=== PATIENT | male | born 1935 | race Caucasian/White ===

== ENCOUNTER 2016-12-28 07:47 | Emergency (ER) | payer MEDICARE, BC ==
[2016-12-28] MEDS ORDERED: Albuterol/Ipratropium 3.0-0.5 MG/3 ML Neb Soln NEB ONE (07:54)
--- NOTE | 2016-12-28 08:36 | EDM.PDOC ---
ED HPI ENT - General Chief Complaint: Fever Stated Complaint: IN BY AMBULANCE Time Seen by Provider: 12/28/16 08:09 Source of Information: Reports: Patient, EMS, EMS notes reviewed, Family (son), Old records, RN notes reviewed History Limitations: Reports: No limitations (arrived by ambulance which the family called) - History of Present Illness INITIAL COMMENTS - FREE TEXT/NARRATIVE: His son and helped him up this morning to urinate at the bed side. A couple hours before he got up to urinate and his son says that his mother told him that he was shaky. 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 He and his were staying at the motel next to [facility] and he had a post-op hemorrhage which stopped and did not need a transfusion. He has done well. New symptoms started during the night . Timing/Duration: Reports: Day(s): (last night), Gradual onset Severity: severe Improves with: Reports: None Worsens with: Reports: None Associated Symptoms: Reports: other (fever started during the night and his says he was fine yesterday. No treatment at home prior to arrival.) - Related Data Allergies/ADRs: Allergies Allergy/AdvReac Type Severity Reaction Status Date / Time No Known Allergies Allergy Verified 06/27/16 21:00 Home Meds: Home Meds Albuterol [Proventil Neb Soln] 2.5 mg NEB QID PRN 10/17/14 [History] Omeprazole 40 mg PO DAILY 10/17/14 [History] Pregabalin [Lyrica] 300 mg PO BID 10/17/14 [History] QuiNINE [Qualaquin] 324 mg PO BID 10/26/14 [History] glipiZIDE [Glucotrol XL] 2.5 mg PO DAILY 10/26/14 [History] Lisinopril 2.5 mg PO DAILY 03/10/15 [History] atorvaSTATin [Lipitor] 10 mg PO BEDTIME MDD Dyslipidemia 03/10/15 [History] Albuterol Sulfate [Proair Hfa] 2 puff INH Q6HR PRN 12/11/15 [History] Ascorbate Calcium [Vitamin C] 500 mg PO DAILY 12/11/15 [History] Levothyroxine 25 mg PO ACBREAKFAST 12/11/15 [History] Lutein/Minerals/Vit A,C & E [Ocuvite] 1 each PO DAILY 12/11/15 [History] Budesonide/Formoterol [Symbicort 160-4.5 MCG] 1 inh IH BID 06/27/16 [History] Ferrous Sulfate [Iron] 325 mg PO DAILY #14 capsule.er 07/02/16 [Rx] Cetirizine [ZyrTEC] 10 mg PO DAILY 12/28/16 [History] traMADol [Ultram] 50 mg PO Q6H PRN 12/28/16 [History] Past Medical History HEENT History: Reports: Cataract, Epistaxis, Other (see below) Other HEENT History: throat tickle that moves up to eye, nose bleeds years ago, not in awhile Cardiovascular History: Reports: Other (see below) Other Cardiovascular History: AAA Respiratory History: Reports: Bronchitis, recurrent, COPD Gastrointestinal History: Reports: GERD, Hemorrhoids Other Gastrointestinal History: got hemorrhoids fixed per pt Musculoskeletal History: Reports: Arthritis, Back pain, chronic Other Musculoskeletal History: arms Neurological History: Reports: None Psychiatric History: Reports: Anxiety Other Psychiatric History: per reports, since Endocrine/Metabolic History: Reports: Diabetes, type II Hematologic History: Reports: None Dermatologic History: Reports: Other (see below) Other Dermatologic History: skin tags - Infectious Disease History Infectious Disease History: Reports: Chicken pox, Measles, Mumps - Past Surgical History HEENT Surgical History: Reports: Cataract surgery Other HEENT Surgeries/Procedures: bilat cataract removal 2006 Cardiovascular Surgical History: Reports: AAA repair Other Cardiovascular Surgeries/Procedures: 01/25/15 Respiratory Surgical History: Reports: None GI Surgical History: Reports: Colonoscopy, EGD Other GI Surgeries/Procedures: both in 2014 Endocrine Surgical History: Reports: None Neurological Surgical History: Reports: Other (see below) Other Neurological Surgeries/Procedures: spine surgery 2003, 2004 Musculoskeletal Surgical History: Reports: Other (see below) Other Musculoskeletal Surgeries/Procedures:: spinal surgery x2 (2003, 2004) Social & Family History - Family History Cardiac: Reports: CAD, Other (see below) Other Cardiac Family History: mother of [place] Other Oncologic Family History: sister? - Tobacco Use Smoking Status *Q: Former Smoker Years of Tobacco use: 50 Packs/Tins Daily: 1 Used Tobacco, but Quit: Yes Month Tobacco Last Used: 1999 Second Hand Smoke Exposure: No - Caffeine Use Caffeine Use: Reports: Coffee, Tea Other Caffeine Use: 3/day - Alcohol Use Days Per Week of Alcohol Use: 7 Number of Drinks Per Day: 2 Total Drinks Per Week: 14 - Recreational Drug Use Recreational Drug Use: No Drug Use in Last 12 Months: No - Living Situation & Occupation Living situation: Reports: , with spouse Occupation: retired ED ROS ENT - Review of Systems Review Of Systems: See Below Constitutional: Reports: fever, fatigue HEENT: Reports: No symptoms Respiratory: Reports: No Symptoms Cardiovascular: Reports: No symptoms Endocrine: Reports: no symptoms GI/Abdominal: Reports: No symptoms : Reports: no symptoms Musculoskeletal: Reports: no symptoms Skin: Reports: no symptoms Neurological: Reports: Difficulty Walking ( says he was fine yesterday and during the night seemed shaky when he was up to urinate) Psychiatric: Reports: No symptoms Hematologic/Lymphatic: Reports: no symptoms Immunologic: Reports: no symptoms ED EXAM, ENT - Physical Exam Exam: See Below Exam Limited By: No limitations General Appearance: alert Eye Exam: right eye: nystagmus Course - Vital Signs Last Recorded V/S: Last Vital Signs Temp 98.2 F 12/28/16 12:44 Pulse 84 12/28/16 12:44 Resp 24 H 12/28/16 12:44 BP 105/58 L 12/28/16 12:44 Pulse Ox 89 L 12/28/16 12:44 - Orders/Labs/Meds Orders: Active Orders 24 hr Category Date Time Status RT Aerosol Therapy [RC] ASDIRECTED Care 12/28/16 07:54 Active Chest 1V Frontal [CR] Urgent Exams 12/28/16 12:05 Taken CULTURE BLOOD [BC] Stat Lab 12/28/16 08:28 Received CULTURE BLOOD [BC] Stat Lab 12/28/16 08:35 Received Azithromycin [Zithromax] 500 mg Med 12/28/16 12:35 Active Sodium Chloride 0.9% [Normal Saline] 250 ml IV ONETIME Sodium Chloride 0.9% [Normal Saline] 1,000 ml Med 12/28/16 08:45 Active IV ASDIRECTED Sodium Chloride 0.9% [Normal Saline] 1,000 ml Med 12/28/16 12:15 Active IV ASDIRECTED Sodium Chloride 0.9% [Normal Saline] 250 ml Med 12/28/16 12:15 Active IV ASDIRECTED Sodium Chloride 0.9% [Saline Flush] Med 12/28/16 08:45 Active 10 ml FLUSH ASDIRECTED PRN Blood Culture x2 Reflex Set [OM.PC] Stat Oth 12/28/16 08:43 Ordered Saline Lock Insert [OM.PC] Routine Oth 12/28/16 08:45 Ordered Medication Orders Sodium Chloride (Normal Saline) 1,000 mls @ 500 mls/hr IV ASDIRECTED MIRANDA Last Admin: 12/28/16 08:59 Dose: 500 mls/hr Sodium Chloride (Normal Saline) 250 mls @ 500 mls/hr IV ASDIRECTED MIRANDA Sodium Chloride (Normal Saline) 1,000 mls @ 500 mls/hr IV ASDIRECTED MIRANDA Last Admin: 12/28/16 12:16 Dose: 500 mls/hr Azithromycin 500 mg/ Sodium (Chloride) 250 mls @ 250 mls/hr IV ONETIME ONE Stop: 12/28/16 13:34 Sodium Chloride (Saline Flush) 10 ml FLUSH ASDIRECTED PRN PRN Reason: Keep Vein Open Last Admin: 12/28/16 09:00 Dose: 10 ml Labs: Laboratory Tests 12/28/16 12/28/16 12/28/16 Range/Units 08:28 08:35 08:35 WBC 16.5 H (5.0-10.0) 10^3/uL RBC 4.16 L (4.6-6.2) 10^6/uL Hgb 13.1 L (14.0-18.0) g/dL Hct 40.8 (40.0-54.0) % MCV 98.1 (80-100) fL MCH 31.5 (27.0-34.0) pg MCHC 32.1 L (33.0-35.0) g/dL Plt Count 190 (150-450) 10^3/uL Neut % (Auto) 85.3 H (42.2-75.2) % Lymph % (Auto) 4.8 L (20.5-50.1) % [place] % (Auto) 8.2 H (2-8) % Eos % (Auto) 0.2 L (1.0-3.0) % Baso % (Auto) 1.5 H (0.0-1.0) % Sodium 142 (135-145) mmol/L Potassium 3.3 L (3.6-5.0) mmol/L Chloride 105 (101-111) mmol/L Carbon Dioxide 29.0 (21.0-31.0) mmol/L Anion Gap 11.3 BUN 11 (7-18) mg/dL Creatinine 1.0 (0.6-1.3) mg/dL Est Cr Clr Drug Dosing 53.25 mL/min Estimated GFR (MDRD) > 60 BUN/Creatinine Ratio 11.00 Glucose 172 H (74-105) mg/dL Lactic Acid 2.1 (0.5-2.2) mmol/L Calcium 8.5 (8.4-10.2) mg/dl Total Bilirubin 1.1 H (0.2-1.0) mg/dL AST 49 H (10-42) IU/L ALT 35 (10-60) IU/L Alkaline Phosphatase 95 (42-121) IU/L Total Protein 6.4 L (6.7-8.2) g/dl Albumin 4.0 (3.2-5.5) g/dl Globulin 2.4 Albumin/Globulin Ratio 1.67 Lipase 33 (22-51) U/L Meds: Medications Generic Name Dose Route Start Last Admin Trade Name Freq PRN Reason Stop Dose Admin Sodium Chloride 1,000 mls @ 500 mls/hr 12/28/16 08:45 12/28/16 08:59 Normal Saline IV 500 mls/hr ASDIRECTED MIRANDA Administration Sodium Chloride 250 mls @ 500 mls/hr 12/28/16 12:15 Normal Saline IV ASDIRECTED MIRANDA Sodium Chloride 1,000 mls @ 500 mls/hr 12/28/16 12:15 12/28/16 12:16 Normal Saline IV 500 mls/hr ASDIRECTED MIRANDA Administration Azithromycin 500 mg/ Sodium 250 mls @ 250 mls/hr 12/28/16 12:35 Chloride IV 12/28/16 13:34 ONETIME ONE Sodium Chloride 10 ml 12/28/16 08:45 12/28/16 09:00 Saline Flush FLUSH 10 ml ASDIRECTED PRN Administration Keep Vein Open Discontinued Medications Generic Name Dose Route Start Last Admin Trade Name Freq PRN Reason Stop Dose Admin Albuterol/Ipratropium 3 ml 12/28/16 07:54 12/28/16 08:00 Duoneb 3.0-0.5 Mg/3 Ml NEB 12/28/16 07:55 3 ml ONETIME ONE Administration Ceftriaxone Sodium 1 gm/ 50 mls @ 100 mls/hr 12/28/16 12:02 12/28/16 12:22 Sodium Chloride IV 12/28/16 12:31 100 mls/hr ONETIME ONE Administration Iopamidol 75 ml 12/28/16 10:20 12/28/16 11:07 Isovue-300 (61%) IVPUSH 12/28/16 10:21 75 ml ONETIME ONE Administration - Re-Assessments/Exams Free Text/Narrative Re-Assessment/Exam: 12/28/16 12:49 Receiving one gram of IV ceftriaxone. Discussed with hospitalist here and transfer was suggested. I call [facility] and spoke with Dr Cordero who agreed to take the patient in transfer. [facility] called. Plan transfer to ICU. Pulse has decreased after one liter of saline and another is running. When ceftriaxone is completed then would add azithromycin 500 mg . Departure - Departure Time of Disposition: 12:53 Disposition: DC/Tfer to [facility] 02 Clinical Impression: Sepsis Pneumonia Qualifiers: Laterality: left Lung location: lower lobe of lung Referrals: Antonieta Sevilla PA [Primary Care Provider] - Forms: ED Department Discharge, Interfacility Transfer EMTALA - My Orders Last 24 Hours: My Active Orders 12/28/16 07:54 RT Aerosol Therapy [RC] ASDIRECTED 12/28/16 08:28 CULTURE BLOOD [BC] Stat 12/28/16 08:35 CULTURE BLOOD [BC] Stat 12/28/16 08:43 Blood Culture x2 Reflex Set [OM.PC] Stat 12/28/16 08:45 Sodium Chloride 0.9% [Normal Saline] 1,000 ml IV ASDIRECTED Sodium Chloride 0.9% [Saline Flush] 10 ml FLUSH ASDIRECTED PRN Saline Lock Insert [OM.PC] Routine 12/28/16 12:05 Chest 1V Frontal [CR] Urgent 12/28/16 12:15 Sodium Chloride 0.9% [Normal Saline] 1,000 ml IV ASDIRECTED Sodium Chloride 0.9% [Normal Saline] 250 ml IV ASDIRECTED 12/28/16 12:35 Azithromycin [Zithromax] 500 mg Sodium Chloride 0.9% [Normal Saline] 250 ml IV ONETIME - Assessment/Plan Last 24 Hours: My Active Orders 12/28/16 07:54 RT Aerosol Therapy [RC] ASDIRECTED 12/28/16 08:28 CULTURE BLOOD [BC] Stat 12/28/16 08:35 CULTURE BLOOD [BC] Stat 12/28/16 08:43 Blood Culture x2 Reflex Set [OM.PC] Stat 12/28/16 08:45 Sodium Chloride 0.9% [Normal Saline] 1,000 ml IV ASDIRECTED Sodium Chloride 0.9% [Saline Flush] 10 ml FLUSH ASDIRECTED PRN Saline Lock Insert [OM.PC] Routine 12/28/16 12:05 Chest 1V Frontal [CR] Urgent 12/28/16 12:15 Sodium Chloride 0.9% [Normal Saline] 1,000 ml IV ASDIRECTED Sodium Chloride 0.9% [Normal Saline] 250 ml IV ASDIRECTED 12/28/16 12:35 Azithromycin [Zithromax] 500 mg Sodium Chloride 0.9% [Normal Saline] 250 ml IV ONETIME
[2016-12-28] MEDS ORDERED: Sodium Chloride 0.9% 10 ML Syringe FLUSH PRN (08:45)
[2016-12-28] MEDS ORDERED: Sodium Chloride 0.9% 1,000 ML IV SCH ×2 (08:45→12:15)
[2016-12-28 09:03] LABS: CHLORIDE,CL 105 mmol/L (101-111); SODIUM,NA 142 mmol/L (135-145)
[2016-12-28] MEDS ORDERED: Iopamidol 612 MG/ML 75 ML Bottle IVPUSH ONE (10:20)
--- NOTE | 2016-12-28 11:14 | CT ---
Clinical history: 81-year-old hypertensive 195 pound diabetic male who is clinically septic (wbc 16, 000 and had recent "polyp biopsied small intestine at [facility]"). Appendectomy. Scan technique: Volume acquisition of data from the abdomen and pelvis obtained without oral contras t but during intravenous infusion 75 cc nonionic Isovue contrast while patient was lying supine on t he Siemens multi slice CT scanner [place], [place]. All data archived in the PACS system for storage, reformatting and study. Interpretation: 1. Aortoiliac graft as noted (unchanged) exam 19 August 2016. 2. No pelvic or abdominal mass lesion, inflammatory "dirty" peritoneal fat, mesenteric/retroperitone al lymphadenopathy, signs of mechanical bowel obstruction, ascites or free intraperitoneal air (harmeet ral scattered diverticula sigmoid colon). 3. Gallbladder is normal but apparent stent in the extrahepatic biliary duct and pancreas new since August 2016. Large fatty liver. Spleen pancreas and adrenal glands unremarkable. 4. Huge hiatus hernia lower middle mediastinum. 5. Normal reniform size axis and configuration bilaterally. No sign of renal cortical mass, nephroli thiasis or obstructive uropathy. Midline urinary bladder and prostate land unremarkable. 6. Multilevel lower lumbar disc disease and hypertrophic arthritic changes of the spine. 7. Small dependent bibasilar pleural effusions and.... patchy posterior segment left lower lobe atel ectasis or pneumonia. Clinical? CONCLUSION: Abnormal consolidation left lower lobe (see above). Sigmoid diverticulosis. Hepatobiliar y and aorta iliac stents. No signs of mechanical bowel obstruction or acute peritonitis.
[2016-12-28] MEDS ORDERED: cefTRIAXone 1 GM in Sodium Chloride 0.9% 50 ML IV ONE (12:02)
[2016-12-28] MEDS ORDERED: Sodium Chloride 0.9% 250 ML IV SCH (12:15)
[2016-12-28] MEDS ORDERED: Azithromycin 500 MG in Sodium Chloride 0.9% 250 ML IV ONE (12:35)
[2016-12-28 12:45] VITALS: BP 105/58
== END 2016-12-28 13:30 ==
LOC: DL.ED 07:47
DX: R41.9 Unspecified symptoms and signs involving cognitive functions and awareness (principal); J18.9 Pneumonia, unspecified organism; I71.4 Abdominal aortic aneurysm, without rupture; J44.9 Chronic obstructive pulmonary disease, unspecified; K21.9 Gastro-esophageal reflux disease without esophagitis; M19.90 Unspecified osteoarthritis, unspecified site; F41.9 Anxiety disorder, unspecified; E11.9 Type 2 diabetes mellitus without complications; Z79.84 Long term (current) use of oral hypoglycemic drugs; Z79.899 Other long term (current) drug therapy; Z87.891 Personal history of nicotine dependence
CPT/HCPCS: 36415; 71010; 74177; 80053; 83605; 83690; 85025; 87040; 94640; 96361; 96365; 96375; 99285; J0456; J0696; J7030; J7050; Q9967; 99283

== ENCOUNTER 2017-03-15 00:08 | Emergency (ER) | payer MEDICARE, BC ==
--- NOTE | 2017-03-15 00:32 | EDM.PDOC ---
ED HPI GENERAL MEDICAL PROBLEM - General Chief Complaint: Abdominal Pain Stated Complaint: BY AMBULANCE Time Seen by Provider: 03/15/17 00:30 Source of Information: Reports: Patient History Limitations: Reports: No Limitations - History of Present Illness INITIAL COMMENTS - FREE TEXT/NARRATIVE: c/o abd pain and needs to have BM now. s/p BM states feels better. also been having fever. states pain onset afternoon after eating but unable to tell what he ate, not sure if pain was constant or not. denies V/D. Epigastric Pain Score (Numeric/FACES): 6 - Related Data Allergies Allergy/AdvReac Type Severity Reaction Status Date / Time No Known Allergies Allergy Verified 03/15/17 00:40 Home Meds: Home Meds Albuterol [Proventil Neb Soln] 2.5 mg NEB QID PRN 10/17/14 [History] Omeprazole 40 mg PO DAILY 10/17/14 [History] Pregabalin [Lyrica] 300 mg PO BID 10/17/14 [History] QuiNINE [Qualaquin] 324 mg PO BID 10/26/14 [History] glipiZIDE [Glucotrol XL] 2.5 mg PO DAILY 10/26/14 [History] Lisinopril 2.5 mg PO DAILY 03/10/15 [History] atorvaSTATin [Lipitor] 10 mg PO BEDTIME MDD Dyslipidemia 03/10/15 [History] Albuterol Sulfate [Proair Hfa] 2 puff INH Q6HR PRN 12/11/15 [History] Ascorbate Calcium [Vitamin C] 500 mg PO DAILY 12/11/15 [History] Levothyroxine 25 mg PO ACBREAKFAST 12/11/15 [History] Lutein/Minerals/Vit A,C & E [Ocuvite] 1 each PO DAILY 12/11/15 [History] Budesonide/Formoterol [Symbicort 160-4.5 MCG] 1 inh IH BID 06/27/16 [History] Ferrous Sulfate [Iron] 325 mg PO DAILY #14 capsule.er 07/02/16 [Rx] Cetirizine [ZyrTEC] 10 mg PO DAILY 12/28/16 [History] traMADol [Ultram] 50 mg PO Q6H PRN 12/28/16 [History] Past Medical History HEENT History: Reports: Cataract, Epistaxis, Other (See Below) Other HEENT History: throat tickle that moves up to eye, nose bleeds years ago, not in awhile Cardiovascular History: Reports: Other (See Below) Other Cardiovascular History: AAA Respiratory History: Reports: Bronchitis, Recurrent, COPD Gastrointestinal History: Reports: GERD, Hemorrhoids Other Gastrointestinal History: got hemorrhoids fixed per pt Musculoskeletal History: Reports: Arthritis, Back Pain, Chronic Other Musculoskeletal History: arms Neurological History: Reports: None Psychiatric History: Reports: Anxiety Other Psychiatric History: per reports, since Endocrine/Metabolic History: Reports: Diabetes, Type II Hematologic History: Reports: None Dermatologic History: Reports: Other (See Below) Other Dermatologic History: skin tags - Infectious Disease History Infectious Disease History: Reports: Chicken Pox, Measles, Mumps - Past Surgical History HEENT Surgical History: Reports: Cataract Surgery Neurological Surgical History: Reports: Other (See Below) Musculoskeletal Surgical History: Reports: Other (See Below) Social & Family History - Family History Cardiac: Reports: CAD, Other (See Below) Other Cardiac Family History: mother of [place] Other Oncologic Family History: sister? - Tobacco Use Smoking Status *Q: Former Smoker Years of Tobacco use: 50 Packs/Tins Daily: 1 Used Tobacco, but Quit: Yes Month Tobacco Last Used: 1999 Second Hand Smoke Exposure: No - Caffeine Use Caffeine Use: Reports: Coffee, Tea Other Caffeine Use: 3/day - Alcohol Use Days Per Week of Alcohol Use: 7 Number of Drinks Per Day: 2 Total Drinks Per Week: 14 - Recreational Drug Use Recreational Drug Use: No Drug Use in Last 12 Months: No - Living Situation & Occupation Living situation: Reports: , with Spouse Occupation: Retired ED ROS GENERAL - Review of Systems Review Of Systems: ROS reveals no pertinent complaints other than HPI. ED EXAM, GI/ABD - Physical Exam Exam: See Below Exam Limited By: No Limitations General Appearance: Alert, WD/WN, Mild Distress, Other (general discomfort) Ears: Hearing Grossly Normal Throat/Mouth: Normal Voice, No Airway Compromise Head: Atraumatic Neck: Non-Tender, Full Range of Motion Respiratory/Chest: No Respiratory Distress, Rhonchi, Other (basilar) Cardiovascular: Regular Rate, Rhythm GI/Abdominal: Hyperactive Bowel Sounds, Tenderness, Guarding, Other (generalized ). No: Rebound, Rigidity Neurological: Alert, Oriented, Normal Cognition, Normal Gait, No Motor/Sensory Deficits Psychiatric: Flat Affect Skin Exam: Warm, Dry Lymphatic: No Adenopathy Course - Vital Signs Last Recorded V/S: Last Vital Signs Temp 37.9 C 03/15/17 02:52 Pulse 104 H 03/15/17 02:52 Resp 24 H 03/15/17 02:52 BP 115/56 L 03/15/17 02:52 Pulse Ox 90 L 03/15/17 02:52 - Orders/Labs/Meds Orders: Active Orders 24 hr Category Date Time Status CULTURE BLOOD [BC] Stat Lab 03/15/17 00:30 Received Piperacillin/Tazobactam [Zosyn] 4.5 gm Med 03/15/17 03:52 Ordered Sodium Chloride 0.9% [Normal Saline] 50 ml IV ONETIME Labs: Laboratory Tests 03/15/17 03/15/17 03/15/17 Range/Units 00:30 00:30 00:30 WBC 8.0 (5.0-10.0) 10^3/uL RBC 5.42 (4.6-6.2) 10^6/uL Hgb 16.5 (14.0-18.0) g/dL Hct 50.0 (40.0-54.0) % MCV 92.3 (80-100) fL MCH 30.4 (27.0-34.0) pg MCHC 33.0 (33.0-35.0) g/dL Plt Count 153 (150-450) 10^3/uL Neut % (Auto) 82.9 H (42.2-75.2) % Lymph % (Auto) 5.5 L (20.5-50.1) % [place] % (Auto) 8.9 H (2-8) % Eos % (Auto) 0.5 L (1.0-3.0) % Baso % (Auto) 2.2 H (0.0-1.0) % Sodium 140 (135-145) mmol/L Potassium 3.5 L (3.6-5.0) mmol/L Chloride 102 (101-111) mmol/L Carbon Dioxide 26.0 (21.0-31.0) mmol/L Anion Gap 15.5 BUN 15 (7-18) mg/dL Creatinine 1.0 (0.6-1.3) mg/dL Est Cr Clr Drug Dosing 58.95 mL/min Estimated GFR (MDRD) > 60 BUN/Creatinine Ratio 15.00 Glucose 205 H (74-105) mg/dL Lactic Acid 1.8 (0.5-2.2) mmol/L Calcium 9.0 (8.4-10.2) mg/dl Total Bilirubin 2.0 H (0.2-1.0) mg/dL AST 495 H (10-42) IU/L ALT 318 H (10-60) IU/L Alkaline Phosphatase 281 H (42-121) IU/L Total Protein 7.3 (6.7-8.2) g/dl Albumin 4.0 (3.2-5.5) g/dl Globulin 3.3 Albumin/Globulin Ratio 1.21 Amylase 19 L (28-100) U/L Lipase 19 L (22-51) U/L Urine Color (YELLOW) Urine Appearance (CLEAR) Urine pH (5.0-9.0) Ur Specific [place] (1.005-1.030) Urine Protein (NEGATIVE) Urine Glucose (UA) (NEGATIVE) Urine Ketones (NEGATIVE) Urine Occult Blood (NEGATIVE) Urine Nitrite (NEGATIVE) Urine Bilirubin (NEGATIVE) Urine Urobilinogen (0.2-1.0) mg/dL Ur Leukocyte Esterase (NEGATIVE) Urine RBC /HPF Urine WBC (0-5/HPF) /HPF Ur Epithelial Cells /HPF Urine Bacteria (0-FEW/HPF) /HPF Ethyl Alcohol mg/dL 03/15/17 03/15/17 Range/Units 00:30 02:48 WBC (5.0-10.0) 10^3/uL RBC (4.6-6.2) 10^6/uL Hgb (14.0-18.0) g/dL Hct (40.0-54.0) % MCV (80-100) fL MCH (27.0-34.0) pg MCHC (33.0-35.0) g/dL Plt Count (150-450) 10^3/uL Neut % (Auto) (42.2-75.2) % Lymph % (Auto) (20.5-50.1) % [place] % (Auto) (2-8) % Eos % (Auto) (1.0-3.0) % Baso % (Auto) (0.0-1.0) % Sodium (135-145) mmol/L Potassium (3.6-5.0) mmol/L Chloride (101-111) mmol/L Carbon Dioxide (21.0-31.0) mmol/L Anion Gap BUN (7-18) mg/dL Creatinine (0.6-1.3) mg/dL Est Cr Clr Drug Dosing mL/min Estimated GFR (MDRD) BUN/Creatinine Ratio Glucose (74-105) mg/dL Lactic Acid (0.5-2.2) mmol/L Calcium (8.4-10.2) mg/dl Total Bilirubin (0.2-1.0) mg/dL AST (10-42) IU/L ALT (10-60) IU/L Alkaline Phosphatase (42-121) IU/L Total Protein (6.7-8.2) g/dl Albumin (3.2-5.5) g/dl Globulin Albumin/Globulin Ratio Amylase (28-100) U/L Lipase (22-51) U/L Urine Color [place] (YELLOW) Urine Appearance Cloudy (CLEAR) Urine pH 7.0 (5.0-9.0) Ur Specific [place] 1.010 (1.005-1.030) Urine Protein Negative (NEGATIVE) Urine Glucose (UA) Negative (NEGATIVE) Urine Ketones Negative (NEGATIVE) Urine Occult Blood Large H (NEGATIVE) Urine Nitrite Negative (NEGATIVE) Urine Bilirubin Small H (NEGATIVE) Urine Urobilinogen 4.0 H (0.2-1.0) mg/dL Ur Leukocyte Esterase Negative (NEGATIVE) Urine RBC Semi-packed H /HPF Urine WBC 0-5 (0-5/HPF) /HPF Ur Epithelial Cells Few /HPF Urine Bacteria Few (0-FEW/HPF) /HPF Ethyl Alcohol < 5 mg/dL Meds: Medications Discontinued Medications Generic Name Dose Route Start Last Admin Trade Name Freq PRN Reason Stop Dose Admin Acetaminophen 325 mg 03/15/17 00:50 03/15/17 00:55 Tylenol PO 03/15/17 00:51 325 mg NOW ONE Administration Iopamidol 100 ml 03/15/17 00:43 03/15/17 00:54 Isovue-300 (61%) IVPUSH 03/15/17 00:44 100 ml ONETIME ONE Administration Lorazepam 1 mg 03/15/17 03:28 03/15/17 03:39 Ativan IVPUSH 03/15/17 03:29 1 mg ONETIME ONE Administration - Re-Assessments/Exams Free Text/Narrative Re-Assessment/Exam: 03/15/17 03:[address] Hand @ [facility] who kindly accepted Pt Departure - Departure Time of Disposition: 03:53 Disposition: DC/Tfer to [facility] 02 Condition: Good Clinical Impression: Cholangitis, Intrahepatic bile duct dilation Abdominal pain Qualifiers: Abdominal location: periumbilical Qualified Code(s): R10.33 - Periumbilical pain - Discharge Information Forms: Interfacility Transfer EMTALA - My Orders Last 24 Hours: My Active Orders 03/15/17 00:30 CULTURE BLOOD [BC] Stat 03/15/17 03:52 Piperacillin/Tazobactam [Zosyn] 4.5 gm Sodium Chloride 0.9% [Normal Saline] 50 ml IV ONETIME - Assessment/Plan Last 24 Hours: My Active Orders 03/15/17 00:30 CULTURE BLOOD [BC] Stat 03/15/17 03:52 Piperacillin/Tazobactam [Zosyn] 4.5 gm Sodium Chloride 0.9% [Normal Saline] 50 ml IV ONETIME
[2017-03-15] MEDS ORDERED: Iopamidol 612 MG/ML 100 ML Bottle IVPUSH ONE (00:43)
[2017-03-15] MEDS ORDERED: Acetaminophen 325 MG Tab PO ONE (00:50)
[2017-03-15 01:02] LABS: CHLORIDE,CL 102 mmol/L (101-111); SODIUM,NA 140 mmol/L (135-145)
[2017-03-15] MEDS ORDERED: LORazepam 2 MG/ML Syringe IVPUSH ONE (03:28)
[2017-03-15] MEDS ORDERED: Piperacillin/Tazobactam 4.5 GM in Sodium Chloride 0.9% 50 ML IV ONE (03:52)
[2017-03-15 04:14] VITALS: BP 104/40
== END 2017-03-15 04:28 ==
LOC: DL.ED 00:08
DX: K83.0 Cholangitis (principal); J44.9 Chronic obstructive pulmonary disease, unspecified; K21.9 Gastro-esophageal reflux disease without esophagitis; M19.90 Unspecified osteoarthritis, unspecified site; E11.9 Type 2 diabetes mellitus without complications; F41.9 Anxiety disorder, unspecified; Z98.49 Cataract extraction status, unspecified eye; Z79.899 Other long term (current) drug therapy; Z79.84 Long term (current) use of oral hypoglycemic drugs; Z87.891 Personal history of nicotine dependence
CPT/HCPCS: 36415; 71010; 74177; 80053; 81001; 82150; 83605; 83690; 85025; 87040; 96365; 96375; 99285; A9270; G0480; J2060; J2543; J7050; Q9967

== ENCOUNTER 2019-01-02 08:12 | Inpatient (IN) | payer MEDICARE, BC ==
[2019-01-02] MEDS ORDERED: methylPREDNISolone Sodium Succinate 125 MG/2 ML SDV IVPUSH ONE (08:24)
[2019-01-02] MEDS ORDERED: Albuterol/Ipratropium 3.0-0.5 MG/3 ML Neb Soln NEB ONE ×2 (08:24→08:47)
--- NOTE | 2019-01-02 08:24 | EDM.PDOC ---
ED HPI GENERAL MEDICAL PROBLEM - General Chief Complaint: Respiratory Problem Stated Complaint: COUGH, FEVER, VERY WEAK Time Seen by Provider: 01/02/19 08:24 Source of Information: Reports: Patient, Family, Old Records, RN, RN Notes Reviewed History Limitations: Reports: No Limitations - History of Present Illness INITIAL COMMENTS - FREE TEXT/NARRATIVE: Pt presents to ER from home by POV with c/o cough, shortness of breath, and fever. Pt began feeling ill about 3 days ago. He has Hx of COPD and is oxygen dependent on 2.5L at home. He denies chest pain, edema, N/V, or abdominal pain. 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 Treatments, Other Medication(s) - Related Data Allergies Allergy/AdvReac Type Severity Reaction Status Date / Time No Known Allergies Allergy Verified 01/02/19 08:28 Home Meds: Home Meds Albuterol [Proventil Neb Soln] 2.5 mg NEB QID PRN 10/17/14 [History] Omeprazole 40 mg PO DAILY 10/17/14 [History] Pregabalin [Lyrica] 300 mg PO BID 10/17/14 [History] QuiNINE [Qualaquin] 324 mg PO BID 10/26/14 [History] glipiZIDE [Glucotrol XL] 10 mg PO BID 10/26/14 [History] atorvaSTATin [Lipitor] 10 mg PO BEDTIME MDD Dyslipidemia 03/10/15 [History] Albuterol Sulfate [Proair Hfa] 2 puff INH Q6HR PRN 12/11/15 [History] Ascorbate Calcium [Vitamin C] 250 mg PO BID 12/11/15 [History] Levothyroxine 25 mg PO ACBREAKFAST 12/11/15 [History] Lutein/Minerals/Vit A,C & E [Ocuvite] 1 each PO DAILY 12/11/15 [History] Budesonide/Formoterol [Symbicort 160-4.5 MCG] 1 inh IH BID 06/27/16 [History] Ferrous Sulfate [Iron] 325 mg PO DAILY #14 capsule.er 07/02/16 [Rx] Cetirizine [ZyrTEC] 10 mg PO DAILY 12/28/16 [History] metFORMIN [Glucophage] 1,000 mg PO BID 01/02/19 [History] Past Medical History HEENT History: Reports: Cataract, Epistaxis, Other (See Below) Other HEENT History: throat tickle that moves up to eye, nose bleeds years ago, not in awhile Cardiovascular History: Reports: Other (See Below) Other Cardiovascular History: AAA Respiratory History: Reports: Bronchitis, Recurrent, COPD Gastrointestinal History: Reports: GERD, Hemorrhoids, Other (See Below) ( Biliary obstruction, Cholangitis) Other Gastrointestinal History: got hemorrhoids fixed per pt Musculoskeletal History: Reports: Arthritis, Back Pain, Chronic Other Musculoskeletal History: arms Neurological History: Reports: None Psychiatric History: Reports: Anxiety Other Psychiatric History: per reports, since Endocrine/Metabolic History: Reports: Diabetes, Type II, Hypothyroidism Hematologic History: Reports: Anemia, Blood Transfusion(s) Dermatologic History: Reports: Other (See Below) Other Dermatologic History: skin tags - Infectious Disease History Infectious Disease History: Reports: Chicken Pox, Measles, Mumps - Past Surgical History Cardiovascular Surgical History: Reports: AAA Repair Social & Family History - Family History Cardiac: Reports: CAD, Other (See Below) Other Cardiac Family History: mother of [place] Other Oncologic Family History: sister? - Tobacco Use Smoking Status *Q: Former Smoker Tobacco Use Within Last Twelve Months: Cigarettes Years of Tobacco use: 50 Second Hand Smoke Exposure: No - Caffeine Use Caffeine Use: Reports: Coffee, Tea Other Caffeine Use: 3/day - Living Situation & Occupation Living situation: Reports: , with Spouse Occupation: Retired ED ROS GENERAL - Review of Systems Review Of Systems: ROS reveals no pertinent complaints other than HPI. ED EXAM, GENERAL - Physical Exam Exam: See Below Exam Limited By: No Limitations General Appearance: Alert, Mild Distress, Other (Chronically ill but non-toxic appearing) Eye Exam: Bilateral Eye: Normal Inspection Nose: Normal Inspection, Normal Mucosa, No Blood Throat/Mouth: Normal Lips, Normal Oropharynx, Normal Voice, No Airway Compromise , Other (Dry oral membranes) Head: Atraumatic, Normocephalic Neck: Normal Inspection, Supple, Non-Tender, Full Range of Motion. No: Lymphadenopathy (L), Lymphadenopathy (R) Respiratory/Chest: No Respiratory Distress, No Accessory Muscle Use, Chest Non- Tender, Decreased Breath Sounds, Crackles, Rhonchi (Rt), Wheezing. No: Rales, Stridor Cardiovascular: Regular Rate, Rhythm, No Edema, No JVD GI/Abdominal: Normal Bowel Sounds, Soft, No Organomegaly, No Distention, Tender (mild at RUQ and Epigastric region). No: Guarding, Rigid, Rebound (Male) Exam: Deferred Rectal (Males) Exam: Deferred Back Exam: Normal Inspection, Full Range of Motion. No: CVA Tenderness (L), CVA Tenderness (R) Extremities: Normal Inspection, Normal Range of Motion, Non-Tender, Normal Capillary Refill, No Pedal Edema Neurological: Alert, Oriented, CN II-XII Intact, Normal Cognition, Normal Gait, No Motor/Sensory Deficits, Other (Generalized weakness) Psychiatric: Normal Affect, Normal Mood Skin Exam: Warm, Dry, Intact, Normal Color, No Rash Course - Vital Signs Last Recorded V/S: Last Vital Signs Temp 38.8 C H 01/02/19 08:50 Pulse 115 H 01/02/19 08:50 Resp 25 H 01/02/19 08:50 BP 106/66 01/02/19 08:50 Pulse Ox 88 L 01/02/19 08:50 - Orders/Labs/Meds Orders: Active Orders 24 hr Category Date Time Status Blood Glucose Check, Bedside [RC] ONETIME Care 01/02/19 08:25 Active Peripheral IV Care [RC] . DIRECTED Care 01/02/19 08:26 Active RT Aerosol Therapy [RC] ASDIRECTED Care 01/02/19 08:24 Active RT Aerosol Therapy [RC] ASDIRECTED Care 01/02/19 08:47 Active Chest 1V Frontal [CR] Stat Exams 01/02/19 08:26 Taken ABG [BLOOD GAS ARTERIAL] [BG] Stat Lab 01/02/19 09:14 Ordered CULTURE BLOOD [BC] Stat Lab 01/02/19 08:31 Received CULTURE BLOOD [BC] Stat Lab 01/02/19 08:31 Received UA RFX KASSIDY AND CULT IF INDIC [URIN] Stat Lab 01/02/19 08:26 Ordered Sodium Chloride 0.9% [Saline Flush] Med 01/02/19 08:25 Active 10 ml FLUSH ASDIRECTED PRN Blood Culture x2 Reflex Set [OM.PC] Stat Oth 01/02/19 08:25 Ordered Peripheral IV Insertion Adult [OM.PC] Stat Ot 01/02/19 08:25 Ordered Medication Orders Sodium Chloride (Saline Flush) 10 ml FLUSH ASDIRECTED PRN PRN Reason: Keep Vein Open Last Admin: 01/02/19 08:32 Dose: 10 ml Labs: Laboratory Tests 01/02/19 01/02/19 01/02/19 Range/Units 08:31 08:31 08:31 WBC 15.7 H (5.0-10.0) 10^3/uL RBC 4.88 (4.6-6.2) 10^6/uL Hgb 16.0 (14.0-18.0) g/dL Hct 48.2 (40.0-54.0) % MCV 98.8 D (80-100) fL MCH 32.8 (27.0-34.0) pg MCHC 33.2 (33.0-35.0) g/dL Plt Count 201 (150-450) 10^3/uL Neut % (Auto) 83.4 H (42.2-75.2) % Lymph % (Auto) 5.8 L (20.5-50.1) % Charlton % (Auto) 8.6 H (2-8) % Eos % (Auto) 0.4 L (1.0-3.0) % Baso % (Auto) 1.8 H (0.0-1.0) % Add Manual Diff Yes Neutrophils % (Manual) 67 (42-75) % Band Neutrophils % 16 % Lymphocytes % (Manual) 6 L (20-50) % Monocytes % (Manual) 8 (2-8) % Eosinophils % (Manual) 1 (1-3) % Basophils % (Manual) 2 Sodium 137 (135-145) mmol/L Potassium 3.6 (3.6-5.0) mmol/L Chloride 99 L (101-111) mmol/L Carbon Dioxide 26.0 (21.0-31.0) mmol/L Anion Gap 15.6 BUN 16 (7-18) mg/dL Creatinine 0.9 (0.6-1.3) mg/dL Est Cr Clr Drug Dosing TNP Estimated GFR (MDRD) > 60 BUN/Creatinine Ratio 17.77 Glucose 145 H (74-105) mg/dL POC Glucose (83-110) mg/dl Lactic Acid 1.9 (0.5-2.2) mmol/L Calcium 8.8 (8.4-10.2) mg/dl Total Bilirubin 1.5 H (0.2-1.0) mg/dL AST 42 (10-42) IU/L ALT 36 (10-60) IU/L Alkaline Phosphatase 84 (42-121) IU/L Troponin I < 0.02 (0.00-0.02) ng/ml B-Natriuretic Peptide 21 (0-100) pg/ml Total Protein 6.9 (6.7-8.2) g/dl Albumin 4.1 (3.2-5.5) g/dl Globulin 2.8 Albumin/Globulin Ratio 1.46 Amylase 33 (28-100) U/L Lipase 19 L (22-51) U/L 01/02/19 Range/Units 08:41 WBC (5.0-10.0) 10^3/uL RBC (4.6-6.2) 10^6/uL Hgb (14.0-18.0) g/dL Hct (40.0-54.0) % MCV (80-100) fL MCH (27.0-34.0) pg MCHC (33.0-35.0) g/dL Plt Count (150-450) 10^3/uL Neut % (Auto) (42.2-75.2) % Lymph % (Auto) (20.5-50.1) % Charlton % (Auto) (2-8) % Eos % (Auto) (1.0-3.0) % Baso % (Auto) (0.0-1.0) % Add Manual Diff Neutrophils % (Manual) (42-75) % Band Neutrophils % % Lymphocytes % (Manual) (20-50) % Monocytes % (Manual) (2-8) % Eosinophils % (Manual) (1-3) % Basophils % (Manual) Sodium (135-145) mmol/L Potassium (3.6-5.0) mmol/L Chloride (101-111) mmol/L Carbon Dioxide (21.0-31.0) mmol/L Anion Gap BUN (7-18) mg/dL Creatinine (0.6-1.3) mg/dL Est Cr Clr Drug Dosing Estimated GFR (MDRD) BUN/Creatinine Ratio Glucose (74-105) mg/dL POC Glucose 128 H (83-110) mg/dl Lactic Acid (0.5-2.2) mmol/L Calcium (8.4-10.2) mg/dl Total Bilirubin (0.2-1.0) mg/dL AST (10-42) IU/L ALT (10-60) IU/L Alkaline Phosphatase (42-121) IU/L Troponin I (0.00-0.02) ng/ml B-Natriuretic Peptide (0-100) pg/ml Total Protein (6.7-8.2) g/dl Albumin (3.2-5.5) g/dl Globulin Albumin/Globulin Ratio Amylase (28-100) U/L Lipase (22-51) U/L Meds: Medications Generic Name Dose Route Start Last Admin Trade Name Freq PRN Reason Stop Dose Admin Sodium Chloride 10 ml 01/02/19 08:25 01/02/19 08:32 Saline Flush FLUSH 10 ml ASDIRECTED PRN Administration Keep Vein Open Discontinued Medications Generic Name Dose Route Start Last Admin Trade Name Freq PRN Reason Stop Dose Admin Acetaminophen 650 mg 01/02/19 08:52 01/02/19 09:00 Tylenol PO 01/02/19 08:53 650 mg NOW ONE Administration Albuterol/Ipratropium 3 ml 01/02/19 08:24 01/02/19 08:32 Duoneb 3.0-0.5 Mg/3 Ml NEB 01/02/19 08:25 3 ml ONETIME ONE Administration Albuterol/Ipratropium 3 ml 01/02/19 08:47 01/02/19 09:03 Duoneb 3.0-0.5 Mg/3 Ml NEB 01/02/19 08:48 3 ml ONETIME ONE Administration Ceftriaxone Sodium Confirm 01/02/19 09:02 01/02/19 09:16 Rocephin Administered 01/02/19 09:03 Not Given Dose 2 gm .ROUTE .STK-MED ONE Levofloxacin/Dextrose 750 mg/ 150 mls @ 100 mls/hr 01/02/19 08:53 01/02/19 09 :16 Premix IV 01/02/19 10:22 Not Given ONETIME ONE Ceftriaxone Sodium 2 gm/ 100 mls @ 200 mls/hr 01/02/19 08:56 01/02/19 09:15 Sodium Chloride IV 01/02/19 09:25 200 mls/hr ONETIME ONE Administration Sodium Chloride 1,000 mls @ 999 mls/hr 01/02/19 08:56 01/02/19 09:12 Normal Saline IV 01/02/19 09:56 999 mls/hr .BOLUS ONE Administration Methylprednisolone Sodium Succinate 125 mg 01/02/19 08:24 01/02/19 08:32 Solu-Medrol IVPUSH 01/02/19 08:25 125 mg ONETIME ONE Administration - Radiology Interpretation Free Text/Narrative:: Chest XR: Bibasilar infiltrates, chronic appearing COPD, see Rad. report. Departure - Departure Time of Disposition: 10:04 (admitted to Dr. Jama) Disposition: Admitted As Inpatient 65 Condition: Serious Clinical Impression: Acute exacerbation of chronic obstructive pulmonary disease (COPD) Acute and chronic respiratory failure ([id number]) Qualifiers: Respiratory failure complication: hypoxia and hypercapnia Qualified Code(s): J96.21 - Acute and chronic respiratory failure with hypoxia; J96.22 - Acute and chronic respiratory failure with hypercapnia Pneumonia Qualifiers: Pneumonia type: due to unspecified organism Laterality: bilateral Lung location : lower lobe of lung Qualified Code(s): J18.1 - Lobar pneumonia, unspecified organism - Discharge Information *PRESCRIPTION DRUG MONITORING PROGRAM REVIEWED*: Not Applicable *COPY OF PRESCRIPTION DRUG MONITORING REPORT IN PATIENT JULIANNA: Not Applicable Referrals: PCP,None [Primary Care Provider] - Forms: ED Department Discharge - My Orders Last 24 Hours: My Active Orders 01/02/19 08:24 RT Aerosol Therapy [RC] ASDIRECTED 01/02/19 08:25 Blood Glucose Check, Bedside [RC] ONETIME Sodium Chloride 0.9% [Saline Flush] 10 ml FLUSH ASDIRECTED PRN Blood Culture x2 Reflex Set [OM.PC] Stat Peripheral IV Insertion Adult [OM.PC] Stat 01/02/19 08:26 Peripheral IV Care [RC] . DIRECTED Chest 1V Frontal [CR] Stat UA RFX KASSIDY AND CULT IF INDIC [URIN] Stat 01/02/19 08:31 CULTURE BLOOD [BC] Stat CULTURE BLOOD [BC] Stat 01/02/19 08:47 RT Aerosol Therapy [RC] ASDIRECTED 01/02/19 09:14 ABG [BLOOD GAS ARTERIAL] [BG] Stat - Assessment/Plan Last 24 Hours: My Active Orders 01/02/19 08:24 RT Aerosol Therapy [RC] ASDIRECTED 01/02/19 08:25 Blood Glucose Check, Bedside [RC] ONETIME Sodium Chloride 0.9% [Saline Flush] 10 ml FLUSH ASDIRECTED PRN Blood Culture x2 Reflex Set [OM.PC] Stat Peripheral IV Insertion Adult [OM.PC] Stat 01/02/19 08:26 Peripheral IV Care [RC] . DIRECTED Chest 1V Frontal [CR] Stat UA RFX KASSIDY AND CULT IF INDIC [URIN] Stat 01/02/19 08:31 CULTURE BLOOD [BC] Stat CULTURE BLOOD [BC] Stat 01/02/19 08:47 RT Aerosol Therapy [RC] ASDIRECTED 01/02/19 09:14 ABG [BLOOD GAS ARTERIAL] [BG] Stat
[2019-01-02] MEDS: Sodium Chloride 0.9% 10 ML Syringe FLUSH PRN (08:32)
[2019-01-02] MEDS ORDERED: Acetaminophen 325 MG Tab PO ONE (08:52)
[2019-01-02] MEDS ORDERED: Levofloxacin/Dextrose 5%-Water 750 MG in Premix Bag 1 BAG IV ONE (08:53)
[2019-01-02] MEDS ORDERED: cefTRIAXone 2 GM in Sodium Chloride 0.9% 100 ML IV ONE (08:56)
[2019-01-02] MEDS ORDERED: Sodium Chloride 0.9% 1,000 ML IV ONE (08:56)
[2019-01-02] MEDS ORDERED: cefTRIAXone 1 GM Vial ONE (09:02)
[2019-01-02 09:05] LABS: ANION GAP 15.6; CHLORIDE,CL 99 mmol/L (101-111); SODIUM,NA 137 mmol/L (135-145)
[2019-01-02] MEDS ORDERED: Albuterol 0.083% 2.5 MG/3 ML Neb Soln NEB PRN (10:08)
[2019-01-02] MEDS ORDERED: Albuterol 6.7 GM Inhaler INH PRN (10:08)
[2019-01-02] MEDS ORDERED: Acetaminophen 325 MG Tab PO PRN (10:17)
[2019-01-02] MEDS ORDERED: Ondansetron 4 MG/2 ML SDV IVPUSH PRN (10:17)
--- NOTE | 2019-01-02 10:25 | PCM.HP ---
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 Patient said that over the past 2 days, he noticed that his cough is more than usual and his coughing more sputum. Sputum is shel[place] in color. He became febrile this morning, and had significant shortness of breath relating to his presentation to the emergency room. On presentation, patient was febrile to 38.8 Celsius, hemodynamically stable. Chest x-ray showed bibasilar infiltrates concerning for pneumonia. Patient was hypoxic, requiring nonrebreather mask. He received nebulizer treatment, was given a dose of ceftriaxone. Lab was remarkable for blood cell count of 15,000, hemoglobin 16, T bili 1.5, rest of the lab was unremarkable. ABG showed normal pH, PO2 45 on 12 L nonrebreather. Patient was started on BiPAP. Transferred and for further care. On interview, patient said that he has worsening cough as above, family was concerned because patient was very weak this morning and decided to bring him in. He denied any change in urinary habits, bowel habits, nausea or vomiting, chest pain or palpitations. - Related Data Allergies/Adverse Reactions: Allergies Allergy/AdvReac Type Severity Reaction Status Date / Time No Known Allergies Allergy Verified 01/02/19 08:28 Home Medications: Home Meds Albuterol [Proventil Neb Soln] 2.5 mg NEB QID PRN 10/17/14 [History] Omeprazole 40 mg PO DAILY 10/17/14 [History] Pregabalin [Lyrica] 300 mg PO BID 10/17/14 [History] QuiNINE [Qualaquin] 324 mg PO BID 10/26/14 [History] glipiZIDE [Glucotrol XL] 10 mg PO BID 10/26/14 [History] atorvaSTATin [Lipitor] 10 mg PO BEDTIME MDD Dyslipidemia 03/10/15 [History] Albuterol Sulfate [Proair Hfa] 2 puff INH Q6HR PRN 12/11/15 [History] Ascorbate Calcium [Vitamin C] 250 mg PO BID 12/11/15 [History] Levothyroxine 25 mg PO ACBREAKFAST 12/11/15 [History] Lutein/Minerals/Vit A,C & E [Ocuvite] 1 each PO DAILY 12/11/15 [History] Budesonide/Formoterol [Symbicort 160-4.5 MCG] 1 inh IH BID 06/27/16 [History] Ferrous Sulfate [Iron] 325 mg PO DAILY #14 capsule.er 07/02/16 [Rx] Cetirizine [ZyrTEC] 10 mg PO DAILY 12/28/16 [History] metFORMIN [Glucophage] 1,000 mg PO BID 01/02/19 [History] Past Medical History HEENT History: Reports: Cataract, Epistaxis, Other (See Below) Other HEENT History: throat tickle that moves up to eye, nose bleeds years ago, not in awhile Cardiovascular History: Reports: Other (See Below) Other Cardiovascular History: AAA Respiratory History: Reports: Bronchitis, Recurrent, COPD Gastrointestinal History: Reports: GERD, Hemorrhoids, Other (See Below) ( Biliary obstruction, Cholangitis) Other Gastrointestinal History: got hemorrhoids fixed per pt Musculoskeletal History: Reports: Arthritis, Back Pain, Chronic Other Musculoskeletal History: arms Neurological History: Reports: None Psychiatric History: Reports: Anxiety Other Psychiatric History: per reports, since 1950s Endocrine/Metabolic History: Reports: Diabetes, Type II, Hypothyroidism Hematologic History: Reports: Anemia, Blood Transfusion(s) Dermatologic History: Reports: Other (See Below) Other Dermatologic History: skin tags - Infectious Disease History Infectious Disease History: Reports: Chicken Pox, Measles, Mumps - Past Surgical History Cardiovascular Surgical History: Reports: AAA Repair Social & Family History - Family History Cardiac: Reports: CAD, Other (See Below) Other Cardiac Family History: mother of [place] Other Oncologic Family History: sister? - Tobacco Use Smoking Status *Q: Former Smoker Years of Tobacco use: 50 Second Hand Smoke Exposure: No - Caffeine Use Caffeine Use: Reports: Coffee, Tea Other Caffeine Use: 3/day - Living Situation & Occupation Living situation: Reports: , with Spouse Occupation: Retired H&P Review of Systems - Review of Systems: Review Of Systems: ROS reveals no pertinent complaints other than HPI. Exam - Exam Exam: See Below - Vital Signs Vital Signs: Last Vital Signs Temp 38.0 C 01/02/19 09:45 Pulse 110 H 01/02/19 09:45 Resp 24 H 01/02/19 09:45 BP 123/47 L 01/02/19 09:45 Pulse Ox 91 L 01/02/19 09:45 Weight: 82.418 kg - Exam General: Alert, Oriented Lungs: Decreased Breath Sounds (over right lung base). No: Stridor, Wheezing Cardiovascular: Tachycardia GI/Abdominal Exam: Soft, Non-Tender, No Distention, No Abnormal Bruit Extremities: Normal Inspection, No Pedal Edema Skin: Warm, Dry Neuro Extensive - Mental Status: Alert, Oriented x3 Psychiatric: Alert, Normal Affect, Normal Mood - Patient Data Lab Results Last 24 hrs: Laboratory Results - last 24 hr 01/02/19 01/02/19 01/02/19 Range/Units 08:31 08:31 08:31 WBC 15.7 H (5.0-10.0) 10^3/uL RBC 4.88 (4.6-6.2) 10^6/uL Hgb 16.0 (14.0-18.0) g/dL Hct 48.2 (40.0-54.0) % MCV 98.8 D (80-100) fL MCH 32.8 (27.0-34.0) pg MCHC 33.2 (33.0-35.0) g/dL Plt Count 201 (150-450) 10^3/uL Neut % (Auto) 83.4 H (42.2-75.2) % Lymph % (Auto) 5.8 L (20.5-50.1) % Sevier % (Auto) 8.6 H (2-8) % Eos % (Auto) 0.4 L (1.0-3.0) % Baso % (Auto) 1.8 H (0.0-1.0) % Add Manual Diff Yes Neutrophils % (Manual) 67 (42-75) % Band Neutrophils % 16 % Lymphocytes % (Manual) 6 L (20-50) % Monocytes % (Manual) 8 (2-8) % Eosinophils % (Manual) 1 (1-3) % Basophils % (Manual) 2 Sodium 137 (135-145) mmol/L Potassium 3.6 (3.6-5.0) mmol/L Chloride 99 L (101-111) mmol/L Carbon Dioxide 26.0 (21.0-31.0) mmol/L Anion Gap 15.6 BUN 16 (7-18) mg/dL Creatinine 0.9 (0.6-1.3) mg/dL Est Cr Clr Drug Dosing TNP Estimated GFR (MDRD) > 60 BUN/Creatinine Ratio 17.77 Glucose 145 H (74-105) mg/dL POC Glucose (83-110) mg/dl Lactic Acid 1.9 (0.5-2.2) mmol/L Calcium 8.8 (8.4-10.2) mg/dl Total Bilirubin 1.5 H (0.2-1.0) mg/dL AST 42 (10-42) IU/L ALT 36 (10-60) IU/L Alkaline Phosphatase 84 (42-121) IU/L Troponin I < 0.02 (0.00-0.02) ng/ml B-Natriuretic Peptide 21 (0-100) pg/ml Total Protein 6.9 (6.7-8.2) g/dl Albumin 4.1 (3.2-5.5) g/dl Globulin 2.8 Albumin/Globulin Ratio 1.46 Amylase 33 (28-100) U/L Lipase 19 L (22-51) U/L 01/02/19 Range/Units 08:41 WBC (5.0-10.0) 10^3/uL RBC (4.6-6.2) 10^6/uL Hgb (14.0-18.0) g/dL Hct (40.0-54.0) % MCV (80-100) fL MCH (27.0-34.0) pg MCHC (33.0-35.0) g/dL Plt Count (150-450) 10^3/uL Neut % (Auto) (42.2-75.2) % Lymph % (Auto) (20.5-50.1) % Sevier % (Auto) (2-8) % Eos % (Auto) (1.0-3.0) % Baso % (Auto) (0.0-1.0) % Add Manual Diff Neutrophils % (Manual) (42-75) % Band Neutrophils % % Lymphocytes % (Manual) (20-50) % Monocytes % (Manual) (2-8) % Eosinophils % (Manual) (1-3) % Basophils % (Manual) Sodium (135-145) mmol/L Potassium (3.6-5.0) mmol/L Chloride (101-111) mmol/L Carbon Dioxide (21.0-31.0) mmol/L Anion Gap BUN (7-18) mg/dL Creatinine (0.6-1.3) mg/dL Est Cr Clr Drug Dosing Estimated GFR (MDRD) BUN/Creatinine Ratio Glucose (74-105) mg/dL POC Glucose 128 H (83-110) mg/dl Lactic Acid (0.5-2.2) mmol/L Calcium (8.4-10.2) mg/dl Total Bilirubin (0.2-1.0) mg/dL AST (10-42) IU/L ALT (10-60) IU/L Alkaline Phosphatase (42-121) IU/L Troponin I (0.00-0.02) ng/ml B-Natriuretic Peptide (0-100) pg/ml Total Protein (6.7-8.2) g/dl Albumin (3.2-5.5) g/dl Globulin Albumin/Globulin Ratio Amylase (28-100) U/L Lipase (22-51) U/L Result Diagrams: 01/02/19 08:31 01/02/19 08:31 Jaison Results Last 24 hrs: Microbiology 01/02/19 08:36 Influenza Type A Antigen Screen - Final Nasal, Unspecified NEGATIVE INFLUENZA A VIRUS AG REFERENCE RANGE: NEGATIVE Influenza Type B Antigen Screen - Final NEGATIVE INFLUENZA B VIRUS AG REFERENCE RANGE: NEGATIVE Problem List Initiated/Reviewed/Updated: Yes Orders Last 24hrs: Active Orders 24 hr Category Date Time Status Patient Status [ADT] Routine ADT 01/02/19 10:17 Ordered Antiembolic Devices [RC] PER UNIT ROUTINE Care 01/02/19 10:22 Ordered Blood Glucose Check, Bedside [RC] QIDACANDBED Care 01/02/19 10:17 Ordered Cardiac Monitoring [RC] CONTINUOUS Care 01/02/19 10:19 Ordered Diabetes Education [RC] Click to Edit Care 01/02/19 10:22 Ordered Intake and Output [RC] QSHIFT Care 01/02/19 10:19 Ordered Notify Provider Laboratory Res [RC] ASDIRECTED Care 01/02/19 10:23 Ordered Notify Provider Vital Signs [RC] ASDIRECTED Care 01/02/19 10:19 Ordered Oxygen Therapy [RC] PRN Care 01/02/19 10:17 Ordered Pulse Oximetry [RC] CONTINUOUS Care 01/02/19 10:19 Ordered RT Aerosol Therapy [RC] ASDIRECTED Care 01/02/19 08:24 Active RT Aerosol Therapy [RC] ASDIRECTED Care 01/02/19 08:47 Active RT Aerosol Therapy [RC] ASDIRECTED Care 01/02/19 10:16 Ordered Up With Assistance [RC] ASDIRECTED Care 01/02/19 10:17 Ordered VTE/DVT Education [RC] PER UNIT ROUTINE Care 01/02/19 10:17 Ordered Vital Signs [RC] Q4H Care 01/02/19 10:17 Ordered OT Evaluation and Treatment [CONS] Routine Cons 01/02/19 10:17 Ordered PT Evaluation and Treatment [CONS] Routine Cons 01/02/19 10:17 Ordered Nothing per Oral Now Diet [DIET] Diet 01/02/19 Lunch Ordered Chest 1V Frontal [CR] Stat Exams 01/02/19 08:26 Taken ABG [BLOOD GAS ARTERIAL] [BG] Stat Lab 01/02/19 09:14 Ordered ABG [BLOOD GAS ARTERIAL] [BG] Stat Lab 01/02/19 12:00 Ordered CBC W/O DIFF,HEMOGRAM [HEME] DAILY Lab 01/02/19 10:30 Ordered CBC W/O DIFF,HEMOGRAM [HEME] DAILY Lab 01/03/19 10:30 Ordered CBC W/O DIFF,HEMOGRAM [HEME] DAILY Lab 01/04/19 10:30 Ordered CBC W/O DIFF,HEMOGRAM [HEME] DAILY Lab 01/05/19 10:30 Ordered CBC W/O DIFF,HEMOGRAM [HEME] DAILY Lab 01/06/19 10:30 Ordered CBC W/O DIFF,HEMOGRAM [HEME] DAILY Lab 01/07/19 10:30 Ordered CBC W/O DIFF,HEMOGRAM [HEME] DAILY Lab 01/08/19 10:30 Ordered CBC W/O DIFF,HEMOGRAM [HEME] DAILY Lab 01/09/19 10:30 Ordered CBC W/O DIFF,HEMOGRAM [HEME] DAILY Lab 01/10/19 10:30 Ordered CBC W/O DIFF,HEMOGRAM [HEME] DAILY Lab 01/11/19 10:30 Ordered CBC W/O DIFF,HEMOGRAM [HEME] DAILY Lab 01/12/19 10:30 Ordered CBC W/O DIFF,HEMOGRAM [HEME] DAILY Lab 01/13/19 10:30 Ordered COMPREHENSIVE METABOLIC PN,CMP [CHEM] DAILY Lab 01/02/19 10:30 Ordered COMPREHENSIVE METABOLIC PN,CMP [CHEM] DAILY Lab 01/03/19 10:30 Ordered COMPREHENSIVE METABOLIC PN,CMP [CHEM] DAILY Lab 01/04/19 10:30 Ordered COMPREHENSIVE METABOLIC PN,CMP [CHEM] DAILY Lab 01/05/19 10:30 Ordered COMPREHENSIVE METABOLIC PN,CMP [CHEM] DAILY Lab 01/06/19 10:30 Ordered COMPREHENSIVE METABOLIC PN,CMP [CHEM] DAILY Lab 01/07/19 10:30 Ordered COMPREHENSIVE METABOLIC PN,CMP [CHEM] DAILY Lab 01/08/19 10:30 Ordered COMPREHENSIVE METABOLIC PN,CMP [CHEM] DAILY Lab 01/09/19 10:30 Ordered COMPREHENSIVE METABOLIC PN,CMP [CHEM] DAILY Lab 01/10/19 10:30 Ordered COMPREHENSIVE METABOLIC PN,CMP [CHEM] DAILY Lab 01/11/19 10:30 Ordered COMPREHENSIVE METABOLIC PN,CMP [CHEM] DAILY Lab 01/12/19 10:30 Ordered COMPREHENSIVE METABOLIC PN,CMP [CHEM] DAILY Lab 01/13/19 10:30 Ordered CULTURE BLOOD [BC] Stat Lab 01/02/19 08:31 Received CULTURE BLOOD [BC] Stat Lab 01/02/19 08:31 Received CULTURE BLOOD [BC] Stat Lab 01/02/19 10:16 Ordered CULTURE BLOOD [BC] Stat Lab 01/02/19 10:16 Ordered CULTURE URINE [RM] Routine Lab 01/02/19 10:16 Ordered MAGNESIUM [CHEM] DAILY Lab 01/02/19 10:30 Ordered MAGNESIUM [CHEM] DAILY Lab 01/03/19 10:30 Ordered MAGNESIUM [CHEM] DAILY Lab 01/04/19 10:30 Ordered MAGNESIUM [CHEM] DAILY Lab 01/05/19 10:30 Ordered MAGNESIUM [CHEM] DAILY Lab 01/06/19 10:30 Ordered MAGNESIUM [CHEM] DAILY Lab 01/07/19 10:30 Ordered MAGNESIUM [CHEM] DAILY Lab 01/08/19 10:30 Ordered MAGNESIUM [CHEM] DAILY Lab 01/09/19 10:30 Ordered MAGNESIUM [CHEM] DAILY Lab 01/10/19 10:30 Ordered MAGNESIUM [CHEM] DAILY Lab 01/11/19 10:30 Ordered MAGNESIUM [CHEM] DAILY Lab 01/12/19 10:30 Ordered MAGNESIUM [CHEM] DAILY Lab 01/13/19 10:30 Ordered PHOSPHORUS [CHEM] DAILY Lab 01/02/19 10:30 Ordered PHOSPHORUS [CHEM] DAILY Lab 01/03/19 10:30 Ordered PHOSPHORUS [CHEM] DAILY Lab 01/04/19 10:30 Ordered PHOSPHORUS [CHEM] DAILY Lab 01/05/19 10:30 Ordered PHOSPHORUS [CHEM] DAILY Lab 01/06/19 10:30 Ordered PHOSPHORUS [CHEM] DAILY Lab 01/07/19 10:30 Ordered PHOSPHORUS [CHEM] DAILY Lab 01/08/19 10:30 Ordered PHOSPHORUS [CHEM] DAILY Lab 01/09/19 10:30 Ordered PHOSPHORUS [CHEM] DAILY Lab 01/10/19 10:30 Ordered PHOSPHORUS [CHEM] DAILY Lab 01/11/19 10:30 Ordered PHOSPHORUS [CHEM] DAILY Lab 01/12/19 10:30 Ordered PHOSPHORUS [CHEM] DAILY Lab 01/13/19 10:30 Ordered STREP PNEUMONIAE ANTIGEN [MREF] Stat Lab 01/02/19 10:16 Ordered UA RFX JAISON AND CULT IF INDIC [URIN] Stat Lab 01/02/19 08:26 Ordered Acetaminophen [Tylenol] Med 01/02/19 10:17 Ordered 650 mg PO Q4H PRN Albuterol [Proventil HFA] Med 01/02/19 10:08 Ordered 2 puff INH Q6HR PRN Albuterol [Proventil Neb Soln] Med 01/02/19 10:08 Ordered 2.5 mg NEB QID PRN Albuterol/Ipratropium [DuoNeb 3.0-0.5 MG/3 ML] Med 01/02/19 11:00 Ordered 3 ml NEB Q4HRRT Budesonide/Formoterol Med 01/02/19 21:00 Ordered 1 inh IH BID Heparin Sodium Med 01/02/19 14:00 Ordered 5,000 units SUBCUT Q8HR Insulin Lispro [HumaLOG] Med 01/02/19 11:00 Ordered See Protocol SUBCUT ACBED Levothyroxine Med 01/03/19 06:00 Ordered 25,000 mcg PO ACBREAKFAST Omeprazole [Omeprazole] Med 01/03/19 09:00 Ordered 40 mg PO DAILY Ondansetron [Zofran] Med 01/02/19 10:17 Ordered 4 mg IVPUSH Q4H PRN Pharmacy to Dose - Vancomycin Med 01/02/19 10:15 Ordered 1 dose .XX ASDIRECTED Piperacillin/Tazobactam [Zosyn] 3.375 gm Med 01/02/19 10:15 Ordered Sodium Chloride 0.9% [Normal Saline] 100 ml IV Q6H Pregabalin [Lyrica] Med 01/02/19 21:00 Ordered 300 mg PO BID Sodium Chloride 0.9% [Normal Saline] 1,000 ml Med 01/02/19 10:30 Ordered IV ASDIRECTED Sodium Chloride 0.9% [Saline Flush] Med 01/02/19 08:25 Active 10 ml FLUSH ASDIRECTED PRN atorvaSTATin [Lipitor] Med 01/02/19 21:00 Ordered 10 mg PO BEDTIME Blood Culture x2 Reflex Set [OM.PC] Stat Ot 01/02/19 08:25 Ordered Blood Culture x2 Reflex Set [OM.PC] Stat Ot 01/02/19 10:16 Ordered Glucose Management Sub Q Reflex [OM.PC] Click To Edit Ot 01/02/19 10:17 Ordered Peripheral IV Insertion Adult [OM.PC] Stat Ot 01/02/19 08:25 Ordered Sequential Compression Device [OM.PC] Per Unit Routine Ot 01/02/19 10:20 Ordered Resuscitation Status Routine Resus Stat 01/02/19 10:17 Ordered Medication Orders Sodium Chloride (Saline Flush) 10 ml FLUSH ASDIRECTED PRN PRN Reason: Keep Vein Open Last Admin: 01/02/19 08:32 Dose: 10 ml Assessment/Plan Comment:: Acute respiratory failure with hypoxia on chronic respiratory failure/COPD exacerbation Patient is in acute on chronic hypoxemic respiratory failure Baseline oxygen requirement is 2-3 L Patient is currently on BiPAP We'll obtain ABG every 2 hours following initiation of BiPAP, will adjust as needed Check urine Legionella, strep pneumo, blood cultures, urine cultures Start patient on IV steroids DuoNeb scheduled every 4 hours DM2 Hold oral hypoglycemic agents Glucose checks before meals and at bedtime Sliding scale insulin Hypothyroidism continue home synthroid GERD PPI Hyperlipidemia continue statin DVT prophylaxis heparin Critical care time: 45 minutes
[2019-01-02] MEDS: Insulin Lispro 100 Units/ML 3 ML Vial SUBCUT SCH ×3 (12:03→21:53)
[2019-01-02] MEDS: Sodium Chloride 0.9% 1,000 ML IV SCH (12:04)
[2019-01-02] MEDS: Piperacillin/Tazobactam 3.375 GM in Sodium Chloride 0.9% 100 ML IV SCH ×3 (12:05→23:26)
--- NOTE | 2019-01-02 12:34 | CR ---
Clinical history: 83-year-old male with fever, cough, and shortness of breath. Interpretation: Upright AP portable chest abnormal. Asymmetric chronic bronchiectatic like density in the right lung base with relative increased consolidation since 15 March 2017. (New since earlier exam 28 December 2016) Clinical aspiration? Normal cardiac silhouette (external groundwater monitoring technician leads and oxygen cannula). No alveolar edema or dependent pleural effusion. No new lung mass, hilar lymphadenopathy or other focal lobar consolidation. No pneumothorax. CONCLUSION: Abnormal inflammatory process right lower lobe (chronic bronchiectasis and acute pneumonitis). Aspiration?
[2019-01-02] MEDS: methylPREDNISolone Sodium Succinate 125 MG/2 ML SDV IVPUSH SCH ×2 (15:22→21:56)
[2019-01-02] MEDS: Albuterol/Ipratropium 3.0-0.5 MG/3 ML Neb Soln NEB SCH ×3 (15:22→23:26)
[2019-01-02] MEDS: Heparin Sodium 5,000 Units/ML Vial SUBCUT SCH ×2 (15:23→21:56)
[2019-01-02] MEDS ORDERED: LORazepam 2 MG/ML Syringe IVPUSH ONE (20:00)
[2019-01-02] MEDS: Formoterol/Mometasone 200-5 MCG 8.8 GM Inhaler IH SCH (21:55)
[2019-01-02] MEDS: Pregabalin 75 MG Cap PO SCH (21:56)
[2019-01-02] MEDS: atorvaSTATin 10 MG Tab PO SCH (21:56)
[2019-01-03] MEDS: Sodium Chloride 0.9% 1,000 ML IV SCH ×2 (05:17→19:20)
[2019-01-03] MEDS: Piperacillin/Tazobactam 3.375 GM in Sodium Chloride 0.9% 100 ML IV SCH ×3 (05:56→17:36)
[2019-01-03] MEDS: Omeprazole 20 MG Cap.CR PO SCH (05:59)
[2019-01-03] MEDS: Levothyroxine 25 MCG Tab PO SCH (05:59)
[2019-01-03] MEDS: Heparin Sodium 5,000 Units/ML Vial SUBCUT SCH ×3 (05:59→22:09)
[2019-01-03] MEDS: methylPREDNISolone Sodium Succinate 125 MG/2 ML SDV IVPUSH SCH ×3 (05:59→22:30)
[2019-01-03] MEDS ORDERED: LORazepam 2 MG/ML Syringe IVPUSH ONE (06:00)
[2019-01-03] MEDS: Albuterol/Ipratropium 3.0-0.5 MG/3 ML Neb Soln NEB SCH ×6 (06:20→22:10)
[2019-01-03 07:07] LABS: ANION GAP 13.7; CHLORIDE,CL 106 mmol/L (101-111); SODIUM,NA 140 mmol/L (135-145)
[2019-01-03] MEDS: Insulin Lispro 100 Units/ML 3 ML Vial SUBCUT SCH ×4 (08:36→22:05)
[2019-01-03] MEDS: Pregabalin 75 MG Cap PO SCH ×2 (08:37→22:07)
[2019-01-03] MEDS: Formoterol/Mometasone 200-5 MCG 8.8 GM Inhaler IH SCH ×2 (08:38→22:04)
[2019-01-03 09:23] LABS: BASE EXCESS ARTERIAL 4 mmol/L ((-2)-(+3)); BICARBONATE,ARTERIAL 28.5 mmol/L (22-26); O2 DELIVERY DEVICE NON REBR MASK; O2 SATURATION ARTERIAL 78 % (95-100); PCO2 ARTERIAL 44 mmHg (35-45)
[2019-01-03 09:24] LABS: BASE EXCESS ARTERIAL -1 mmol/L ((-2)-(+3)); BICARBONATE,ARTERIAL 23.5 mmol/L (22-26); O2 DELIVERY DEVICE BIPAP; O2 SATURATION ARTERIAL 93 % (95-100); PCO2 ARTERIAL 40 mmHg (35-45); PO2 ARTERIAL 72 mmHg (70-100)
[2019-01-03 09:24] LABS: BASE EXCESS ARTERIAL 3 mmol/L ((-2)-(+3)); BICARBONATE,ARTERIAL 27.2 mmol/L (22-26); O2 DELIVERY DEVICE BIPAP; O2 SATURATION ARTERIAL 95 % (95-100); PCO2 ARTERIAL 43 mmHg (35-45); PO2 ARTERIAL 80 mmHg (70-100)
[2019-01-03 09:25] LABS: BASE EXCESS ARTERIAL 0 mmol/L ((-2)-(+3)); BICARBONATE,ARTERIAL 23.9 mmol/L (22-26); O2 DELIVERY DEVICE BIPAP; O2 SATURATION ARTERIAL 89 % (95-100); PCO2 ARTERIAL 39 mmHg (35-45); PO2 ARTERIAL 56 mmHg (70-100)
[2019-01-03 09:26] LABS: ALLEN TEST PERFORMED; PO2 ARTERIAL 45 mmHg (70-100)
[2019-01-03 09:28] LABS: ALLEN TEST PERFORMED
[2019-01-03 09:28] LABS: ALLEN TEST PERFORMED
[2019-01-03 09:29] LABS: ALLEN TEST PERFORMED
[2019-01-03] MEDS ORDERED: Magnesium Sulfate/Water 2 GM in Premix Bag 1 BAG IV ONE (11:25)
--- NOTE | 2019-01-03 11:30 | PCM.PN ---
- General Info Date of Service: 01/03/19 Admission Dx/Problem (Free Text): Admission Diagnosis/Problem Admission Diagnosis/Problem Acute respiratory failure with hypoxia Subjective Update: Patient continues to be in hypoxic respiratory failure. ABG yesterday after being off BiPAP for 90 minutes showed PO2 in the 50s. After long discussion with the patient yesterday regarding his respiratory status, he finally agreed to wear the BiPAP. He refuses to wear the BiPAP today. ABG is ordered and is pending. - Review of Systems General: Reports: No Symptoms Pulmonary: Reports: No Symptoms Cardiovascular: Reports: No Symptoms Gastrointestinal: Reports: No Symptoms Genitourinary: Reports: No Symptoms - Patient Data Vitals - Most Recent: Last Vital Signs Temp 36.6 C 01/03/19 07:54 Pulse 55 L 01/03/19 07:54 Resp 22 H 01/03/19 07:54 BP 130/59 L 01/03/19 07:54 Pulse Ox 91 L 01/03/19 10:19 Weight - Most Recent: 82.055 kg I&O - Last 24 Hours: Intake & Output 01/02/19 01/03/19 01/03/19 22:59 06:59 14:59 Intake Total 280 1340 Output Total 350 550 Balance -70 1340 -550 Lab Results Last 24 Hours: Laboratory Results - last 24 hr 01/02/19 01/02/19 01/02/19 Range/Units 09:14 11:45 12:00 WBC (5.0-10.0) 10^3/uL RBC (4.6-6.2) 10^6/uL Hgb (14.0-18.0) g/dL Hct (40.0-54.0) % MCV (80-100) fL MCH (27.0-34.0) pg MCHC (33.0-35.0) g/dL Plt Count (150-450) 10^3/uL ABG pH 7.43 7.42 (7.35-7.45) ABG pCO2 44 43 (35-45) mmHg ABG pO2 45 L* 80 (70-100) mmHg ABG HCO3 28.5 H 27.2 H (22-26) mmol/L ABG O2 Saturation 78 L 95 (95-100) % ABG Base Excess 4 H 3 ((-2)-(+3)) mmol/L Jarek Test Performed Performed O2 Delivery Device Non rebr mask Bipap Sodium (135-145) mmol/L Potassium (3.6-5.0) mmol/L Chloride (101-111) mmol/L Carbon Dioxide (21.0-31.0) mmol/L Anion Gap BUN (7-18) mg/dL Creatinine (0.6-1.3) mg/dL Est Cr Clr Drug Dosing mL/min Estimated GFR (MDRD) BUN/Creatinine Ratio Glucose (74-105) mg/dL POC Glucose 196 H (83-110) mg/dl Calcium (8.4-10.2) mg/dl Phosphorus (2.5-4.6) mg/dL Magnesium (1.8-2.5) mg/dL Total Bilirubin (0.2-1.0) mg/dL AST (10-42) IU/L ALT (10-60) IU/L Alkaline Phosphatase (42-121) IU/L Total Protein (6.7-8.2) g/dl Albumin (3.2-5.5) g/dl Globulin Albumin/Globulin Ratio Urine Color (YELLOW) Urine Appearance (CLEAR) Urine pH (5.0-9.0) Ur Specific [place] (1.005-1.030) Urine Protein (NEGATIVE) Urine Glucose (UA) (NEGATIVE) Urine Ketones (NEGATIVE) Urine Occult Blood (NEGATIVE) Urine Nitrite (NEGATIVE) Urine Bilirubin (NEGATIVE) Urine Urobilinogen (0.2-1.0) mg/dL Ur Leukocyte Esterase (NEGATIVE) Urine RBC /HPF Urine WBC (0-5/HPF) /HPF Ur Epithelial Cells /HPF Urine Bacteria (0-FEW/HPF) /HPF Urine Mucus /LPF 01/02/19 01/02/19 01/02/19 Range/Units 13:54 17:00 17:06 WBC (5.0-10.0) 10^3/uL RBC (4.6-6.2) 10^6/uL Hgb (14.0-18.0) g/dL Hct (40.0-54.0) % MCV (80-100) fL MCH (27.0-34.0) pg MCHC (33.0-35.0) g/dL Plt Count (150-450) 10^3/uL ABG pH 7.39 (7.35-7.45) ABG pCO2 40 (35-45) mmHg ABG pO2 72 (70-100) mmHg ABG HCO3 23.5 (22-26) mmol/L ABG O2 Saturation 93 L (95-100) % ABG Base Excess -1 ((-2)-(+3)) mmol/L Jarek Test Performed O2 Delivery Device Bipap Sodium (135-145) mmol/L Potassium (3.6-5.0) mmol/L Chloride (101-111) mmol/L Carbon Dioxide (21.0-31.0) mmol/L Anion Gap BUN (7-18) mg/dL Creatinine (0.6-1.3) mg/dL Est Cr Clr Drug Dosing mL/min Estimated GFR (MDRD) BUN/Creatinine Ratio Glucose (74-105) mg/dL POC Glucose 267 H (83-110) mg/dl Calcium (8.4-10.2) mg/dl Phosphorus (2.5-4.6) mg/dL Magnesium (1.8-2.5) mg/dL Total Bilirubin (0.2-1.0) mg/dL AST (10-42) IU/L ALT (10-60) IU/L Alkaline Phosphatase (42-121) IU/L Total Protein (6.7-8.2) g/dl Albumin (3.2-5.5) g/dl Globulin Albumin/Globulin Ratio Urine Color Dark yellow (YELLOW) Urine Appearance Clear (CLEAR) Urine pH 6.0 (5.0-9.0) Ur Specific [place] 1.015 (1.005-1.030) Urine Protein Trace H (NEGATIVE) Urine Glucose (UA) Negative (NEGATIVE) Urine Ketones Trace H (NEGATIVE) Urine Occult Blood Negative (NEGATIVE) Urine Nitrite Negative (NEGATIVE) Urine Bilirubin Negative (NEGATIVE) Urine Urobilinogen 0.2 (0.2-1.0) mg/dL Ur Leukocyte Esterase Negative (NEGATIVE) Urine RBC 0-5 /HPF Urine WBC 0-5 (0-5/HPF) /HPF Ur Epithelial Cells Rare /HPF Urine Bacteria Few (0-FEW/HPF) /HPF Urine Mucus Few H /LPF 01/02/19 01/02/19 01/03/19 Range/Units 20:00 21:51 06:00 WBC 14.7 H (5.0-10.0) 10^3/uL RBC 4.07 L (4.6-6.2) 10^6/uL Hgb 13.4 L D (14.0-18.0) g/dL Hct 40.4 (40.0-54.0) % MCV 99.3 (80-100) fL MCH 32.9 (27.0-34.0) pg MCHC 33.2 (33.0-35.0) g/dL Plt Count 164 (150-450) 10^3/uL ABG pH 7.41 (7.35-7.45) ABG pCO2 39 (35-45) mmHg ABG pO2 56 L (70-100) mmHg ABG HCO3 23.9 (22-26) mmol/L ABG O2 Saturation 89 L (95-100) % ABG Base Excess 0 ((-2)-(+3)) mmol/L Jarek Test Performed O2 Delivery Device Bipap Sodium (135-145) mmol/L Potassium (3.6-5.0) mmol/L Chloride (101-111) mmol/L Carbon Dioxide (21.0-31.0) mmol/L Anion Gap BUN (7-18) mg/dL Creatinine (0.6-1.3) mg/dL Est Cr Clr Drug Dosing mL/min Estimated GFR (MDRD) BUN/Creatinine Ratio Glucose (74-105) mg/dL POC Glucose 291 H (83-110) mg/dl Calcium (8.4-10.2) mg/dl Phosphorus (2.5-4.6) mg/dL Magnesium (1.8-2.5) mg/dL Total Bilirubin (0.2-1.0) mg/dL AST (10-42) IU/L ALT (10-60) IU/L Alkaline Phosphatase (42-121) IU/L Total Protein (6.7-8.2) g/dl Albumin (3.2-5.5) g/dl Globulin Albumin/Globulin Ratio Urine Color (YELLOW) Urine Appearance (CLEAR) Urine pH (5.0-9.0) Ur Specific [place] (1.005-1.030) Urine Protein (NEGATIVE) Urine Glucose (UA) (NEGATIVE) Urine Ketones (NEGATIVE) Urine Occult Blood (NEGATIVE) Urine Nitrite (NEGATIVE) Urine Bilirubin (NEGATIVE) Urine Urobilinogen (0.2-1.0) mg/dL Ur Leukocyte Esterase (NEGATIVE) Urine RBC /HPF Urine WBC (0-5/HPF) /HPF Ur Epithelial Cells /HPF Urine Bacteria (0-FEW/HPF) /HPF Urine Mucus /LPF 01/03/19 01/03/19 Range/Units 06:00 07:57 WBC (5.0-10.0) 10^3/uL RBC (4.6-6.2) 10^6/uL Hgb (14.0-18.0) g/dL Hct (40.0-54.0) % MCV (80-100) fL MCH (27.0-34.0) pg MCHC (33.0-35.0) g/dL Plt Count (150-450) 10^3/uL ABG pH (7.35-7.45) ABG pCO2 (35-45) mmHg ABG pO2 (70-100) mmHg ABG HCO3 (22-26) mmol/L ABG O2 Saturation (95-100) % ABG Base Excess ((-2)-(+3)) mmol/L Jarek Test O2 Delivery Device Sodium 140 (135-145) mmol/L Potassium 3.7 (3.6-5.0) mmol/L Chloride 106 (101-111) mmol/L Carbon Dioxide 24.0 (21.0-31.0) mmol/L Anion Gap 13.7 BUN 17 (7-18) mg/dL Creatinine 0.8 (0.6-1.3) mg/dL Est Cr Clr Drug Dosing 70.97 mL/min Estimated GFR (MDRD) > 60 BUN/Creatinine Ratio 21.25 Glucose 247 H (74-105) mg/dL POC Glucose 232 H (83-110) mg/dl Calcium 8.1 L (8.4-10.2) mg/dl Phosphorus 2.6 (2.5-4.6) mg/dL Magnesium 1.5 L (1.8-2.5) mg/dL Total Bilirubin 1.2 H (0.2-1.0) mg/dL AST 27 (10-42) IU/L ALT 33 (10-60) IU/L Alkaline Phosphatase 64 (42-121) IU/L Total Protein 6.2 L (6.7-8.2) g/dl Albumin 3.4 (3.2-5.5) g/dl Globulin 2.8 Albumin/Globulin Ratio 1.21 Urine Color (YELLOW) Urine Appearance (CLEAR) Urine pH (5.0-9.0) Ur Specific [place] (1.005-1.030) Urine Protein (NEGATIVE) Urine Glucose (UA) (NEGATIVE) Urine Ketones (NEGATIVE) Urine Occult Blood (NEGATIVE) Urine Nitrite (NEGATIVE) Urine Bilirubin (NEGATIVE) Urine Urobilinogen (0.2-1.0) mg/dL Ur Leukocyte Esterase (NEGATIVE) Urine RBC /HPF Urine WBC (0-5/HPF) /HPF Ur Epithelial Cells /HPF Urine Bacteria (0-FEW/HPF) /HPF Urine Mucus /LPF Jaison Results Last 24 Hours: Microbiology 01/02/19 08:31 Aerobic Blood Culture - Preliminary Blood - Venous - Lab Draw NO GROWTH AFTER 1 DAY Anaerobic Blood Culture - Preliminary NO GROWTH AFTER 1 DAY 01/02/19 08:31 Aerobic Blood Culture - Preliminary Blood - Venous NO GROWTH AFTER 1 DAY Anaerobic Blood Culture - Preliminary NO GROWTH AFTER 1 DAY 01/02/19 13:54 Urine Culture - Preliminary Urine, Clean Catch NO GROWTH AFTER 1 DAY 01/02/19 08:36 Influenza Type A Antigen Screen - Final Nasal, Unspecified NEGATIVE INFLUENZA A VIRUS AG REFERENCE RANGE: NEGATIVE Influenza Type B Antigen Screen - Final NEGATIVE INFLUENZA B VIRUS AG REFERENCE RANGE: NEGATIVE Med Orders - Current: Current Medications Acetaminophen (Tylenol) 650 mg PO Q4H PRN PRN Reason: Pain (Mild 1-3)/fever Albuterol (Proventil Hfa) 0 gm INH Q6H PRN PRN Reason: Wheezing Albuterol (Proventil Neb Soln) 2.5 mg NEB QID PRN PRN Reason: Shortness of Breath Albuterol/Ipratropium (Duoneb 3.0-0.5 Mg/3 Ml) 3 ml NEB Q4HRRT [facility] Last Admin: 01/03/19 08:25 Dose: 3 ml Atorvastatin Calcium (Lipitor) 10 mg PO BEDTIME [facility] Last Admin: 01/02/19 21:56 Dose: 10 mg Heparin Sodium (Porcine) (Heparin Sodium) 5,000 units SUBCUT Q8HR [facility] Last Admin: 01/03/19 05:59 Dose: 5,000 units Piperacillin Sod/Tazobactam (Sod 3.375 gm/ Sodium Chloride) 100 mls @ 200 mls/ hr IV Q6H [facility] Last Admin: 01/03/19 05:56 Dose: 200 mls/hr Sodium Chloride (Normal Saline) 1,000 mls @ 75 mls/hr IV ASDIRECTED [facility] Last Admin: 01/03/19 05:17 Dose: 75 mls/hr Vancomycin HCl 1.25 gm/ Sodium (Chloride) 250 mls @ 166.667 mls/hr IV Q12H [facility] Last Admin: 01/03/19 00:23 Dose: 166.667 mls/hr Magnesium Sulfate 2 gm/ Premix 50 mls @ 25 mls/hr IV ONETIME ONE Stop: 01/03/19 13:24 Insulin Human Lispro (Humalog) 0 unit SUBCUT ACBED [facility]; Protocol Last Admin: 01/03/19 08:36 Dose: 4 units Levothyroxine Sodium (Levothyroxine) 25 mcg PO ACBREAKFAST [facility] Last Admin: 01/03/19 05:59 Dose: 25 mcg Methylprednisolone Sodium Succinate (Solu-Medrol) 80 mg IVPUSH Q8H [facility] Last Admin: 01/03/19 05:59 Dose: 80 mg Mometasone Furoate/Formoterol Fumar (Dulera 200-5 Mcg) 2 puff IH BID [facility] Last Admin: 01/03/19 08:38 Dose: 2 puff Omeprazole (Omeprazole) 40 mg PO ACBREAKFAST [facility] Last Admin: 01/03/19 05:59 Dose: 40 mg Ondansetron HCl (Zofran) 4 mg IVPUSH Q4H PRN PRN Reason: Nausea/Vomiting Pregabalin (Lyrica) 300 mg PO BID [facility] Last Admin: 01/03/19 08:37 Dose: 300 mg Sodium Chloride (Saline Flush) 10 ml FLUSH ASDIRECTED PRN PRN Reason: Keep Vein Open Last Admin: 01/02/19 08:32 Dose: 10 ml Vancomycin HCl (Pharmacy To Dose - Vancomycin) 1 dose .XX ASDIRECTED [facility] Discontinued Medications Acetaminophen (Tylenol) 650 mg PO NOW ONE Stop: 01/02/19 08:53 Last Admin: 01/02/19 09:00 Dose: 650 mg Albuterol/Ipratropium (Duoneb 3.0-0.5 Mg/3 Ml) 3 ml NEB ONETIME ONE Stop: 01/02/19 08:25 Last Admin: 01/02/19 08:32 Dose: 3 ml Albuterol/Ipratropium (Duoneb 3.0-0.5 Mg/3 Ml) 3 ml NEB ONETIME ONE Stop: 01/02/19 08:48 Last Admin: 01/02/19 09:03 Dose: 3 ml Ceftriaxone Sodium (Rocephin) Confirm Administered Dose 2 gm .ROUTE .STK-MED ONE Stop: 01/02/19 09:03 Last Admin: 01/02/19 09:16 Dose: Not Given Levofloxacin/Dextrose 750 mg/ (Premix) 150 mls @ 100 mls/hr IV ONETIME ONE Stop: 01/02/19 10:22 Last Admin: 01/02/19 09:16 Dose: Not Given Ceftriaxone Sodium 2 gm/ (Sodium Chloride) 100 mls @ 200 mls/hr IV ONETIME ONE Stop: 01/02/19 09:25 Last Admin: 01/02/19 09:15 Dose: 200 mls/hr Sodium Chloride (Normal Saline) 1,000 mls @ 999 mls/hr IV .BOLUS ONE Stop: 01/02/19 09:56 Last Admin: 01/02/19 09:12 Dose: 999 mls/hr Methylprednisolone Sodium Succinate 80 mg/ Sodium Chloride 101.28 mls @ 100.637 mls/hr IV Q8H [facility] Last Admin: 01/02/19 13:14 Dose: Not Given Methylprednisolone Sodium Succinate 80 mg/ Sodium Chloride 101.28 mls @ 100.637 mls/hr IV Q8H [facility] Lorazepam (Ativan) 1 mg IVPUSH ONETIME ONE Stop: 01/02/19 20:01 Last Admin: 01/02/19 20:19 Dose: 1 mg Lorazepam (Ativan) 1 mg IVPUSH ONETIME ONE Stop: 01/03/19 06:01 Last Admin: 01/03/19 06:20 Dose: 1 mg Methylprednisolone Sodium Succinate (Solu-Medrol) 125 mg IVPUSH ONETIME ONE Stop: 01/02/19 08:25 Last Admin: 01/02/19 08:32 Dose: 125 mg - Exam Quality Assessment: Supplemental Oxygen General: Alert, Oriented Neck: Supple Lungs: Rhonchi, Wheezing (Bilateral, scattered) Cardiovascular: Regular Rate, Regular Rhythm GI/Abdominal Exam: Normal Bowel Sounds, Soft, Non-Tender Skin: Warm, Dry, Intact Neurological: No New Focal Deficit Psy/Mental Status: Alert, Normal Affect - Problem List Review Problem List Initiated/Reviewed/Updated: Yes - My Orders Last 24 Hours: My Active Orders 01/02/19 11:00 Albuterol/Ipratropium [DuoNeb 3.0-0.5 MG/3 ML] 3 ml NEB Q4HRRT Insulin Lispro [HumaLOG] See Protocol SUBCUT ACBED 01/02/19 11:30 Piperacillin/Tazobactam [Zosyn] 3.375 gm Sodium Chloride 0.9% [Normal Saline] 100 ml IV Q6H 01/02/19 12:00 Vancomycin 1.25 gm Sodium Chloride 0.9% [Normal Saline] 250 ml IV Q12H 01/02/19 13:54 CULTURE URINE [RM] Routine STREP PNEUMONIAE ANTIGEN [MREF] Stat 01/02/19 14:00 Heparin Sodium 5,000 units SUBCUT Q8HR methylPREDNISolone Sod Succ [Solu-MEDROL] 80 mg IVPUSH Q8H 01/02/19 15:14 BIPAP Adult [RT BiPAP/CPAP] [RC] 00,04,08,12,16,20 01/02/19 21:00 Mometasone/Formoterol [Dulera 200-5 MCG] 2 puff IH BID Pregabalin [Lyrica] 300 mg PO BID atorvaSTATin [Lipitor] 10 mg PO BEDTIME 01/02/19 Lunch Nothing per Oral Now Diet [DIET] 01/03/19 06:00 Levothyroxine 25 mcg PO ACBREAKFAST Omeprazole 40 mg PO ACBREAKFAST 01/03/19 09:30 CULTURE SPUTUM + SMEAR [RM] Routine 01/03/19 11:25 Magnesium Sulfate/Water [Magnesium Sulfate 2 GM in Water 50 ML] 2 gm Premix Bag 1 bag IV ONETIME 01/03/19 11:26 ABG [BLOOD GAS ARTERIAL] [BG] Routine 01/04/19 10:30 CBC W/O DIFF,HEMOGRAM [HEME] DAILY COMPREHENSIVE METABOLIC PN,CMP [CHEM] DAILY MAGNESIUM [CHEM] DAILY PHOSPHORUS [CHEM] DAILY 01/05/19 10:30 CBC W/O DIFF,HEMOGRAM [HEME] DAILY COMPREHENSIVE METABOLIC PN,CMP [CHEM] DAILY MAGNESIUM [CHEM] DAILY PHOSPHORUS [CHEM] DAILY 01/06/19 10:30 CBC W/O DIFF,HEMOGRAM [HEME] DAILY COMPREHENSIVE METABOLIC PN,CMP [CHEM] DAILY MAGNESIUM [CHEM] DAILY PHOSPHORUS [CHEM] DAILY 01/07/19 10:30 CBC W/O DIFF,HEMOGRAM [HEME] DAILY COMPREHENSIVE METABOLIC PN,CMP [CHEM] DAILY MAGNESIUM [CHEM] DAILY PHOSPHORUS [CHEM] DAILY 01/08/19 10:30 CBC W/O DIFF,HEMOGRAM [HEME] DAILY COMPREHENSIVE METABOLIC PN,CMP [CHEM] DAILY MAGNESIUM [CHEM] DAILY PHOSPHORUS [CHEM] DAILY 01/09/19 10:30 CBC W/O DIFF,HEMOGRAM [HEME] DAILY COMPREHENSIVE METABOLIC PN,CMP [CHEM] DAILY MAGNESIUM [CHEM] DAILY PHOSPHORUS [CHEM] DAILY 01/10/19 10:30 CBC W/O DIFF,HEMOGRAM [HEME] DAILY COMPREHENSIVE METABOLIC PN,CMP [CHEM] DAILY MAGNESIUM [CHEM] DAILY PHOSPHORUS [CHEM] DAILY 01/11/19 10:30 CBC W/O DIFF,HEMOGRAM [HEME] DAILY COMPREHENSIVE METABOLIC PN,CMP [CHEM] DAILY MAGNESIUM [CHEM] DAILY PHOSPHORUS [CHEM] DAILY 01/12/19 10:30 CBC W/O DIFF,HEMOGRAM [HEME] DAILY COMPREHENSIVE METABOLIC PN,CMP [CHEM] DAILY MAGNESIUM [CHEM] DAILY PHOSPHORUS [CHEM] DAILY 01/13/19 10:30 CBC W/O DIFF,HEMOGRAM [HEME] DAILY COMPREHENSIVE METABOLIC PN,CMP [CHEM] DAILY MAGNESIUM [CHEM] DAILY PHOSPHORUS [CHEM] DAILY - Plan Plan:: Acute respiratory failure with hypoxia on chronic respiratory failure/COPD exacerbation Patient is in acute on chronic hypoxemic respiratory failure Baseline oxygen requirement is 2-3 L Patient refuses to go back on BiPAP We'll repeat ABG today, we'll attempt to keep PO2 of 70 with high flow nasal cannula/facemask Await infectious workup on IV steroids DuoNeb scheduled every 4 hours Continue IV Zosyn/vancomycin check MRSA nasal swab DM2 Hold oral hypoglycemic agents Glucose checks before meals and at bedtime Sliding scale insulin Hypothyroidism continue home synthroid GERD PPI Hyperlipidemia continue statin DVT prophylaxis heparin Critical care time: 35 minutes
[2019-01-03 14:04] LABS: BASE EXCESS ARTERIAL 1 mmol/L ((-2)-(+3)); BICARBONATE,ARTERIAL 24.3 mmol/L (22-26); O2 SATURATION ARTERIAL 89 % (95-100); PCO2 ARTERIAL 38 mmHg (35-45); PO2 ARTERIAL 60 mmHg (70-100)
[2019-01-03 14:05] LABS: ALLEN TEST Yes; O2 FLOW RATE 8
[2019-01-03 16:36] LABS: O2 DELIVERY DEVICE HI FLOW NASAL CANNU
[2019-01-03 16:49] LABS: BICARBONATE,ARTERIAL 24.7 mmol/L (22-26); O2 SATURATION ARTERIAL 94 % (95-100); PCO2 ARTERIAL 40 mmHg (35-45); PO2 ARTERIAL 71 mmHg (70-100)
[2019-01-03 16:50] LABS: BASE EXCESS ARTERIAL 1 mmol/L ((-2)-(+3))
[2019-01-03] MEDS ORDERED: Insulin Lispro 100 Units/ML 3 ML Vial SUBCUT ONE (21:18)
[2019-01-03] MEDS: atorvaSTATin 10 MG Tab PO SCH (22:07)
[2019-01-04] MEDS: Piperacillin/Tazobactam 3.375 GM in Sodium Chloride 0.9% 100 ML IV SCH ×5 (00:24→23:45)
[2019-01-04] MEDS: Albuterol/Ipratropium 3.0-0.5 MG/3 ML Neb Soln NEB SCH ×6 (06:48→23:44)
[2019-01-04] MEDS: Heparin Sodium 5,000 Units/ML Vial SUBCUT SCH ×3 (06:48→21:07)
[2019-01-04] MEDS: methylPREDNISolone Sodium Succinate 125 MG/2 ML SDV IVPUSH SCH ×3 (06:50→21:08)
[2019-01-04] MEDS: Levothyroxine 25 MCG Tab PO SCH (06:50)
[2019-01-04] MEDS: Omeprazole 20 MG Cap.CR PO SCH (06:50)
[2019-01-04 07:50] LABS: ANION GAP 14.1; CHLORIDE,CL 109 mmol/L (101-111); SODIUM,NA 142 mmol/L (135-145)
[2019-01-04] MEDS: Insulin Lispro 100 Units/ML 3 ML Vial SUBCUT SCH ×4 (08:32→21:10)
[2019-01-04] MEDS: Pregabalin 75 MG Cap PO SCH ×2 (08:33→21:06)
[2019-01-04] MEDS: Formoterol/Mometasone 200-5 MCG 8.8 GM Inhaler IH SCH ×2 (08:33→21:07)
--- NOTE | 2019-01-04 09:30 | PCM.PN ---
- General Info Date of Service: 01/04/19 Admission Dx/Problem (Free Text): Admission Diagnosis/Problem Admission Diagnosis/Problem Acute respiratory failure with hypoxia Subjective Update: Patient continues to be in hypoxic respiratory failure. ABG today showed that he remained slightly hypoxic. He continues to hold his sats with 15 L nasal cannula.patient feels overall better. He denies nausea or vomiting change in bowel habits or urinary habits. - Review of Systems General: Reports: No Symptoms Pulmonary: Reports: Cough, Sputum Cardiovascular: Reports: No Symptoms Gastrointestinal: Reports: No Symptoms Genitourinary: Reports: No Symptoms - Patient Data Vitals - Most Recent: Last Vital Signs Temp 36.7 C 01/04/19 07:26 Pulse 80 01/04/19 07:26 Resp 22 H 01/04/19 07:26 BP 132/79 01/04/19 07:26 Pulse Ox 88 L 01/04/19 07:26 Weight - Most Recent: 84.085 kg I&O - Last 24 Hours: Intake & Output 01/03/19 01/04/19 01/04/19 22:59 06:59 14:59 Intake Total 850 300 309 Output Total 300 600 Balance 550 -300 309 Lab Results Last 24 Hours: Laboratory Results - last 24 hr 01/02/19 01/02/19 01/03/19 Range/Units 17:00 20:00 11:26 WBC (5.0-10.0) 10^3/uL RBC (4.6-6.2) 10^6/uL Hgb (14.0-18.0) g/dL Hct (40.0-54.0) % MCV (80-100) fL MCH (27.0-34.0) pg MCHC (33.0-35.0) g/dL Plt Count (150-450) 10^3/uL ABG pH 7.39 7.41 7.43 (7.35-7.45) ABG pCO2 40 39 38 (35-45) mmHg ABG pO2 72 56 L 60 L (70-100) mmHg ABG HCO3 23.5 23.9 24.3 (22-26) mmol/L ABG O2 Saturation 93 L 89 L 89 L (95-100) % ABG Base Excess -1 0 1 ((-2)-(+3)) mmol/L Jarek Test Performed Performed Yes O2 Delivery Device Bipap Bipap Oxygen Flow Rate 8 Sodium (135-145) mmol/L Potassium (3.6-5.0) mmol/L Chloride (101-111) mmol/L Carbon Dioxide (21.0-31.0) mmol/L Anion Gap BUN (7-18) mg/dL Creatinine (0.6-1.3) mg/dL Est Cr Clr Drug Dosing mL/min Estimated GFR (MDRD) BUN/Creatinine Ratio Glucose (74-105) mg/dL POC Glucose (83-110) mg/dl Calcium (8.4-10.2) mg/dl Phosphorus (2.5-4.6) mg/dL Magnesium (1.8-2.5) mg/dL Total Bilirubin (0.2-1.0) mg/dL AST (10-42) IU/L ALT (10-60) IU/L Alkaline Phosphatase (42-121) IU/L Total Protein (6.7-8.2) g/dl Albumin (3.2-5.5) g/dl Globulin Albumin/Globulin Ratio 01/03/19 01/03/19 01/03/19 Range/Units 11:37 16:28 17:03 WBC (5.0-10.0) 10^3/uL RBC (4.6-6.2) 10^6/uL Hgb (14.0-18.0) g/dL Hct (40.0-54.0) % MCV (80-100) fL MCH (27.0-34.0) pg MCHC (33.0-35.0) g/dL Plt Count (150-450) 10^3/uL ABG pH 7.40 (7.35-7.45) ABG pCO2 40 (35-45) mmHg ABG pO2 71 (70-100) mmHg ABG HCO3 24.7 (22-26) mmol/L ABG O2 Saturation 94 L (95-100) % ABG Base Excess 1 ((-2)-(+3)) mmol/L Jarek Test O2 Delivery Device Hi flow nasal cannu Oxygen Flow Rate Sodium (135-145) mmol/L Potassium (3.6-5.0) mmol/L Chloride (101-111) mmol/L Carbon Dioxide (21.0-31.0) mmol/L Anion Gap BUN (7-18) mg/dL Creatinine (0.6-1.3) mg/dL Est Cr Clr Drug Dosing mL/min Estimated GFR (MDRD) BUN/Creatinine Ratio Glucose (74-105) mg/dL POC Glucose 247 H 260 H (83-110) mg/dl Calcium (8.4-10.2) mg/dl Phosphorus (2.5-4.6) mg/dL Magnesium (1.8-2.5) mg/dL Total Bilirubin (0.2-1.0) mg/dL AST (10-42) IU/L ALT (10-60) IU/L Alkaline Phosphatase (42-121) IU/L Total Protein (6.7-8.2) g/dl Albumin (3.2-5.5) g/dl Globulin Albumin/Globulin Ratio 01/03/19 01/04/19 01/04/19 Range/Units 21:04 07:24 07:24 WBC 14.7 H (5.0-10.0) 10^3/uL RBC 4.05 L (4.6-6.2) 10^6/uL Hgb 13.4 L (14.0-18.0) g/dL Hct 40.6 (40.0-54.0) % MCV 100.2 H (80-100) fL MCH 33.1 (27.0-34.0) pg MCHC 33.0 (33.0-35.0) g/dL Plt Count 173 (150-450) 10^3/uL ABG pH (7.35-7.45) ABG pCO2 (35-45) mmHg ABG pO2 (70-100) mmHg ABG HCO3 (22-26) mmol/L ABG O2 Saturation (95-100) % ABG Base Excess ((-2)-(+3)) mmol/L Jarek Test O2 Delivery Device Oxygen Flow Rate Sodium 142 (135-145) mmol/L Potassium 4.1 (3.6-5.0) mmol/L Chloride 109 (101-111) mmol/L Carbon Dioxide 23.0 (21.0-31.0) mmol/L Anion Gap 14.1 BUN 21 H (7-18) mg/dL Creatinine 0.9 (0.6-1.3) mg/dL Est Cr Clr Drug Dosing 63.09 mL/min Estimated GFR (MDRD) > 60 BUN/Creatinine Ratio 23.33 Glucose 262 H (74-105) mg/dL POC Glucose 411 H* (83-110) mg/dl Calcium 8.2 L (8.4-10.2) mg/dl Phosphorus 2.7 (2.5-4.6) mg/dL Magnesium 2.2 (1.8-2.5) mg/dL Total Bilirubin 0.9 (0.2-1.0) mg/dL AST 36 (10-42) IU/L ALT 34 (10-60) IU/L Alkaline Phosphatase 64 (42-121) IU/L Total Protein 6.2 L (6.7-8.2) g/dl Albumin 3.3 (3.2-5.5) g/dl Globulin 2.9 Albumin/Globulin Ratio 1.14 /02/17 Range/Units 07:30 WBC (5.0-10.0) 10^3/uL RBC (4.6-6.2) 10^6/uL Hgb (14.0-18.0) g/dL Hct (40.0-54.0) % MCV (80-100) fL MCH (27.0-34.0) pg MCHC (33.0-35.0) g/dL Plt Count (150-450) 10^3/uL ABG pH (7.35-7.45) ABG pCO2 (35-45) mmHg ABG pO2 (70-100) mmHg ABG HCO3 (22-26) mmol/L ABG O2 Saturation (95-100) % ABG Base Excess ((-2)-(+3)) mmol/L Jarek Test O2 Delivery Device Oxygen Flow Rate Sodium (135-145) mmol/L Potassium (3.6-5.0) mmol/L Chloride (101-111) mmol/L Carbon Dioxide (21.0-31.0) mmol/L Anion Gap BUN (7-18) mg/dL Creatinine (0.6-1.3) mg/dL Est Cr Clr Drug Dosing mL/min Estimated GFR (MDRD) BUN/Creatinine Ratio Glucose (74-105) mg/dL POC Glucose 233 H (83-110) mg/dl Calcium (8.4-10.2) mg/dl Phosphorus (2.5-4.6) mg/dL Magnesium (1.8-2.5) mg/dL Total Bilirubin (0.2-1.0) mg/dL AST (10-42) IU/L ALT (10-60) IU/L Alkaline Phosphatase (42-121) IU/L Total Protein (6.7-8.2) g/dl Albumin (3.2-5.5) g/dl Globulin Albumin/Globulin Ratio Jaison Results Last 24 Hours: Microbiology 01/02/19 08:31 Aerobic Blood Culture - Preliminary Blood - Venous - Lab Draw NO GROWTH AFTER 2 DAYS Anaerobic Blood Culture - Preliminary NO GROWTH AFTER 2 DAYS 01/02/19 08:31 Aerobic Blood Culture - Preliminary Blood - Venous NO GROWTH AFTER 2 DAYS Anaerobic Blood Culture - Preliminary NO GROWTH AFTER 2 DAYS 01/03/19 09:30 Gram Stain - Final Sputum - Expectorated 01/02/19 13:54 Urine Culture - Preliminary Urine, Clean Catch NO GROWTH AFTER 1 DAY Med Orders - Current: Current Medications Acetaminophen (Tylenol) 650 mg PO Q4H PRN PRN Reason: Pain (Mild 1-3)/fever Albuterol (Proventil Hfa) 0 gm INH Q6H PRN PRN Reason: Wheezing Albuterol (Proventil Neb Soln) 2.5 mg NEB QID PRN PRN Reason: Shortness of Breath Albuterol/Ipratropium (Duoneb 3.0-0.5 Mg/3 Ml) 3 ml NEB Q4HRRT [facility] Last Admin: 01/04/19 07:13 Dose: 3 ml Atorvastatin Calcium (Lipitor) 10 mg PO BEDTIME [facility] Last Admin: 01/03/19 22:07 Dose: 10 mg Heparin Sodium (Porcine) (Heparin Sodium) 5,000 units SUBCUT Q8HR [facility] Last Admin: 01/04/19 06:48 Dose: 5,000 units Piperacillin Sod/Tazobactam (Sod 3.375 gm/ Sodium Chloride) 100 mls @ 200 mls/ hr IV Q6H [facility] Last Admin: 01/04/19 06:48 Dose: 200 mls/hr Sodium Chloride (Normal Saline) 1,000 mls @ 75 mls/hr IV ASDIRECTED [facility] Last Admin: 01/03/19 19:20 Dose: 75 mls/hr Vancomycin HCl 1.25 gm/ Sodium (Chloride) 250 mls @ 166.667 mls/hr IV Q12H [facility] Last Admin: 01/04/19 00:56 Dose: 166.667 mls/hr Insulin Human Lispro (Humalog) 0 unit SUBCUT ACBED [facility]; Protocol Last Admin: 01/04/19 08:32 Dose: 6 units Levothyroxine Sodium (Levothyroxine) 25 mcg PO ACBREAKFAST [facility] Last Admin: 01/04/19 06:50 Dose: 25 mcg Methylprednisolone Sodium Succinate (Solu-Medrol) 80 mg IVPUSH Q8H [facility] Last Admin: 01/04/19 06:50 Dose: 80 mg Mometasone Furoate/Formoterol Fumar (Dulera 200-5 Mcg) 2 puff IH BID [facility] Last Admin: 01/04/19 08:33 Dose: 2 puff Omeprazole (Omeprazole) 40 mg PO ACBREAKFAST [facility] Last Admin: 01/04/19 06:50 Dose: 40 mg Ondansetron HCl (Zofran) 4 mg IVPUSH Q4H PRN PRN Reason: Nausea/Vomiting Pregabalin (Lyrica) 300 mg PO BID [facility] Last Admin: 01/04/19 08:33 Dose: 300 mg Sodium Chloride (Saline Flush) 10 ml FLUSH ASDIRECTED PRN PRN Reason: Keep Vein Open Last Admin: 01/02/19 08:32 Dose: 10 ml Vancomycin HCl (Pharmacy To Dose - Vancomycin) 1 dose .XX ASDIRECTED [facility] Discontinued Medications Acetaminophen (Tylenol) 650 mg PO NOW ONE Stop: 01/02/19 08:53 Last Admin: 01/02/19 09:00 Dose: 650 mg Albuterol/Ipratropium (Duoneb 3.0-0.5 Mg/3 Ml) 3 ml NEB ONETIME ONE Stop: 01/02/19 08:25 Last Admin: 01/02/19 08:32 Dose: 3 ml Albuterol/Ipratropium (Duoneb 3.0-0.5 Mg/3 Ml) 3 ml NEB ONETIME ONE Stop: 01/02/19 08:48 Last Admin: 01/02/19 09:03 Dose: 3 ml Ceftriaxone Sodium (Rocephin) Confirm Administered Dose 2 gm .ROUTE .STK-MED ONE Stop: 01/02/19 09:03 Last Admin: 01/02/19 09:16 Dose: Not Given Levofloxacin/Dextrose 750 mg/ (Premix) 150 mls @ 100 mls/hr IV ONETIME ONE Stop: 01/02/19 10:22 Last Admin: 01/02/19 09:16 Dose: Not Given Ceftriaxone Sodium 2 gm/ (Sodium Chloride) 100 mls @ 200 mls/hr IV ONETIME ONE Stop: 01/02/19 09:25 Last Admin: 01/02/19 09:15 Dose: 200 mls/hr Sodium Chloride (Normal Saline) 1,000 mls @ 999 mls/hr IV .BOLUS ONE Stop: 01/02/19 09:56 Last Admin: 01/02/19 09:12 Dose: 999 mls/hr Methylprednisolone Sodium Succinate 80 mg/ Sodium Chloride 101.28 mls @ 100.637 mls/hr IV Q8H [facility] Last Admin: 01/02/19 13:14 Dose: Not Given Methylprednisolone Sodium Succinate 80 mg/ Sodium Chloride 101.28 mls @ 100.637 mls/hr IV Q8H [facility] Magnesium Sulfate 2 gm/ Premix 50 mls @ 25 mls/hr IV ONETIME ONE Stop: 01/03/19 13:24 Last Admin: 01/03/19 14:13 Dose: 25 mls/hr Insulin Human Lispro (Humalog) 10 unit SUBCUT ONETIME ONE Stop: 01/03/19 21:19 Last Admin: 01/03/19 22:07 Dose: 10 units Lorazepam (Ativan) 1 mg IVPUSH ONETIME ONE Stop: 01/02/19 20:01 Last Admin: 01/02/19 20:19 Dose: 1 mg Lorazepam (Ativan) 1 mg IVPUSH ONETIME ONE Stop: 01/03/19 06:01 Last Admin: 01/03/19 06:20 Dose: 1 mg Methylprednisolone Sodium Succinate (Solu-Medrol) 125 mg IVPUSH ONETIME ONE Stop: 01/02/19 08:25 Last Admin: 01/02/19 08:32 Dose: 125 mg - Exam Quality Assessment: Supplemental Oxygen General: Alert, Oriented Lungs: Clear to Auscultation, Normal Respiratory Effort Cardiovascular: Regular Rate, Regular Rhythm GI/Abdominal Exam: Normal Bowel Sounds, Soft, Non-Tender Extremities: No Pedal Edema Skin: Warm, Dry, Intact Neurological: No New Focal Deficit Psy/Mental Status: Alert, Normal Affect, Normal Mood - Problem List Review Problem List Initiated/Reviewed/Updated: Yes - My Orders Last 24 Hours: My Active Orders 01/03/19 09:30 CULTURE SPUTUM + SMEAR [RM] Routine 01/03/19 18:25 MRSA BY PCR [MREF] Routine 01/05/19 10:30 CBC W/O DIFF,HEMOGRAM [HEME] DAILY COMPREHENSIVE METABOLIC PN,CMP [CHEM] DAILY MAGNESIUM [CHEM] DAILY PHOSPHORUS [CHEM] DAILY 01/06/19 10:30 CBC W/O DIFF,HEMOGRAM [HEME] DAILY COMPREHENSIVE METABOLIC PN,CMP [CHEM] DAILY MAGNESIUM [CHEM] DAILY PHOSPHORUS [CHEM] DAILY 01/07/19 10:30 CBC W/O DIFF,HEMOGRAM [HEME] DAILY COMPREHENSIVE METABOLIC PN,CMP [CHEM] DAILY MAGNESIUM [CHEM] DAILY PHOSPHORUS [CHEM] DAILY 01/08/19 10:30 CBC W/O DIFF,HEMOGRAM [HEME] DAILY COMPREHENSIVE METABOLIC PN,CMP [CHEM] DAILY MAGNESIUM [CHEM] DAILY PHOSPHORUS [CHEM] DAILY 01/09/19 10:30 CBC W/O DIFF,HEMOGRAM [HEME] DAILY COMPREHENSIVE METABOLIC PN,CMP [CHEM] DAILY MAGNESIUM [CHEM] DAILY PHOSPHORUS [CHEM] DAILY 01/10/19 10:30 CBC W/O DIFF,HEMOGRAM [HEME] DAILY COMPREHENSIVE METABOLIC PN,CMP [CHEM] DAILY MAGNESIUM [CHEM] DAILY PHOSPHORUS [CHEM] DAILY 01/11/19 10:30 CBC W/O DIFF,HEMOGRAM [HEME] DAILY COMPREHENSIVE METABOLIC PN,CMP [CHEM] DAILY MAGNESIUM [CHEM] DAILY PHOSPHORUS [CHEM] DAILY 01/12/19 10:30 CBC W/O DIFF,HEMOGRAM [HEME] DAILY COMPREHENSIVE METABOLIC PN,CMP [CHEM] DAILY MAGNESIUM [CHEM] DAILY PHOSPHORUS [CHEM] DAILY 01/13/19 10:30 CBC W/O DIFF,HEMOGRAM [HEME] DAILY COMPREHENSIVE METABOLIC PN,CMP [CHEM] DAILY MAGNESIUM [CHEM] DAILY PHOSPHORUS [CHEM] DAILY - Plan Plan:: Acute respiratory failure with hypoxia on chronic respiratory failure/COPD exacerbation Patient is in acute on chronic hypoxemic respiratory failure Baseline oxygen requirement is 2-3 L Patient refuses to go back on BiPAP we'll continue patient on high flow nasal cannula, wean down as tolerated Await infectious workup on IV steroids DuoNeb scheduled every 4 hours, will add Mucomyst Continue IV Zosyn/vancomycin for now, awaiting MRSA swab check MRSA nasal swab DM2 Hold oral hypoglycemic agents Glucose checks before meals and at bedtime Sliding scale insulin Hypothyroidism continue home synthroid GERD PPI Hyperlipidemia continue statin DVT prophylaxis heparin
[2019-01-04 10:20] LABS: BASE EXCESS ARTERIAL -1 mmol/L ((-2)-(+3)); O2 DELIVERY DEVICE HI FLOW NASAL CANNU; O2 SATURATION ARTERIAL 90 % (95-100); PCO2 ARTERIAL 39 mmHg (35-45); PO2 ARTERIAL 62 mmHg (70-100)
[2019-01-04 10:24] LABS: ALLEN TEST PERFORMED
[2019-01-04] MEDS: Acetylcysteine 20% 200 MG/ML 30 ML Nebulizer Soln SDV INH SCH ×2 (15:24→23:44)
[2019-01-04] MEDS: Sodium Chloride 0.9% 10 ML Syringe FLUSH PRN (18:11)
[2019-01-04] MEDS: atorvaSTATin 10 MG Tab PO SCH (21:06)
[2019-01-05] MEDS: Albuterol/Ipratropium 3.0-0.5 MG/3 ML Neb Soln NEB SCH ×6 (02:46→23:04)
[2019-01-05] MEDS: Piperacillin/Tazobactam 3.375 GM in Sodium Chloride 0.9% 100 ML IV SCH ×4 (05:34→23:15)
[2019-01-05] MEDS: Omeprazole 20 MG Cap.CR PO SCH (05:38)
[2019-01-05] MEDS: Levothyroxine 25 MCG Tab PO SCH (05:38)
[2019-01-05] MEDS: methylPREDNISolone Sodium Succinate 125 MG/2 ML SDV IVPUSH SCH ×3 (05:42→21:23)
[2019-01-05] MEDS: Heparin Sodium 5,000 Units/ML Vial SUBCUT SCH ×3 (05:42→21:22)
[2019-01-05 07:13] LABS: ANION GAP 12.7; CHLORIDE,CL 107 mmol/L (101-111); SODIUM,NA 139 mmol/L (135-145)
[2019-01-05] MEDS: Acetylcysteine 20% 200 MG/ML 30 ML Nebulizer Soln SDV INH SCH ×3 (07:58→23:08)
[2019-01-05] MEDS: Insulin Lispro 100 Units/ML 3 ML Vial SUBCUT SCH ×4 (08:25→21:02)
[2019-01-05] MEDS: Pregabalin 75 MG Cap PO SCH ×2 (08:26→20:50)
[2019-01-05] MEDS: Formoterol/Mometasone 200-5 MCG 8.8 GM Inhaler IH SCH ×2 (08:26→20:50)
--- NOTE | 2019-01-05 10:20 | CR ---
Clinical history: 83-year-old male with recently diagnosed lower lobe "pneumonia". Follow-up please. Interpretation: Upright AP portable chest film again demonstrates bibasilar atelectasis (L>R), secondary to poor inspiration. Relative improvement i.e. some clearing of the patchy nonconsolidated of right lower lobe infiltrate suggested on 02 Jan 2019. No new lung mass, hilar lymphadenopathy or focal lobar consolidation. Normal cardiac silhouette without alveolar edema Pashto chronic mild blunting of the left costophrenic sulcus)
--- NOTE | 2019-01-05 10:49 | PCM.PN ---
- General Info Date of Service: 01/05/19 Admission Dx/Problem (Free Text): Admission Diagnosis/Problem Admission Diagnosis/Problem Acute respiratory failure with hypoxia Subjective Update: Patient continues to be in hypoxic respiratory failure. His SPO2 has been in the mid 90s on 15 L. Waning was initiated. He did not sleep well last night because of oximetry continued alarming. He said that his secretions continue to be thick despite starting Mucomyst. He denied any other complaints. Functional Status: Reports: Pain Controlled - Review of Systems General: Reports: No Symptoms Pulmonary: Reports: Cough, Sputum Cardiovascular: Reports: No Symptoms Gastrointestinal: Reports: No Symptoms Genitourinary: Reports: No Symptoms Skin: Reports: No Symptoms Neurological: Reports: No Symptoms Psychiatric: Reports: No Symptoms - Patient Data Vitals - Most Recent: Last Vital Signs Temp 37.2 C 01/05/19 08:00 Pulse 66 01/05/19 08:00 Resp 22 H 01/05/19 08:00 BP 156/72 H 01/05/19 08:00 Pulse Ox 90 L 01/05/19 08:00 Weight - Most Recent: 84.085 kg I&O - Last 24 Hours: Intake & Output 01/04/19 01/05/19 01/05/19 22:59 06:59 14:59 Intake Total 320 440 240 Output Total 550 Balance -230 440 240 Lab Results Last 24 Hours: Laboratory Results - last 24 hr 01/04/19 01/04/19 01/04/19 Range/Units 11:20 12:09 17:01 WBC (5.0-10.0) 10^3/uL RBC (4.6-6.2) 10^6/uL Hgb (14.0-18.0) g/dL Hct (40.0-54.0) % MCV (80-100) fL MCH (27.0-34.0) pg MCHC (33.0-35.0) g/dL Plt Count (150-450) 10^3/uL Sodium (135-145) mmol/L Potassium (3.6-5.0) mmol/L Chloride (101-111) mmol/L Carbon Dioxide (21.0-31.0) mmol/L Anion Gap BUN (7-18) mg/dL Creatinine (0.6-1.3) mg/dL Est Cr Clr Drug Dosing mL/min Estimated GFR (MDRD) BUN/Creatinine Ratio Glucose (74-105) mg/dL POC Glucose 261 H 266 H (83-110) mg/dl Calcium (8.4-10.2) mg/dl Phosphorus (2.5-4.6) mg/dL Magnesium (1.8-2.5) mg/dL Total Bilirubin (0.2-1.0) mg/dL AST (10-42) IU/L ALT (10-60) IU/L Alkaline Phosphatase (42-121) IU/L Total Protein (6.7-8.2) g/dl Albumin (3.2-5.5) g/dl Globulin Albumin/Globulin Ratio Vancomycin Trough 12.7 (10-15) ug/ml 01/04/19 01/05/19 01/05/19 Range/Units 21:08 06:07 06:07 WBC 10.4 H (5.0-10.0) 10^3/uL RBC 3.93 L (4.6-6.2) 10^6/uL Hgb 13.3 L (14.0-18.0) g/dL Hct 38.2 L (40.0-54.0) % MCV 97.2 D (80-100) fL MCH 33.8 (27.0-34.0) pg MCHC 34.8 (33.0-35.0) g/dL Plt Count 164 (150-450) 10^3/uL Sodium 139 (135-145) mmol/L Potassium 3.7 (3.6-5.0) mmol/L Chloride 107 (101-111) mmol/L Carbon Dioxide 23.0 (21.0-31.0) mmol/L Anion Gap 12.7 BUN 22 H (7-18) mg/dL Creatinine 0.8 (0.6-1.3) mg/dL Est Cr Clr Drug Dosing 70.97 mL/min Estimated GFR (MDRD) > 60 BUN/Creatinine Ratio 27.50 Glucose 265 H (74-105) mg/dL POC Glucose 256 H (83-110) mg/dl Calcium 8.3 L (8.4-10.2) mg/dl Phosphorus 2.9 (2.5-4.6) mg/dL Magnesium 2.0 (1.8-2.5) mg/dL Total Bilirubin 1.2 H (0.2-1.0) mg/dL AST 50 H (10-42) IU/L ALT 55 (10-60) IU/L Alkaline Phosphatase 63 (42-121) IU/L Total Protein 6.1 L (6.7-8.2) g/dl Albumin 3.3 (3.2-5.5) g/dl Globulin 2.8 Albumin/Globulin Ratio 1.18 Vancomycin Trough (10-15) ug/ml 01/05/19 Range/Units 07:58 WBC (5.0-10.0) 10^3/uL RBC (4.6-6.2) 10^6/uL Hgb (14.0-18.0) g/dL Hct (40.0-54.0) % MCV (80-100) fL MCH (27.0-34.0) pg MCHC (33.0-35.0) g/dL Plt Count (150-450) 10^3/uL Sodium (135-145) mmol/L Potassium (3.6-5.0) mmol/L Chloride (101-111) mmol/L Carbon Dioxide (21.0-31.0) mmol/L Anion Gap BUN (7-18) mg/dL Creatinine (0.6-1.3) mg/dL Est Cr Clr Drug Dosing mL/min Estimated GFR (MDRD) BUN/Creatinine Ratio Glucose (74-105) mg/dL POC Glucose 232 H (83-110) mg/dl Calcium (8.4-10.2) mg/dl Phosphorus (2.5-4.6) mg/dL Magnesium (1.8-2.5) mg/dL Total Bilirubin (0.2-1.0) mg/dL AST (10-42) IU/L ALT (10-60) IU/L Alkaline Phosphatase (42-121) IU/L Total Protein (6.7-8.2) g/dl Albumin (3.2-5.5) g/dl Globulin Albumin/Globulin Ratio Vancomycin Trough (10-15) ug/ml [facility]ison Results Last 24 Hours: Microbiology 01/02/19 08:31 Aerobic Blood Culture - Preliminary Blood - Venous - Lab Draw NO GROWTH AFTER 3 DAYS Anaerobic Blood Culture - Preliminary NO GROWTH AFTER 3 DAYS 01/02/19 08:31 Aerobic Blood Culture - Preliminary Blood - Venous NO GROWTH AFTER 3 DAYS Anaerobic Blood Culture - Preliminary NO GROWTH AFTER 3 DAYS 01/03/19 09:30 Gram Stain - Final Sputum - Expectorated Sputum Culture - Preliminary Normal Devi 01/03/19 18:25 MRSA (PCR) - Final Nasal, Unspecified 01/02/19 13:54 Streptococcus pneumoniae Antigen (M - Final Urine 01/02/19 13:54 Urine Culture - Final Urine, Clean Catch NO GROWTH AFTER 2 DAYS Med Orders - Current: Current Medications Acetaminophen (Tylenol) 650 mg PO Q4H PRN PRN Reason: Pain (Mild 1-3)/fever Acetylcysteine (Mucomyst 20%) 600 mg INH Q8HRRT [facility] Last Admin: 01/05/19 07:58 Dose: 600 mg Albuterol (Proventil Hfa) 0 gm INH Q6H PRN PRN Reason: Wheezing Albuterol (Proventil Neb Soln) 2.5 mg NEB QID PRN PRN Reason: Shortness of Breath Albuterol/Ipratropium (Duoneb 3.0-0.5 Mg/3 Ml) 3 ml NEB Q4HRRT [facility] Last Admin: 01/05/19 07:58 Dose: 3 ml Atorvastatin Calcium (Lipitor) 10 mg PO BEDTIME [facility] Last Admin: 01/04/19 21:06 Dose: 10 mg Heparin Sodium (Porcine) (Heparin Sodium) 5,000 units SUBCUT Q8HR [facility] Last Admin: 01/05/19 05:42 Dose: 5,000 units Piperacillin Sod/Tazobactam (Sod 3.375 gm/ Sodium Chloride) 100 mls @ 200 mls/ hr IV Q6H [facility] Last Admin: 01/05/19 05:34 Dose: 200 mls/hr Insulin Human Lispro (Humalog) 0 unit SUBCUT ACBED [facility]; Protocol Last Admin: 01/05/19 08:25 Dose: 6 units Levothyroxine Sodium (Levothyroxine) 25 mcg PO ACBREAKFAST [facility] Last Admin: 01/05/19 05:38 Dose: 25 mcg Methylprednisolone Sodium Succinate (Solu-Medrol) 80 mg IVPUSH Q8H [facility] Last Admin: 01/05/19 05:42 Dose: 80 mg Mometasone Furoate/Formoterol Fumar (Dulera 200-5 Mcg) 2 puff IH BID [facility] Last Admin: 01/05/19 08:26 Dose: 2 puff Omeprazole (Omeprazole) 40 mg PO ACBREAKFAST [facility] Last Admin: 01/05/19 05:38 Dose: 40 mg Ondansetron HCl (Zofran) 4 mg IVPUSH Q4H PRN PRN Reason: Nausea/Vomiting Pregabalin (Lyrica) 300 mg PO BID [facility] Last Admin: 01/05/19 08:26 Dose: 300 mg Sodium Chloride (Saline Flush) 10 ml FLUSH ASDIRECTED PRN PRN Reason: Keep Vein Open Last Admin: 01/04/19 18:11 Dose: 10 ml Sodium Chloride (Saline Flush) 10 ml FLUSH ASDIRECTED PRN PRN Reason: Keep Vein Open Discontinued Medications Acetaminophen (Tylenol) 650 mg PO NOW ONE Stop: 01/02/19 08:53 Last Admin: 01/02/19 09:00 Dose: 650 mg Albuterol/Ipratropium (Duoneb 3.0-0.5 Mg/3 Ml) 3 ml NEB ONETIME ONE Stop: 01/02/19 08:25 Last Admin: 01/02/19 08:32 Dose: 3 ml Albuterol/Ipratropium (Duoneb 3.0-0.5 Mg/3 Ml) 3 ml NEB ONETIME ONE Stop: 01/02/19 08:48 Last Admin: 01/02/19 09:03 Dose: 3 ml Ceftriaxone Sodium (Rocephin) Confirm Administered Dose 2 gm .ROUTE .STK-MED ONE Stop: 01/02/19 09:03 Last Admin: 01/02/19 09:16 Dose: Not Given Levofloxacin/Dextrose 750 mg/ (Premix) 150 mls @ 100 mls/hr IV ONETIME ONE Stop: 01/02/19 10:22 Last Admin: 01/02/19 09:16 Dose: Not Given Ceftriaxone Sodium 2 gm/ (Sodium Chloride) 100 mls @ 200 mls/hr IV ONETIME ONE Stop: 01/02/19 09:25 Last Admin: 01/02/19 09:15 Dose: 200 mls/hr Sodium Chloride (Normal Saline) 1,000 mls @ 999 mls/hr IV .BOLUS ONE Stop: 01/02/19 09:56 Last Admin: 01/02/19 09:12 Dose: 999 mls/hr Sodium Chloride (Normal Saline) 1,000 mls @ 75 mls/hr IV ASDIRECTED [facility] Last Infusion: 01/04/19 12:05 Dose: Infused Methylprednisolone Sodium Succinate 80 mg/ Sodium Chloride 101.28 mls @ 100.637 mls/hr IV Q8H [facility] Last Admin: 01/02/19 13:14 Dose: Not Given Vancomycin HCl 1.25 gm/ Sodium (Chloride) 250 mls @ 166.667 mls/hr IV Q12H [facility] Last Admin: 01/05/19 00:20 Dose: 166.667 mls/hr Methylprednisolone Sodium Succinate 80 mg/ Sodium Chloride 101.28 mls @ 100.637 mls/hr IV Q8H [facility] Magnesium Sulfate 2 gm/ Premix 50 mls @ 25 mls/hr IV ONETIME ONE Stop: 01/03/19 13:24 Last Admin: 01/03/19 14:13 Dose: 25 mls/hr Insulin Human Lispro (Humalog) 10 unit SUBCUT ONETIME ONE Stop: 01/03/19 21:19 Last Admin: 01/03/19 22:07 Dose: 10 units Lorazepam (Ativan) 1 mg IVPUSH ONETIME ONE Stop: 01/02/19 20:01 Last Admin: 01/02/19 20:19 Dose: 1 mg Lorazepam (Ativan) 1 mg IVPUSH ONETIME ONE Stop: 01/03/19 06:01 Last Admin: 01/03/19 06:20 Dose: 1 mg Methylprednisolone Sodium Succinate (Solu-Medrol) 125 mg IVPUSH ONETIME ONE Stop: 01/02/19 08:25 Last Admin: 01/02/19 08:32 Dose: 125 mg Vancomycin HCl (Pharmacy To Dose - Vancomycin) 1 dose .XX ASDIRECTED [facility] - Exam Quality Assessment: Supplemental Oxygen General: Alert, Oriented Lungs: Clear to Auscultation, Normal Respiratory Effort Cardiovascular: Regular Rate, Regular Rhythm GI/Abdominal Exam: Normal Bowel Sounds, Soft, Non-Tender, No Distention Skin: Warm, Dry, Intact Wound/Incisions: Healing Well Neurological: No New Focal Deficit Psy/Mental Status: Alert, Normal Affect, Normal Mood - Problem List Review Problem List Initiated/Reviewed/Updated: Yes - My Orders Last 24 Hours: My Active Orders 01/04/19 11:31 RT Aerosol Therapy [RC] ASDIRECTED 01/04/19 15:00 Acetylcysteine [Mucomyst 20%] 600 mg INH Q8HRRT 01/04/19 18:52 Sodium Chloride 0.9% [Saline Flush] 10 ml FLUSH ASDIRECTED PRN Convert IV to Saline Lock [OM.PC] Routine 01/06/19 10:30 CBC W/O DIFF,HEMOGRAM [HEME] DAILY COMPREHENSIVE METABOLIC PN,CMP [CHEM] DAILY MAGNESIUM [CHEM] DAILY PHOSPHORUS [CHEM] DAILY 01/07/19 10:30 CBC W/O DIFF,HEMOGRAM [HEME] DAILY COMPREHENSIVE METABOLIC PN,CMP [CHEM] DAILY MAGNESIUM [CHEM] DAILY PHOSPHORUS [CHEM] DAILY 01/08/19 10:30 CBC W/O DIFF,HEMOGRAM [HEME] DAILY COMPREHENSIVE METABOLIC PN,CMP [CHEM] DAILY MAGNESIUM [CHEM] DAILY PHOSPHORUS [CHEM] DAILY 01/09/19 10:30 CBC W/O DIFF,HEMOGRAM [HEME] DAILY COMPREHENSIVE METABOLIC PN,CMP [CHEM] DAILY MAGNESIUM [CHEM] DAILY PHOSPHORUS [CHEM] DAILY 01/10/19 10:30 CBC W/O DIFF,HEMOGRAM [HEME] DAILY COMPREHENSIVE METABOLIC PN,CMP [CHEM] DAILY MAGNESIUM [CHEM] DAILY PHOSPHORUS [CHEM] DAILY 01/11/19 10:30 CBC W/O DIFF,HEMOGRAM [HEME] DAILY COMPREHENSIVE METABOLIC PN,CMP [CHEM] DAILY MAGNESIUM [CHEM] DAILY PHOSPHORUS [CHEM] DAILY 01/12/19 10:30 CBC W/O DIFF,HEMOGRAM [HEME] DAILY COMPREHENSIVE METABOLIC PN,CMP [CHEM] DAILY MAGNESIUM [CHEM] DAILY PHOSPHORUS [CHEM] DAILY 01/13/19 10:30 CBC W/O DIFF,HEMOGRAM [HEME] DAILY COMPREHENSIVE METABOLIC PN,CMP [CHEM] DAILY MAGNESIUM [CHEM] DAILY PHOSPHORUS [CHEM] DAILY - Plan Plan:: Acute respiratory failure with hypoxia on chronic respiratory failure/COPD exacerbation Patient is in acute on chronic hypoxemic respiratory failure Baseline oxygen requirement is 2-3L we'll continue patient on high flow nasal cannula, wean down as tolerated Await final infectious workup DuoNeb scheduled every 4 hours, will add Mucomyst Continue IV Zosyn and discontinue vancomycin DM2 Hold oral hypoglycemic agents Glucose checks before meals and at bedtime Sliding scale insulin Hypothyroidism continue home synthroid GERD PPI Hyperlipidemia continue statin DVT prophylaxis heparin
[2019-01-05] MEDS: Sodium Chloride 0.9% 10 ML Syringe FLUSH PRN ×3 (12:27→23:15)
[2019-01-05] MEDS: atorvaSTATin 10 MG Tab PO SCH (20:50)
[2019-01-05] MEDS ORDERED: Melatonin 3 MG Tab PO PRN (21:00)
[2019-01-06] MEDS: Albuterol/Ipratropium 3.0-0.5 MG/3 ML Neb Soln NEB SCH ×6 (03:32→18:00)
[2019-01-06] MEDS: methylPREDNISolone Sodium Succinate 125 MG/2 ML SDV IVPUSH SCH (05:30)
[2019-01-06] MEDS: Sodium Chloride 0.9% 10 ML Syringe FLUSH PRN ×2 (05:30→23:27)
[2019-01-06] MEDS: Piperacillin/Tazobactam 3.375 GM in Sodium Chloride 0.9% 100 ML IV SCH ×4 (05:31→23:28)
[2019-01-06] MEDS: Levothyroxine 25 MCG Tab PO SCH (05:33)
[2019-01-06] MEDS: Omeprazole 20 MG Cap.CR PO SCH (05:33)
[2019-01-06] MEDS: Heparin Sodium 5,000 Units/ML Vial SUBCUT SCH ×3 (05:37→21:46)
[2019-01-06 06:58] LABS: ANION GAP 15.1; CHLORIDE,CL 102 mmol/L (101-111); SODIUM,NA 138 mmol/L (135-145)
[2019-01-06] MEDS: Acetylcysteine 20% 200 MG/ML 30 ML Nebulizer Soln SDV INH SCH (07:41)
[2019-01-06] MEDS: Pregabalin 75 MG Cap PO SCH ×2 (08:57→21:41)
[2019-01-06] MEDS: Insulin Lispro 100 Units/ML 3 ML Vial SUBCUT SCH ×4 (08:57→21:45)
[2019-01-06] MEDS: Formoterol/Mometasone 200-5 MCG 8.8 GM Inhaler IH SCH ×2 (08:58→21:43)
[2019-01-06] MEDS ORDERED: Potassium Chloride 10 MEQ Tab.ER PO ONE ×2 (09:25→12:00)
--- NOTE | 2019-01-06 11:30 | PCM.PN ---
- General Info Date of Service: 01/06/19 Admission Dx/Problem (Free Text): Admission Diagnosis/Problem Admission Diagnosis/Problem Acute respiratory failure with hypoxia Subjective Update: Patient continues to be in hypoxic respiratory failure. His SPO2 has been in the mid 90s on 10 L. patient had multiple loose bowel movements yesterday. C. difficile was checked and results are pending. Patient said that Mucomyst is not helpful. - Review of Systems General: Reports: No Symptoms Pulmonary: Reports: Shortness of Breath, Cough Cardiovascular: Reports: No Symptoms Gastrointestinal: Reports: Diarrhea Genitourinary: Reports: No Symptoms Musculoskeletal: Reports: No Symptoms Skin: Reports: No Symptoms Neurological: Reports: No Symptoms Psychiatric: Reports: No Symptoms - Patient Data Vitals - Most Recent: Last Vital Signs Temp 36.9 C 01/06/19 08:00 Pulse 68 01/06/19 08:00 Resp 20 01/06/19 08:00 BP 173/80 H 01/06/19 08:00 Pulse Ox 92 L 01/06/19 11:00 Weight - Most Recent: 84.085 kg I&O - Last 24 Hours: Intake & Output 01/05/19 01/06/19 01/06/19 22:59 06:59 14:59 Intake Total 550 200 200 Output Total 500 1200 Balance 50 -1000 200 Lab Results Last 24 Hours: Laboratory Results - last 24 hr 01/05/19 01/05/19 01/05/19 Range/Units 11:57 16:55 20:57 WBC (5.0-10.0) 10^3/uL RBC (4.6-6.2) 10^6/uL Hgb (14.0-18.0) g/dL Hct (40.0-54.0) % MCV (80-100) fL MCH (27.0-34.0) pg MCHC (33.0-35.0) g/dL Plt Count (150-450) 10^3/uL Sodium (135-145) mmol/L Potassium (3.6-5.0) mmol/L Chloride (101-111) mmol/L Carbon Dioxide (21.0-31.0) mmol/L Anion Gap BUN (7-18) mg/dL Creatinine (0.6-1.3) mg/dL Est Cr Clr Drug Dosing mL/min Estimated GFR (MDRD) BUN/Creatinine Ratio Glucose (74-105) mg/dL POC Glucose 224 H 274 H 262 H (83-110) mg/dl Calcium (8.4-10.2) mg/dl Phosphorus (2.5-4.6) mg/dL Magnesium (1.8-2.5) mg/dL Total Bilirubin (0.2-1.0) mg/dL AST (10-42) IU/L ALT (10-60) IU/L Alkaline Phosphatase (42-121) IU/L Total Protein (6.7-8.2) g/dl Albumin (3.2-5.5) g/dl Globulin Albumin/Globulin Ratio 01/06/19 01/06/19 01/06/19 Range/Units 05:58 05:58 07:59 WBC 6.9 (5.0-10.0) 10^3/uL RBC 4.29 L (4.6-6.2) 10^6/uL Hgb 14.2 (14.0-18.0) g/dL Hct 41.7 (40.0-54.0) % MCV 97.2 (80-100) fL MCH 33.1 (27.0-34.0) pg MCHC 34.1 (33.0-35.0) g/dL Plt Count 165 (150-450) 10^3/uL Sodium 138 (135-145) mmol/L Potassium 3.1 L (3.6-5.0) mmol/L Chloride 102 (101-111) mmol/L Carbon Dioxide 24.0 (21.0-31.0) mmol/L Anion Gap 15.1 BUN 20 H (7-18) mg/dL Creatinine 0.7 (0.6-1.3) mg/dL Est Cr Clr Drug Dosing 81.11 mL/min Estimated GFR (MDRD) > 60 BUN/Creatinine Ratio 28.57 Glucose 272 H (74-105) mg/dL POC Glucose 233 H (83-110) mg/dl Calcium 8.5 (8.4-10.2) mg/dl Phosphorus 3.2 (2.5-4.6) mg/dL Magnesium 2.0 (1.8-2.5) mg/dL Total Bilirubin 1.3 H (0.2-1.0) mg/dL AST 55 H (10-42) IU/L ALT 70 H (10-60) IU/L Alkaline Phosphatase 65 (42-121) IU/L Total Protein 6.3 L (6.7-8.2) g/dl Albumin 3.4 (3.2-5.5) g/dl Globulin 2.9 Albumin/Globulin Ratio 1.17 Jaison Results Last 24 Hours: Microbiology 01/02/19 08:31 Aerobic Blood Culture - Preliminary Blood - Venous - Lab Draw NO GROWTH AFTER 4 DAYS Anaerobic Blood Culture - Preliminary NO GROWTH AFTER 4 DAYS 01/02/19 08:31 Aerobic Blood Culture - Preliminary Blood - Venous NO GROWTH AFTER 4 DAYS Anaerobic Blood Culture - Preliminary NO GROWTH AFTER 4 DAYS 01/03/19 09:30 Gram Stain - Final Sputum - Expectorated Sputum Culture - Final Med Orders - Current: Current Medications Acetaminophen (Tylenol) 650 mg PO Q4H PRN PRN Reason: Pain (Mild 1-3)/fever Acetylcysteine (Mucomyst 20%) 600 mg INH Q8HRRT [facility] Last Admin: 01/06/19 07:41 Dose: 600 mg Albuterol (Proventil Hfa) 0 gm INH Q6H PRN PRN Reason: Wheezing Albuterol (Proventil Neb Soln) 2.5 mg NEB QID PRN PRN Reason: Shortness of Breath Albuterol/Ipratropium (Duoneb 3.0-0.5 Mg/3 Ml) 3 ml NEB Q4HRRT [facility] Last Admin: 01/06/19 11:17 Dose: 3 ml Atorvastatin Calcium (Lipitor) 10 mg PO BEDTIME [facility] Last Admin: 01/05/19 20:50 Dose: 10 mg Heparin Sodium (Porcine) (Heparin Sodium) 5,000 units SUBCUT Q8HR [facility] Last Admin: 01/06/19 05:37 Dose: 5,000 units Piperacillin Sod/Tazobactam (Sod 3.375 gm/ Sodium Chloride) 100 mls @ 200 mls/ hr IV Q6HR [facility] Last Infusion: 01/06/19 06:10 Dose: Infused Insulin Human Lispro (Humalog) 0 unit SUBCUT ACBED [facility]; Protocol Last Admin: 01/06/19 08:57 Dose: 6 units Levothyroxine Sodium (Levothyroxine) 25 mcg PO ACBREAKFAST [facility] Last Admin: 01/06/19 05:33 Dose: 25 mcg Melatonin (Melatonin) 6 mg PO BEDTIME PRN PRN Reason: Sleep Mometasone Furoate/Formoterol Fumar (Dulera 200-5 Mcg) 2 puff IH BID [facility] Last Admin: 01/06/19 08:58 Dose: 2 puff Omeprazole (Omeprazole) 40 mg PO ACBREAKFAST [facility] Last Admin: 01/06/19 05:33 Dose: 40 mg Ondansetron HCl (Zofran) 4 mg IVPUSH Q4H PRN PRN Reason: Nausea/Vomiting Potassium Chloride (Klor-Con 10) 20 meq PO ONETIME ONE Stop: 01/06/19 12:01 Prednisone (Prednisone) 40 mg PO WITHBREAKFAST [facility] Pregabalin (Lyrica) 300 mg PO BID [facility] Last Admin: 01/06/19 08:57 Dose: 300 mg Sodium Chloride (Saline Flush) 10 ml FLUSH ASDIRECTED PRN PRN Reason: Keep Vein Open Last Admin: 01/06/19 05:30 Dose: 10 ml Sodium Chloride (Saline Flush) 10 ml FLUSH ASDIRECTED PRN PRN Reason: Keep Vein Open Discontinued Medications Acetaminophen (Tylenol) 650 mg PO NOW ONE Stop: 01/02/19 08:53 Last Admin: 01/02/19 09:00 Dose: 650 mg Albuterol/Ipratropium (Duoneb 3.0-0.5 Mg/3 Ml) 3 ml NEB ONETIME ONE Stop: 01/02/19 08:25 Last Admin: 01/02/19 08:32 Dose: 3 ml Albuterol/Ipratropium (Duoneb 3.0-0.5 Mg/3 Ml) 3 ml NEB ONETIME ONE Stop: 01/02/19 08:48 Last Admin: 01/02/19 09:03 Dose: 3 ml Ceftriaxone Sodium (Rocephin) Confirm Administered Dose 2 gm .ROUTE .STK-MED ONE Stop: 01/02/19 09:03 Last Admin: 01/02/19 09:16 Dose: Not Given Levofloxacin/Dextrose 750 mg/ (Premix) 150 mls @ 100 mls/hr IV ONETIME ONE Stop: 01/02/19 10:22 Last Admin: 01/02/19 09:16 Dose: Not Given Ceftriaxone Sodium 2 gm/ (Sodium Chloride) 100 mls @ 200 mls/hr IV ONETIME ONE Stop: 01/02/19 09:25 Last Admin: 01/02/19 09:15 Dose: 200 mls/hr Sodium Chloride (Normal Saline) 1,000 mls @ 999 mls/hr IV .BOLUS ONE Stop: 01/02/19 09:56 Last Admin: 01/02/19 09:12 Dose: 999 mls/hr Piperacillin Sod/Tazobactam (Sod 3.375 gm/ Sodium Chloride) 100 mls @ 200 mls/ hr IV Q6H [facility] Last Admin: 01/05/19 05:34 Dose: 200 mls/hr Sodium Chloride (Normal Saline) 1,000 mls @ 75 mls/hr IV ASDIRECTED [facility] Last Infusion: 01/04/19 12:05 Dose: Infused Methylprednisolone Sodium Succinate 80 mg/ Sodium Chloride 101.28 mls @ 100.637 mls/hr IV Q8H [facility] Last Admin: 01/02/19 13:14 Dose: Not Given Vancomycin HCl 1.25 gm/ Sodium (Chloride) 250 mls @ 166.667 mls/hr IV Q12H [facility] Last Admin: 01/05/19 00:20 Dose: 166.667 mls/hr Methylprednisolone Sodium Succinate 80 mg/ Sodium Chloride 101.28 mls @ 100.637 mls/hr IV Q8H [facility] Magnesium Sulfate 2 gm/ Premix 50 mls @ 25 mls/hr IV ONETIME ONE Stop: 01/03/19 13:24 Last Admin: 01/03/19 14:13 Dose: 25 mls/hr Insulin Human Lispro (Humalog) 10 unit SUBCUT ONETIME ONE Stop: 01/03/19 21:19 Last Admin: 01/03/19 22:07 Dose: 10 units Lorazepam (Ativan) 1 mg IVPUSH ONETIME ONE Stop: 01/02/19 20:01 Last Admin: 01/02/19 20:19 Dose: 1 mg Lorazepam (Ativan) 1 mg IVPUSH ONETIME ONE Stop: 01/03/19 06:01 Last Admin: 01/03/19 06:20 Dose: 1 mg Methylprednisolone Sodium Succinate (Solu-Medrol) 125 mg IVPUSH ONETIME ONE Stop: 01/02/19 08:25 Last Admin: 01/02/19 08:32 Dose: 125 mg Methylprednisolone Sodium Succinate (Solu-Medrol) 80 mg IVPUSH Q8H [facility] Last Admin: 01/06/19 05:30 Dose: 80 mg Potassium Chloride (Klor-Con 10) 40 meq PO ONETIME ONE Stop: 01/06/19 09:26 Last Admin: 01/06/19 09:45 Dose: 40 meq Prednisone (Prednisone) 40 mg PO WITHBREAKFAST [facility] Vancomycin HCl (Pharmacy To Dose - Vancomycin) 1 dose .XX ASDIRECTED MIRANDA - Exam Quality Assessment: Supplemental Oxygen General: Alert, Oriented Lungs: Clear to Auscultation, Normal Respiratory Effort Cardiovascular: Regular Rate, Regular Rhythm GI/Abdominal Exam: Normal Bowel Sounds, Soft, Non-Tender Skin: Warm, Dry, Intact Neurological: No New Focal Deficit Psy/Mental Status: Alert, Normal Affect, Normal Mood - Problem List Review Problem List Initiated/Reviewed/Updated: Yes - My Orders Last 24 Hours: My Active Orders 01/05/19 12:00 Piperacillin/Tazobactam [Zosyn] 3.375 gm Sodium Chloride 0.9% [Normal Saline] 100 ml IV Q6HR 01/05/19 19:09 Isolation [COMM] Stat 01/05/19 21:00 Melatonin 6 mg PO BEDTIME PRN 01/06/19 12:00 Potassium Chloride [Klor-Con 10] 20 meq PO ONETIME ONE 01/07/19 08:00 predniSONE 40 mg PO WITHBREAKFAST 01/07/19 10:30 CBC W/O DIFF,HEMOGRAM [HEME] DAILY COMPREHENSIVE METABOLIC PN,CMP [CHEM] DAILY MAGNESIUM [CHEM] DAILY PHOSPHORUS [CHEM] DAILY 01/08/19 10:30 CBC W/O DIFF,HEMOGRAM [HEME] DAILY COMPREHENSIVE METABOLIC PN,CMP [CHEM] DAILY MAGNESIUM [CHEM] DAILY PHOSPHORUS [CHEM] DAILY 01/09/19 10:30 CBC W/O DIFF,HEMOGRAM [HEME] DAILY COMPREHENSIVE METABOLIC PN,CMP [CHEM] DAILY MAGNESIUM [CHEM] DAILY PHOSPHORUS [CHEM] DAILY 01/10/19 10:30 CBC W/O DIFF,HEMOGRAM [HEME] DAILY COMPREHENSIVE METABOLIC PN,CMP [CHEM] DAILY MAGNESIUM [CHEM] DAILY PHOSPHORUS [CHEM] DAILY 01/11/19 10:30 CBC W/O DIFF,HEMOGRAM [HEME] DAILY COMPREHENSIVE METABOLIC PN,CMP [CHEM] DAILY MAGNESIUM [CHEM] DAILY PHOSPHORUS [CHEM] DAILY 01/12/19 10:30 CBC W/O DIFF,HEMOGRAM [HEME] DAILY COMPREHENSIVE METABOLIC PN,CMP [CHEM] DAILY MAGNESIUM [CHEM] DAILY PHOSPHORUS [CHEM] DAILY 01/13/19 10:30 CBC W/O DIFF,HEMOGRAM [HEME] DAILY COMPREHENSIVE METABOLIC PN,CMP [CHEM] DAILY MAGNESIUM [CHEM] DAILY PHOSPHORUS [CHEM] DAILY - Plan Plan:: Acute respiratory failure with hypoxia on chronic respiratory failure/COPD exacerbation Patient is in acute on chronic hypoxemic respiratory failure Baseline oxygen requirement is 2-3L we'll continue patient on high flow nasal cannula, wean down as tolerated Await final infectious workup DuoNeb scheduled every 4 hours, will discontinue Mucomyst Continue IV Zosyn and discontinue vancomycin Switch steroids to oral DM2 Hold oral hypoglycemic agents Glucose checks before meals and at bedtime Sliding scale insulin Hypothyroidism continue home synthroid GERD PPI Hyperlipidemia continue statin DVT prophylaxis heparin
[2019-01-06] MEDS: atorvaSTATin 10 MG Tab PO SCH (21:42)
[2019-01-07] MEDS: Albuterol/Ipratropium 3.0-0.5 MG/3 ML Neb Soln NEB SCH ×7 (01:12→23:41)
[2019-01-07] MEDS: Sodium Chloride 0.9% 10 ML Syringe FLUSH PRN ×2 (06:03→23:48)
[2019-01-07] MEDS: Piperacillin/Tazobactam 3.375 GM in Sodium Chloride 0.9% 100 ML IV SCH ×4 (06:03→23:48)
[2019-01-07] MEDS: Omeprazole 20 MG Cap.CR PO SCH (06:07)
[2019-01-07] MEDS: Levothyroxine 25 MCG Tab PO SCH (06:07)
[2019-01-07] MEDS: Heparin Sodium 5,000 Units/ML Vial SUBCUT SCH ×3 (06:08→21:28)
[2019-01-07 06:39] LABS: ANION GAP 15.1; CHLORIDE,CL 101 mmol/L (101-111); SODIUM,NA 138 mmol/L (135-145)
[2019-01-07] MEDS: predniSONE 20 MG Tab PO SCH (09:01)
[2019-01-07] MEDS: Pregabalin 75 MG Cap PO SCH ×2 (09:01→21:23)
[2019-01-07] MEDS: Insulin Lispro 100 Units/ML 3 ML Vial SUBCUT SCH ×4 (09:02→21:25)
[2019-01-07] MEDS: Formoterol/Mometasone 200-5 MCG 8.8 GM Inhaler IH SCH ×2 (09:02→21:29)
--- NOTE | 2019-01-07 10:30 | PCM.PN ---
- General Info Date of Service: 01/07/19 Admission Dx/Problem (Free Text): Admission Diagnosis/Problem Admission Diagnosis/Problem Acute respiratory failure with hypoxia Subjective Update: Patient continues to be in hypoxic respiratory failure. But his oxygen requirement is slowly decreasing. continues to have loose stools. no associated abdominal pain. The loose stool started days ago. This is influenza by being on antibiotic Otherwise feeling well. Functional Status: Reports: Pain Controlled, Tolerating Diet - Review of Systems General: Reports: Weakness. Denies: Fever Pulmonary: Reports: Shortness of Breath, Cough. Denies: Sputum Cardiovascular: Denies: Chest Pain, Edema Gastrointestinal: Denies: Abdominal Pain Genitourinary: Denies: Dysuria - Patient Data Vitals - Most Recent: Last Vital Signs Temp 37.0 C 01/07/19 08:00 Pulse 74 01/07/19 08:00 Resp 20 01/07/19 08:00 BP 114/68 01/07/19 08:00 Pulse Ox 89 L 01/07/19 08:00 Weight - Most Recent: 84.085 kg I&O - Last 24 Hours: Intake & Output 01/06/19 01/07/19 01/07/19 22:59 06:59 14:59 Intake Total 636 442 240 Output Total 500 1250 400 Balance 136 -808 -160 Lab Results Last 24 Hours: Laboratory Results - last 24 hr 01/06/19 01/06/19 01/06/19 Range/Units 11:36 17:00 21:12 WBC (5.0-10.0) 10^3/uL RBC (4.6-6.2) 10^6/uL Hgb (14.0-18.0) g/dL Hct (40.0-54.0) % MCV (80-100) fL MCH (27.0-34.0) pg MCHC (33.0-35.0) g/dL Plt Count (150-450) 10^3/uL Sodium (135-145) mmol/L Potassium (3.6-5.0) mmol/L Chloride (101-111) mmol/L Carbon Dioxide (21.0-31.0) mmol/L Anion Gap BUN (7-18) mg/dL Creatinine (0.6-1.3) mg/dL Est Cr Clr Drug Dosing mL/min Estimated GFR (MDRD) BUN/Creatinine Ratio Glucose (74-105) mg/dL POC Glucose 243 H 268 H 237 H (83-110) mg/dl Calcium (8.4-10.2) mg/dl Phosphorus (2.5-4.6) mg/dL Magnesium (1.8-2.5) mg/dL Total Bilirubin (0.2-1.0) mg/dL AST (10-42) IU/L ALT (10-60) IU/L Alkaline Phosphatase (42-121) IU/L Total Protein (6.7-8.2) g/dl Albumin (3.2-5.5) g/dl Globulin Albumin/Globulin Ratio 01/07/19 01/07/19 01/07/19 Range/Units 05:36 05:36 08:05 WBC 8.1 (5.0-10.0) 10^3/uL RBC 4.25 L (4.6-6.2) 10^6/uL Hgb 14.0 (14.0-18.0) g/dL Hct 41.2 (40.0-54.0) % MCV 96.9 (80-100) fL MCH 32.9 (27.0-34.0) pg MCHC 34.0 (33.0-35.0) g/dL Plt Count 147 L (150-450) 10^3/uL Sodium 138 (135-145) mmol/L Potassium 3.1 L (3.6-5.0) mmol/L Chloride 101 (101-111) mmol/L Carbon Dioxide 25.0 (21.0-31.0) mmol/L Anion Gap 15.1 BUN 21 H (7-18) mg/dL Creatinine 0.7 (0.6-1.3) mg/dL Est Cr Clr Drug Dosing 81.11 mL/min Estimated GFR (MDRD) > 60 BUN/Creatinine Ratio 30.00 Glucose 180 H (74-105) mg/dL POC Glucose 159 H (83-110) mg/dl Calcium 8.0 L (8.4-10.2) mg/dl Phosphorus 2.7 (2.5-4.6) mg/dL Magnesium 2.0 (1.8-2.5) mg/dL Total Bilirubin 1.3 H (0.2-1.0) mg/dL AST 54 H (10-42) IU/L ALT 76 H (10-60) IU/L Alkaline Phosphatase 55 (42-121) IU/L Total Protein 5.7 L (6.7-8.2) g/dl Albumin 3.3 (3.2-5.5) g/dl Globulin 2.4 Albumin/Globulin Ratio 1.38 Jaison Results Last 24 Hours: Microbiology 01/05/19 03:50 Clostridioides difficile (PCR) - Final Stool / Feces 01/02/19 08:31 Aerobic Blood Culture - Final Blood - Venous - Lab Draw NO GROWTH AFTER 5 DAYS Anaerobic Blood Culture - Final NO GROWTH AFTER 5 DAYS 01/02/19 08:31 Aerobic Blood Culture - Final Blood - Venous NO GROWTH AFTER 5 DAYS Anaerobic Blood Culture - Final NO GROWTH AFTER 5 DAYS Med Orders - Current: Current Medications Acetaminophen (Tylenol) 650 mg PO Q4H PRN PRN Reason: Pain (Mild 1-3)/fever Albuterol (Proventil Hfa) 0 gm INH Q6H PRN PRN Reason: Wheezing Albuterol (Proventil Neb Soln) 2.5 mg NEB QID PRN PRN Reason: Shortness of Breath Albuterol/Ipratropium (Duoneb 3.0-0.5 Mg/3 Ml) 3 ml NEB Q4HRRT [facility] Last Admin: 01/07/19 07:25 Dose: 3 ml Atorvastatin Calcium (Lipitor) 10 mg PO BEDTIME [facility] Last Admin: 01/06/19 21:42 Dose: 10 mg Heparin Sodium (Porcine) (Heparin Sodium) 5,000 units SUBCUT Q8HR [facility] Last Admin: 01/07/19 06:08 Dose: 5,000 units Piperacillin Sod/Tazobactam (Sod 3.375 gm/ Sodium Chloride) 100 mls @ 200 mls/ hr IV Q6HR [facility] Last Infusion: 01/07/19 06:37 Dose: Infused Insulin Human Lispro (Humalog) 0 unit SUBCUT ACBED [facility]; Protocol Last Admin: 01/07/19 09:02 Dose: 3 units Levothyroxine Sodium (Levothyroxine) 25 mcg PO ACBREAKFAST [facility] Last Admin: 01/07/19 06:07 Dose: 25 mcg Melatonin (Melatonin) 6 mg PO BEDTIME PRN PRN Reason: Sleep Mometasone Furoate/Formoterol Fumar (Dulera 200-5 Mcg) 2 puff IH BID [facility] Last Admin: 01/07/19 09:02 Dose: 2 puff Omeprazole (Omeprazole) 40 mg PO ACBREAKFAST [facility] Last Admin: 01/07/19 06:07 Dose: 40 mg Ondansetron HCl (Zofran) 4 mg IVPUSH Q4H PRN PRN Reason: Nausea/Vomiting Potassium Chloride (Klor-Con 10) 40 meq PO ONETIME ONE Stop: 01/07/19 10:22 Prednisone (Prednisone) 40 mg PO WITHBREAKFAST [facility] Last Admin: 01/07/19 09:01 Dose: 40 mg Pregabalin (Lyrica) 300 mg PO BID [facility] Last Admin: 01/07/19 09:01 Dose: 300 mg Sodium Chloride (Saline Flush) 10 ml FLUSH ASDIRECTED PRN PRN Reason: Keep Vein Open Discontinued Medications Acetaminophen (Tylenol) 650 mg PO NOW ONE Stop: 01/02/19 08:53 Last Admin: 01/02/19 09:00 Dose: 650 mg Acetylcysteine (Mucomyst 20%) 600 mg INH Q8HRRT [facility] Last Admin: 01/06/19 07:41 Dose: 600 mg Albuterol/Ipratropium (Duoneb 3.0-0.5 Mg/3 Ml) 3 ml NEB ONETIME ONE Stop: 01/02/19 08:25 Last Admin: 01/02/19 08:32 Dose: 3 ml Albuterol/Ipratropium (Duoneb 3.0-0.5 Mg/3 Ml) 3 ml NEB ONETIME ONE Stop: 01/02/19 08:48 Last Admin: 01/02/19 09:03 Dose: 3 ml Ceftriaxone Sodium (Rocephin) Confirm Administered Dose 2 gm .ROUTE .STK-MED ONE Stop: 01/02/19 09:03 Last Admin: 01/02/19 09:16 Dose: Not Given Levofloxacin/Dextrose 750 mg/ (Premix) 150 mls @ 100 mls/hr IV ONETIME ONE Stop: 01/02/19 10:22 Last Admin: 01/02/19 09:16 Dose: Not Given Ceftriaxone Sodium 2 gm/ (Sodium Chloride) 100 mls @ 200 mls/hr IV ONETIME ONE Stop: 01/02/19 09:25 Last Admin: 01/02/19 09:15 Dose: 200 mls/hr Sodium Chloride (Normal Saline) 1,000 mls @ 999 mls/hr IV .BOLUS ONE Stop: 01/02/19 09:56 Last Admin: 01/02/19 09:12 Dose: 999 mls/hr Piperacillin Sod/Tazobactam (Sod 3.375 gm/ Sodium Chloride) 100 mls @ 200 mls/ hr IV Q6H [facility] Last Admin: 01/05/19 05:34 Dose: 200 mls/hr Sodium Chloride (Normal Saline) 1,000 mls @ 75 mls/hr IV ASDIRECTED [facility] Last Infusion: 01/04/19 12:05 Dose: Infused Methylprednisolone Sodium Succinate 80 mg/ Sodium Chloride 101.28 mls @ 100.637 mls/hr IV Q8H [facility] Last Admin: 01/02/19 13:14 Dose: Not Given Vancomycin HCl 1.25 gm/ Sodium (Chloride) 250 mls @ 166.667 mls/hr IV Q12H [facility] Last Admin: 01/05/19 00:20 Dose: 166.667 mls/hr Methylprednisolone Sodium Succinate 80 mg/ Sodium Chloride 101.28 mls @ 100.637 mls/hr IV Q8H [facility] Magnesium Sulfate 2 gm/ Premix 50 mls @ 25 mls/hr IV ONETIME ONE Stop: 01/03/19 13:24 Last Admin: 01/03/19 14:13 Dose: 25 mls/hr Insulin Human Lispro (Humalog) 10 unit SUBCUT ONETIME ONE Stop: 01/03/19 21:19 Last Admin: 01/03/19 22:07 Dose: 10 units Lorazepam (Ativan) 1 mg IVPUSH ONETIME ONE Stop: 01/02/19 20:01 Last Admin: 01/02/19 20:19 Dose: 1 mg Lorazepam (Ativan) 1 mg IVPUSH ONETIME ONE Stop: 01/03/19 06:01 Last Admin: 01/03/19 06:20 Dose: 1 mg Methylprednisolone Sodium Succinate (Solu-Medrol) 125 mg IVPUSH ONETIME ONE Stop: 01/02/19 08:25 Last Admin: 01/02/19 08:32 Dose: 125 mg Methylprednisolone Sodium Succinate (Solu-Medrol) 80 mg IVPUSH Q8H [facility] Last Admin: 01/06/19 05:30 Dose: 80 mg Potassium Chloride (Klor-Con 10) 40 meq PO ONETIME ONE Stop: 01/06/19 09:26 Last Admin: 01/06/19 09:45 Dose: 40 meq Potassium Chloride (Klor-Con 10) 20 meq PO ONETIME ONE Stop: 01/06/19 12:01 Last Admin: 01/06/19 12:34 Dose: 20 meq Prednisone (Prednisone) 40 mg PO WITHBREAKFAST [facility]IRANDA Sodium Chloride (Saline Flush) 10 ml FLUSH ASDIRECTED PRN PRN Reason: Keep Vein Open Last Admin: 01/07/19 06:03 Dose: 10 ml Vancomycin HCl (Pharmacy To Dose - Vancomycin) 1 dose .XX ASDIRECTED MIRANDA - Exam General: Alert, Oriented Neck: Supple Lungs: Clear to Auscultation, Normal Respiratory Effort Cardiovascular: Regular Rate, Regular Rhythm GI/Abdominal Exam: Normal Bowel Sounds, Soft, Non-Tender Extremities: Normal Inspection, No Pedal Edema Skin: Warm, Dry Neurological: No New Focal Deficit Psy/Mental Status: Alert, Normal Affect, Normal Mood - Problem List & Annotations (1) Acute and chronic respiratory failure ([id number]) SNOMED Code(s): 28575441 Code(s): J96.20 - ACUTE AND CHR RESP FAILURE, UNSP W HYPOXIA OR HYPERCAPNIA Status: Acute Current Visit: Yes Qualifiers: Respiratory failure complication: hypoxia and hypercapnia Qualified Code(s) : J96.21 - Acute and chronic respiratory failure with hypoxia; J96.22 - Acute and chronic respiratory failure with hypercapnia (2) Acute exacerbation of chronic obstructive pulmonary disease (COPD) SNOMED Code(s): 733007377 Code(s): J44.1 - CHRONIC OBSTRUCTIVE PULMONARY DISEASE W (ACUTE) EXACERBATION Status: Acute Current Visit: Yes (3) Pneumonia SNOMED Code(s): 471537412 Code(s): J18.9 - PNEUMONIA, UNSPECIFIED ORGANISM Status: Acute Current Visit: Yes Qualifiers: Pneumonia type: due to unspecified organism Laterality: bilateral Lung location: lower lobe of lung Qualified Code(s): J18.1 - Lobar pneumonia, unspecified organism (4) Steroid-induced hyperglycemia SNOMED Code(s): 044437760 Code(s): R73.9 - HYPERGLYCEMIA, UNSPECIFIED Status: Acute Current Visit: No Onset Date: ~06/28/16 (5) Diabetes SNOMED Code(s): 76252695 Code(s): E11.9 - TYPE 2 DIABETES MELLITUS WITHOUT COMPLICATIONS Status: Chronic Priority: Medium Current Visit: No Qualifiers: Diabetes mellitus type: type 2 Diabetes mellitus complication status: without complication Qualified Code(s): E11.9 - Type 2 diabetes mellitus without complications - Problem List Review Problem List Initiated/Reviewed/Updated: Yes - My Orders Last 24 Hours: My Active Orders 01/07/19 10:21 Potassium Chloride [Klor-Con 10] 40 meq PO ONETIME ONE 01/07/19 18:00 glipiZIDE [Glucotrol XL] 5 mg PO BIDMEALS - Plan Plan:: Acute respiratory failure with hypoxia on chronic respiratory failure/COPD exacerbation Patient is in acute on chronic hypoxemic respiratory failure Baseline oxygen requirement is 2-4L we'll continue patient on high flow nasal cannula, wean down as tolerated Acute community-acquired pneumonia Continue IV Zosyn and discontinued vancomycin Acute exacerbation of COPD DuoNeb scheduled every 4 hours, use DuoNeb as when necessary continue oral prednisone Will taper slowly Loose bowel movements C. difficile pending DM2 Uncontrolled likely secondary to steroids Resume glipizide, hold metforminlucose checks before meals and at bedtime Sliding scale insulin Hypothyroidism continue home synthroid GERD PPI Hyperlipidemia continue statin DVT prophylaxis heparin
[2019-01-07] MEDS ORDERED: Potassium Chloride 10 MEQ Tab.ER PO ONE (11:00)
[2019-01-07] MEDS: Loperamide 2 MG Cap PO PRN (14:05)
[2019-01-07] MEDS: glipiZIDE 5 MG Tab.ER PO SCH (17:53)
[2019-01-07] MEDS: atorvaSTATin 10 MG Tab PO SCH (21:24)
[2019-01-08] MEDS: Albuterol/Ipratropium 3.0-0.5 MG/3 ML Neb Soln NEB SCH ×6 (04:34→23:39)
[2019-01-08] MEDS: Sodium Chloride 0.9% 10 ML Syringe FLUSH PRN ×2 (05:30→11:33)
[2019-01-08] MEDS: Piperacillin/Tazobactam 3.375 GM in Sodium Chloride 0.9% 100 ML IV SCH ×4 (05:30→23:37)
[2019-01-08] MEDS: Omeprazole 20 MG Cap.CR PO SCH (05:35)
[2019-01-08] MEDS: Levothyroxine 25 MCG Tab PO SCH (05:36)
[2019-01-08] MEDS: Heparin Sodium 5,000 Units/ML Vial SUBCUT SCH ×3 (05:46→21:21)
[2019-01-08 06:43] LABS: ANION GAP 14.2; CHLORIDE,CL 103 mmol/L (101-111); SODIUM,NA 140 mmol/L (135-145)
[2019-01-08] MEDS ORDERED: predniSONE 20 MG Tab PO SCH (08:00)
[2019-01-08] MEDS: Insulin Lispro 100 Units/ML 3 ML Vial SUBCUT SCH ×4 (08:44→21:19)
[2019-01-08] MEDS: glipiZIDE 5 MG Tab.ER PO SCH ×2 (08:57→18:18)
[2019-01-08] MEDS: Pregabalin 75 MG Cap PO SCH ×2 (08:57→21:21)
[2019-01-08] MEDS: predniSONE 20 MG Tab PO SCH (08:57)
[2019-01-08] MEDS: Formoterol/Mometasone 200-5 MCG 8.8 GM Inhaler IH SCH ×2 (09:02→21:19)
[2019-01-08] MEDS: Loperamide 2 MG Cap PO PRN (09:12)
--- NOTE | 2019-01-08 11:45 | PCM.PN ---
- General Info Date of Service: 01/08/19 Admission Dx/Problem (Free Text): Admission Diagnosis/Problem Admission Diagnosis/Problem Acute respiratory failure with hypoxia Subjective Update: Patient continues to be in hypoxic respiratory failure requiring more oxygen than his usual continues to have loose stools, started imodium no associated abdominal pain. The loose stool started days ago. This is influenced by being on antibiotic Otherwise feeling well. no subjective SOB Functional Status: Reports: Pain Controlled, Tolerating Diet - Review of Systems General: Reports: Weakness. Denies: Fever Pulmonary: Denies: Shortness of Breath Cardiovascular: Denies: Chest Pain, Palpitations Gastrointestinal: Reports: Diarrhea Genitourinary: Denies: Dysuria - Patient Data Vitals - Most Recent: Last Vital Signs Temp 36.6 C 01/08/19 08:27 Pulse 56 L 01/08/19 08:27 Resp 20 01/08/19 08:27 BP 153/73 H 01/08/19 08:27 Pulse Ox 96 01/08/19 08:27 Weight - Most Recent: 84.085 kg I&O - Last 24 Hours: Intake & Output 01/07/19 01/08/19 01/08/19 22:59 06:59 14:59 Intake Total 1130 600 Output Total 800 Balance 1130 -200 Lab Results Last 24 Hours: Laboratory Results - last 24 hr 01/07/19 01/07/19 01/07/19 Range/Units 11:43 16:56 21:10 WBC (5.0-10.0) 10^3/uL RBC (4.6-6.2) 10^6/uL Hgb (14.0-18.0) g/dL Hct (40.0-54.0) % MCV (80-100) fL MCH (27.0-34.0) pg MCHC (33.0-35.0) g/dL Plt Count (150-450) 10^3/uL Sodium (135-145) mmol/L Potassium (3.6-5.0) mmol/L Chloride (101-111) mmol/L Carbon Dioxide (21.0-31.0) mmol/L Anion Gap BUN (7-18) mg/dL Creatinine (0.6-1.3) mg/dL Est Cr Clr Drug Dosing mL/min Estimated GFR (MDRD) BUN/Creatinine Ratio Glucose (74-105) mg/dL POC Glucose 143 H 271 H 209 H (83-110) mg/dl Calcium (8.4-10.2) mg/dl Phosphorus (2.5-4.6) mg/dL Magnesium (1.8-2.5) mg/dL Total Bilirubin (0.2-1.0) mg/dL AST (10-42) IU/L ALT (10-60) IU/L Alkaline Phosphatase (42-121) IU/L Total Protein (6.7-8.2) g/dl Albumin (3.2-5.5) g/dl Globulin Albumin/Globulin Ratio 01/08/19 01/08/19 01/08/19 Range/Units 05:42 05:42 07:56 WBC 9.0 (5.0-10.0) 10^3/uL RBC 4.33 L (4.6-6.2) 10^6/uL Hgb 14.1 (14.0-18.0) g/dL Hct 42.0 (40.0-54.0) % MCV 97.0 (80-100) fL MCH 32.6 (27.0-34.0) pg MCHC 33.6 (33.0-35.0) g/dL Plt Count 147 L (150-450) 10^3/uL Sodium 140 (135-145) mmol/L Potassium 3.2 L (3.6-5.0) mmol/L Chloride 103 (101-111) mmol/L Carbon Dioxide 26.0 (21.0-31.0) mmol/L Anion Gap 14.2 BUN 21 H (7-18) mg/dL Creatinine 0.8 (0.6-1.3) mg/dL Est Cr Clr Drug Dosing 70.97 mL/min Estimated GFR (MDRD) > 60 BUN/Creatinine Ratio 26.25 Glucose 178 H (74-105) mg/dL POC Glucose 116 H (83-110) mg/dl Calcium 8.1 L (8.4-10.2) mg/dl Phosphorus 2.9 (2.5-4.6) mg/dL Magnesium 2.0 (1.8-2.5) mg/dL Total Bilirubin 0.7 (0.2-1.0) mg/dL AST 40 (10-42) IU/L ALT 81 H (10-60) IU/L Alkaline Phosphatase 55 (42-121) IU/L Total Protein 5.7 L (6.7-8.2) g/dl Albumin 3.1 L (3.2-5.5) g/dl Globulin 2.6 Albumin/Globulin Ratio 1.19 Jaison Results Last 24 Hours: Microbiology 01/05/19 03:50 Clostridioides difficile (PCR) - Final Stool / Feces 01/02/19 08:31 Aerobic Blood Culture - Final Blood - Venous - Lab Draw NO GROWTH AFTER 5 DAYS Anaerobic Blood Culture - Final NO GROWTH AFTER 5 DAYS 01/02/19 08:31 Aerobic Blood Culture - Final Blood - Venous NO GROWTH AFTER 5 DAYS Anaerobic Blood Culture - Final NO GROWTH AFTER 5 DAYS Med Orders - Current: Current Medications Acetaminophen (Tylenol) 650 mg PO Q4H PRN PRN Reason: Pain (Mild 1-3)/fever Albuterol (Proventil Hfa) 0 gm INH Q6H PRN PRN Reason: Wheezing Albuterol (Proventil Neb Soln) 2.5 mg NEB QID PRN PRN Reason: Shortness of Breath Albuterol/Ipratropium (Duoneb 3.0-0.5 Mg/3 Ml) 3 ml NEB Q4HRRT [facility] Last Admin: 01/08/19 08:57 Dose: 3 ml Atorvastatin Calcium (Lipitor) 10 mg PO BEDTIME [facility] Last Admin: 01/07/19 21:24 Dose: 10 mg Glipizide (Glucotrol Xl) 5 mg PO BIDMEALS [facility] Last Admin: 01/08/19 08:57 Dose: 5 mg Heparin Sodium (Porcine) (Heparin Sodium) 5,000 units SUBCUT Q8HR [facility] Last Admin: 01/08/19 05:46 Dose: 5,000 units Piperacillin Sod/Tazobactam (Sod 3.375 gm/ Sodium Chloride) 100 mls @ 200 mls/ hr IV Q6HR [facility] Last Admin: 01/08/19 11:32 Dose: 200 mls/hr Insulin Human Lispro (Humalog) 0 unit SUBCUT ACBED [facility]; Protocol Last Admin: 01/08/19 08:44 Dose: Not Given Levothyroxine Sodium (Levothyroxine) 25 mcg PO ACBREAKFAST [facility] Last Admin: 01/08/19 05:36 Dose: 25 mcg Loperamide HCl (Imodium) 2 mg PO Q6HR PRN PRN Reason: Diarrhea Last Admin: 01/08/19 09:12 Dose: 2 mg Melatonin (Melatonin) 6 mg PO BEDTIME PRN PRN Reason: Sleep Mometasone Furoate/Formoterol Fumar (Dulera 200-5 Mcg) 2 puff IH BID [facility] Last Admin: 01/08/19 09:02 Dose: 2 puff Omeprazole (Omeprazole) 40 mg PO ACBREAKFAST [facility] Last Admin: 01/08/19 05:35 Dose: 40 mg Ondansetron HCl (Zofran) 4 mg IVPUSH Q4H PRN PRN Reason: Nausea/Vomiting Potassium Chloride (Klor-Con 10) 40 meq PO BIDMEALS [facility] Stop: 01/08/19 18:01 Prednisone (Prednisone) 40 mg PO WITHBREAKFAST [facility] Last Admin: 01/08/19 08:57 Dose: 40 mg Pregabalin (Lyrica) 300 mg PO BID [facility] Last Admin: 01/08/19 08:57 Dose: 300 mg Sodium Chloride (Saline Flush) 10 ml FLUSH ASDIRECTED PRN PRN Reason: Keep Vein Open Last Admin: 01/08/19 11:33 Dose: 10 ml Discontinued Medications Acetaminophen (Tylenol) 650 mg PO NOW ONE Stop: 01/02/19 08:53 Last Admin: 01/02/19 09:00 Dose: 650 mg Acetylcysteine (Mucomyst 20%) 600 mg INH Q8HRRT [facility] Last Admin: 01/06/19 07:41 Dose: 600 mg Albuterol/Ipratropium (Duoneb 3.0-0.5 Mg/3 Ml) 3 ml NEB ONETIME ONE Stop: 01/02/19 08:25 Last Admin: 01/02/19 08:32 Dose: 3 ml Albuterol/Ipratropium (Duoneb 3.0-0.5 Mg/3 Ml) 3 ml NEB ONETIME ONE Stop: 01/02/19 08:48 Last Admin: 01/02/19 09:03 Dose: 3 ml Ceftriaxone Sodium (Rocephin) Confirm Administered Dose 2 gm .ROUTE .STK-MED ONE Stop: 01/02/19 09:03 Last Admin: 01/02/19 09:16 Dose: Not Given Levofloxacin/Dextrose 750 mg/ (Premix) 150 mls @ 100 mls/hr IV ONETIME ONE Stop: 01/02/19 10:22 Last Admin: 01/02/19 09:16 Dose: Not Given Ceftriaxone Sodium 2 gm/ (Sodium Chloride) 100 mls @ 200 mls/hr IV ONETIME ONE Stop: 01/02/19 09:25 Last Admin: 01/02/19 09:15 Dose: 200 mls/hr Sodium Chloride (Normal Saline) 1,000 mls @ 999 mls/hr IV .BOLUS ONE Stop: 01/02/19 09:56 Last Admin: 01/02/19 09:12 Dose: 999 mls/hr Piperacillin Sod/Tazobactam (Sod 3.375 gm/ Sodium Chloride) 100 mls @ 200 mls/ hr IV Q6H [facility] Last Admin: 01/05/19 05:34 Dose: 200 mls/hr Sodium Chloride (Normal Saline) 1,000 mls @ 75 mls/hr IV ASDIRECTED [facility] Last Infusion: 01/04/19 12:05 Dose: Infused Methylprednisolone Sodium Succinate 80 mg/ Sodium Chloride 101.28 mls @ 100.637 mls/hr IV Q8H [facility] Last Admin: 01/02/19 13:14 Dose: Not Given Vancomycin HCl 1.25 gm/ Sodium (Chloride) 250 mls @ 166.667 mls/hr IV Q12H [facility] Last Admin: 01/05/19 00:20 Dose: 166.667 mls/hr Methylprednisolone Sodium Succinate 80 mg/ Sodium Chloride 101.28 mls @ 100.637 mls/hr IV Q8H [facility] Magnesium Sulfate 2 gm/ Premix 50 mls @ 25 mls/hr IV ONETIME ONE Stop: 01/03/19 13:24 Last Admin: 01/03/19 14:13 Dose: 25 mls/hr Insulin Human Lispro (Humalog) 10 unit SUBCUT ONETIME ONE Stop: 01/03/19 21:19 Last Admin: 01/03/19 22:07 Dose: 10 units Lorazepam (Ativan) 1 mg IVPUSH ONETIME ONE Stop: 01/02/19 20:01 Last Admin: 01/02/19 20:19 Dose: 1 mg Lorazepam (Ativan) 1 mg IVPUSH ONETIME ONE Stop: 01/03/19 06:01 Last Admin: 01/03/19 06:20 Dose: 1 mg Methylprednisolone Sodium Succinate (Solu-Medrol) 125 mg IVPUSH ONETIME ONE Stop: 01/02/19 08:25 Last Admin: 01/02/19 08:32 Dose: 125 mg Methylprednisolone Sodium Succinate (Solu-Medrol) 80 mg IVPUSH Q8H [facility] Last Admin: 01/06/19 05:30 Dose: 80 mg Potassium Chloride (Klor-Con 10) 40 meq PO ONETIME ONE Stop: 01/06/19 09:26 Last Admin: 01/06/19 09:45 Dose: 40 meq Potassium Chloride (Klor-Con 10) 20 meq PO ONETIME ONE Stop: 01/06/19 12:01 Last Admin: 01/06/19 12:34 Dose: 20 meq Potassium Chloride (Klor-Con 10) 40 meq PO ONETIME ONE Stop: 01/07/19 11:01 Last Admin: 01/07/19 11:04 Dose: 40 meq Prednisone (Prednisone) 40 mg PO WITHBREAKFAST [facility] Sodium Chloride (Saline Flush) 10 ml FLUSH ASDIRECTED PRN PRN Reason: Keep Vein Open Last Admin: 01/07/19 06:03 Dose: 10 ml Vancomycin HCl (Pharmacy To Dose - Vancomycin) 1 dose .XX ASDIRECTED [facility] - Exam Quality Assessment: Supplemental Oxygen General: Alert, Oriented Neck: Supple Lungs: Normal Respiratory Effort, Decreased Breath Sounds, Wheezing (mild) Cardiovascular: Regular Rate, Regular Rhythm GI/Abdominal Exam: Normal Bowel Sounds, Soft, Non-Tender Extremities: No Pedal Edema - Problem List & Annotations (1) Acute and chronic respiratory failure ([id number]) SNOMED Code(s): 29606880 Code(s): J96.20 - ACUTE AND CHR RESP FAILURE, UNSP W HYPOXIA OR HYPERCAPNIA Status: Acute Current Visit: Yes Qualifiers: Respiratory failure complication: hypoxia and hypercapnia Qualified Code(s) : J96.21 - Acute and chronic respiratory failure with hypoxia; J96.22 - Acute and chronic respiratory failure with hypercapnia (2) Acute exacerbation of chronic obstructive pulmonary disease (COPD) SNOMED Code(s): 691888270 Code(s): J44.1 - CHRONIC OBSTRUCTIVE PULMONARY DISEASE W (ACUTE) EXACERBATION Status: Acute Current Visit: Yes (3) Pneumonia SNOMED Code(s): 769536502 Code(s): J18.9 - PNEUMONIA, UNSPECIFIED ORGANISM Status: Acute Current Visit: Yes Qualifiers: Pneumonia type: due to unspecified organism Laterality: bilateral Lung location: lower lobe of lung Qualified Code(s): J18.1 - Lobar pneumonia, unspecified organism (4) Steroid-induced hyperglycemia SNOMED Code(s): 356684581 Code(s): R73.9 - HYPERGLYCEMIA, UNSPECIFIED Status: Acute Current Visit: No Onset Date: ~06/28/16 (5) Diabetes SNOMED Code(s): 17569289 Code(s): E11.9 - TYPE 2 DIABETES MELLITUS WITHOUT COMPLICATIONS Status: Chronic Priority: Medium Current Visit: No Qualifiers: Diabetes mellitus type: type 2 Diabetes mellitus complication status: without complication Qualified Code(s): E11.9 - Type 2 diabetes mellitus without complications - Problem List Review Problem List Initiated/Reviewed/Updated: Yes - My Orders Last 24 Hours: My Active Orders 01/07/19 13:19 Loperamide [Imodium] 2 mg PO Q6HR PRN 01/07/19 18:00 glipiZIDE [Glucotrol XL] 5 mg PO BIDMEALS 01/08/19 12:00 Potassium Chloride [Klor-Con 10] 40 meq PO BIDMEALS - Plan Plan:: Acute respiratory failure with hypoxia on chronic respiratory failure/COPD exacerbation Patient is in acute on chronic hypoxemic respiratory failure Baseline oxygen requirement is 2-4L we'll continue patient on 5 l/min oxygen via nasal cannula, wean down as tolerated Acute community-acquired pneumonia Continue IV Zosyn and discontinued vancomycin Acute exacerbation of COPD DuoNeb scheduled every 4 hours, use DuoNeb as when necessary continue oral prednisone Will taper slowly Loose bowel movements C. difficile negative - start Imodium prn DM2 Uncontrolled likely secondary to steroids Resumed glipizide, hold metformin glucose checks before meals and at bedtime Sliding scale insulin Hypothyroidism continue home synthroid GERD PPI Hyperlipidemia continue statin DVT prophylaxis heparin cont pt/ot
[2019-01-08] MEDS: Potassium Chloride 10 MEQ Tab.ER PO SCH ×2 (12:19→18:17)
[2019-01-08] MEDS: atorvaSTATin 10 MG Tab PO SCH (21:20)
[2019-01-09] MEDS: Albuterol/Ipratropium 3.0-0.5 MG/3 ML Neb Soln NEB SCH ×3 (03:35→11:53)
[2019-01-09] MEDS: Heparin Sodium 5,000 Units/ML Vial SUBCUT SCH ×2 (06:01→14:01)
[2019-01-09] MEDS: Levothyroxine 25 MCG Tab PO SCH (06:01)
[2019-01-09] MEDS: Omeprazole 20 MG Cap.CR PO SCH (06:01)
[2019-01-09] MEDS: Piperacillin/Tazobactam 3.375 GM in Sodium Chloride 0.9% 100 ML IV SCH ×2 (06:01→12:17)
[2019-01-09] MEDS: Loperamide 2 MG Cap PO PRN (06:19)
[2019-01-09 07:10] LABS: ANION GAP 12.5; CHLORIDE,CL 107 mmol/L (101-111); SODIUM,NA 142 mmol/L (135-145)
[2019-01-09] MEDS ORDERED: Potassium Chloride 10 MEQ Tab.ER PO SCH (08:00)
[2019-01-09] MEDS: Insulin Lispro 100 Units/ML 3 ML Vial SUBCUT SCH ×2 (08:18→12:28)
[2019-01-09] MEDS: Formoterol/Mometasone 200-5 MCG 8.8 GM Inhaler IH SCH (08:53)
[2019-01-09] MEDS: glipiZIDE 5 MG Tab.ER PO SCH (08:54)
[2019-01-09] MEDS: Pregabalin 75 MG Cap PO SCH (08:54)
[2019-01-09] MEDS: predniSONE 20 MG Tab PO SCH (08:54)
[2019-01-09] MEDS ORDERED: Potassium Chloride 10 MEQ Tab.ER PO ONE (11:10)
--- NOTE | 2019-01-09 11:28 | PCM.DCSUM1 ---
Discharge Summary - Hospital Course Free Text/Narrative:: Acute respiratory failure with hypoxia on chronic respiratory failure/COPD exacerbation Patient is in acute on chronic hypoxemic respiratory failure Baseline oxygen requirement was 2-4L we'll continue patient on 5 l/min oxygen via nasal cannula Acute community-acquired pneumonia treated with IV Zosyn and vancomycin finish treatment with Levofloxacin Acute exacerbation of COPD treated with DuoNeb scheduled and as when necessary cont symbicort continue taper oral prednisone DM2 Uncontrolled likely secondary to steroids Resumed glipizide, metformin Hypothyroidism continue home synthroid GERD PPI Hyperlipidemia continue statin Diagnosis: Stroke: No - Discharge Data Discharge Date: 01/09/19 Discharge Disposition: Home, Self-Care 01 Condition: Stable - Discharge Diagnosis/Problem(s) (1) Acute and chronic respiratory failure ([id number]) SNOMED Code(s): 97045485 ICD Code: J96.20 - ACUTE AND CHR RESP FAILURE, UNSP W HYPOXIA OR HYPERCAPNIA Status: Acute Current Visit: Yes Qualifiers: Respiratory failure complication: hypoxia and hypercapnia Qualified Code(s) : J96.21 - Acute and chronic respiratory failure with hypoxia; J96.22 - Acute and chronic respiratory failure with hypercapnia (2) Acute exacerbation of chronic obstructive pulmonary disease (COPD) SNOMED Code(s): 438384693 ICD Code: J44.1 - CHRONIC OBSTRUCTIVE PULMONARY DISEASE W (ACUTE) EXACERBATION Status: Acute Current Visit: Yes (3) Pneumonia SNOMED Code(s): 082344345 ICD Code: J18.9 - PNEUMONIA, UNSPECIFIED ORGANISM Status: Acute Current Visit: Yes Qualifiers: Pneumonia type: due to unspecified organism Laterality: bilateral Lung location: lower lobe of lung Qualified Code(s): J18.1 - Lobar pneumonia, unspecified organism (4) Steroid-induced hyperglycemia SNOMED Code(s): 212490162 ICD Code: R73.9 - HYPERGLYCEMIA, UNSPECIFIED Status: Acute Current Visit : No Onset Date: ~06/28/16 (5) Diabetes SNOMED Code(s): 80158117 ICD Code: E11.9 - TYPE 2 DIABETES MELLITUS WITHOUT COMPLICATIONS Status: Chronic Priority: Medium Current Visit: No Qualifiers: Diabetes mellitus type: type 2 Diabetes mellitus complication status: without complication Qualified Code(s): E11.9 - Type 2 diabetes mellitus without complications - Patient Summary/Data Consults: Consultations 01/02/19 10:17 OT Evaluation and Treatment [CONS] Routine PT Evaluation and Treatment [CONS] Routine - Patient Instructions Diet: Usual Diet as Tolerated Activity: As Tolerated - Discharge Plan *PRESCRIPTION DRUG MONITORING PROGRAM REVIEWED*: Not Applicable *COPY OF PRESCRIPTION DRUG MONITORING REPORT IN PATIENT JULIANNA: Not Applicable Prescriptions/Med Rec: Levofloxacin 750 mg PO DAILY #5 tablet predniSONE 10 mg PO WITHBREAKFAST #18 tablet Home Medications: Home Meds Albuterol [Proventil Neb Soln] 2.5 mg NEB QID PRN 10/17/14 [History] Omeprazole 40 mg PO ACBREAKFAST 10/17/14 [History] QuiNINE [Qualaquin] 324 mg PO BID 10/26/14 [History] glipiZIDE [Glucotrol XL] 5 mg PO BIDMEALS 10/26/14 [History] atorvaSTATin [Lipitor] 10 mg PO BEDTIME MDD Dyslipidemia 03/10/15 [History] Albuterol Sulfate [Proair Hfa] 2 puff INH Q6HR PRN 12/11/15 [History] Ascorbate Calcium [Vitamin C] 250 mg PO BID 12/11/15 [History] Levothyroxine 25 mg PO ACBREAKFAST 12/11/15 [History] Lutein/Minerals/Vit A,C & E [Ocuvite] 1 each PO DAILY 12/11/15 [History] Budesonide/Formoterol [Symbicort 160-4.5 MCG] 1 inh IH BID 06/27/16 [History] Cetirizine [ZyrTEC] 10 mg PO DAILY 12/28/16 [History] Ferrous Sulfate [Ferosul] 325 mg PO .MONWEDFR 01/02/19 [History] metFORMIN [Glucophage] 1,000 mg PO BIDMEALS 01/02/19 [History] Levofloxacin 750 mg PO DAILY #5 tablet 01/09/19 [Rx] Pregabalin [Lyrica] 300 mg PO BID cap 01/09/19 [Rx] predniSONE 10 mg PO WITHBREAKFAST #18 tablet 01/09/19 [Rx] Forms: ED Department Discharge Referrals: PCP,None [Primary Care Provider] - (Antonieta Sevilla) - Discharge Summary/Plan Comment DC Time >30 min.: No - General Info Date of Service: 01/09/19 - Review of Systems General: Denies: Fever Pulmonary: Reports: Other (on oxygen). Denies: Shortness of Breath Cardiovascular: Denies: Chest Pain Gastrointestinal: Denies: Abdominal Pain Neurological: Denies: Confusion - Patient Data Vitals - Most Recent: Last Vital Signs Temp 36.8 C 01/09/19 08:16 Pulse 70 01/09/19 08:16 Resp 20 01/09/19 08:16 BP 124/81 01/09/19 08:16 Pulse Ox 92 L 01/09/19 08:16 Weight - Most Recent: 84.085 kg I&O - Last 24 hours: Intake & Output 01/08/19 01/09/19 01/09/19 22:59 06:59 14:59 Intake Total 200 100 Balance 200 100 Lab Results - Last 24 hrs: Laboratory Results - last 24 hr 01/08/19 01/08/19 01/08/19 Range/Units 11:55 16:58 20:14 WBC (5.0-10.0) 10^3/uL RBC (4.6-6.2) 10^6/uL Hgb (14.0-18.0) g/dL Hct (40.0-54.0) % MCV (80-100) fL MCH (27.0-34.0) pg MCHC (33.0-35.0) g/dL Plt Count (150-450) 10^3/uL Sodium (135-145) mmol/L Potassium (3.6-5.0) mmol/L Chloride (101-111) mmol/L Carbon Dioxide (21.0-31.0) mmol/L Anion Gap BUN (7-18) mg/dL Creatinine (0.6-1.3) mg/dL Est Cr Clr Drug Dosing mL/min Estimated GFR (MDRD) BUN/Creatinine Ratio Glucose (74-105) mg/dL POC Glucose 177 H 283 H 339 H (83-110) mg/dl Calcium (8.4-10.2) mg/dl Phosphorus (2.5-4.6) mg/dL Magnesium (1.8-2.5) mg/dL Total Bilirubin (0.2-1.0) mg/dL AST (10-42) IU/L ALT (10-60) IU/L Alkaline Phosphatase (42-121) IU/L Total Protein (6.7-8.2) g/dl Albumin (3.2-5.5) g/dl Globulin Albumin/Globulin Ratio 01/09/19 01/09/19 01/09/19 Range/Units 06:24 06:24 08:05 WBC 9.4 (5.0-10.0) 10^3/uL RBC 4.32 L (4.6-6.2) 10^6/uL Hgb 14.3 (14.0-18.0) g/dL Hct 42.3 (40.0-54.0) % MCV 97.9 (80-100) fL MCH 33.1 (27.0-34.0) pg MCHC 33.8 (33.0-35.0) g/dL Plt Count 137 L (150-450) 10^3/uL Sodium 142 (135-145) mmol/L Potassium 3.5 L (3.6-5.0) mmol/L Chloride 107 (101-111) mmol/L Carbon Dioxide 26.0 (21.0-31.0) mmol/L Anion Gap 12.5 BUN 18 (7-18) mg/dL Creatinine 0.7 (0.6-1.3) mg/dL Est Cr Clr Drug Dosing 81.11 mL/min Estimated GFR (MDRD) > 60 BUN/Creatinine Ratio 25.71 Glucose 110 H (74-105) mg/dL POC Glucose 97 (83-110) mg/dl Calcium 8.1 L (8.4-10.2) mg/dl Phosphorus 2.9 (2.5-4.6) mg/dL Magnesium 1.9 (1.8-2.5) mg/dL Total Bilirubin 0.8 (0.2-1.0) mg/dL AST 33 (10-42) IU/L ALT 72 H (10-60) IU/L Alkaline Phosphatase 53 (42-121) IU/L Total Protein 5.5 L (6.7-8.2) g/dl Albumin 3.1 L (3.2-5.5) g/dl Globulin 2.4 Albumin/Globulin Ratio 1.29 Med Orders - Current: Current Medications Acetaminophen (Tylenol) 650 mg PO Q4H PRN PRN Reason: Pain (Mild 1-3)/fever Albuterol (Proventil Hfa) 0 gm INH Q6H PRN PRN Reason: Wheezing Albuterol (Proventil Neb Soln) 2.5 mg NEB QID PRN PRN Reason: Shortness of Breath Albuterol/Ipratropium (Duoneb 3.0-0.5 Mg/3 Ml) 3 ml NEB Q4HRRT [facility] Last Admin: 01/09/19 07:22 Dose: 3 ml Atorvastatin Calcium (Lipitor) 10 mg PO BEDTIME [facility] Last Admin: 01/08/19 21:20 Dose: 10 mg Glipizide (Glucotrol Xl) 5 mg PO BIDMEALS [facility] Last Admin: 01/09/19 08:54 Dose: 5 mg Heparin Sodium (Porcine) (Heparin Sodium) 5,000 units SUBCUT Q8HR [facility] Last Admin: 01/09/19 06:01 Dose: 5,000 units Piperacillin Sod/Tazobactam (Sod 3.375 gm/ Sodium Chloride) 100 mls @ 200 mls/ hr IV Q6HR [facility] Last Infusion: 01/09/19 06:39 Dose: Infused Insulin Human Lispro (Humalog) 0 unit SUBCUT ACBED [facility]; Protocol Last Admin: 01/09/19 08:18 Dose: Not Given Levothyroxine Sodium (Levothyroxine) 25 mcg PO ACBREAKFAST [facility] Last Admin: 01/09/19 06:01 Dose: 25 mcg Loperamide HCl (Imodium) 2 mg PO Q6HR PRN PRN Reason: Diarrhea Last Admin: 01/09/19 06:19 Dose: 2 mg Melatonin (Melatonin) 6 mg PO BEDTIME PRN PRN Reason: Sleep Last Admin: 01/08/19 21:21 Dose: 6 mg Mometasone Furoate/Formoterol Fumar (Dulera 200-5 Mcg) 2 puff IH BID [facility] Last Admin: 01/09/19 08:53 Dose: 2 puff Omeprazole (Omeprazole) 40 mg PO ACBREAKFAST [facility] Last Admin: 01/09/19 06:01 Dose: 40 mg Ondansetron HCl (Zofran) 4 mg IVPUSH Q4H PRN PRN Reason: Nausea/Vomiting Potassium Chloride (Klor-Con 10) 20 meq PO WITHBREAKFAST [facility] Last Admin: 01/09/19 08:55 Dose: 20 meq Potassium Chloride (Klor-Con 10) 40 meq PO ONETIME ONE Stop: 01/09/19 11:11 Prednisone (Prednisone) 40 mg PO WITHBREAKFAST [facility] Last Admin: 01/09/19 08:54 Dose: 40 mg Pregabalin (Lyrica) 300 mg PO BID [facility] Last Admin: 01/09/19 08:54 Dose: 300 mg Sodium Chloride (Saline Flush) 10 ml FLUSH ASDIRECTED PRN PRN Reason: Keep Vein Open Last Admin: 01/08/19 11:33 Dose: 10 ml Discontinued Medications Acetaminophen (Tylenol) 650 mg PO NOW ONE Stop: 01/02/19 08:53 Last Admin: 01/02/19 09:00 Dose: 650 mg Acetylcysteine (Mucomyst 20%) 600 mg INH Q8HRRT [facility] Last Admin: 01/06/19 07:41 Dose: 600 mg Albuterol/Ipratropium (Duoneb 3.0-0.5 Mg/3 Ml) 3 ml NEB ONETIME ONE Stop: 01/02/19 08:25 Last Admin: 01/02/19 08:32 Dose: 3 ml Albuterol/Ipratropium (Duoneb 3.0-0.5 Mg/3 Ml) 3 ml NEB ONETIME ONE Stop: 01/02/19 08:48 Last Admin: 01/02/19 09:03 Dose: 3 ml Ceftriaxone Sodium (Rocephin) Confirm Administered Dose 2 gm .ROUTE .STK-MED ONE Stop: 01/02/19 09:03 Last Admin: 01/02/19 09:16 Dose: Not Given Levofloxacin/Dextrose 750 mg/ (Premix) 150 mls @ 100 mls/hr IV ONETIME ONE Stop: 01/02/19 10:22 Last Admin: 01/02/19 09:16 Dose: Not Given Ceftriaxone Sodium 2 gm/ (Sodium Chloride) 100 mls @ 200 mls/hr IV ONETIME ONE Stop: 01/02/19 09:25 Last Admin: 01/02/19 09:15 Dose: 200 mls/hr Sodium Chloride (Normal Saline) 1,000 mls @ 999 mls/hr IV .BOLUS ONE Stop: 01/02/19 09:56 Last Admin: 01/02/19 09:12 Dose: 999 mls/hr Piperacillin Sod/Tazobactam (Sod 3.375 gm/ Sodium Chloride) 100 mls @ 200 mls/ hr IV Q6H [facility] Last Admin: 01/05/19 05:34 Dose: 200 mls/hr Sodium Chloride (Normal Saline) 1,000 mls @ 75 mls/hr IV ASDIRECTED [facility] Last Infusion: 01/04/19 12:05 Dose: Infused Methylprednisolone Sodium Succinate 80 mg/ Sodium Chloride 101.28 mls @ 100.637 mls/hr IV Q8H [facility] Last Admin: 01/02/19 13:14 Dose: Not Given Vancomycin HCl 1.25 gm/ Sodium (Chloride) 250 mls @ 166.667 mls/hr IV Q12H [facility] Last Admin: 01/05/19 00:20 Dose: 166.667 mls/hr Methylprednisolone Sodium Succinate 80 mg/ Sodium Chloride 101.28 mls @ 100.637 mls/hr IV Q8H [facility] Magnesium Sulfate 2 gm/ Premix 50 mls @ 25 mls/hr IV ONETIME ONE Stop: 01/03/19 13:24 Last Admin: 01/03/19 14:13 Dose: 25 mls/hr Insulin Human Lispro (Humalog) 10 unit SUBCUT ONETIME ONE Stop: 01/03/19 21:19 Last Admin: 01/03/19 22:07 Dose: 10 units Lorazepam (Ativan) 1 mg IVPUSH ONETIME ONE Stop: 01/02/19 20:01 Last Admin: 01/02/19 20:19 Dose: 1 mg Lorazepam (Ativan) 1 mg IVPUSH ONETIME ONE Stop: 01/03/19 06:01 Last Admin: 01/03/19 06:20 Dose: 1 mg Methylprednisolone Sodium Succinate (Solu-Medrol) 125 mg IVPUSH ONETIME ONE Stop: 01/02/19 08:25 Last Admin: 01/02/19 08:32 Dose: 125 mg Methylprednisolone Sodium Succinate (Solu-Medrol) 80 mg IVPUSH Q8H [facility] Last Admin: 01/06/19 05:30 Dose: 80 mg Potassium Chloride (Klor-Con 10) 40 meq PO ONETIME ONE Stop: 01/06/19 09:26 Last Admin: 01/06/19 09:45 Dose: 40 meq Potassium Chloride (Klor-Con 10) 20 meq PO ONETIME ONE Stop: 01/06/19 12:01 Last Admin: 01/06/19 12:34 Dose: 20 meq Potassium Chloride (Klor-Con 10) 40 meq PO ONETIME ONE Stop: 01/07/19 11:01 Last Admin: 01/07/19 11:04 Dose: 40 meq Potassium Chloride (Klor-Con 10) 40 meq PO BIDMEALS MIRANDA Stop: 01/08/19 18:01 Last Admin: 01/08/19 18:17 Dose: 40 meq Prednisone (Prednisone) 40 mg PO WITHBREAKFAST [facility] Sodium Chloride (Saline Flush) 10 ml FLUSH ASDIRECTED PRN PRN Reason: Keep Vein Open Last Admin: 01/07/19 06:03 Dose: 10 ml Vancomycin HCl (Pharmacy To Dose - Vancomycin) 1 dose .XX ASDIRECTED MIRANDA - Exam Quality Assessment: Reports: Supplemental Oxygen General: Reports: Alert, Oriented Neck: Reports: Supple Lungs: Reports: Normal Respiratory Effort, Decreased Breath Sounds Cardiovascular: Reports: Regular Rate, Regular Rhythm GI/Abdominal Exam: Normal Bowel Sounds, Soft, Non-Tender Extremities: No Pedal Edema Skin: Reports: Warm, Dry, Intact Neurological: Reports: No New Focal Deficit Psy/Mental Status: Reports: Alert, Normal Affect, Normal Mood
[2019-01-09] MEDS: Sodium Chloride 0.9% 10 ML Syringe FLUSH PRN (12:17)
[2019-01-09 14:15] VITALS: BP 97/51
== END 2019-01-09 15:30 | disposition home or self-care (01) | DRG 193 ==
LOC: DL.ED 08:12 → DL.MS 10:04 → UNDOADMIN 10:04 → DL.MS 10:17
PROVIDERS: ADMIT Internal Medicine; ATTEND Internal Medicine
PROC: 5A09357 Assistance with Respiratory Ventilation, Less than 24 Consecutive Hours, Continuous Positive Airway Pressure (ICD-10-PCS; principal; 2019-01-02)
DX: J18.1 Lobar pneumonia, unspecified organism (principal); J96.21 Acute and chronic respiratory failure with hypoxia; J96.22 Acute and chronic respiratory failure with hypercapnia; J44.1 Chronic obstructive pulmonary disease with (acute) exacerbation; J44.0 Chronic obstructive pulmonary disease with (acute) lower respiratory infection; E03.9 Hypothyroidism, unspecified; K21.9 Gastro-esophageal reflux disease without esophagitis; E78.5 Hyperlipidemia, unspecified; E11.65 Type 2 diabetes mellitus with hyperglycemia; T38.0X5A Adverse effect of glucocorticoids and synthetic analogues, initial encounter; H26.9 Unspecified cataract; G89.29 Other chronic pain; M54.9 Dorsalgia, unspecified; F41.9 Anxiety disorder, unspecified; Z87.891 Personal history of nicotine dependence; Z79.84 Long term (current) use of oral hypoglycemic drugs; Z79.899 Other long term (current) drug therapy; Z99.81 Dependence on supplemental oxygen; R19.7 Diarrhea, unspecified
CPT/HCPCS: 36415; 36600; 71045; 80053; 80202; 81001; 82150; 82803; 82962; 83605; 83690; 83735; 83880; 84100; 84484; 85025; 85027; 87040; 87070; 87086; 87205; 87324; 87493; 87641; 87804; 87899; 94640; 94660; 94762; 96365; 96375; 97116-GP; 97162-GP; 97166-GO; 97530-GO; 99284; 99285-25; A9270-GY; J0696; J1644; J1815; J2060; J2543; J2930; J3370; J3475; J7030; J7050; J7620-GY

== ENCOUNTER 2020-12-29 14:52 | Observation (INO) | payer MEDICARE, BC ==
[2020-12-29] MEDS ORDERED: Sodium Chloride 0.9% 10 ML Syringe FLUSH PRN (16:05)
[2020-12-29] MEDS ORDERED: Albuterol/Ipratropium 3.0-0.5 MG/3 ML Neb Soln NEB ONE (16:06)
[2020-12-29] MEDS ORDERED: methylPREDNISolone Sodium Succinate 125 MG/2 ML SDV IVPUSH ONE (16:06)
[2020-12-29] MEDS ORDERED: Piperacillin/Tazobactam 3.375 GM in Sodium Chloride 0.9% 100 ML IV ONE (16:07)
--- NOTE | 2020-12-29 16:51 | CR ---
PROCEDURE INFORMATION: Exam: XR Chest Exam date and time: 12/29/2020 4:42 PM Age: 85 years old Clinical indication: Cough and fever; Additional info: Cough, fever, hypoxia, HX of copd TECHNIQUE: Imaging protocol: XR of the chest. Views: 1 view. COMPARISON: CR Chest 1V Frontal 01/05/2019 9:30 AM FINDINGS: Lungs: Atelectatic and/or early infiltrative changes noted within the lung bases, greater on the right. The lungs are hyperinflated, consistent with underlying small airways disease. Pleural spaces: Unremarkable. No pleural effusion. No pneumothorax. Heart/Mediastinum: Unremarkable. No cardiomegaly. Bones/joints: The thoracic spine demonstrates mild degenerative changes at multiple levels. IMPRESSION: 1. Atelectatic and/or early infiltrative changes noted within the lung bases, greater on the right. 2. The lungs are hyperinflated, consistent with underlying small airways disease.
[2020-12-29 17:05] LABS: CHLORIDE,CL 98 mmol/L (98-107); SODIUM,NA 143 mmol/L (136-145)
--- NOTE | 2020-12-29 17:33 | EDM.PDOC ---
Scribed by Rochelle Lancaster 12/29/20 7507 for Juvenal Durant MD ED HPI GENERAL MEDICAL PROBLEM - General Chief Complaint: Respiratory Problem Stated Complaint: RESPITORY ISSUES ON OXYGYN Time Seen by Provider: 12/29/20 15:38 Source of Information: Reports: Patient, RN, RN Notes Reviewed History Limitations: Reports: No Limitations - History of Present Illness INITIAL COMMENTS - FREE TEXT/NARRATIVE: Patient is an 85-year-old male who presents to ER by POV with 3 days duration of cough, fever and shortness of breath. Admits to sore throat and sputum production thick dark yellow. History of COPD, supplemental home oxygen dependent at 5 liters. He has received both COVID vaccines. He has not been COVID tested. Denies any known sick exposures. Denies chest pain or edema. Onset: Gradual (3 days) Duration: Getting Worse Location: Reports: Chest Quality: Reports: Ache Severity: Severe Improves with: Reports: None Worsens with: Reports: None Associated Symptoms: Reports: No Other Symptoms - Related Data Allergies Allergy/AdvReac Type Severity Reaction Status Date / Time No Known Allergies Allergy Verified 01/02/19 11:34 Home Meds: Home Meds Albuterol [Proventil Neb Soln] 2.5 mg NEB QID PRN 10/17/14 [History] Omeprazole 40 mg PO ACBREAKFAST 10/17/14 [History] QuiNINE [Qualaquin] 324 mg PO BID 10/26/14 [History] glipiZIDE [Glucotrol XL] 5 mg PO BIDMEALS 10/26/14 [History] atorvaSTATin [Lipitor] 10 mg PO BEDTIME MDD Dyslipidemia 03/10/15 [History] Albuterol Sulfate [Proair Hfa] 2 puff INH Q6HR PRN 12/11/15 [History] Ascorbate Calcium [Vitamin C] 250 mg PO BID 12/11/15 [History] Levothyroxine 25 mg PO ACBREAKFAST 12/11/15 [History] Lutein/Minerals/Vit A,C & E [Ocuvite] 1 each PO DAILY 12/11/15 [History] Budesonide/Formoterol [Symbicort 160-4.5 MCG] 1 inh IH BID 06/27/16 [History] Cetirizine [ZyrTEC] 10 mg PO DAILY 12/28/16 [History] Ferrous Sulfate [Ferosul] 325 mg PO .MONWEDFR 01/02/19 [History] metFORMIN [Glucophage] 1,000 mg PO BIDMEALS 01/02/19 [History] Levofloxacin 750 mg PO DAILY #5 tablet 01/09/19 [Rx] Pregabalin [Lyrica] 300 mg PO BID cap 01/09/19 [Rx] predniSONE 10 mg PO WITHBREAKFAST #18 tablet 01/09/19 [Rx] Past Medical History HEENT History: Reports: Cataract, Epistaxis, Other (See Below) Other HEENT History: throat tickle that moves up to eye, nose bleeds years ago, not in awhile Cardiovascular History: Reports: Other (See Below) Other Cardiovascular History: AAA Respiratory History: Reports: Bronchitis, Recurrent, COPD Gastrointestinal History: Reports: GERD, Hemorrhoids, Other (See Below) (Biliary obstruction, Cholangitis) Other Gastrointestinal History: got hemorrhoids fixed per pt Musculoskeletal History: Reports: Arthritis, Back Pain, Chronic Other Musculoskeletal History: arms Neurological History: Reports: None Psychiatric History: Reports: Anxiety Other Psychiatric History: per reports, since Endocrine/Metabolic History: Reports: Diabetes, Type II, Hypothyroidism Hematologic History: Reports: Anemia, Blood Transfusion(s) Dermatologic History: Reports: Other (See Below) Other Dermatologic History: skin tags - Infectious Disease History Infectious Disease History: Reports: Chicken Pox, Measles, Mumps - Past Surgical History Cardiovascular Surgical History: Reports: AAA Repair Social & Family History - Family History Family Medical History: No Pertinent Family History Cardiac: Reports: CAD, Other (See Below) Other Cardiac Family History: mother of MD Other Oncologic Family History: sister? - Caffeine Use Caffeine Use: Reports: Coffee, Tea Other Caffeine Use: 3/day - Living Situation & Occupation Living situation: Reports: , with Spouse Occupation: Retired ED ROS GENERAL - Review of Systems Review Of Systems: Comprehensive ROS is negative, except as noted in HPI. ED EXAM, GENERAL - Physical Exam Exam: See Below Exam Limited By: No Limitations General Appearance: Alert, No Apparent Distress, Other (Chronically ill appearing) Eye Exam: Bilateral Eye: Normal Inspection Nose: Normal Inspection, Normal Mucosa, No Blood Throat/Mouth: Normal Inspection, Normal Lips, Normal Teeth, Normal Gums, Normal Oropharynx, Normal Voice, No Airway Compromise Head: Atraumatic, Normocephalic Neck: Normal Inspection, Supple, Non-Tender, Full Range of Motion. No: Lymphadenopathy (L), Lymphadenopathy (R) Respiratory/Chest: No Respiratory Distress, Chest Non-Tender, Decreased Breath Sounds, Crackles, Wheezing, Other (Increased work of breathing). No: Rales, Rhonchi Cardiovascular: Regular Rate, Rhythm, No Edema GI/Abdominal: Normal Bowel Sounds, Soft, Non-Tender Back Exam: Normal Inspection Extremities: Normal Inspection, No Pedal Edema Neurological: Alert, Oriented, No Motor/Sensory Deficits Psychiatric: Normal Mood Skin Exam: Warm, Dry, Intact, Normal Color, No Rash Course - Vital Signs Last Recorded V/S: Last Vital Signs Temp 98.6 F 12/29/20 16:07 Pulse 101 H 12/29/20 16:07 Resp 18 12/29/20 16:07 BP 99/55 L 12/29/20 16:07 Pulse Ox 86 L 12/29/20 16:07 - Orders/Labs/Meds Orders: Active Orders 24 hr Category Date Time Status Peripheral IV Care [RC] . DIRECTED Care 12/29/20 16:05 Active RT Aerosol Therapy [RC] ASDIRECTED Care 12/29/20 16:07 Active COVID-19/FLU A+B [MOLEC] Stat Lab 12/29/20 16:05 Ordered CULTURE BLOOD [BC] Stat Lab 12/29/20 16:24 Received CULTURE BLOOD [BC] Stat Lab 12/29/20 16:34 Received STREP SCRN A RAPID W CULT CONF [RM] Stat Lab 12/29/20 16:05 Ordered Sodium Chloride 0.9% [Saline Flush] Med 12/29/20 16:05 Active 10 ml FLUSH ASDIRECTED PRN Blood Culture x2 Reflex Set [OM.PC] Stat Oth 12/29/20 16:04 Ordered Peripheral IV Insertion Adult [OM.PC] Stat Oth 12/29/20 16:05 Ordered Medication Orders Sodium Chloride (Sodium Chloride 0.9% 10 Ml Syringe) 10 ml FLUSH ASDIRECTED PRN PRN Reason: Keep Vein Open Labs: Laboratory Tests 12/29/20 12/29/20 12/29/20 Range/Units 16:24 16:24 16:24 WBC 12.4 H (5.0-10.0) 10^3/uL RBC 4.49 L (4.6-6.2) 10^6/uL Hgb 14.8 (14.0-18.0) g/dL Hct 45.3 (40.0-54.0) % MCV 100.9 H D (80-100) fL MCH 33.0 (27.0-34.0) pg MCHC 32.7 L (33.0-35.0) g/dL Plt Count 157 (150-450) 10^3/uL Neut % (Auto) 84.2 H (42.2-75.2) % Lymph % (Auto) 6.8 L (20.5-50.1) % Antelope % (Auto) 7.5 (2-8) % Eos % (Auto) 0.1 L (1.0-3.0) % Baso % (Auto) 1.4 H (0.0-1.0) % Sodium 143 (136-145) mmol/L Potassium 4.0 (3.5-5.1) mmol/L Chloride 98 (98-107) mmol/L Carbon Dioxide 33 H (21-32) mmol/L Anion Gap 16.0 H (7-13) mEq/L BUN 16 (7-18) mg/dL Creatinine 1.11 (0.70-1.30) mg/dL Est Cr Clr Drug Dosing TNP Estimated GFR (MDRD) > 60 BUN/Creatinine Ratio 14.4 (No establ ref range) Glucose 127 H (70-99) mg/dL Lactic Acid 2.2 H* (0.4-2.0) mmol/L Calcium 8.6 (8.5-10.1) mg/dL Total Bilirubin 0.9 (0.2-1.0) mg/dL AST 53 H (15-37) U/L ALT 61 (16-63) U/L Alkaline Phosphatase 130 H (46-116) U/L Troponin I < 0.017 (0.000-0.056) ng/mL C-Reactive Protein 5.5 H (0.0-0.9) mg/dL B-Natriuretic Peptide 24 (0-100) pg/ml Total Protein 7.5 (6.4-8.2) g/dL Albumin 3.8 (3.4-5.0) g/dL Globulin 3.7 Albumin/Globulin Ratio 1.0 Meds: Medications Generic Name Dose Route Start Last Admin Trade Name Freq PRN Reason Stop Dose Admin Sodium Chloride 10 ml 12/29/20 16:05 Sodium Chloride 0.9% 10 Ml Syringe FLUSH ASDIRECTED PRN Keep Vein Open Discontinued Medications Generic Name Dose Route Start Last Admin Trade Name Freq PRN Reason Stop Dose Admin Albuterol/Ipratropium 3 ml 12/29/20 16:06 12/29/20 16:22 Albuterol/Ipratropium 3.0-0.5 Mg/3 Ml Neb Soln NEB 12/29/20 16:07 3 ml ONETIME ONE Administration Piperacillin Sod/Tazobactam 100 mls @ 200 mls/hr 12/29/20 16:07 Sod 3.375 gm/ Sodium Chloride IV 12/29/20 16:36 ONETIME ONE Methylprednisolone Sodium Succinate 125 mg 12/29/20 16:06 Methylprednisolone Sodium Succinate 125 Mg/2 Ml Sdv IVPUSH 12/29/20 16:07 ONETIME ONE - Radiology Interpretation Free Text/Narrative:: Chest x-ray: Atlectatic and/or early infiltrative changes noted within the lung bases, greater on the right. The lungs are hyperinflated, consistent with underlying small airways disease. See rad report. - Re-Assessments/Exams Free Text/Narrative Re-Assessment/Exam: 12/29/20 17:26 Pt was being admitted to the hospitalist service of Dr. Santoyo, when he refused to be COVID tested and decided to leave [place]. The nursing staff spend a good amount of time and effort in educating the pt and attempting to convince him of the importance of being tested. The risks of refusing care, including but not limited to were explained to the pt. 12/29/20 17:32 Pt then concedes and allows testing. Departure - Departure Time of Disposition: 17:29 (admitted to Dr. Santoyo) Disposition: Admitted As Inpatient 65 Condition: Fair Clinical Impression: Acute exacerbation of chronic obstructive pulmonary disease (COPD), Hypoxia Pneumonia Qualifiers: Pneumonia type: due to unspecified organism Laterality: bilateral Lung location: lower lobe of lung Qualified Code(s): J18.1 - Lobar pneumonia, unspecified organism Acute and chronic respiratory failure ([id number]) Qualifiers: Respiratory failure complication: hypoxia and hypercapnia Qualified Code(s): J96.21 - Acute and chronic respiratory failure with hypoxia - Discharge Information *PRESCRIPTION DRUG MONITORING PROGRAM REVIEWED*: Not Applicable *COPY OF PRESCRIPTION DRUG MONITORING REPORT IN PATIENT JULIANNA: Not Applicable Referrals: PCP,None [Primary Care Provider] - Forms: ED Department Discharge Sepsis Event Note (ED) - Focused Exam Vital Signs: Vital Signs Temp Pulse Resp BP Pulse Ox 12/29/20 16:07 98.6 F 85 18 99/55 L 86 L - My Orders Last 24 Hours: My Active Orders 12/29/20 16:04 Blood Culture x2 Reflex Set [OM.PC] Stat 12/29/20 16:05 Peripheral IV Care [RC] . DIRECTED COVID-19/FLU A+B [MOLEC] Stat STREP SCRN A RAPID W CULT CONF [RM] Stat Sodium Chloride 0.9% [Saline Flush] 10 ml FLUSH ASDIRECTED PRN Peripheral IV Insertion Adult [OM.PC] Stat 12/29/20 16:07 RT Aerosol Therapy [RC] ASDIRECTED 12/29/20 16:24 CULTURE BLOOD [BC] Stat 12/29/20 16:34 CULTURE BLOOD [BC] Stat - Assessment/Plan Last 24 Hours: My Active Orders 12/29/20 16:04 Blood Culture x2 Reflex Set [OM.PC] Stat 12/29/20 16:05 Peripheral IV Care [RC] . DIRECTED COVID-19/FLU A+B [MOLEC] Stat STREP SCRN A RAPID W CULT CONF [RM] Stat Sodium Chloride 0.9% [Saline Flush] 10 ml FLUSH ASDIRECTED PRN Peripheral IV Insertion Adult [OM.PC] Stat 12/29/20 16:07 RT Aerosol Therapy [RC] ASDIRECTED 12/29/20 16:24 CULTURE BLOOD [BC] Stat 12/29/20 16:34 CULTURE BLOOD [BC] Stat I have read and agree with the documentation that has been completed regarding this visit. By signing this record, I attest that the documentation was completed in my physical presence and is an accurate record of the encounter.
[2020-12-29] MEDS ORDERED: Acetaminophen 325 MG Tab PO PRN (18:12)
[2020-12-29 18:14] LABS: CORONAVIRUS COVID-19 NAA NEGATIVE (NEGATIVE)
[2020-12-29] MEDS ORDERED: metFORMIN 500 MG Tab PO ONE (20:18)
[2020-12-29] MEDS ORDERED: atorvaSTATin 10 MG Tab PO ONE (20:19)
[2020-12-29] MEDS ORDERED: Formoterol/Mometasone 200-5 MCG 8.8 GM Inhaler IH ONE (20:30)
[2020-12-29] MEDS: Albuterol/Ipratropium 3.0-0.5 MG/3 ML Neb Soln NEB PRN (20:56)
[2020-12-29] MEDS: Enoxaparin 40 MG/0.4 ML Syringe SUBCUT SCH (21:10)
--- NOTE | 2020-12-29 22:11 | PCM.HP ---
H&P History of Present Illness - General Date of Service: 12/29/20 Admit Problem/Dx: Admission Diagnosis/Problem Admission Diagnosis/Problem COPD, Mild chronic obstructive pulmonary disease - History of Present Illness Initial Comments - Free Text/Narative: Micah is a 89-year-old man who presented to the ER earlier today with severe shortness of breath and weakness. Micah has chronic obstructive pulmonary disea se, and has had multiple exacerbations in the past. His reports that he tends to get very sick very quickly with these exacerbations. She noted that he was barely walking yesterday, and was much more short of breath today than typically for him. They have not had any [facility]- contacts that they are aware of. He has reported no fevers or chills, no nausea or vomiting, no diarrhea or constipation - Related Data Allergies/Adverse Reactions: Allergies Allergy/AdvReac Type Severity Reaction Status Date / Time No Known Allergies Allergy Verified 12/29/20 18:32 Home Medications: Home Meds Albuterol [Proventil Neb Soln] 2.5 mg NEB TID PRN 10/17/14 [History] Omeprazole 40 mg PO ACBREAKFAST 10/17/14 [History] QuiNINE [Qualaquin] 324 mg PO BID 10/26/14 [History] atorvaSTATin [Lipitor] 10 mg PO BEDTIME MDD Dyslipidemia 03/10/15 [History] Albuterol Sulfate [Proair Hfa] 2 puff INH Q6HR PRN 12/11/15 [History] Ascorbate Calcium [Vitamin C] 820 mg PO DAILY 12/11/15 [History] Levothyroxine 25 mg PO ACBREAKFAST 12/11/15 [History] Budesonide/Formoterol [Symbicort 160-4.5 MCG] 1 inh IH BID 06/27/16 [History] Ferrous Sulfate [Ferosul] 325 mg PO DAILY 01/02/19 [History] metFORMIN [Glucophage] 1,000 mg PO BIDMEALS 01/02/19 [History] Levofloxacin 750 mg PO DAILY #5 tablet 01/09/19 [Rx] Pregabalin [Lyrica] 300 mg PO BID cap 01/09/19 [Rx] Vit C/E/Zn/Coppr/Lutein/Zeaxan [Preservision Areds 2 Softgel] 2 each PO DAILY 12/29/20 [History] Past Medical History HEENT History: Reports: Cataract, Epistaxis, Macular Degeneration, Other (See Below) Other HEENT History: throat tickle that moves up to eye, nose bleeds years ago, not in awhile Cardiovascular History: Reports: Other (See Below) Other Cardiovascular History: AAA Respiratory History: Reports: Bronchitis, Recurrent, COPD, Pneumonia, Recurrent Gastrointestinal History: Reports: GERD, Hemorrhoids, Other (See Below) Other Gastrointestinal History: got hemorrhoids fixed per pt Musculoskeletal History: Reports: Arthritis, Back Pain, Chronic Other Musculoskeletal History: arms Neurological History: Reports: Neuropathy, Diabetic Psychiatric History: Reports: Anxiety Other Psychiatric History: per reports, since s Endocrine/Metabolic History: Reports: Diabetes, Type II, Hypothyroidism Hematologic History: Reports: Anemia, Blood Transfusion(s) Dermatologic History: Reports: Other (See Below) Other Dermatologic History: skin tags - Infectious Disease History Infectious Disease History: Reports: Chicken Pox, Measles, Mumps - Past Surgical History HEENT Surgical History: Reports: Cataract Surgery Other HEENT Surgeries/Procedures: bilat cataract removal 2006, injections in eye every 6 weeks for macular degeneration Cardiovascular Surgical History: Reports: AAA Repair Other Cardiovascular Surgeries/Procedures: 01/25/15 with stent Respiratory Surgical History: Reports: None GI Surgical History: Reports: Appendectomy, Other (See Below) Other GI Surgeries/Procedures: hemorrhoidectomy Endocrine Surgical History: Reports: None Neurological Surgical History: Reports: None Other Neurological Surgeries/Procedures: spine surgery 2003, 2004 Musculoskeletal Surgical History: Reports: None Other Musculoskeletal Surgeries/Procedures:: spinal surgery x2 (2003, 2004) Dermatological Surgical History: Reports: None Social & Family History - Family History Family Medical History: No Pertinent Family History Cardiac: Reports: CAD, Other (See Below) Other Cardiac Family History: mother of [place] Other Oncologic Family History: sister? - Tobacco Use Tobacco Use Status *Q: Former Tobacco User Used Tobacco, but Quit: Yes Month/Year Tobacco Last Used: 2004 - Caffeine Use Caffeine Use: Reports: Coffee Other Caffeine Use: 3/day - Alcohol Use Days Per Week of Alcohol Use: 7 Number of Drinks Per Day: 1 Total Drinks Per Week: 7 - Recreational Drug Use Recreational Drug Use: No - Living Situation & Occupation Living situation: Reports: , with Spouse Occupation: Retired H&P Review of Systems - Review of Systems: Review Of Systems: See Below Review of Systems Comment:: General: No recent weight gain or weight loss, no fevers or chills HEENT: No headache or vertigo, no difficulty with speaking or swallowing Cardiovascular: No chest pain or palpitations, no orthopnea or PND Respiratory: See HPI Gastrointestinal: No nausea or vomiting, no diarrhea or constipation, no hem atochezia or melena Endocrine: No abnormal rashing or bruising, no intolerance to heat or cold Integumentary: No lesions or rashes Musculoskeletal: No myalgias or arthralgias Psychological: No increased anxiety or depressive type symptoms Rest of the review of systems is complete and negative Exam - Exam Exam: See Below - Vital Signs Vital Signs: Last Vital Signs Temp 98.6 F 12/29/20 16:07 Pulse 101 H 12/29/20 16:07 Resp 18 12/29/20 16:07 BP 99/55 L 12/29/20 16:07 Pulse Ox 86 L 12/29/20 16:07 Weight: 171 lb 6.4 oz - Exam Physical Exam Comments:: General: Micah is an 85-year-old man in no acute distress. He is showing no signs of respiratory distress, no tachypnea or accessory muscle use. When I approached him in the ER to examine him, O2 sats were 86% on room air Oropharynx is clear, mucous membranes are moist Neck: Supple, no lymphadenopathy Heart: Regular rate and rhythm, no murmurs Lungs: Significant expiratory wheezing bilaterally with very distant breath sounds in both bases, no areas of consolidation heard Neurological: Cranial nerves II through XII intact grossly, reflexes 2+ throughout, toes downgoing - Patient Data Lab Results Last 24 hrs: Laboratory Results - last 24 hr 12/29/20 12/29/20 12/29/20 Range/Units 16:24 16:24 16:24 WBC 12.4 H (5.0-10.0) 10^3/uL RBC 4.49 L (4.6-6.2) 10^6/uL Hgb 14.8 (14.0-18.0) g/dL Hct 45.3 (40.0-54.0) % MCV 100.9 H D (80-100) fL MCH 33.0 (27.0-34.0) pg MCHC 32.7 L (33.0-35.0) g/dL Plt Count 157 (150-450) 10^3/uL Neut % (Auto) 84.2 H (42.2-75.2) % Lymph % (Auto) 6.8 L (20.5-50.1) % Dixie % (Auto) 7.5 (2-8) % Eos % (Auto) 0.1 L (1.0-3.0) % Baso % (Auto) 1.4 H (0.0-1.0) % Sodium 143 (136-145) mmol/L Potassium 4.0 (3.5-5.1) mmol/L Chloride 98 (98-107) mmol/L Carbon Dioxide 33 H (21-32) mmol/L Anion Gap 16.0 H (7-13) mEq/L BUN 16 (7-18) mg/dL Creatinine 1.11 (0.70-1.30) mg/dL Est Cr Clr Drug Dosing TNP Estimated GFR (MDRD) > 60 BUN/Creatinine Ratio 14.4 (No establ ref range) Glucose 127 H (70-99) mg/dL POC Glucose (70-99) mg/dL Lactic Acid 2.2 H* (0.4-2.0) mmol/L Calcium 8.6 (8.5-10.1) mg/dL Total Bilirubin 0.9 (0.2-1.0) mg/dL AST 53 H (15-37) U/L ALT 61 (16-63) U/L Alkaline Phosphatase 130 H (46-116) U/L Troponin I < 0.017 (0.000-0.056) ng/mL C-Reactive Protein 5.5 H (0.0-0.9) mg/dL B-Natriuretic Peptide 24 (0-100) pg/ml Total Protein 7.5 (6.4-8.2) g/dL Albumin 3.8 (3.4-5.0) g/dL Globulin 3.7 Albumin/Globulin Ratio 1.0 Influenza Type A RNA (NEGATIVE) Influenza Type B RNA (NEGATIVE) SARS-CoV-2 RNA ([place]) (NEGATIVE) 12/29/20 12/29/20 Range/Units 17:25 21:02 WBC (5.0-10.0) 10^3/uL RBC (4.6-6.2) 10^6/uL Hgb (14.0-18.0) g/dL Hct (40.0-54.0) % MCV (80-100) fL MCH (27.0-34.0) pg MCHC (33.0-35.0) g/dL Plt Count (150-450) 10^3/uL Neut % (Auto) (42.2-75.2) % Lymph % (Auto) (20.5-50.1) % Dixie % (Auto) (2-8) % Eos % (Auto) (1.0-3.0) % Baso % (Auto) (0.0-1.0) % Sodium (136-145) mmol/L Potassium (3.5-5.1) mmol/L Chloride (98-107) mmol/L Carbon Dioxide (21-32) mmol/L Anion Gap (7-13) mEq/L BUN (7-18) mg/dL Creatinine (0.70-1.30) mg/dL Est Cr Clr Drug Dosing Estimated GFR (MDRD) BUN/Creatinine Ratio (No establ ref range) Glucose (70-99) mg/dL POC Glucose 306 H (70-99) mg/dL Lactic Acid (0.4-2.0) mmol/L Calcium (8.5-10.1) mg/dL Total Bilirubin (0.2-1.0) mg/dL AST (15-37) U/L ALT (16-63) U/L Alkaline Phosphatase (46-116) U/L Troponin I (0.000-0.056) ng/mL C-Reactive Protein (0.0-0.9) mg/dL B-Natriuretic Peptide (0-100) pg/ml Total Protein (6.4-8.2) g/dL Albumin (3.4-5.0) g/dL Globulin Albumin/Globulin Ratio Influenza Type A RNA Negative (NEGATIVE) Influenza Type B RNA Negative (NEGATIVE) SARS-CoV-2 RNA ([place]) Negative (NEGATIVE) Result Diagrams: 12/29/20 16:24 12/29/20 16:24 *Q Meaningful Use (ADM) - VTE Risk Assess *Q Each Risk Factor Represents 3 Points: Age 75 Years or Greater Total Score 3 Point Risk Factors: 3 - Problem List (1) Acute exacerbation of chronic obstructive pulmonary disease (COPD) SNOMED Code(s): 169946571 ICD Code: J44.1 - CHRONIC OBSTRUCTIVE PULMONARY DISEASE W (ACUTE) EXACERBATION Status: Acute Current Visit: Yes (2) Type 2 diabetes mellitus SNOMED Code(s): 03341821 ICD Code: E11.9 - TYPE 2 DIABETES MELLITUS WITHOUT COMPLICATIONS Status: Chronic Current Visit: Yes (3) Gastroesophageal reflux SNOMED Code(s): 893469904 ICD Code: K21.9 - GASTRO-ESOPHAGEAL REFLUX DISEASE WITHOUT ESOPHAGITIS Status: Chronic Current Visit: Yes (4) Hyperlipidemia SNOMED Code(s): 00504481 ICD Code: E78.5 - HYPERLIPIDEMIA, UNSPECIFIED Status: Chronic Current Visit: Yes (5) Restless leg syndrome SNOMED Code(s): 53653958 ICD Code: G25.81 - RESTLESS LEGS SYNDROME Status: Chronic Current Visit: Yes Problem List Initiated/Reviewed/Updated: Yes Orders Last 24hrs: Active Orders 24 hr Category Date Time Status Admission Diagnosis [ADT] Routine ADT 12/29/20 18:02 Ordered Patient Status [ADT] Routine ADT 12/29/20 17:50 Active Height and Weight [RC] UPON Care 12/29/20 18:12 Active Intake and Output [RC] QSHIFT Care 12/29/20 18:15 Active Oxygen Therapy [RC] PRN Care 12/29/20 18:12 Active Peripheral IV Care [RC] . DIRECTED Care 12/29/20 16:05 Active RT Aerosol Therapy [RC] ASDIRECTED Care 12/29/20 16:07 Active RT Aerosol Therapy [RC] ASDIRECTED Care 12/29/20 18:18 Active Up With Assistance [RC] ASDIRECTED Care 12/29/20 18:12 Active VTE/DVT Education [RC] PER UNIT ROUTINE Care 12/29/20 18:12 Active Vital Signs [RC] Q4H Care 12/29/20 18:12 Active Regular Diet [DIET] Diet 12/30/20 Breakfast Active Chest 2V [CR] Routine Exams 12/30/20 08:00 Ordered CULTURE BLOOD [BC] Stat Lab 12/29/20 16:24 Received CULTURE BLOOD [BC] Stat Lab 12/29/20 16:34 Received STREP SCRN A RAPID W CULT CONF [RM] Stat Lab 12/29/20 16:05 Ordered Acetaminophen [TylenoL] Med 12/29/20 18:12 Active 650 mg PO Q4H PRN Albuterol/Ipratropium [DuoNeb 3.0-0.5 MG/3 ML] Med 12/29/20 18:12 Active 3 ml NEB Q4H PRN Ascorbate Calcium [Vitamin C] Med 12/30/20 09:00 Ordered 820 mg PO DAILY Budesonide/Formoterol Med 12/30/20 09:00 Ordered 1 inh IH BID Enoxaparin [Lovenox] Med 12/29/20 18:30 Active 40 mg SUBCUT DAILY@1800 Ferrous Sulfate Med 12/30/20 09:00 Ordered 325 mg PO DAILY Levothyroxine Med 12/30/20 06:00 Ordered 25,000 mcg PO ACBREAKFAST Omeprazole [Omeprazole] Med 12/30/20 06:00 Ordered 40 mg PO ACBREAKFAST Pregabalin [Lyrica] Med 12/30/20 09:00 Ordered 300 mg PO BID QuiNINE [Qualaquin] Med 12/30/20 09:00 Ordered 324 mg PO BID Sodium Chloride 0.9% [Saline Flush] Med 12/29/20 16:05 Active 10 ml FLUSH ASDIRECTED PRN Vit C/E/Zn/Coppr/Lutein/Zeaxan [Preservision Areds 2 Med 12/30/20 09:00 Ordered Softgel] 2 each PO DAILY atorvaSTATin [Lipitor] Med 12/30/20 21:00 Ordered 10 mg PO BEDTIME metFORMIN [Glucophage] Med 12/30/20 08:00 Ordered 1,000 mg PO BIDMEALS methylPREDNISolone Sod Succ [Solu-MEDROL] Med 12/30/20 06:00 Once 80 mg IV ONETIME ONE Blood Culture x2 Reflex Set [OM.PC] Stat Oth 12/29/20 16:04 Ordered Peripheral IV Insertion Adult [OM.PC] Stat Oth 12/29/20 16:05 Ordered Resuscitation Status Routine Resus Stat 12/29/20 18:12 Ordered Medication Orders Acetaminophen (Acetaminophen 325 Mg Tab) 650 mg PO Q4H PRN PRN Reason: Pain (Mild 1-3)/fever Albuterol/Ipratropium (Albuterol/Ipratropium 3.0-0.5 Mg/3 Ml Neb Soln) 3 ml NEB Q4H PRN PRN Reason: shortness of breath/wheezing Last Admin: 12/29/20 20:56 Dose: 3 ml Documented by: CITLALY Enoxaparin Sodium (Enoxaparin 40 Mg/0.4 Ml Syringe) 40 mg SUBCUT DAILY@1800 MIRANDA Last Admin: 12/29/20 21:10 Dose: 40 mg Documented by: CITLALY Methylprednisolone Sodium Succinate (Methylprednisolone Sodium Succinate 40 Mg/1 Ml Sdv) 80 mg IV ONETIME ONE Stop: 12/30/20 06:01 Sodium Chloride (Sodium Chloride 0.9% 10 Ml Syringe) 10 ml FLUSH ASDIRECTED PRN PRN Reason: Keep Vein Open Last Admin: 12/29/20 17:47 Dose: 10 ml Documented by: PATRICK Assessment/Plan Comment:: Assessment: 1. 85-year-old man with chronic obstructive pulmonary disease with acute exacerbation 2. Acute hypoxia secondary #1 3. Type 2 diabetes mellitus, currently controlled with medication 4. Hyperlipidemia 5. Gastroesophageal reflux disease 6. Restless leg syndrome Plan: 1. He is admitted to observation 2. He received Solu-Medrol, 125 mg IV in the ED, I will give him a dose of 80 mg of Solu-Medrol IV in the a.m. 3. He received Zosyn 3.375 g in the ED. I am considering starting him on oral doxycycline tomorrow a.m. 4. Continue home medications including diabetes medications and medications for restless leg syndrome 5. Recheck chest x-ray in a.m.
[2020-12-29] MEDS ORDERED: atorvaSTATin 10 MG Tab PO SCH (22:30)
[2020-12-29] MEDS ORDERED: Pregabalin 75 MG Cap PO SCH (22:30)
[2020-12-29] MEDS ORDERED: Formoterol/Mometasone 200-5 MCG 8.8 GM Inhaler IH SCH (22:30)
[2020-12-30] MEDS ORDERED: methylPREDNISolone Sodium Succinate 40 MG/1 ML SDV IV ONE (06:00)
[2020-12-30] MEDS: Omeprazole 20 MG Cap.CR PO SCH (06:23)
[2020-12-30] MEDS: Levothyroxine 25 MCG Tab PO SCH (06:24)
--- NOTE | 2020-12-30 07:54 | PCM.PN ---
- General Info Date of Service: 12/30/20 Admission Dx/Problem (Free Text): Admission Diagnosis/Problem Admission Diagnosis/Problem COPD, Mild chronic obstructive pulmonary disease Subjective Update: Patient states that he is feeling better this morning in comparison to when he was first admitted. Denies any fever. Minimal cough. Sputum production that is brown overnight. Denies any chest pain, pleurisy or chest pressure. No abdominal complaints. States that his appetite has picked up. Remains on 5 L of oxygen. Patient states that he wears home O2, anywhere between 2 and 4 L in the afternoons and in the evenings. He increases his oxygen flowing he has i ncreased activity. He walks with a walker. Already asking when he can go home. Functional Status: Reports: Tolerating Diet - Review of Systems General: Denies: Fever HEENT: Denies: No Symptoms Pulmonary: Reports: Cough, Sputum. Denies: Shortness of Breath, Pleuritic Chest Pain, Wheezing Cardiovascular: Reports: No Symptoms Gastrointestinal: Reports: No Symptoms Genitourinary: Reports: No Symptoms Musculoskeletal: Reports: No Symptoms Skin: Reports: No Symptoms Neurological: Reports: No Symptoms Psychiatric: Reports: No Symptoms - Patient Data Vitals - Most Recent: Last Vital Signs Temp 97.8 F 12/30/20 03:38 Pulse 73 12/30/20 03:38 Resp 20 12/30/20 03:38 BP 95/47 L 12/30/20 03:38 Pulse Ox 90 L 12/30/20 03:38 Weight - Most Recent: 171 lb 6.4 oz I&O - Last 24 Hours: Intake & Output 12/29/20 12/30/20 12/30/20 22:59 06:59 14:59 Intake Total 100 200 Output Total 350 Balance 100 -150 Imaging Impressions - Last 24 Hours: Chest x-ray personally reviewed. Formal reading reviewed. Agree with streaky infiltrates in the right base greater than left. Lab Results Last 24 Hours: Laboratory Results - last 24 hr 12/29/20 12/29/20 12/29/20 Range/Units 16:24 16:24 16:24 WBC 12.4 H (5.0-10.0) 10^3/uL RBC 4.49 L (4.6-6.2) 10^6/uL Hgb 14.8 (14.0-18.0) g/dL Hct 45.3 (40.0-54.0) % MCV 100.9 H D (80-100) fL MCH 33.0 (27.0-34.0) pg MCHC 32.7 L (33.0-35.0) g/dL Plt Count 157 (150-450) 10^3/uL Neut % (Auto) 84.2 H (42.2-75.2) % Lymph % (Auto) 6.8 L (20.5-50.1) % Lipscomb % (Auto) 7.5 (2-8) % Eos % (Auto) 0.1 L (1.0-3.0) % Baso % (Auto) 1.4 H (0.0-1.0) % Sodium 143 (136-145) mmol/L Potassium 4.0 (3.5-5.1) mmol/L Chloride 98 (98-107) mmol/L Carbon Dioxide 33 H (21-32) mmol/L Anion Gap 16.0 H (7-13) mEq/L BUN 16 (7-18) mg/dL Creatinine 1.11 (0.70-1.30) mg/dL Est Cr Clr Drug Dosing TNP Estimated GFR (MDRD) > 60 BUN/Creatinine Ratio 14.4 (No establ ref range) Glucose 127 H (70-99) mg/dL POC Glucose (70-99) mg/dL Lactic Acid 2.2 H* (0.4-2.0) mmol/L Calcium 8.6 (8.5-10.1) mg/dL Total Bilirubin 0.9 (0.2-1.0) mg/dL AST 53 H (15-37) U/L ALT 61 (16-63) U/L Alkaline Phosphatase 130 H (46-116) U/L Troponin I < 0.017 (0.000-0.056) ng/mL C-Reactive Protein 5.5 H (0.0-0.9) mg/dL B-Natriuretic Peptide 24 (0-100) pg/ml Total Protein 7.5 (6.4-8.2) g/dL Albumin 3.8 (3.4-5.0) g/dL Globulin 3.7 Albumin/Globulin Ratio 1.0 Influenza Type A RNA (NEGATIVE) Influenza Type B RNA (NEGATIVE) SARS-CoV-2 RNA ([place]CHELL) (NEGATIVE) 12/29/20 12/29/20 Range/Units 17:25 21:02 WBC (5.0-10.0) 10^3/uL RBC (4.6-6.2) 10^6/uL Hgb (14.0-18.0) g/dL Hct (40.0-54.0) % MCV (80-100) fL MCH (27.0-34.0) pg MCHC (33.0-35.0) g/dL Plt Count (150-450) 10^3/uL Neut % (Auto) (42.2-75.2) % Lymph % (Auto) (20.5-50.1) % Lipscomb % (Auto) (2-8) % Eos % (Auto) (1.0-3.0) % Baso % (Auto) (0.0-1.0) % Sodium (136-145) mmol/L Potassium (3.5-5.1) mmol/L Chloride (98-107) mmol/L Carbon Dioxide (21-32) mmol/L Anion Gap (7-13) mEq/L BUN (7-18) mg/dL Creatinine (0.70-1.30) mg/dL Est Cr Clr Drug Dosing Estimated GFR (MDRD) BUN/Creatinine Ratio (No establ ref range) Glucose (70-99) mg/dL POC Glucose 306 H (70-99) mg/dL Lactic Acid (0.4-2.0) mmol/L Calcium (8.5-10.1) mg/dL Total Bilirubin (0.2-1.0) mg/dL AST (15-37) U/L ALT (16-63) U/L Alkaline Phosphatase (46-116) U/L Troponin I (0.000-0.056) ng/mL C-Reactive Protein (0.0-0.9) mg/dL B-Natriuretic Peptide (0-100) pg/ml Total Protein (6.4-8.2) g/dL Albumin (3.4-5.0) g/dL Globulin Albumin/Globulin Ratio Influenza Type A RNA Negative (NEGATIVE) Influenza Type B RNA Negative (NEGATIVE) SARS-CoV-2 RNA ([place]LL) Negative (NEGATIVE) Med Orders - Current: Current Medications Acetaminophen (Acetaminophen 325 Mg Tab) 650 mg PO Q4H PRN PRN Reason: Pain (Mild 1-3)/fever Albuterol/Ipratropium (Albuterol/Ipratropium 3.0-0.5 Mg/3 Ml Neb Soln) 3 ml NEB Q4H PRN PRN Reason: shortness of breath/wheezing Last Admin: 12/29/20 20:56 Dose: 3 ml Documented by: Atorvastatin Calcium (Atorvastatin 10 Mg Tab) 10 mg PO BEDTIME ON LICENSE OF [facility] Enoxaparin Sodium (Enoxaparin 40 Mg/0.4 Ml Syringe) 40 mg SUBCUT DAILY@1800 ON LICENSE OF [facility] Last Admin: 12/29/20 21:10 Dose: 40 mg Documented by: Ferrous Sulfate (Ferrous Sulfate 325 Mg Tab) 325 mg PO DAILY ON LICENSE OF [facility] Levothyroxine Sodium (Levothyroxine 25 Mcg Tab) 25 mcg PO ACBREAKFAST ON LICENSE OF [facility] Last Admin: 12/30/20 06:24 Dose: 25 mcg Documented by: Metformin HCl (Metformin 500 Mg Tab) 1,000 mg PO BIDMEALS ON LICENSE OF [facility] Mometasone Furoate/Formoterol Fumar (Formoterol/Mometasone 200-5 Mcg 8.8 Gm Inhaler) 1 puff IH BID ON LICENSE OF [facility] Multivitamins/Minerals (Lutein/Minerals/Vit A,C & E Tab) 2 each PO DAILY ON LICENSE OF [facility] Non-Formulary Medication (Quinine [Qualaquin]) 324 mg PO BID ON LICENSE OF [facility] Non-Formulary Medication (Ascorbate Calcium [Vitamin C]) 820 mg PO DAILY ON LICENSE OF [facility] Omeprazole (Omeprazole 20 Mg Cap.Cr) 40 mg PO ACBREAKFAST ON LICENSE OF [facility] Last Admin: 12/30/20 06:23 Dose: 40 mg Documented by: Pregabalin (Pregabalin 75 Mg Cap) 300 mg PO BID ON LICENSE OF [facility] Sodium Chloride (Sodium Chloride 0.9% 10 Ml Syringe) 10 ml FLUSH ASDIRECTED PRN PRN Reason: Keep Vein Open Last Admin: 12/29/20 17:47 Dose: 10 ml Documented by: Discontinued Medications Albuterol/Ipratropium (Albuterol/Ipratropium 3.0-0.5 Mg/3 Ml Neb Soln) 3 ml NEB ONETIME ONE Stop: 12/29/20 16:07 Last Admin: 12/29/20 16:22 Dose: 3 ml Documented by: Atorvastatin Calcium (Atorvastatin 10 Mg Tab) 10 mg PO ONETIME ONE Stop: 12/29/20 20:20 Last Admin: 12/29/20 21:07 Dose: 10 mg Documented by: Atorvastatin Calcium (Atorvastatin 10 Mg Tab) 10 mg PO BEDTIME ON LICENSE OF [facility] Last Admin: 12/29/20 23:19 Dose: Not Given Documented by: Piperacillin Sod/Tazobactam (Sod 3.375 gm/ Sodium Chloride) 100 mls @ 200 mls/hr IV ONETIME ONE Stop: 12/29/20 16:36 Last Infusion: 12/29/20 19:05 Dose: Infused Documented by: Metformin HCl (Metformin 500 Mg Tab) 1,000 mg PO ONETIME ONE Stop: 12/29/20 20:19 Last Admin: 12/29/20 21:11 Dose: 1,000 mg Documented by: Methylprednisolone Sodium Succinate (Methylprednisolone Sodium Succinate 125 Mg/2 Ml Sdv) 125 mg IVPUSH ONETIME ONE Stop: 12/29/20 16:07 Last Admin: 12/29/20 17:46 Dose: 125 mg Documented by: Methylprednisolone Sodium Succinate (Methylprednisolone Sodium Succinate 40 Mg/1 Ml Sdv) 80 mg IV ONETIME ONE Stop: 12/30/20 06:01 Last Admin: 12/30/20 06:24 Dose: 80 mg Documented by: Mometasone Furoate/Formoterol Fumar (Formoterol/Mometasone 200-5 Mcg 8.8 Gm Inhaler) 1 puff IH ONETIME ONE Stop: 12/29/20 20:31 Last Admin: 12/29/20 21:09 Dose: 1 puff Documented by: Mometasone Furoate/Formoterol Fumar (Formoterol/Mometasone 200-5 Mcg 8.8 Gm Inhaler) 1 puff IH BID ON LICENSE OF [facility] Last Admin: 12/29/20 23:19 Dose: Not Given Documented by: Pregabalin (Pregabalin 150 Mg Cap) 300 mg PO ONETIME ONE Stop: 12/29/20 20:31 Last Admin: 12/29/20 21:09 Dose: 300 mg Documented by: Pregabalin (Pregabalin 75 Mg Cap) 300 mg PO BID ON LICENSE OF [facility] Last Admin: 12/29/20 23:20 Dose: Not Given Documented by: - Exam Quality Assessment: Supplemental Oxygen (5 L) General: Alert, Oriented Neck: Supple Lungs: Rhonchi (Throughout). No: Crackles, Stridor, Wheezing Cardiovascular: Regular Rate, Regular Rhythm GI/Abdominal Exam: Normal Bowel Sounds, Soft Extremities: Normal Inspection Skin: Warm Neurological: No New Focal Deficit - Patient Data Lab Results Last 24 hrs: Laboratory Results - last 24 hr 12/29/20 12/29/20 12/29/20 Range/Units 16:24 16:24 16:24 WBC 12.4 H (5.0-10.0) 10^3/uL RBC 4.49 L (4.6-6.2) 10^6/uL Hgb 14.8 (14.0-18.0) g/dL Hct 45.3 (40.0-54.0) % MCV 100.9 H D (80-100) fL MCH 33.0 (27.0-34.0) pg MCHC 32.7 L (33.0-35.0) g/dL Plt Count 157 (150-450) 10^3/uL Neut % (Auto) 84.2 H (42.2-75.2) % Lymph % (Auto) 6.8 L (20.5-50.1) % Lipscomb % (Auto) 7.5 (2-8) % Eos % (Auto) 0.1 L (1.0-3.0) % Baso % (Auto) 1.4 H (0.0-1.0) % Sodium 143 (136-145) mmol/L Potassium 4.0 (3.5-5.1) mmol/L Chloride 98 (98-107) mmol/L Carbon Dioxide 33 H (21-32) mmol/L Anion Gap 16.0 H (7-13) mEq/L BUN 16 (7-18) mg/dL Creatinine 1.11 (0.70-1.30) mg/dL Est Cr Clr Drug Dosing TNP Estimated GFR (MDRD) > 60 BUN/Creatinine Ratio 14.4 (No establ ref range) Glucose 127 H (70-99) mg/dL POC Glucose (70-99) mg/dL Lactic Acid 2.2 H* (0.4-2.0) mmol/L Calcium 8.6 (8.5-10.1) mg/dL Total Bilirubin 0.9 (0.2-1.0) mg/dL AST 53 H (15-37) U/L ALT 61 (16-63) U/L Alkaline Phosphatase 130 H (46-116) U/L Troponin I < 0.017 (0.000-0.056) ng/mL C-Reactive Protein 5.5 H (0.0-0.9) mg/dL B-Natriuretic Peptide 24 (0-100) pg/ml Total Protein 7.5 (6.4-8.2) g/dL Albumin 3.8 (3.4-5.0) g/dL Globulin 3.7 Albumin/Globulin Ratio 1.0 Influenza Type A RNA (NEGATIVE) Influenza Type B RNA (NEGATIVE) SARS-CoV-2 RNA ([place]) (NEGATIVE) 12/29/20 12/29/20 Range/Units 17:25 21:02 WBC (5.0-10.0) 10^3/uL RBC (4.6-6.2) 10^6/uL Hgb (14.0-18.0) g/dL Hct (40.0-54.0) % MCV (80-100) fL MCH (27.0-34.0) pg MCHC (33.0-35.0) g/dL Plt Count (150-450) 10^3/uL Neut % (Auto) (42.2-75.2) % Lymph % (Auto) (20.5-50.1) % Lipscomb % (Auto) (2-8) % Eos % (Auto) (1.0-3.0) % Baso % (Auto) (0.0-1.0) % Sodium (136-145) mmol/L Potassium (3.5-5.1) mmol/L Chloride (98-107) mmol/L Carbon Dioxide (21-32) mmol/L Anion Gap (7-13) mEq/L BUN (7-18) mg/dL Creatinine (0.70-1.30) mg/dL Est Cr Clr Drug Dosing Estimated GFR (MDRD) BUN/Creatinine Ratio (No establ ref range) Glucose (70-99) mg/dL POC Glucose 306 H (70-99) mg/dL Lactic Acid (0.4-2.0) mmol/L Calcium (8.5-10.1) mg/dL Total Bilirubin (0.2-1.0) mg/dL AST (15-37) U/L ALT (16-63) U/L Alkaline Phosphatase (46-116) U/L Troponin I (0.000-0.056) ng/mL C-Reactive Protein (0.0-0.9) mg/dL B-Natriuretic Peptide (0-100) pg/ml Total Protein (6.4-8.2) g/dL Albumin (3.4-5.0) g/dL Globulin Albumin/Globulin Ratio Influenza Type A RNA Negative (NEGATIVE) Influenza Type B RNA Negative (NEGATIVE) SARS-CoV-2 RNA ([place]) Negative (NEGATIVE) Result Diagrams: 12/29/20 16:24 12/29/20 16:24 Sepsis Event Note - Evaluation Sepsis Screening Result: No Definite Risk - Focused Exam Vital Signs: Vital Signs Temp Pulse Resp BP BP Pulse Ox Pulse Ox 12/30/20 03:38 97.8 F 73 20 95/47 L 90 L 12/30/20 00:00 97.8 F 77 20 94/48 L 90 L 12/29/20 20:56 89 L 12/29/20 20:00 99.3 F 95 20 110/58 L 117/53 L 91 L 12/29/20 19:50 87 L - Problem List Review Problem List Initiated/Reviewed/Updated: Yes - Plan Plan:: 85-year-old gentleman admitted for acute hypoxic respiratory failure secondary to acute COPD exacerbation. 1. Acute hypoxic respiratory failure secondary to COPD exacerbation. Continue supplemental oxygen as needed. Start empiric treatment with doxycycline. Daily ambulation saturation trials. Wean O2 as tolerated. Oral prednisone taper to begin today 40 mg daily. Morning x-ray pending for reevaluation. 2. Type 2 diabetes mellitus. Hold all home oral hypoglycemic agents. Invoke hospital hyperglycemia protocol if indicated. Sugar control diet. All other home medical comorbidities are stable and nonactive conditions, which include hyperlipidemia, GERD, restless leg syndrome. Continue all home medications at regular dose with the exception of the above changes. CODE STATUS: Full code. DVT prophylaxis chemically and mechanically.
[2020-12-30] MEDS ORDERED: metFORMIN 500 MG Tab PO SCH (08:00)
--- NOTE | 2020-12-30 08:01 | CR ---
PROCEDURE INFORMATION: Exam: XR Chest Exam date and time: 12/30/2020 7:12 AM Age: 85 years old Clinical indication: Other: To follow copd exacerbation TECHNIQUE: Imaging protocol: XR of the chest. Views: 2 views. COMPARISON: CR Chest 1V Frontal 12/29/2020 4:42 PM FINDINGS: Lungs: Bilateral perihilar reticulonodular ground-glass opacities. Pleural spaces: Unremarkable. No pleural effusion. No pneumothorax. Heart/Mediastinum: Unremarkable. No cardiomegaly. Vasculature: Atherosclerotic disease of the thoracic aorta. Bones/joints: Degenerative changes in the bilateral shoulders. IMPRESSION: Bilateral perihilar reticulonodular ground-glass opacities.
[2020-12-30] MEDS ORDERED: Non-Formulary Medication 1 Each (Ascorbate Calcium [Vitamin C] 500 MG Tablet) PO SCH (09:00)
[2020-12-30] MEDS ORDERED: QUININE 324 MG PO SCH (09:00)
[2020-12-30] MEDS: Lutein/Minerals/Vit A,C & E Tab PO SCH (10:12)
[2020-12-30] MEDS: Pregabalin 75 MG Cap PO SCH ×2 (10:13→20:59)
[2020-12-30] MEDS: predniSONE 20 MG Tab PO SCH (10:14)
[2020-12-30] MEDS: Ferrous Sulfate 325 MG Tab PO SCH (10:15)
[2020-12-30] MEDS: Doxycycline Monohydrate 100 MG Cap PO SCH ×2 (10:15→20:59)
[2020-12-30] MEDS: Formoterol/Mometasone 200-5 MCG 8.8 GM Inhaler IH SCH ×2 (10:16→21:01)
[2020-12-30] MEDS: Enoxaparin 40 MG/0.4 ML Syringe SUBCUT SCH (17:52)
[2020-12-30] MEDS: Albuterol/Ipratropium 3.0-0.5 MG/3 ML Neb Soln NEB PRN (18:50)
[2020-12-30] MEDS: atorvaSTATin 10 MG Tab PO SCH (20:59)
[2020-12-31] MEDS: Levothyroxine 25 MCG Tab PO SCH (06:25)
[2020-12-31] MEDS: Omeprazole 20 MG Cap.CR PO SCH (06:25)
[2020-12-31] MEDS ORDERED: Glucagon,Human Recombinant 1 MG Vial IM PRN (06:57)
[2020-12-31] MEDS ORDERED: 50% Dextrose in Water 50 ML Syringe IV PRN (06:57)
[2020-12-31 07:01] LABS: CHLORIDE,CL 104 mmol/L (98-107); SODIUM,NA 142 mmol/L (136-145)
--- NOTE | 2020-12-31 08:18 | PCM.PN ---
- General Info Date of Service: 12/31/20 Admission Dx/Problem (Free Text): Acute hypoxic respiratory failure. Acute COPD exacerbation. Community-acquired pneumonia. Subjective Update: No significant acute events overnight. No significant new nursing concerns. Mild required increase in oxygen demand overnight and into the morning at 6 L/min. Patient states that he feels better overall. He is coughing less. No sputum production. No fever overnight. Denies any chest pain, chest pressure, pleurisy. Working with incentive spirometer and respiratory therapy. Awaiting ambulation saturation trial. - Review of Systems Pulmonary: Reports: Cough. Denies: Shortness of Breath, Sputum, Hemoptysis Cardiovascular: Reports: No Symptoms Gastrointestinal: Reports: No Symptoms - Patient Data Vitals - Most Recent: Last Vital Signs Temp 98.1 F 12/31/20 07:48 Pulse 86 12/31/20 07:48 Resp 18 12/31/20 07:48 BP 138/63 12/31/20 07:48 Pulse Ox 91 L 12/31/20 07:48 Weight - Most Recent: 171 lb 6.4 oz I&O - Last 24 Hours: Intake & Output 12/30/20 12/31/20 12/31/20 22:59 06:59 14:59 Intake Total 560 300 Balance 560 300 Lab Results Last 24 Hours: Laboratory Results - last 24 hr 12/31/20 12/31/20 Range/Units 06:00 06:00 WBC 11.5 H (5.0-10.0) 10^3/uL RBC 3.94 L (4.6-6.2) 10^6/uL Hgb 12.9 L D (14.0-18.0) g/dL Hct 39.1 L (40.0-54.0) % MCV 99.2 (80-100) fL MCH 32.7 (27.0-34.0) pg MCHC 33.0 (33.0-35.0) g/dL Plt Count 155 (150-450) 10^3/uL Neut % (Auto) 86.1 H (42.2-75.2) % Lymph % (Auto) 5.4 L (20.5-50.1) % Campbell % (Auto) 7.9 (2-8) % Eos % (Auto) 0.0 L (1.0-3.0) % Baso % (Auto) 0.6 (0.0-1.0) % Sodium 142 (136-145) mmol/L Potassium 4.0 (3.5-5.1) mmol/L Chloride 104 (98-107) mmol/L Carbon Dioxide 30 (21-32) mmol/L Anion Gap 12.0 (7-13) mEq/L BUN 27 H (7-18) mg/dL Creatinine 1.05 (0.70-1.30) mg/dL Est Cr Clr Drug Dosing 50.50 mL/min Estimated GFR (MDRD) > 60 Glucose 251 H (70-99) mg/dL Calcium 8.9 (8.5-10.1) mg/dL Jaison Results Last 24 Hours: Microbiology 12/29/20 16:34 Aerobic Blood Culture - Preliminary Blood - Arm, Right NO GROWTH AFTER 1 DAY Anaerobic Blood Culture - Preliminary NO GROWTH AFTER 1 DAY 12/29/20 16:24 Aerobic Blood Culture - Preliminary Blood - Arm, Left NO GROWTH AFTER 1 DAY Anaerobic Blood Culture - Preliminary NO GROWTH AFTER 1 DAY Med Orders - Current: Current Medications Acetaminophen (Acetaminophen 325 Mg Tab) 650 mg PO Q4H PRN PRN Reason: Pain (Mild 1-3)/fever Last Admin: 12/31/20 02:24 Dose: 650 mg Documented by: Albuterol/Ipratropium (Albuterol/Ipratropium 3.0-0.5 Mg/3 Ml Neb Soln) 3 ml NEB Q4H PRN PRN Reason: shortness of breath/wheezing Last Admin: 12/30/20 18:50 Dose: 3 ml Documented by: Atorvastatin Calcium (Atorvastatin 10 Mg Tab) 10 mg PO BEDTIME [facility] Last Admin: 12/30/20 20:59 Dose: 10 mg Documented by: Dextrose/Water (50% Dextrose In Water 50 Ml Syringe) 50 ml IV Q15M PRN PRN Reason: Hypoglycemia Doxycycline Monohydrate (Doxycycline Monohydrate 100 Mg Cap) 100 mg PO BID [facility] Last Admin: 12/30/20 20:59 Dose: 100 mg Documented by: Enoxaparin Sodium (Enoxaparin 40 Mg/0.4 Ml Syringe) 40 mg SUBCUT DAILY@1800 [facility] Last Admin: 12/30/20 17:52 Dose: 40 mg Documented by: Ferrous Sulfate (Ferrous Sulfate 325 Mg Tab) 325 mg PO DAILY [facility] Last Admin: 12/30/20 10:15 Dose: 325 mg Documented by: Glucagon (Glucagon,Human Recombinant 1 Mg Vial) 1 mg IM Q15M PRN PRN Reason: Hypoglycemia Insulin Human Lispro (Insulin Lispro 100 Units/Ml 3 Ml Vial) 0 unit SUBCUT WITHMEALSANDBED [facility]; Protocol Levothyroxine Sodium (Levothyroxine 25 Mcg Tab) 25 mcg PO ACBREAKFAST [facility] Last Admin: 12/31/20 06:25 Dose: 25 mcg Documented by: Mometasone Furoate/Formoterol Fumar (Formoterol/Mometasone 200-5 Mcg 8.8 Gm Inhaler) 1 puff IH BID [facility] Last Admin: 12/30/20 21:01 Dose: 1 puff Documented by: Multivitamins/Minerals (Lutein/Minerals/Vit A,C & E Tab) 2 each PO DAILY [facility] Last Admin: 12/30/20 10:12 Dose: 2 each Documented by: Non-Formulary Medication (Quinine [Qualaquin]) 324 mg PO BID [facility] Omeprazole (Omeprazole 20 Mg Cap.Cr) 40 mg PO ACBREAKFAST [facility] Last Admin: 12/31/20 06:25 Dose: 40 mg Documented by: Prednisone (Prednisone 20 Mg Tab) 40 mg PO WITHBREAKFAST [facility] Last Admin: 12/30/20 10:14 Dose: 40 mg Documented by: Pregabalin (Pregabalin 75 Mg Cap) 300 mg PO BID [facility] Last Admin: 12/30/20 20:59 Dose: 300 mg Documented by: Sodium Chloride (Sodium Chloride 0.9% 10 Ml Syringe) 10 ml FLUSH ASDIRECTED PRN PRN Reason: Keep Vein Open Last Admin: 12/29/20 17:47 Dose: 10 ml Documented by: Discontinued Medications Albuterol/Ipratropium (Albuterol/Ipratropium 3.0-0.5 Mg/3 Ml Neb Soln) 3 ml NEB ONETIME ONE Stop: 12/29/20 16:07 Last Admin: 12/29/20 16:22 Dose: 3 ml Documented by: Atorvastatin Calcium (Atorvastatin 10 Mg Tab) 10 mg PO ONETIME ONE Stop: 12/29/20 20:20 Last Admin: 12/29/20 21:07 Dose: 10 mg Documented by: Atorvastatin Calcium (Atorvastatin 10 Mg Tab) 10 mg PO BEDTIME [facility] Last Admin: 12/29/20 23:19 Dose: Not Given Documented by: Piperacillin Sod/Tazobactam (Sod 3.375 gm/ Sodium Chloride) 100 mls @ 200 mls/hr IV ONETIME ONE Stop: 12/29/20 16:36 Last Infusion: 12/29/20 19:05 Dose: Infused Documented by: Metformin HCl (Metformin 500 Mg Tab) 1,000 mg PO ONETIME ONE Stop: 12/29/20 20:19 Last Admin: 12/29/20 21:11 Dose: 1,000 mg Documented by: Metformin HCl (Metformin 500 Mg Tab) 1,000 mg PO BIDVTALS [facility] Methylprednisolone Sodium Succinate (Methylprednisolone Sodium Succinate 125 Mg/2 Ml Sdv) 125 mg IVPUSH ONETIME ONE Stop: 12/29/20 16:07 Last Admin: 12/29/20 17:46 Dose: 125 mg Documented by: Methylprednisolone Sodium Succinate (Methylprednisolone Sodium Succinate 40 Mg/1 Ml Sdv) 80 mg IV ONETIME ONE Stop: 12/30/20 06:01 Last Admin: 12/30/20 06:24 Dose: 80 mg Documented by: Mometasone Furoate/Formoterol Fumar (Formoterol/Mometasone 200-5 Mcg 8.8 Gm Inhaler) 1 puff IH ONETIME ONE Stop: 12/29/20 20:31 Last Admin: 12/29/20 21:09 Dose: 1 puff Documented by: Mometasone Furoate/Formoterol Fumar (Formoterol/Mometasone 200-5 Mcg 8.8 Gm Inhaler) 1 puff IH BID [facility] Last Admin: 12/29/20 23:19 Dose: Not Given Documented by: Non-Formulary Medication (Ascorbate Calcium [Vitamin C]) 820 mg PO DAILY [facility] Last Admin: 12/31/20 06:32 Dose: Not Given Documented by: Pregabalin (Pregabalin 150 Mg Cap) 300 mg PO ONETIME ONE Stop: 12/29/20 20:31 Last Admin: 12/29/20 21:09 Dose: 300 mg Documented by: Pregabalin (Pregabalin 75 Mg Cap) 300 mg PO BID [facility] Last Admin: 12/29/20 23:20 Dose: Not Given Documented by: - Exam Quality Assessment: Supplemental Oxygen General: Alert, Oriented Lungs: Normal Respiratory Effort, Rhonchi (In right lung iyer throughout. Left lung mostly clear.) Cardiovascular: Regular Rate GI/Abdominal Exam: Normal Bowel Sounds Extremities: Normal Inspection, No Pedal Edema - Patient Data Lab Results Last 24 hrs: Laboratory Results - last 24 hr 12/31/20 12/31/20 Range/Units 06:00 06:00 WBC 11.5 H (5.0-10.0) 10^3/uL RBC 3.94 L (4.6-6.2) 10^6/uL Hgb 12.9 L D (14.0-18.0) g/dL Hct 39.1 L (40.0-54.0) % MCV 99.2 (80-100) fL MCH 32.7 (27.0-34.0) pg MCHC 33.0 (33.0-35.0) g/dL Plt Count 155 (150-450) 10^3/uL Neut % (Auto) 86.1 H (42.2-75.2) % Lymph % (Auto) 5.4 L (20.5-50.1) % Campbell % (Auto) 7.9 (2-8) % Eos % (Auto) 0.0 L (1.0-3.0) % Baso % (Auto) 0.6 (0.0-1.0) % Sodium 142 (136-145) mmol/L Potassium 4.0 (3.5-5.1) mmol/L Chloride 104 (98-107) mmol/L Carbon Dioxide 30 (21-32) mmol/L Anion Gap 12.0 (7-13) mEq/L BUN 27 H (7-18) mg/dL Creatinine 1.05 (0.70-1.30) mg/dL Est Cr Clr Drug Dosing 50.50 mL/min Estimated GFR (MDRD) > 60 Glucose 251 H (70-99) mg/dL Calcium 8.9 (8.5-10.1) mg/dL Result Diagrams: 12/31/20 06:00 12/31/20 06:00 Jaison Results Last 24 hrs: Microbiology 12/29/20 16:34 Aerobic Blood Culture - Preliminary Blood - Arm, Right NO GROWTH AFTER 1 DAY Anaerobic Blood Culture - Preliminary NO GROWTH AFTER 1 DAY 12/29/20 16:24 Aerobic Blood Culture - Preliminary Blood - Arm, Left NO GROWTH AFTER 1 DAY Anaerobic Blood Culture - Preliminary NO GROWTH AFTER 1 DAY Sepsis Event Note - Evaluation Sepsis Screening Result: No Definite Risk - Focused Exam Vital Signs: Vital Signs Temp Pulse Resp BP Pulse Ox 12/31/20 07:48 98.1 F 86 18 138/63 91 L 12/31/20 03:04 98.2 F 86 18 118/67 89 L 12/30/20 23:16 97.9 F 85 18 112/59 L 89 L - Problem List Review Problem List Initiated/Reviewed/Updated: Yes - My Orders Last 24 Hours: My Active Orders 12/30/20 09:00 Doxycycline Monohydrate 100 mg PO BID predniSONE 40 mg PO WITHBREAKFAST 12/31/20 06:57 Dextrose 50% in Water 50 ml IV Q15M PRN Glucagon,Human Recombinant [GlucaGen] 1 mg IM Q15M PRN 12/31/20 08:00 Insulin Lispro [HumaLOG] See Protocol SUBCUT WITHMEALSANDBED - Plan Plan:: 85-year-old gentleman admitted for acute hypoxic respiratory failure secondary to acute COPD exacerbation. 1. Acute hypoxic respiratory failure secondary to COPD exacerbation. Continue supplemental oxygen as needed. Continue treatment with doxycycline 100 mg twice daily Daily ambulation saturation trials, awaiting today's examination. Wean O2 as tolerated. Continue prednisone taper. We will discuss discharge planning once the patient is comfortable walking at least 50 feet on his home 4 L of oxygen and is comfortable without significant distress or shortness of breath. 2. Type 2 diabetes mellitus. Hold all home oral hypoglycemic agents. Continue hospital hyperglycemia protocol if indicated. Sugar control diet. 3. Community-acquired pneumonia Mostly right lung involvement. Evident on auscultative exam, as well as chest x-ray. Continue empiric doxycycline. Otherwise plan as above as per problem #1 All other home medical comorbidities are stable and nonactive conditions, which include hyperlipidemia, GERD, restless leg syndrome. Continue all home medications at regular dose with the exception of the above changes. CODE STATUS: Full code. DVT prophylaxis chemically and mechanically. Overall there has been general improvement. Disposition hopefully within the next 48 hours.
[2020-12-31] MEDS: Lutein/Minerals/Vit A,C & E Tab PO SCH (09:57)
[2020-12-31] MEDS: Ferrous Sulfate 325 MG Tab PO SCH (09:57)
[2020-12-31] MEDS: Doxycycline Monohydrate 100 MG Cap PO SCH ×2 (09:57→20:50)
[2020-12-31] MEDS: Pregabalin 75 MG Cap PO SCH ×2 (09:57→20:50)
[2020-12-31] MEDS: predniSONE 20 MG Tab PO SCH (09:57)
[2020-12-31] MEDS: Albuterol/Ipratropium 3.0-0.5 MG/3 ML Neb Soln NEB PRN ×2 (09:59→14:25)
[2020-12-31] MEDS: Formoterol/Mometasone 200-5 MCG 8.8 GM Inhaler IH SCH ×2 (09:59→20:51)
[2020-12-31] MEDS: Insulin Lispro 100 Units/ML 3 ML Vial SUBCUT SCH ×4 (10:10→20:51)
[2020-12-31] MEDS: Enoxaparin 40 MG/0.4 ML Syringe SUBCUT SCH (18:40)
[2020-12-31] MEDS: atorvaSTATin 10 MG Tab PO SCH (20:50)
[2020-12-31] MEDS ORDERED: Non-Formulary Medication 1 Each PO SCH (21:00)
[2021-01-01] MEDS: Levothyroxine 25 MCG Tab PO SCH (05:19)
[2021-01-01] MEDS: Omeprazole 20 MG Cap.CR PO SCH (05:19)
--- NOTE | 2021-01-01 07:35 | PCM.DCSUM1 ---
Discharge Summary - Hospital Course Free Text/Narrative:: 85-year-old gentleman admitted for acute hypoxic respiratory failure secondary to acute COPD exacerbation. 1. Acute hypoxic respiratory failure secondary to COPD exacerbation. Patient admitted to the inpatient internal medicine service for further work-up and plan. Patient continued supplemental oxygen as he requires at least 4 L at home. He underwent daily ambulation saturation trials and did well into day 2. He was able to walk at least 80 feet before desaturating into the high 80s and having to rest. He was walking with a walker when this happened. He felt well during his ambulation saturation trials. There was no obvious conversational dyspnea. The patient continued to have a chronic cough but did not produce any sputum. Patient had mild desaturations into the high 80s while sleeping. This was remedied by increasing his supplemental oxygen to 6 L/min. The patient has been instructed to wear at least 4 L of continuous oxygen at rest and with with activity at home. He is also to turn up his O2 flow rate to 6 L/min while sleeping. The patient was given empiric antibiotics with doxycycline p.o. 100 mg twice a day. 2. Type 2 diabetes mellitus. All of his home oral hypoglycemic agents were placed on hold for patient safety. The hospital hyperglycemia protocol was invoked. He will resume all home medications at regular dose once discharged. Follow-up with PCP. Recommend carbohydrate restricted diet. 3. Community-acquired pneumonia Mostly right lung involvement. Evident on auscultative exam, as well as chest x-ray. It was placed on empiric doxycycline 100 mg twice a day. He will continue for a full course of 10 days on an outpatient basis. Follow-up chest x-ray recommended within the next 3 weeks. All other home medical comorbidities were stable and nonactive conditions, which include hyperlipidemia, GERD, restless leg syndrome. Continue all home medications at regular dose with the exception of the above changes. CODE STATUS: Full code. DVT prophylaxis chemically and mechanically. HPI Initial Comments: Micah is a 89-year-old man who presented to the ER earlier today with severe shortness of breath and weakness. Micah has chronic obstructive pulmonary disease, and has had multiple exacerbations in the past. His reports that he tends to get very sick very quickly with these exacerbations. She noted that he was barely walking yesterday, and was much more short of breath today than typically for him. They have not had any COVID-19 contacts that they are aware of. He has reported no fevers or chills, no nausea or vomiting, no diarrhea or constipation. General: No recent weight gain or weight loss, no fevers or chills HEENT: No headache or vertigo, no difficulty with speaking or swallowing Cardiovascular: No chest pain or palpitations, no orthopnea or PND Respiratory: See HPI Gastrointestinal: No nausea or vomiting, no diarrhea or constipation, no hematochezia or melena Endocrine: No abnormal rashing or bruising, no intolerance to heat or cold Integumentary: No lesions or rashes Musculoskeletal: No myalgias or arthralgias Psychological: No increased anxiety or depressive type symptoms Rest of the review of systems is complete and negative Physical Exam On Intake: General: Micah is an 85-year-old man in no acute distress. He is showing no signs of respiratory distress, no tachypnea or accessory muscle use. When I approached him in the ER to examine him, O2 sats were 86% on room air Oropharynx is clear, mucous membranes are moist Neck: Supple, no lymphadenopathy Heart: Regular rate and rhythm, no murmurs Lungs: Significant expiratory wheezing bilaterally with very distant breath sounds in both bases, no areas of consolidation heard Neurological: Cranial nerves II through XII intact grossly, reflexes 2+ throughout, toes downgoing Diagnosis: Stroke: No - Discharge Data Discharge Date: 01/01/21 Discharge Disposition: Home, Self-Care 01 Condition: Good - Referral to Home Health Primary Care Physician: PCP None - Discharge Diagnosis/Problem(s) (1) Acute and chronic respiratory failure ([id number]) SNOMED Code(s): 37748810 ICD Code: J96.20 - ACUTE AND CHR RESP FAILURE, UNSP W HYPOXIA OR HYPERCAPNIA Status: Acute Current Visit: Yes Qualifiers: Respiratory failure complication: hypoxia Qualified Code(s): J96.21 - Acute and chronic respiratory failure with hypoxia (2) Acute exacerbation of chronic obstructive pulmonary disease (COPD) SNOMED Code(s): 426337257 ICD Code: J44.1 - CHRONIC OBSTRUCTIVE PULMONARY DISEASE W (ACUTE) EXACERBATION Status: Acute Current Visit: Yes (3) Hypoxia SNOMED Code(s): 751876619 ICD Code: R09.02 - HYPOXEMIA Status: Acute Priority: High Current Visit: Yes (4) Pneumonia SNOMED Code(s): 082828183 ICD Code: J18.9 - PNEUMONIA, UNSPECIFIED ORGANISM Status: Acute Current Visit: Yes Qualifiers: Laterality: bilateral Lung location: lower lobe of lung - Patient Instructions Diet: Regular Diet as Tolerated Activity: As Tolerated - Discharge Plan *PRESCRIPTION DRUG MONITORING PROGRAM REVIEWED*: Not Applicable *COPY OF PRESCRIPTION DRUG MONITORING REPORT IN PATIENT JULIANNA: Not Applicable Prescriptions/Med Rec: Doxycycline Monohydrate 100 mg PO BID 7 Days #14 cap predniSONE [Prednisone] 10 mg PO DAILY #30 tablet Home Medications: Home Meds Albuterol [Proventil Neb Soln] 2.5 mg NEB TID PRN 10/17/14 [History] Omeprazole 40 mg PO ACBREAKFAST 10/17/14 [History] QuiNINE [Qualaquin] 324 mg PO BID 10/26/14 [History] atorvaSTATin [Lipitor] 10 mg PO BEDTIME MDD Dyslipidemia 03/10/15 [History] Albuterol Sulfate [Proair Hfa] 2 puff INH Q6HR PRN 12/11/15 [History] Ascorbate Calcium [Vitamin C] 820 mg PO DAILY 12/11/15 [History] Levothyroxine 25 mg PO ACBREAKFAST 12/11/15 [History] Budesonide/Formoterol [Symbicort 160-4.5 MCG] 1 inh IH BID 06/27/16 [History] Ferrous Sulfate [Ferosul] 325 mg PO DAILY 01/02/19 [History] metFORMIN [Glucophage] 1,000 mg PO BIDMEALS 01/02/19 [History] Pregabalin [Lyrica] 300 mg PO BID cap 01/09/19 [Rx] Vit C/E/Zn/Coppr/Lutein/Zeaxan [Preservision Areds 2 Softgel] 2 each PO DAILY 12/29/20 [History] Doxycycline Monohydrate 100 mg PO BID 7 Days #14 cap 01/01/21 [Rx] predniSONE [Prednisone] 10 mg PO DAILY #30 tablet 01/01/21 [Rx] Oxygen Therapy Mode: Nasal Cannula Oxygen Flow Rate (L/min): 4 (4 to 6 L/min.) Maintain SpO2% greater than: 88 Patient Handouts: Hypoxia, Doxycycline tablets or capsules, Prednisone tablets Referrals: Antonieta Sevilla NP [Ordering Only Provider] - Onyeakazi,Merrick, RESEARCH PROGRAMMER [Nurse Practitioner] - - Discharge Summary/Plan Comment DC Time >30 min.: Yes - General Info Date of Service: 01/01/21 Admission Dx/Problem (Free Text: Acute hypoxic respiratory failure. Acute COPD exacerbation. Community-acquired pneumonia. - Review of Systems General: Reports: No Symptoms HEENT: Reports: No Symptoms Pulmonary: Reports: Cough. Denies: Shortness of Breath, Pleuritic Chest Pain, Sputum, Hemoptysis, Wheezing Cardiovascular: Reports: No Symptoms Gastrointestinal: Reports: No Symptoms (He saw that X) Genitourinary: Reports: No Symptoms Musculoskeletal: Reports: No Symptoms Skin: Reports: No Symptoms Neurological: Reports: No Symptoms - Patient Data Vitals - Most Recent: Last Vital Signs Temp 98.8 F 01/01/21 04:00 Pulse 58 L 01/01/21 04:00 Resp 18 01/01/21 04:00 BP 134/66 01/01/21 04:00 Pulse Ox 92 L 01/01/21 04:00 Weight - Most Recent: 171 lb 6.4 oz I&O - Last 24 hours: Intake & Output 12/31/20 01/01/21 01/01/21 22:59 06:59 14:59 Intake Total 850 0 Balance 850 0 Lab Results - Last 24 hrs: Laboratory Results - last 24 hr 12/31/20 12/31/20 12/31/20 Range/Units 09:56 11:33 16:38 WBC (5.0-10.0) 10^3/uL RBC (4.6-6.2) 10^6/uL Hgb (14.0-18.0) g/dL Hct (40.0-54.0) % MCV (80-100) fL MCH (27.0-34.0) pg MCHC (33.0-35.0) g/dL Plt Count (150-450) 10^3/uL Neut % (Auto) (42.2-75.2) % Lymph % (Auto) (20.5-50.1) % Crook % (Auto) (2-8) % Eos % (Auto) (1.0-3.0) % Baso % (Auto) (0.0-1.0) % Add Manual Diff POC Glucose 260 H 218 H 313 H (70-99) mg/dL 12/31/20 01/01/21 Range/Units 20:33 05:15 WBC 8.5 (5.0-10.0) 10^3/uL RBC 3.95 L (4.6-6.2) 10^6/uL Hgb 13.0 L (14.0-18.0) g/dL Hct 39.5 L (40.0-54.0) % MCV 100.0 (80-100) fL MCH 32.9 (27.0-34.0) pg MCHC 32.9 L (33.0-35.0) g/dL Plt Count 161 (150-450) 10^3/uL Neut % (Auto) 80.0 H (42.2-75.2) % Lymph % (Auto) 11.0 L (20.5-50.1) % Crook % (Auto) 8.1 H (2-8) % Eos % (Auto) 0.0 L (1.0-3.0) % Baso % (Auto) 0.9 (0.0-1.0) % Add Manual Diff POC Glucose 314 H (70-99) mg/dL KASSIDY Results - Last 24 hrs: Microbiology 12/29/20 16:34 Aerobic Blood Culture - Preliminary Blood - Arm, Right NO GROWTH AFTER 2 DAYS Anaerobic Blood Culture - Preliminary NO GROWTH AFTER 2 DAYS 12/29/20 16:24 Aerobic Blood Culture - Preliminary Blood - Arm, Left NO GROWTH AFTER 2 DAYS Anaerobic Blood Culture - Preliminary NO GROWTH AFTER 2 DAYS Med Orders - Current: Current Medications Acetaminophen (Acetaminophen 325 Mg Tab) 650 mg PO Q4H PRN PRN Reason: Pain (Mild 1-3)/fever Last Admin: 12/31/20 02:24 Dose: 650 mg Documented by: Albuterol/Ipratropium (Albuterol/Ipratropium 3.0-0.5 Mg/3 Ml Neb Soln) 3 ml NEB Q4H PRN PRN Reason: shortness of breath/wheezing Last Admin: 12/31/20 14:25 Dose: 3 ml Documented by: Atorvastatin Calcium (Atorvastatin 10 Mg Tab) 10 mg PO BEDTIME MIRANDA Last Admin: 12/31/20 20:50 Dose: 10 mg Documented by: Dextrose/Water (50% Dextrose In Water 50 Ml Syringe) 50 ml IV Q15M PRN PRN Reason: Hypoglycemia Doxycycline Monohydrate (Doxycycline Monohydrate 100 Mg Cap) 100 mg PO BID [facility] Last Admin: 12/31/20 20:50 Dose: 100 mg Documented by: Enoxaparin Sodium (Enoxaparin 40 Mg/0.4 Ml Syringe) 40 mg SUBCUT DAILY@1800 [facility] Last Admin: 12/31/20 18:40 Dose: 40 mg Documented by: Ferrous Sulfate (Ferrous Sulfate 325 Mg Tab) 325 mg PO DAILY [facility] Last Admin: 12/31/20 09:57 Dose: 325 mg Documented by: Glucagon (Glucagon,Human Recombinant 1 Mg Vial) 1 mg IM Q15M PRN PRN Reason: Hypoglycemia Insulin Human Lispro (Insulin Lispro 100 Units/Ml 3 Ml Vial) 0 unit SUBCUT WITHMEALSANDBED [facility]; Protocol Last Admin: 12/31/20 20:51 Dose: 8 unit Documented by: Levothyroxine Sodium (Levothyroxine 25 Mcg Tab) 25 mcg PO ACBREAKFAST [facility] Last Admin: 01/01/21 05:19 Dose: 25 mcg Documented by: Mometasone Furoate/Formoterol Fumar (Formoterol/Mometasone 200-5 Mcg 8.8 Gm Inhaler) 1 puff IH BID [facility] Last Admin: 12/31/20 20:51 Dose: 1 puff Documented by: Multivitamins/Minerals (Lutein/Minerals/Vit A,C & E Tab) 2 each PO DAILY [facility] Last Admin: 12/31/20 09:57 Dose: 2 each Documented by: Non-Formulary Medication (Quinine [Qualaquin]) 324 mg PO BID [facility] Non-Formulary Medication (Non-Formulary Medication 1 Each) 1 each PO BID [facility] Omeprazole (Omeprazole 20 Mg Cap.Cr) 40 mg PO ACBREAKFAST [facility] Last Admin: 01/01/21 05:19 Dose: 40 mg Documented by: Prednisone (Prednisone 20 Mg Tab) 40 mg PO WITHBREAKFAST [facility] Last Admin: 12/31/20 09:57 Dose: 40 mg Documented by: Pregabalin (Pregabalin 75 Mg Cap) 300 mg PO BID [facility] Last Admin: 12/31/20 20:50 Dose: 300 mg Documented by: Sodium Chloride (Sodium Chloride 0.9% 10 Ml Syringe) 10 ml FLUSH ASDIRECTED PRN PRN Reason: Keep Vein Open Last Admin: 12/29/20 17:47 Dose: 10 ml Documented by: Discontinued Medications Albuterol/Ipratropium (Albuterol/Ipratropium 3.0-0.5 Mg/3 Ml Neb Soln) 3 ml NEB ONETIME ONE Stop: 12/29/20 16:07 Last Admin: 12/29/20 16:22 Dose: 3 ml Documented by: Atorvastatin Calcium (Atorvastatin 10 Mg Tab) 10 mg PO ONETIME ONE Stop: 12/29/20 20:20 Last Admin: 12/29/20 21:07 Dose: 10 mg Documented by: Atorvastatin Calcium (Atorvastatin 10 Mg Tab) 10 mg PO BEDTIME MIRANDA Last Admin: 12/29/20 23:19 Dose: Not Given Documented by: Piperacillin Sod/Tazobactam (Sod 3.375 gm/ Sodium Chloride) 100 mls @ 200 mls/hr IV ONETIME ONE Stop: 12/29/20 16:36 Last Infusion: 12/29/20 19:05 Dose: Infused Documented by: Metformin HCl (Metformin 500 Mg Tab) 1,000 mg PO ONETIME ONE Stop: 12/29/20 20:19 Last Admin: 12/29/20 21:11 Dose: 1,000 mg Documented by: Metformin HCl (Metformin 500 Mg Tab) 1,000 mg PO BIDMEALS [facility] Methylprednisolone Sodium Succinate (Methylprednisolone Sodium Succinate 125 Mg/2 Ml Sdv) 125 mg IVPUSH ONETIME ONE Stop: 12/29/20 16:07 Last Admin: 12/29/20 17:46 Dose: 125 mg Documented by: Methylprednisolone Sodium Succinate (Methylprednisolone Sodium Succinate 40 Mg/1 Ml Sdv) 80 mg IV ONETIME ONE Stop: 12/30/20 06:01 Last Admin: 12/30/20 06:24 Dose: 80 mg Documented by: Mometasone Furoate/Formoterol Fumar (Formoterol/Mometasone 200-5 Mcg 8.8 Gm Inhaler) 1 puff IH ONETIME ONE Stop: 12/29/20 20:31 Last Admin: 12/29/20 21:09 Dose: 1 puff Documented by: Mometasone Furoate/Formoterol Fumar (Formoterol/Mometasone 200-5 Mcg 8.8 Gm Inhaler) 1 puff IH BID MIRANDA Last Admin: 12/29/20 23:19 Dose: Not Given Documented by: Non-Formulary Medication (Ascorbate Calcium [Vitamin C]) 820 mg PO DAILY [facility] Last Admin: 12/31/20 06:32 Dose: Not Given Documented by: Pregabalin (Pregabalin 150 Mg Cap) 300 mg PO ONETIME ONE Stop: 12/29/20 20:31 Last Admin: 12/29/20 21:09 Dose: 300 mg Documented by: Pregabalin (Pregabalin 75 Mg Cap) 300 mg PO BID [facility] Last Admin: 12/29/20 23:20 Dose: Not Given Documented by: - Exam General: Reports: Alert, Oriented Neck: Reports: Supple Lungs: Reports: Decreased Breath Sounds, Rales (Mild rhonchorous sounds in right middle and lower iyer.), Rhonchi Cardiovascular: Reports: Regular Rate GI/Abdominal Exam: Normal Bowel Sounds, Soft, Non-Tender Extremities: Normal Inspection, No Pedal Edema Skin: Reports: Warm, Dry
[2021-01-01] MEDS: Pregabalin 75 MG Cap PO SCH (08:18)
[2021-01-01] MEDS: Ferrous Sulfate 325 MG Tab PO SCH (08:18)
[2021-01-01] MEDS: predniSONE 20 MG Tab PO SCH (08:18)
[2021-01-01] MEDS: Doxycycline Monohydrate 100 MG Cap PO SCH (08:18)
[2021-01-01] MEDS: Insulin Lispro 100 Units/ML 3 ML Vial SUBCUT SCH ×2 (08:18→12:11)
[2021-01-01] MEDS: Formoterol/Mometasone 200-5 MCG 8.8 GM Inhaler IH SCH (08:19)
[2021-01-01] MEDS: Lutein/Minerals/Vit A,C & E Tab PO SCH (08:23)
[2021-01-01 13:38] VITALS: BP 118/66; PULSE 75
== END 2021-01-01 15:15 | disposition home or self-care (01) ==
LOC: DL.ED 14:52 → INTOOBSV 17:50 → DL.MS 17:50
PROVIDERS: ADMIT Family Medicine; ATTEND Hospitalist
DX: J44.0 Chronic obstructive pulmonary disease with (acute) lower respiratory infection (principal); J44.1 Chronic obstructive pulmonary disease with (acute) exacerbation; J18.9 Pneumonia, unspecified organism; J96.21 Acute and chronic respiratory failure with hypoxia; Z99.81 Dependence on supplemental oxygen; E11.9 Type 2 diabetes mellitus without complications; E78.5 Hyperlipidemia, unspecified; K21.9 Gastro-esophageal reflux disease without esophagitis; G25.81 Restless legs syndrome; Z79.52 Long term (current) use of systemic steroids; Z79.84 Long term (current) use of oral hypoglycemic drugs; Z79.890 Hormone replacement therapy; E03.9 Hypothyroidism, unspecified; Z79.899 Other long term (current) drug therapy; Z79.51 Long term (current) use of inhaled steroids; H35.30 Unspecified macular degeneration; I71.4 Abdominal aortic aneurysm, without rupture; Z20.822 Contact with and (suspected) exposure to COVID-19; Z87.01 Personal history of pneumonia (recurrent); M19.90 Unspecified osteoarthritis, unspecified site; G89.29 Other chronic pain; M54.9 Dorsalgia, unspecified; E11.42 Type 2 diabetes mellitus with diabetic polyneuropathy; F41.9 Anxiety disorder, unspecified; D64.9 Anemia, unspecified; Z98.41 Cataract extraction status, right eye; Z98.42 Cataract extraction status, left eye; Z95.5 Presence of coronary angioplasty implant and graft; Z90.49 Acquired absence of other specified parts of digestive tract; Z98.890 Other specified postprocedural states; Z87.891 Personal history of nicotine dependence
CPT/HCPCS: 0240U; 36415; 71045; 71046; 80048; 80053; 82947; 83605; 83880; 84484; 85025; 86140; 87040; 94640; 96365; 96372; 96375; 96376; 99284; 99285-25; A9270-GY; G0378; J1650; J1815-GY; J2543; J2920; J2930; J7512; J7620-GY

== ENCOUNTER 2021-04-09 12:03 | Inpatient (IN) | payer MEDICARE, BC ==
[2021-04-09] MEDS ORDERED: Sodium Chloride 0.9% 10 ML Syringe FLUSH PRN (12:50)
[2021-04-09] MEDS ORDERED: Sodium Chloride 0.9% 1,000 ML IV ONE ×2 (12:53→14:30)
[2021-04-09] MEDS ORDERED: Acetaminophen 325 MG Tab PO ONE (12:53)
[2021-04-09] MEDS ORDERED: Piperacillin/Tazobactam 3.375 GM in Sodium Chloride 0.9% 100 ML IV ONE (12:55)
[2021-04-09 13:27] LABS: PTT,PARTIAL THROMBOPLSTIN TIME 30.1 SEC (22.0-34.0)
[2021-04-09 13:29] LABS: ANION GAP 12.9 mEq/L (7-13); CHLORIDE,CL 102 mmol/L (98-107); SODIUM,NA 141 mmol/L (136-145)
[2021-04-09 13:46] LABS: CORONAVIRUS COVID-19 NAA NEGATIVE (NEGATIVE)
--- NOTE | 2021-04-09 14:46 | CR ---
PROCEDURE INFORMATION: Exam: XR Chest Exam date and time: 04/09/2021 2:21 PM Age: 85 years old Clinical indication: Fever; Additional info: Fever, sepsis TECHNIQUE: Imaging protocol: XR of the chest. Views: 1 view. COMPARISON: CR Chest 2V 12/30/2020 7:12 AM FINDINGS: Lungs: Unremarkable. No consolidation. Pleural spaces: Unremarkable. No pleural effusion. No pneumothorax. Heart/Mediastinum: Unremarkable. No cardiomegaly. Bones/joints: Unremarkable. IMPRESSION: No acute findings.
--- NOTE | 2021-04-09 14:54 | EDM.PDOC ---
ED HPI GENERAL MEDICAL PROBLEM - General Chief Complaint: General Stated Complaint: IN BY AMBULANCE Time Seen by Provider: 04/09/21 12:40 Source of Information: Reports: Patient, Old Records, RN, RN Notes Reviewed - History of Present Illness INITIAL COMMENTS - FREE TEXT/NARRATIVE: 85 y/o m c/o fatigue and sob this morning. Pt was reportedly out all day fishing yesterday and had minimal fluid intake. This morning pt awoke and was extremely shaky and week. Pts called 911 and pt was transported here. In the ER pt reports he has also had increased difficulty with urination for the last several weeks. Is on o2 nsl 4L normally at home. Denies fever, cough, chills, drugs, etoh, abd pn, cp, db, extremity pain. Duration: Hour(s): Location: Reports: Generalized Severity: Moderate Improves with: Reports: None Worsens with: Reports: None Associated Symptoms: Reports: No Other Symptoms - Related Data Allergies Allergy/AdvReac Type Severity Reaction Status Date / Time No Known Allergies Allergy Verified 12/29/20 18:32 Home Meds: Home Meds Albuterol [Proventil Neb Soln] 2.5 mg NEB TID PRN 10/17/14 [History] Omeprazole 40 mg PO ACBREAKFAST 10/17/14 [History] QuiNINE [Qualaquin] 324 mg PO BID 10/26/14 [History] atorvaSTATin [Lipitor] 10 mg PO BEDTIME MDD Dyslipidemia 03/10/15 [History] Albuterol Sulfate [Proair Hfa] 2 puff INH Q6HR PRN 12/11/15 [History] Ascorbate Calcium [Vitamin C] 820 mg PO DAILY 12/11/15 [History] Levothyroxine 25 mg PO ACBREAKFAST 12/11/15 [History] Budesonide/Formoterol [Symbicort 160-4.5 MCG] 1 inh IH BID 06/27/16 [History] Ferrous Sulfate [Ferosul] 325 mg PO DAILY 01/02/19 [History] metFORMIN [Glucophage] 1,000 mg PO BIDMEALS 01/02/19 [History] Vit C/E/Zn/Coppr/Lutein/Zeaxan [Preservision Areds 2 Softgel] 2 each PO DAILY 12/29/20 [History] Pregabalin [Lyrica] 300 mg PO BID 04/09/21 [History] Past Medical History HEENT History: Reports: Cataract, Epistaxis, Macular Degeneration, Other (See Below) Other HEENT History: throat tickle that moves up to eye, nose bleeds years ago, not in awhile Cardiovascular History: Reports: Other (See Below) Other Cardiovascular History: AAA Respiratory History: Reports: Bronchitis, Recurrent, COPD, Pneumonia, Recurrent Gastrointestinal History: Reports: GERD, Hemorrhoids, Other (See Below) Other Gastrointestinal History: got hemorrhoids fixed per pt Genitourinary History: Reports: None Musculoskeletal History: Reports: Arthritis, Back Pain, Chronic Other Musculoskeletal History: arms Neurological History: Reports: Neuropathy, Diabetic Psychiatric History: Reports: Anxiety Other Psychiatric History: per reports, since s Endocrine/Metabolic History: Reports: Diabetes, Type II, Hypothyroidism Hematologic History: Reports: Anemia, Blood Transfusion(s) Immunologic History: Reports: None Oncologic (Cancer) History: Reports: None Dermatologic History: Reports: Other (See Below) Other Dermatologic History: skin tags - Infectious Disease History Infectious Disease History: Reports: Chicken Pox, Measles, Mumps - Past Surgical History HEENT Surgical History: Reports: Cataract Surgery Other HEENT Surgeries/Procedures: bilat cataract removal 2006, injections in eye every 6 weeks for macular degeneration Cardiovascular Surgical History: Reports: AAA Repair Other Cardiovascular Surgeries/Procedures: 01/25/15 with stent Respiratory Surgical History: Reports: None GI Surgical History: Reports: Appendectomy, Other (See Below) Other GI Surgeries/Procedures: hemorrhoidectomy Endocrine Surgical History: Reports: None Neurological Surgical History: Reports: Other (See Below) Other Neurological Surgeries/Procedures: spine surgery 2003, 2004 Musculoskeletal Surgical History: Reports: None Other Musculoskeletal Surgeries/Procedures:: spinal surgery x2 (2003, 2004) Dermatological Surgical History: Reports: None Social & Family History - Family History Family Medical History: No Pertinent Family History Cardiac: Reports: CAD, Other (See Below) Other Cardiac Family History: mother of [place] Other Oncologic Family History: sister? - Tobacco Use Tobacco Use Status *Q: Never Tobacco User - Caffeine Use Caffeine Use: Reports: Coffee Other Caffeine Use: 3/day - Recreational Drug Use Recreational Drug Use: No - Living Situation & Occupation Living situation: Reports: , with Spouse Occupation: Retired ED ROS GENERAL - Review of Systems Review Of Systems: Comprehensive ROS is negative, except as noted in HPI. ED EXAM, GENERAL - Physical Exam Exam: See Below Exam Limited By: No Limitations General Appearance: Alert, WD/WN, No Apparent Distress Ears: Normal External Exam, Normal Canal, Hearing Grossly Normal, Normal TMs Nose: Normal Inspection, Normal Mucosa, No Blood Throat/Mouth: Other (dry mucus membranes, tongue dry and furrowed) Head: Atraumatic, Normocephalic Neck: Normal Inspection, Supple, Non-Tender, Full Range of Motion Respiratory/Chest: No Respiratory Distress, Lungs Clear, Normal Breath Sounds, No Accessory Muscle Use, Chest Non-Tender Cardiovascular: Normal Peripheral Pulses, Regular Rate, Rhythm, No Edema, No Gallop, No JVD, No Murmur, No Rub GI/Abdominal: Soft, Non-Tender (Male) Exam: Deferred Rectal (Males) Exam: Deferred Back Exam: Normal Inspection, Full Range of Motion, NT Extremities: Normal Inspection, Normal Range of Motion, Non-Tender, Normal Capillary Refill, No Pedal Edema Neurological: Alert, Oriented, CN II-XII Intact, Normal Cognition, Normal Gait, Normal Reflexes, No Motor/Sensory Deficits Psychiatric: Normal Affect, Normal Mood Skin Exam: Warm, Dry, Intact, Normal Color, No Rash #1 Interpretation EKG Date: 04/09/21 Time: 12:38 Rhythm: Other (Sinus tach) Rate (Beats/Min): 104 [place]: Normal P-Wave: Present QRS: Other (Anterior Q-waves) ST-T: Normal QT: Normal Comparison: NA - No Prior EKG Course - Vital Signs Last Recorded V/S: Last Vital Signs Temp 101.3 F H 04/09/21 14:36 Pulse 109 H 04/09/21 12:37 Resp 20 04/09/21 12:37 BP 108/55 L 04/09/21 12:37 Pulse Ox 91 L 04/09/21 12:37 - Orders/Labs/Meds Orders: Active Orders 24 hr Category Date Time Status EKG 12 Lead [EKG Documentation Completion] [RC] STAT Care 04/09/21 12:51 Active Insert Henao Catheter [Insert Urinary Catheter] [OM.PC] Care 04/09/21 16:35 Ordered Stat Peripheral IV Care [RC] . DIRECTED Care 04/09/21 12:52 Active Urinary Catheter Assessment [RC] ASDIRECTED Care 04/09/21 16:36 Active CULTURE BLOOD [BC] Stat Lab 04/09/21 12:53 Received CULTURE BLOOD [] Stat Lab 04/09/21 12:58 Received CULTURE STREP A CONFIRMATION [] Stat Lab 04/09/21 14:34 Results STREP SCRN A RAPID W CULT CONF [] Stat Lab 04/09/21 14:34 Results Sodium Chloride 0.9% [Saline Flush] Med 04/09/21 12:50 Active 10 ml FLUSH ASDIRECTED PRN Blood Culture x2 Reflex Set [OM.PC] Stat Ot 04/09/21 12:50 Ordered Peripheral IV Insertion Adult [OM.PC] Stat Ot 04/09/21 12:51 Ordered Medication Orders Sodium Chloride (Sodium Chloride 0.9% 10 Ml Syringe) 10 ml FLUSH ASDIRECTED PRN PRN Reason: Keep Vein Open Labs: Laboratory Tests 04/09/21 04/09/21 04/09/21 Range/Units 12:47 12:53 12:53 WBC 10.9 H (5.0-10.0) 10^3/uL RBC 4.22 L (4.6-6.2) 10^6/uL Hgb 14.2 (14.0-18.0) g/dL Hct 42.8 (40.0-54.0) % MCV 101.4 H (80-100) fL MCH 33.6 (27.0-34.0) pg MCHC 33.2 (33.0-35.0) g/dL Plt Count 103 L (150-450) 10^3/uL Neut % (Auto) 88.8 H (42.2-75.2) % Lymph % (Auto) 4.2 L (20.5-50.1) % Schley % (Auto) 6.0 (2-8) % Eos % (Auto) 0.1 L (1.0-3.0) % Baso % (Auto) 0.9 (0.0-1.0) % PT (9.0-12.0) SEC INR (0.9-1.2) APTT (22.0-34.0) SEC Sodium 141 (136-145) mmol/L Potassium 3.9 (3.5-5.1) mmol/L Chloride 102 (98-107) mmol/L Carbon Dioxide 30 (21-32) mmol/L Anion Gap 12.9 (7-13) mEq/L BUN 12 (7-18) mg/dL Creatinine 0.93 (0.70-1.30) mg/dL Est Cr Clr Drug Dosing 51.45 mL/min Estimated GFR (MDRD) > 60 BUN/Creatinine Ratio 12.9 (No establ ref range) Glucose 163 H (70-99) mg/dL Lactic Acid (0.4-2.0) mmol/L Calcium 8.4 L (8.5-10.1) mg/dL Total Bilirubin 1.3 H (0.2-1.0) mg/dL AST 46 H (15-37) U/L ALT 55 (16-63) U/L Alkaline Phosphatase 123 H (46-116) U/L Troponin I High Sens 18 (<=76) pg/mL C-Reactive Protein 8.7 H (0.0-0.9) mg/dL B-Natriuretic Peptide 48 (0-100) pg/ml Total Protein 6.1 L (6.4-8.2) g/dL Albumin 3.3 L (3.4-5.0) g/dL Globulin 2.8 Albumin/Globulin Ratio 1.18 Urine Color (YELLOW) Urine Appearance (CLEAR) Urine pH (5.0-9.0) Ur Specific [place] (1.005-1.030) Urine Protein (NEGATIVE) Urine Glucose (UA) (NEGATIVE) Urine Ketones (NEGATIVE) Urine Occult Blood (NEGATIVE) Urine Nitrite (NEGATIVE) Urine Bilirubin (NEGATIVE) Urine Urobilinogen (0.2-1.0) mg/dL Ur Leukocyte Esterase (NEGATIVE) Urine RBC (0-5) /HPF Urine WBC (0-5/HPF) /HPF Ur Epithelial Cells (NOT SEEN) /HPF Urine Bacteria (0-FEW/HPF) /HPF Influenza Type A RNA Negative (NEGATIVE) Influenza Type B RNA Negative (NEGATIVE) SARS-CoV-2 RNA (MITCHELL) Negative (NEGATIVE) 04/09/21 04/09/21 04/09/21 Range/Units 12:53 12:53 13:05 WBC (5.0-10.0) 10^3/uL RBC (4.6-6.2) 10^6/uL Hgb (14.0-18.0) g/dL Hct (40.0-54.0) % MCV (80-100) fL MCH (27.0-34.0) pg MCHC (33.0-35.0) g/dL Plt Count (150-450) 10^3/uL Neut % (Auto) (42.2-75.2) % Lymph % (Auto) (20.5-50.1) % Schley % (Auto) (2-8) % Eos % (Auto) (1.0-3.0) % Baso % (Auto) (0.0-1.0) % PT 11.6 (9.0-12.0) SEC INR 1.2 (0.9-1.2) APTT 30.1 (22.0-34.0) SEC Sodium (136-145) mmol/L Potassium (3.5-5.1) mmol/L Chloride (98-107) mmol/L Carbon Dioxide (21-32) mmol/L Anion Gap (7-13) mEq/L BUN (7-18) mg/dL Creatinine (0.70-1.30) mg/dL Est Cr Clr Drug Dosing mL/min Estimated GFR (MDRD) BUN/Creatinine Ratio (No establ ref range) Glucose (70-99) mg/dL Lactic Acid 2.5 H* (0.4-2.0) mmol/L Calcium (8.5-10.1) mg/dL Total Bilirubin (0.2-1.0) mg/dL AST (15-37) U/L ALT (16-63) U/L Alkaline Phosphatase (46-116) U/L Troponin I High Sens (<=76) pg/mL C-Reactive Protein (0.0-0.9) mg/dL B-Natriuretic Peptide (0-100) pg/ml Total Protein (6.4-8.2) g/dL Albumin (3.4-5.0) g/dL Globulin Albumin/Globulin Ratio Urine Color Yellow (YELLOW) Urine Appearance Clear (CLEAR) Urine pH 6.5 (5.0-9.0) Ur Specific [place] 1.020 (1.005-1.030) Urine Protein Negative (NEGATIVE) Urine Glucose (UA) 100 H (NEGATIVE) Urine Ketones Negative (NEGATIVE) Urine Occult Blood Moderate H (NEGATIVE) Urine Nitrite Negative (NEGATIVE) Urine Bilirubin Negative (NEGATIVE) Urine Urobilinogen 0.2 (0.2-1.0) mg/dL Ur Leukocyte Esterase Negative (NEGATIVE) Urine RBC 10-20 H (0-5) /HPF Urine WBC Not seen (0-5/HPF) /HPF Ur Epithelial Cells Rare (NOT SEEN) /HPF Urine Bacteria Not seen (0-FEW/HPF) /HPF Influenza Type A RNA (NEGATIVE) Influenza Type B RNA (NEGATIVE) SARS-CoV-2 RNA (MITCHELL) (NEGATIVE) 04/09/21 Range/Units 15:56 WBC (5.0-10.0) 10^3/uL RBC (4.6-6.2) 10^6/uL Hgb (14.0-18.0) g/dL Hct (40.0-54.0) % MCV (80-100) fL MCH (27.0-34.0) pg MCHC (33.0-35.0) g/dL Plt Count (150-450) 10^3/uL Neut % (Auto) (42.2-75.2) % Lymph % (Auto) (20.5-50.1) % Schley % (Auto) (2-8) % Eos % (Auto) (1.0-3.0) % Baso % (Auto) (0.0-1.0) % PT (9.0-12.0) SEC INR (0.9-1.2) APTT (22.0-34.0) SEC Sodium (136-145) mmol/L Potassium (3.5-5.1) mmol/L Chloride (98-107) mmol/L Carbon Dioxide (21-32) mmol/L Anion Gap (7-13) mEq/L BUN (7-18) mg/dL Creatinine (0.70-1.30) mg/dL Est Cr Clr Drug Dosing mL/min Estimated GFR (MDRD) BUN/Creatinine Ratio (No establ ref range) Glucose (70-99) mg/dL Lactic Acid 1.8 (0.4-2.0) mmol/L Calcium (8.5-10.1) mg/dL Total Bilirubin (0.2-1.0) mg/dL AST (15-37) U/L ALT (16-63) U/L Alkaline Phosphatase (46-116) U/L Troponin I High Sens (<=76) pg/mL C-Reactive Protein (0.0-0.9) mg/dL B-Natriuretic Peptide (0-100) pg/ml Total Protein (6.4-8.2) g/dL Albumin (3.4-5.0) g/dL Globulin Albumin/Globulin Ratio Urine Color (YELLOW) Urine Appearance (CLEAR) Urine pH (5.0-9.0) Ur Specific [place] (1.005-1.030) Urine Protein (NEGATIVE) Urine Glucose (UA) (NEGATIVE) Urine Ketones (NEGATIVE) Urine Occult Blood (NEGATIVE) Urine Nitrite (NEGATIVE) Urine Bilirubin (NEGATIVE) Urine Urobilinogen (0.2-1.0) mg/dL Ur Leukocyte Esterase (NEGATIVE) Urine RBC (0-5) /HPF Urine WBC (0-5/HPF) /HPF Ur Epithelial Cells (NOT SEEN) /HPF Urine Bacteria (0-FEW/HPF) /HPF Influenza Type A RNA (NEGATIVE) Influenza Type B RNA (NEGATIVE) SARS-CoV-2 RNA ([place]LL) (NEGATIVE) Meds: Medications Generic Name Dose Route Start Last Admin Trade Name Freq PRN Reason Stop Dose Admin Sodium Chloride 10 ml 04/09/21 12:50 Sodium Chloride 0.9% 10 Ml Syringe FLUSH ASDIRECTED PRN Keep Vein Open Discontinued Medications Generic Name Dose Route Start Last Admin Trade Name Freq PRN Reason Stop Dose Admin Acetaminophen 975 mg 04/09/21 12:53 04/09/21 13:10 Acetaminophen 325 Mg Tab PO 04/09/21 12:54 975 mg NOW ONE Administration Sodium Chloride 1,000 mls @ 999 mls/hr 04/09/21 12:53 04/09/21 15:47 Normal Saline IV 04/09/21 13:53 Infused .BOLUS ONE Infusion Piperacillin Sod/Tazobactam 100 mls @ 200 mls/hr 04/09/21 12:55 04/09/21 13:13 Sod 3.375 gm/ Sodium Chloride IV 04/09/21 13:24 200 mls/hr ONETIME ONE Administration Sodium Chloride 1,000 mls @ 999 mls/hr 04/09/21 14:30 04/09/21 14:40 Normal Saline IV 04/09/21 15:30 999 mls/hr .BOLUS ONE Administration Iopamidol 100 ml 04/09/21 16:33 04/09/21 17:17 Iopamidol 612 Mg/Ml 100 Ml Bottle IVPUSH 04/09/21 16:34 100 ml ONETIME ONE Administration - Radiology Interpretation Free Text/Narrative:: [facility] Final Radiology Report Call: [phone] assistance Online chat: [email or web address] Name: SERJIO RIZO Age: 85Years M Date: 04/09/2021 SSN: -- : [id number] Study: CR CHEST 1V FRONTAL Requesting Physician: GEOFF SIMMS Images: 1 Addl Studies: Provided Clinical History: fever, sepsis Contrast: Contrast Medium: Contrast Amount: Contrast Method: CONFIDENTIALITY STATEMENT This report is intended only for use by the referring physician, and only in accordance with law. If you received this in error, call [phone]. Page 1 of 1 PROCEDURE INFORMATION: Exam: XR Chest Exam date and time: 04/09/2021 2:21 PM Age: 85 years old Clinical indication: Fever; Additional info: Fever, sepsis TECHNIQUE: Imaging protocol: XR of the chest. Views: 1 view. COMPARISON: CR Chest 2V 12/30/2020 7:12 AM FINDINGS: Lungs: Unremarkable. No consolidation. Pleural spaces: Unremarkable. No pleural effusion. No pneumothorax. Heart/Mediastinum: Unremarkable. No cardiomegaly. Bones/joints: Unremarkable. IMPRESSION: No acute findings. Thank you for allowing us to participate in the care of your patient. Dictated and Authenticated by: Johnson Dempsey MD 04/09/2021 2:45 PM Central Time ([place] & [place]) [facility] Final Radiology Report Call: [phone] assistance Online chat: [email or web address] Name: SERJIO RIZO Age: 85Years M Date: 04/09/2021 SSN: -- : [id number] Study: CT CHEST ABDOMEN PELVIS W CONT Requesting Physician: GEOFF SIMMS Images: 257 Addl Studies: [id number] - CT CHEST W (1) Provided Clinical History: Fever of unknown origin (103.1F) Contrast: With Contrast Medium: Isovue 300 Contrast Amount: 100 mL Contrast Method: Intravenous (IV) Page 1 of 3 PROCEDURE INFORMATION: Exam: CT Chest With Contrast; Diagnostic Exam date and time: 04/09/2021 4:40 PM Age: 85 years old Clinical indication: Other: Fever of unknown origin (103.1f); Additional info: Fever of unknown origin (103.1f) TECHNIQUE: Imaging protocol: Diagnostic computed tomography of the chest with contrast. Radiation optimization: All CT scans at this facility use at least one of these dose optimization techniques: automated exposure control; mA and/or kV adjustment per patient size (includes targeted exams where dose is matched to clinical indication); or iterative reconstruction. Contrast material: ISOVUE 300; Contrast volume: 100 ml; Contrast route: INTRAVENOUS (IV); COMPARISON: CR Chest 1V Frontal 04/09/2021 2:21 PM FINDINGS: Lungs: Moderate emphysema. Dependent areas of atelectasis in lower lobes. Mild subcarinal adenopathy Pleural spaces: Unremarkable. No pneumothorax. No pleural effusion. Heart: Unremarkable. No cardiomegaly. No pericardial effusion. Mediastinal space: Moderate hiatal hernia Aorta: Unremarkable. No aortic aneurysm. Lymph nodes: See "Lungs" finding. Bones/joints: Unremarkable. No acute fracture. Soft tissues: Unremarkable. IMPRESSION: SERJIO RIZO | Final Radiology Report Page 2 of 3 Emphysema with dependent atelectasis in lower lobes PROCEDURE INFORMATION: Exam: CT Abdomen And Pelvis With Contrast Exam date and time: 04/09/2021 4:40 PM Age: 85 years old Clinical indication: Other: Fever of unknown origin (103.1f); Additional info: Fever of unknown origin (103.1f) TECHNIQUE: Imaging protocol: Computed tomography of the abdomen and pelvis with contrast. Radiation optimization: All CT scans at this facility use at least one of these dose optimization techniques: automated exposure control; mA and/or kV adjustment per patient size (includes targeted exams where dose is matched to clinical indication); or iterative reconstructio n. Contrast material: ISOVUE 300; Contrast volume: 100 ml; Contrast route: INTRAVENOUS (IV); COMPARISON: CR Chest 1V Frontal 04/09/2021 2:21 PM FINDINGS: Liver: Normal. No mass. Gallbladder and bile ducts: Normal. No calcified stones. No ductal dilation. Pancreas: Normal. No ductal dilation. Spleen: Normal. No splenomegaly. Adrenal glands: Normal. No mass. Kidneys and ureters: Normal. No hydronephrosis. Stomach and bowel: Unremarkable. No obstruction. No mucosal thickening. Appendix: No evidence of appendicitis. Intraperitoneal space: Unremarkable. No free air. No significant fluid collection. Vasculature: Patent aortoiliac stent graft. 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 There are subtle areas of increased density in the thrombosed portion of the aneurysm. Lymph nodes: Unremarkable. No enlarged lymph nodes. Urinary bladder: There is mild circumferential urinary bladder wall thickening. Reproductive: Unremarkable as visualized. 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 No acute fracture. Soft tissues: Unremarkable. IMPRESSION: Mild urinary bladder wall thickening. Differential considerations include cystitis, underdistention artifact, neurogenic bladder and bladder outlet obstruction. Patent aortoiliac stent graft. CT angiogram could further evaluate indeterminate hyperdense areas along the graft which could represent either hyperdense thrombus or endoleak SERJIO RIZO | Final Radiology Report CONFIDENTIALITY STATEMENT This report is intended only for use by the referring physician, and only in accordance with law. If you received this in error, call [phone]. Page 3 of 3 Thank you for allowing us to participate in the care of your patient. Dictated and Authenticated by: Johnson Dempsey MD 04/09/2021 5:31 PM Central Time ([place] & [place]) Departure - Departure Time of Disposition: 17:34 (admitted to Dr. Bob) Disposition: Refer to Observation Condition: Undetermined Clinical Impression: Fever of unknown origin - Discharge Information *PRESCRIPTION DRUG MONITORING PROGRAM REVIEWED*: Not Applicable *COPY OF PRESCRIPTION DRUG MONITORING REPORT IN PATIENT JULIANNA: Not Applicable Forms: ED Department Discharge Sepsis Event Note (ED) - Evaluation Sepsis Screening Result: No Definite Risk - Focused Exam Vital Signs: Vital Signs Temp Temp Pulse Resp BP Pulse Ox 04/09/21 14:36 101.3 F H 04/09/21 12:54 103.0 F H 04/09/21 12:37 100.1 F 109 H 20 108/55 L 91 L - My Orders Last 24 Hours: My Active Orders 04/09/21 12:50 Sodium Chloride 0.9% [Saline Flush] 10 ml FLUSH ASDIRECTED PRN Blood Culture x2 Reflex Set [OM.PC] Stat 04/09/21 12:51 EKG 12 Lead [EKG Documentation Completion] [RC] STAT Peripheral IV Insertion Adult [OM.PC] Stat 04/09/21 12:52 Peripheral IV Care [RC] . DIRECTED 04/09/21 12:53 CULTURE BLOOD [BC] Stat 04/09/21 12:58 CULTURE BLOOD [BC] Stat 04/09/21 14:34 CULTURE STREP A CONFIRMATION [RM] Stat STREP SCRN A RAPID W CULT CONF [RM] Stat 04/09/21 16:35 Insert Henao Catheter [Insert Urinary Catheter] [OM.PC] Stat 04/09/21 16:36 Urinary Catheter Assessment [RC] ASDIRECTED - Assessment/Plan Last 24 Hours: My Active Orders 04/09/21 12:50 Sodium Chloride 0.9% [Saline Flush] 10 ml FLUSH ASDIRECTED PRN Blood Culture x2 Reflex Set [OM.PC] Stat 04/09/21 12:51 EKG 12 Lead [EKG Documentation Completion] [RC] STAT Peripheral IV Insertion Adult [OM.PC] Stat 04/09/21 12:52 Peripheral IV Care [RC] . DIRECTED 04/09/21 12:53 CULTURE BLOOD [BC] Stat 04/09/21 12:58 CULTURE BLOOD [BC] Stat 04/09/21 14:34 CULTURE STREP A CONFIRMATION [RM] Stat STREP SCRN A RAPID W CULT CONF [RM] Stat 04/09/21 16:35 Insert Henao Catheter [Insert Urinary Catheter] [OM.PC] Stat 04/09/21 16:36 Urinary Catheter Assessment [RC] ASDIRECTED
[2021-04-09] MEDS ORDERED: Iopamidol 612 MG/ML 100 ML Bottle IVPUSH ONE (16:33)
--- NOTE | 2021-04-09 17:31 | CT ---
PROCEDURE INFORMATION: Exam: CT Chest With Contrast; Diagnostic Exam date and time: 04/09/2021 4:40 PM Age: 85 years old Clinical indication: Other: Fever of unknown origin (103.1f); Additional info: Fever of unknown origin (103.1f) TECHNIQUE: Imaging protocol: Diagnostic computed tomography of the chest with contrast. Radiation optimization: All CT scans at this facility use at least one of these dose optimization techniques: automated exposure control; mA and/or kV adjustment per patient size (includes targeted exams where dose is matched to clinical indication); or iterative reconstruction. Contrast material: ISOVUE 300; Contrast volume: 100 ml; Contrast route: INTRAVENOUS (IV); COMPARISON: CR Chest 1V Frontal 04/09/2021 2:21 PM FINDINGS: Lungs: Moderate emphysema. Dependent areas of atelectasis in lower lobes. Mild subcarinal adenopathy Pleural spaces: Unremarkable. No pneumothorax. No pleural effusion. Heart: Unremarkable. No cardiomegaly. No pericardial effusion. Mediastinal space: Moderate hiatal hernia Aorta: Unremarkable. No aortic aneurysm. Lymph nodes: See "Lungs" finding. Bones/joints: Unremarkable. No acute fracture. Soft tissues: Unremarkable. IMPRESSION: Emphysema with dependent atelectasis in lower lobes PROCEDURE INFORMATION: Exam: CT Abdomen And Pelvis With Contrast Exam date and time: 04/09/2021 4:40 PM Age: 85 years old Clinical indication: Other: Fever of unknown origin (103.1f); Additional info: Fever of unknown origin (103.1f) TECHNIQUE: Imaging protocol: Computed tomography of the abdomen and pelvis with contrast. Radiation optimization: All CT scans at this facility use at least one of these dose optimization techniques: automated exposure control; mA and/or kV adjustment per patient size (includes targeted exams where dose is matched to clinical indication); or iterative reconstruction. Contrast material: ISOVUE 300; Contrast volume: 100 ml; Contrast route: INTRAVENOUS (IV); COMPARISON: CR Chest 1V Frontal 04/09/2021 2:21 PM FINDINGS: Liver: Normal. No mass. Gallbladder and bile ducts: Normal. No calcified stones. No ductal dilation. Pancreas: Normal. No ductal dilation. Spleen: Normal. No splenomegaly. Adrenal glands: Normal. No mass. Kidneys and ureters: Normal. No hydronephrosis. Stomach and bowel: Unremarkable. No obstruction. No mucosal thickening. Appendix: No evidence of appendicitis. Intraperitoneal space: Unremarkable. No free air. No significant fluid collection. Vasculature: Patent aortoiliac stent graft. 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 There are subtle areas of increased density in the thrombosed portion of the aneurysm. Lymph nodes: Unremarkable. No enlarged lymph nodes. Urinary bladder: There is mild circumferential urinary bladder wall thickening. Reproductive: Unremarkable as visualized. 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 No acute fracture. Soft tissues: Unremarkable. IMPRESSION: Mild urinary bladder wall thickening. Differential considerations include cystitis, underdistention artifact, neurogenic bladder and bladder outlet obstruction. Patent aortoiliac stent graft. CT angiogram could further evaluate indeterminate hyperdense areas along the graft which could represent either hyperdense thrombus or endoleak
[2021-04-09] MEDS ORDERED: Ondansetron 4 MG/2 ML SDV IVPUSH PRN (18:12)
[2021-04-09] MEDS ORDERED: Sodium Chloride 0.9% 1,000 ML IV SCH (18:15)
[2021-04-09] MEDS ORDERED: Glucagon,Human Recombinant 1 MG Vial IM PRN (18:17)
[2021-04-09] MEDS ORDERED: 50% Dextrose in Water 50 ML Syringe IVPUSH PRN (18:17)
--- NOTE | 2021-04-09 18:24 | PCM.SN.2 ---
- Free Text/Narrative Note: START OF DOCTOR EMAMIS HISTORY AND PHYSICAL / CONSULTATION NOTE Chief Complaint: "Chills" History of Present Illness: The patient is a 5-year-old male who presents chief complaint of rigors. Upon further questioning he indicates that he is also been exhibiting fever. He states he started feeling unwell on the night of April 08, 2021 with after mentioned symptoms. The patient [place] fever, vomiting, cough, wheeze, abdominal pain, diarrhea, myalgia, dysuria, chest pain, dyspnea. Overall the patient is a fair historian at best and offers no other specific complaints. He presents for further evaluation Surgical History: Hemorrhoidectomy, bilateral cataract surgery, aorto iliac stent for history of a bdominal aortic aneurysm, tonsillectomy, spinal surgery x2, appendectomy, there is previous documentation of bilateral inguinal herniorrhaphy however the patient indicates that he only had inguinal herniorrhaphy on one side and he is unable to specify which one Family History: Diabetes, coronary artery disease, hypertension Social History: Tobacco: Former smoker Alcohol: The patient claims to drink every 48 hours and had has never had any symptoms of withdrawal Caffeine: Coffee Drugs: Never Allergies: No known drug allergies Code Status: DNR but request intubation if necessary Pertinent Laboratory Results / Pertinent Radiology Results / Pertinent Diagnostic Results / Pertinent Vital Signs: Blood pressure 108/55, heart rate 109, respirations 20, temperature 101.3 degrees, 91% on 6 L, alkaline phosphatase 103, AST 46, total bilirubin is 1.3, white blood cell count 10.9, MCV 101.4, platelet count 103,000 Physical Examination: General: -Alert -No acute distress -No dyspnea -No tachypnea Head: -Atraumatic -Normocephalic Eyes: -Pupils equally round and reactive to light and accommodation -Extraocular muscles intact Neurological: -Cranial nerves II-XII intact Neck: -No jugular venous distention -No thyromegaly -No cervical lymphadenopathy Heart: -iRegular rate -Regular rhythm -No murmurs -No gallops -No rubs Lungs: -No wheeze -No rhonchi -No rales -Very distant breath sounds bilaterally Abdomen: -Normal bowel sounds in all four quadrants -No rebound -No guarding -No tenderness Extremities: -2/4 pulse in all four extremities -No clubbing -No cyanosis -No edema -No calf tenderness present bilaterally -Negative Homans sign bilaterally Musculoskeletal: -5/5 bilateral upper extremity strength -5/5 bilateral lower extremity strength -Sensorium of bilateral upper extremities are equal and intact -Sensorium of bilateral lower extremities are equal and intact Additional Details / Additional Findings / Exceptions / Miscellaneous: Assessment / Plan: Febrile illness. Query cystitis. Blood culture x2 were ordered in the emergency department. Zosyn 3.375 g IV every 6 hours plus IV normal saline 75 mils per hour COPD, O2 dependent 4 L. Solu-Medrol 60 mg IV q. hours plus DuoNeb every 4 hours Microscopic hematuria. Outpatient follow with urology upon discharge especially given his smoking history Thrombocytopenia. We will monitor platelet count intermittently Hypothyroidism. Check TSH, free T4 Neuropathy History of abdominal aortic aneurysm, status post repair Macular degeneration Macrocytosis. Check TSH, free T4, B12, folate levels Restless leg syndrome Diabetes. Will check fasting glucose before every meal and at bedtime and provide some sign scale GERD. Protonix 40 mg p.o. daily Hyperlipidemia Hypertension Arthritis Chronic pain Anxiety History of prostatic enlargement. Check PSA Diverticulosis Osteopenia Hepatic steatosis Degenerative disc disease Degenerative joint disease DVT prophylaxis. Lovenox 30 mg subcutaneously daily Disposition: Anticipate discharge within 40 hours. At the time of admission, the patient's home medications were pending input to the EMR/DHR system. Once they are input, they will be reviewed and reconciled END OF DOCTOR EMAMIS HISTORY AND PHYSICAL / CONSULTATION NOTE
[2021-04-09] MEDS: Albuterol/Ipratropium 3.0-0.5 MG/3 ML Neb Soln NEB SCH ×2 (19:02→23:13)
[2021-04-09] MEDS: Piperacillin/Tazobactam 3.375 GM in Sodium Chloride 0.9% 100 ML IV SCH ×2 (19:02→23:26)
[2021-04-09] MEDS: methylPREDNISolone Sodium Succinate 40 MG/1 ML SDV IVPUSH SCH (19:02)
[2021-04-09] MEDS ORDERED: atorvaSTATin 10 MG Tab **OWN MED PO SCH (22:45)
[2021-04-09] MEDS: Insulin Lispro 100 Units/ML 3 ML Vial SUBCUT SCH (23:03)
[2021-04-09] MEDS: Folic Acid 1 MG Tab PO SCH (23:05)
[2021-04-09] MEDS: Cyanocobalamin (Vitamin B12) 1,000 MCG Tab PO SCH (23:05)
[2021-04-09] MEDS: PREGABALIN 300 MG PO SCH (23:14)
[2021-04-10] MEDS: Albuterol/Ipratropium 3.0-0.5 MG/3 ML Neb Soln NEB SCH ×6 (03:33→23:07)
[2021-04-10] MEDS: methylPREDNISolone Sodium Succinate 40 MG/1 ML SDV IVPUSH SCH ×3 (03:33→18:31)
[2021-04-10] MEDS ORDERED: Levothyroxine 25 MCG Tab PO SCH (06:00)
[2021-04-10] MEDS ORDERED: Pantoprazole 40 MG Tab.CR PO SCH (06:00)
[2021-04-10] MEDS ORDERED: Levothyroxine 50 MCG Tab**OWN MED PO SCH (06:00)
[2021-04-10] MEDS: Piperacillin/Tazobactam 3.375 GM in Sodium Chloride 0.9% 100 ML IV SCH ×4 (06:28→23:17)
[2021-04-10 06:44] LABS: ANION GAP 17.7 mEq/L (7-13); CHLORIDE,CL 103 mmol/L (98-107); SODIUM,NA 141 mmol/L (136-145)
--- NOTE | 2021-04-10 07:20 | PCM.SN.2 ---
- Free Text/Narrative Note: START OF DOCTOR MELANI PROGRESS NOTE Subjective: The patient endorses no complaints at this time. He states overall he is feeling much better compared to my encounter with him on April 09, 2021. He denies fever, rigors, nausea, vomiting, cough, wheeze, abdominal pain, chest pain, dyspnea, or any other constitutional complaints. I explained to the patient his current medical condition and plan of care and I have answered all of his questions Objective: General: -Alert -No acute distress -No dyspnea -No tachypnea Heart: -Regular rate -Regular rhythm -No murmurs -No gallops -No rubs Lungs: -No wheeze -No rhonchi -No rales -Distant breath sounds bilaterally Abdomen: -Normal bowel sounds in all four quadrants -No rebound -No guarding -No tenderness Extremities: -2/4 pulse in all four extremities -No clubbing -No cyanosis -No edema Additional Details / Additional Findings / Exceptions / Miscellaneous: Pertinent Laboratory Results / Pertinent Radiology Results / Pertinent Diagnostic Results / Pertinent Vital Signs: Blood pressure 97/55, patient saturating 90% on 5 L, hemoglobin 13.4, platelet count 93,000 Assessment / Plan: Febrile illness. Query cystitis. Blood culture x2 were ordered in the emergency department. Zosyn 3.375 g IV every 6 hours plus IV normal saline 75 mils per hour Gram-negative mateus bacteremia. Speciation pending. Unknown source at this time. Zosyn 3.375 g IV every 6 hours COPD, O2 dependent 4 L. Solu-Medrol 60 mg IV q. hours plus DuoNeb every 4 hours Microscopic hematuria. Outpatient follow with urology upon discharge especially given his smoking history Thrombocytopenia. We will monitor platelet count intermittently Hypothyroidism. Synthroid 50 mcg p.o. daily Neuropathy. Lyrica 300 mg p.o. twice daily History of abdominal aortic aneurysm, status post repair Macular degeneration Macrocytic anemia. Will monitor hemoglobin level intermittently. Macrocytosis may be secondary to folate deficiency and/or B12 deficiency. Check serum ferritin, iron panel, fecal occult blood Folate deficiency. Folic acid 1 mg p.o. daily Vitamin B12 deficiency. Vitamin B12 1000 migrans p.o. daily Restless leg syndrome. Poliquin 324 mg p.o. twice daily Diabetes. Will check fasting glucose before every meal and at bedtime and provide some sign scale plus Metformin 1000 g p.o. twice daily GERD. Protonix 40 mg p.o. daily Hyperlipidemia. Lipitor 10 mg p.o. nightly Hypertension Arthritis Chronic pain Anxiety History of prostatic enlargement. PSA grossly elevated. Outpatient follow-up with urology upon discharge Diverticulosis Osteopenia Hepatic steatosis Degenerative disc disease Degenerative joint disease DVT prophylaxis. Lovenox 30 mg subcutaneously daily Disposition: The patient will be a candidate for discharge in 24 to 72 hours time END OF DOCTOR EMAMIS PROGRESS NOTE
[2021-04-10] MEDS ORDERED: metFORMIN 500 MG Tab **OWN MED PO SCH (08:00)
[2021-04-10] MEDS: Insulin Lispro 100 Units/ML 3 ML Vial SUBCUT SCH ×4 (09:00→21:45)
[2021-04-10] MEDS ORDERED: Ferrous Sulfate 325 MG Tab PO SCH (09:00)
[2021-04-10] MEDS ORDERED: Ferrous Sulfate 325 MG Tab **OWN MED PO SCH (09:00)
[2021-04-10] MEDS ORDERED: Enoxaparin 40 MG/0.4 ML Syringe SUBCUT SCH (09:00)
[2021-04-10] MEDS: Folic Acid 1 MG Tab PO SCH (09:06)
[2021-04-10] MEDS: Ascorbic Acid 500 MG Tab PO SCH (09:06)
[2021-04-10] MEDS: Cyanocobalamin (Vitamin B12) 1,000 MCG Tab PO SCH (09:06)
[2021-04-10] MEDS: Omeprazole 20 MG Cap.CR PO SCH (10:38)
[2021-04-10] MEDS: QUININE 324 MG PO SCH ×2 (10:46→10:49)
[2021-04-10] MEDS: PREGABALIN 300 MG PO SCH (10:47)
--- NOTE | 2021-04-10 14:18 | CR ---
PROCEDURE INFORMATION: Exam: XR Chest Exam date and time: 04/10/2021 1:54 PM Age: 85 years old Clinical indication: Other: Dyspnea TECHNIQUE: Imaging protocol: XR of the chest. Views: 1 view. COMPARISON: CT Chest Abdomen Pelvis w Cont 04/09/2021 4:40 PM FINDINGS: Lungs: Very mild atelectasis at both lung bases secondary to pleural fluid compression. The lungs are otherwise clear. Pleural spaces: There is a small degree of bilateral costophrenic angle blunting, mildly more prominent than left. Heart/Mediastinum: Normal heart and cardio-mediastinal silhouette. Vasculature: Normal pulmonary vessels and width of the vascular pedicle. Bones/joints: Intact and normally aligned. No suspicious lesion. Other findings: Aortosclerosis. IMPRESSION: Increased though still very small bilateral pleural effusions. No other suspicious finding.
[2021-04-10] MEDS: Iron Sucrose Complex 100 MG/5 ML SDV IVPUSH SCH (15:29)
[2021-04-10] MEDS: Loratadine 10 MG Tab PO SCH (15:29)
[2021-04-10] MEDS: Albumin 25% 25 GM in Premix Bag 1 BAG IV SCH ×2 (15:41→21:59)
[2021-04-10] MEDS: metFORMIN 500 MG Tab PO SCH (17:51)
[2021-04-10] MEDS: Acetaminophen 325 MG Tab PO PRN ×2 (18:02→23:54)
[2021-04-10] MEDS: Montelukast 10 MG Tab PO SCH (21:35)
[2021-04-10] MEDS: atorvaSTATin 10 MG Tab PO SCH (21:35)
[2021-04-10] MEDS: Latanoprost 0.005% Ophth Soln 2.5 ML Bottle EYELF SCH (21:36)
[2021-04-10] MEDS: Sodium Chloride 0.9% 10 ML Syringe FLUSH PRN (23:02)
[2021-04-11] MEDS: Albuterol/Ipratropium 3.0-0.5 MG/3 ML Neb Soln NEB SCH ×6 (03:29→23:46)
[2021-04-11] MEDS: Sodium Chloride 0.9% 10 ML Syringe FLUSH PRN ×6 (03:30→23:01)
[2021-04-11] MEDS: methylPREDNISolone Sodium Succinate 40 MG/1 ML SDV IVPUSH SCH ×3 (03:31→18:12)
[2021-04-11] MEDS: Piperacillin/Tazobactam 3.375 GM in Sodium Chloride 0.9% 100 ML IV SCH (05:17)
[2021-04-11] MEDS ORDERED: Furosemide 40 MG/4 ML VIAL IVPUSH ONE (05:19)
[2021-04-11] MEDS: Omeprazole 20 MG Cap.CR PO SCH (05:21)
[2021-04-11] MEDS: Levothyroxine 50 MCG Tab PO SCH (05:21)
[2021-04-11] MEDS: Albumin 25% 25 GM in Premix Bag 1 BAG IV SCH ×2 (06:05→14:14)
[2021-04-11 07:07] LABS: ANION GAP 22.4 mEq/L (7-13); CHLORIDE,CL 103 mmol/L (98-107); SODIUM,NA 145 mmol/L (136-145)
[2021-04-11] MEDS ORDERED: Potassium Chloride 10 MEQ Tab.ER PO ONE (07:28)
--- NOTE | 2021-04-11 07:38 | PCM.SN.2 ---
- Free Text/Narrative Note: START OF DOCTOR MELANI PROGRESS NOTE Subjective: The patient Jasen that he did not sleep well overnight and that he was feeling "sick" however he does not elaborate. He currently rates his respiratory status as a 9 out of 10. Overnight he indicates that he experienced rigors however he denies fever, nausea, vomiting, cough, wheeze, abdominal pain, chest pain, or any other constitutional complaints. I explained to the patient his current medical condition and plan of care and I have answered all of his questions Objective: General: -Alert -No acute distress -No dyspnea -No tachypnea at time of examination Heart: -Regular rate -Regular rhythm -No murmurs -No gallops -No rubs Lungs: -No wheeze -No rhonchi -No rales -Distant breath sounds bilaterally Abdomen: -Normal bowel sounds in all four quadrants -No rebound -No guarding -No tenderness Extremities: -2/4 pulse in all four extremities -No clubbing -No cyanosis -No edema Additional Details / Additional Findings / Exceptions / Miscellaneous: Pertinent Laboratory Results / Pertinent Radiology Results / Pertinent Diagnostic Results / Pertinent Vital Signs: Patient saturating 87% on 6 L, respirations 28, white blood cell count 10.7, hemoglobin 13.4, platelet count 107,000, potassium is 3.4 Assessment / Plan: Febrile illness. Query cystitis. Blood culture x2 were ordered in the emergency department. Zosyn 3.375 g IV every 6 hourshour Small bilateral pleural effusions. Albumin 25 g IV every 8 hours Gram-negative mateus bacteremia. Speciation pending. Unknown source at this time. Zosyn 3.375 g IV every 6 hours COPD, O2 dependent 4 L. Solu-Medrol 60 mg IV q. hours plus DuoNeb every 4 hours plus Singulair 10 mg p.o. daily plus Claritin 10 mg p.o. daily Microscopic hematuria. Outpatient follow with urology upon discharge especially given his smoking history Thrombocytopenia. We will monitor platelet count intermittently Hypothyroidism. Synthroid 50 mcg p.o. daily Neuropathy. Lyrica 300 mg p.o. twice daily History of abdominal aortic aneurysm, status post repair Macular degeneration Macrocytic anemia/iron deficiency anemia. Will monitor hemoglobin level intermittently. Macrocytosis may be secondary to folate deficiency and/or B12 deficiency. Vitamin C 500 mg p.o. daily plus iron sucrose 100 mg IV daily until 11:59 PM on April 14, 2021 Folate deficiency. Folic acid 1 mg p.o. daily Vitamin B12 deficiency. Vitamin B12 1000 migrans p.o. daily Restless leg syndrome. Poliquin 324 mg p.o. twice daily Diabetes. Will check fasting glucose before every meal and at bedtime and provide some sign scale plus Metformin 1000 g p.o. twice daily GERD. Prilosec 40 mg p.o. daily Hyperlipidemia. Lipitor 10 mg p.o. nightly Hypertension Arthritis Chronic pain Anxiety History of prostatic enlargement. PSA grossly elevated. Outpatient follow-up with urology upon discharge Diverticulosis Osteopenia Hepatic steatosis Degenerative disc disease Degenerative joint disease Glaucoma. Xalatan 1 drop to left eye nightly Hypokalemia. Monitor potassium levels intermittently and supplement as necessary DVT prophylaxis. Lovenox 80 mg subcutaneously every 12 hours Disposition: The patient will be a candidate for discharge once his supplemental oxygen requirement decreases END OF DOCTOR EMAMIS PROGRESS NOTE
[2021-04-11] MEDS: metFORMIN 500 MG Tab PO SCH (08:39)
[2021-04-11] MEDS: Insulin Lispro 100 Units/ML 3 ML Vial SUBCUT SCH ×4 (08:40→21:10)
[2021-04-11] MEDS ORDERED: Enoxaparin 80 MG/0.8 ML Syringe SUBCUT SCH (09:00)
[2021-04-11] MEDS: Loratadine 10 MG Tab PO SCH (09:05)
[2021-04-11] MEDS: Ascorbic Acid 500 MG Tab PO SCH (09:05)
[2021-04-11] MEDS: Folic Acid 1 MG Tab PO SCH (09:06)
[2021-04-11] MEDS: Cyanocobalamin (Vitamin B12) 1,000 MCG Tab PO SCH (09:06)
[2021-04-11] MEDS: Iron Sucrose Complex 100 MG/5 ML SDV IVPUSH SCH (09:06)
[2021-04-11] MEDS ORDERED: Iopamidol 755 Mg/ML 100 ML Bottle IVPUSH ONE (10:29)
--- NOTE | 2021-04-11 11:01 | CT ---
PROCEDURE INFORMATION: Exam: CT Chest With Contrast; Diagnostic Exam date and time: 04/11/2021 10:08 AM Age: 85 years old Clinical indication: Dyspnea; Additional info: Dyspnea. R/O pe TECHNIQUE: Imaging protocol: Diagnostic computed tomography of the chest with contrast. Radiation optimization: All CT scans at this facility use at least one of these dose optimization techniques: automated exposure control; mA and/or kV adjustment per patient size (includes targeted exams where dose is matched to clinical indication); or iterative reconstruction. Contrast material: ISOVUE 370; Contrast volume: 68 ml; Contrast route: INTRAVENOUS (IV); COMPARISON: CT Chest Abdomen Pelvis w Cont 04/09/2021 4:40 PM FINDINGS: Lungs: Changes of emphysema. Coarse interstitial infiltrate in the dependent portions of both lungs could be due to superimposed edema and infiltrate Pleural spaces: Small to moderate bilateral pleural effusions have increased since 04/09/2021. Heart: Unremarkable. No cardiomegaly. No pericardial effusion. Mediastinal space: Moderate esophageal hiatal hernia. Aorta: Aorto bi-iliac abdominal stent for treatment of infrarenal abdominal aortic aneurysm. Lymph nodes: Prominent subcarinal and right hilar lymph nodes. Largest subcarinal lymph node measures 3.7 cm in transverse dimension. Bones/joints: Degenerative arthritis in the visualized spine. Soft tissues: Unremarkable. Liver: Fatty liver with a cirrhotic configuration and pneumobilia. Other findings: Vascular calcifications. IMPRESSION: 1. No pulmonary embolism is identified. 2. Progression of small to moderate bilateral pleural effusions and infiltrate with edema in the lungs 3. Changes of emphysema 4. Stable enlarged subcarinal and right hilar lymph nodes. 5. New pneumobilia. 6. Fatty liver with a cirrhotic configuration
[2021-04-11 11:16] LABS: BASE EXCESS ARTERIAL -1 mmol/L ((-2)-(+3)); O2 DELIVERY DEVICE NASAL CANNULA; O2 SATURATION ARTERIAL 87 % (95-100); PCO2 ARTERIAL 39 mmHg (35-45); PO2 ARTERIAL 52 mmHg (70-100)
[2021-04-11 11:18] LABS: ALLEN TEST PERFORMED
[2021-04-11] MEDS: Furosemide 20 MG/2 ML VIAL IVPUSH SCH ×2 (12:30→19:59)
[2021-04-11] MEDS: Meropenem 1 GM in Sodium Chloride 0.9% 100 ML IV SCH ×2 (13:41→23:02)
[2021-04-11] MEDS: Montelukast 10 MG Tab PO SCH (20:28)
[2021-04-11] MEDS: atorvaSTATin 10 MG Tab PO SCH (20:29)
[2021-04-11] MEDS: Latanoprost 0.005% Ophth Soln 2.5 ML Bottle EYELF SCH (20:29)
[2021-04-11] MEDS ORDERED: Zolpidem 5 MG Tab PO PRN (20:41)
[2021-04-11] MEDS ORDERED: LORazepam 2 MG/ML SDV IVPUSH ONE (22:20)
[2021-04-12] MEDS: methylPREDNISolone Sodium Succinate 40 MG/1 ML SDV IVPUSH SCH (02:11)
[2021-04-12] MEDS: Sodium Chloride 0.9% 10 ML Syringe FLUSH PRN ×3 (02:12→05:34)
[2021-04-12] MEDS: Albuterol/Ipratropium 3.0-0.5 MG/3 ML Neb Soln NEB SCH ×2 (02:15→08:34)
[2021-04-12] MEDS: Furosemide 20 MG/2 ML VIAL IVPUSH SCH (05:02)
[2021-04-12] MEDS: Meropenem 1 GM in Sodium Chloride 0.9% 100 ML IV SCH (05:05)
[2021-04-12] MEDS: Omeprazole 20 MG Cap.CR PO SCH (05:07)
[2021-04-12] MEDS: Levothyroxine 50 MCG Tab PO SCH (05:07)
[2021-04-12] MEDS ORDERED: LORazepam 2 MG/ML SDV IVPUSH ONE (06:29)
[2021-04-12] MEDS ORDERED: Haloperidol Lactate 5 MG/ML SDV IM ONE (06:53)
[2021-04-12 07:17] LABS: ANION GAP 18.2 mEq/L (7-13); CHLORIDE,CL 102 mmol/L (98-107); SODIUM,NA 147 mmol/L (136-145)
--- NOTE | 2021-04-12 07:43 | PCM.SN.2 ---
- Free Text/Narrative Note: START OF DOCTOR MELANI PROGRESS NOTE Subjective: The patient is encephalopathic at the present time. Because of this I am unable to obtain information regarding his symptomatology Objective: General: -Encephalopathic -No acute distress -No dyspnea -No tachypnea Heart: -Regular rate -Regular rhythm -No murmurs -No gallops -No rubs Lungs: -No wheeze -No rhonchi -No rales -Distant breath sounds bilaterally Abdomen: -Normal bowel sounds in all four quadrants -No rebound -No guarding -No tenderness Extremities: -2/4 pulse in all four extremities -No clubbing -No cyanosis -No edema Additional Details / Additional Findings / Exceptions / Miscellaneous: Pertinent Laboratory Results / Pertinent Radiology Results / Pertinent Diagnostic Results / Pertinent Vital Signs: Patient saturating 89% on 6 L, platelet count 132,000, sodium 147, potassium 3.2 Assessment / Plan: Small bilateral pleural effusions. Lasix 20 mg IV every 8 hours. Echocardiogram pending Klebsiella pneumonia bacteremia. Unknown source at this time. Meropenem 1 g IV every 8 hours Pneumobilia. Given his prior history of biliary stenting, this likely is source of Klebsiella pneumonia bacteremia. Meropenem 1 g IV every 8 hours. Patient awaiting transfer for evaluation for gastroenterology for ERCP Hypernatremia. Will monitor sodium levels intermittently Hypokalemia. Will monitor potassium levels intermittently and supplement as necessary COPD, O2 dependent 4 L. Solu-Medrol 60 mg IV q. hours plus DuoNeb every 4 hours plus Singulair 10 mg p.o. daily plus Claritin 10 mg p.o. daily Microscopic hematuria. Outpatient follow with urology upon discharge especially given his smoking history Thrombocytopenia. We will monitor platelet count intermittently Hypothyroidism. Synthroid 50 mcg p.o. daily Neuropathy. Lyrica 300 mg p.o. twice daily History of abdominal aortic aneurysm, status post repair Macular degeneration Macrocytic anemia/iron deficiency anemia. Will monitor hemoglobin level intermittently. Macrocytosis may be secondary to folate deficiency and/or B12 deficiency. Vitamin C 500 mg p.o. daily plus iron sucrose 100 mg IV daily until 11:59 PM on April 14, 2021 Folate deficiency. Folic acid 1 mg p.o. daily Vitamin B12 deficiency. Vitamin B12 1000 migrans p.o. daily Restless leg syndrome. Poliquin 324 mg p.o. twice daily Diabetes. Will check fasting glucose before every meal and at bedtime and provide some sign scale plus Metformin 1000 g p.o. twice daily GERD. Prilosec 40 mg p.o. daily Hyperlipidemia. Lipitor 10 mg p.o. nightly Hypertension. Lasix 20 mg IV every 8 hours Arthritis Chronic pain Anxiety History of prostatic enlargement. PSA grossly elevated. Outpatient follow-up with urology upon discharge Diverticulosis Osteopenia Hepatic steatosis/cirrhosis Degenerative disc disease Degenerative joint disease Glaucoma. Xalatan 1 drop to left eye nightly Hypokalemia. Monitor potassium levels intermittently and supplement as necessary DVT prophylaxis. Lovenox 80 mg subcutaneously every 12 hours Disposition: We are awaiting bed availability for patient transfer for evaluation by gastroenterology for possible ERCP END OF DOCTOR MELANI PROGRESS NOTE
[2021-04-12] MEDS: Insulin Lispro 100 Units/ML 3 ML Vial SUBCUT SCH (08:12)
[2021-04-12] MEDS ORDERED: Enoxaparin 40 MG/0.4 ML Syringe SUBCUT SCH (09:00)
[2021-04-12] MEDS: Potassium Chloride 10 MEQ Tab.ER PO SCH ×2 (09:40→11:45)
[2021-04-12] MEDS: Ascorbic Acid 500 MG Tab PO SCH (09:44)
[2021-04-12] MEDS: Folic Acid 1 MG Tab PO SCH (09:44)
[2021-04-12] MEDS: Cyanocobalamin (Vitamin B12) 1,000 MCG Tab PO SCH (09:44)
[2021-04-12] MEDS: Loratadine 10 MG Tab PO SCH (09:45)
[2021-04-12] MEDS: Iron Sucrose Complex 100 MG/5 ML SDV IVPUSH SCH (09:47)
--- NOTE | 2021-04-12 10:28 | PCM.SN.2 ---
- Free Text/Narrative Note: START OF DOCTOR EMAMIS DISCHARGE SUMMARY Date of Admission: April 10, 2021 Date of transfer: 10:24 AM on April 12, 2021 Primary Diagnosis: Klebsiella pneumonia bacteremia likely associated with pneumobilia Secondary Diagnosis: Pneumobilia Bilateral pleural effusions COPD, O2 dependent at 4 L Microscopic hematuria Thrombocytopenia Hypothyroidism Neuropathy History of abdominal aortic aneurysm, status post repair Macular degeneration Macrocytic anemia/iron deficiency anemia Folate deficiency Vitamin B12 deficiency Restless leg syndrome Diabetes GERD Hyperlipidemia Hypertension Arthritis Chronic pain Anxiety History of prostatic enlargement Diverticulosis Osteopenia Hyponatremia Hypokalemia Hepatic steatosis/cirrhosis Degenerative disc disease Degenerative joint disease Glaucoma Consultations: None Condition on transfer: Fair Disposition: The patient will be transferred to [facility] care of Dr. Barnett, hospitalist. Upon transfer, the patient will require evaluation by gastroenterology for pneumobilia and, perhaps, pulmonology for hypoxia Upon discharge, the patient will require referral to urology for diagnosis microscopic hematuria and grossly elevated PSA Discharge Medications: Multivitamin 1 tab p.o. daily Vitamin D 5000 IU p.o. daily Meropenem 1 g IV every 8 hours started on April 11, 2000 after 1 days worth of IV Zosyn Lyrica 300 mg p.o. twice daily Prilosec 40 mg p.o. daily Singulair 10 mg p.o. nightly Solu-Medrol 60 mg IV every 8 hours Metformin 1000 mg p.o. twice daily Claritin 10 mg p.o. daily Synthroid 50 mcg p.o. daily Xalatan 0.005%: 1 drop in left eye nightly Insulin lispro subcutaneously before every meal and at bedtime per sliding scale Ferrous sulfate 3 2 5 mg p.o. twice daily Lasix 20 mg IV every 8 hours DuoNeb every 4 hours Vitamin C 500 mg p.o. daily Lipitor 10 mg p.o. nightly Vitamin B12 1000 mcg p.o. daily Folic acid 1 mg p.o. daily Poliquin 324 mg p.o. daily END OF DOCTOR EMAMIS DISCHARGE SUMMARY
[2021-04-12 12:31] VITALS: BP 113/53; PULSE 63
== END 2021-04-12 12:23 | DRG 872 ==
LOC: DL.ED 12:03 → DL.MS 17:43 → OBSVTOIN 04-10 09:18
PROVIDERS: ADMIT Internal Medicine; ATTEND Internal Medicine
DX: R50.9 Fever, unspecified (principal); A41.89 Other specified sepsis; E87.0 Hyperosmolality and hypernatremia; J90 Pleural effusion, not elsewhere classified; G93.40 Encephalopathy, unspecified; K83.09 Other cholangitis; M54.9 Dorsalgia, unspecified; E11.40 Type 2 diabetes mellitus with diabetic neuropathy, unspecified; K83.8 Other specified diseases of biliary tract; B96.1 Klebsiella pneumoniae [K. pneumoniae] as the cause of diseases classified elsewhere; D64.9 Anemia, unspecified; Z79.84 Long term (current) use of oral hypoglycemic drugs; Z79.890 Hormone replacement therapy; Z79.51 Long term (current) use of inhaled steroids; Z79.899 Other long term (current) drug therapy; E87.6 Hypokalemia; J44.9 Chronic obstructive pulmonary disease, unspecified; Z20.822 Contact with and (suspected) exposure to COVID-19; Z66 Do not resuscitate; D69.6 Thrombocytopenia, unspecified; D75.89 Other specified diseases of blood and blood-forming organs; R31.29 Other microscopic hematuria; E03.9 Hypothyroidism, unspecified; E11.42 Type 2 diabetes mellitus with diabetic polyneuropathy; D50.9 Iron deficiency anemia, unspecified; E53.8 Deficiency of other specified B group vitamins; F41.9 Anxiety disorder, unspecified; H35.30 Unspecified macular degeneration; G25.81 Restless legs syndrome; K21.9 Gastro-esophageal reflux disease without esophagitis; I10 Essential (primary) hypertension; N40.0 Benign prostatic hyperplasia without lower urinary tract symptoms; K57.90 Diverticulosis of intestine, part unspecified, without perforation or abscess without bleeding; M85.80 Other specified disorders of bone density and structure, unspecified site; K74.60 Unspecified cirrhosis of liver; K76.0 Fatty (change of) liver, not elsewhere classified; E78.5 Hyperlipidemia, unspecified; M19.90 Unspecified osteoarthritis, unspecified site; G89.29 Other chronic pain; H40.9 Unspecified glaucoma; Z98.41 Cataract extraction status, right eye; Z98.42 Cataract extraction status, left eye; Z98.890 Other specified postprocedural states; Z90.49 Acquired absence of other specified parts of digestive tract; Z28.82 Immunization not carried out because of caregiver refusal; Z99.81 Dependence on supplemental oxygen; Z87.891 Personal history of nicotine dependence
CPT/HCPCS: 0240U; 36415; 36600; 71045; 71260; 74177; 80048; 80053; 81001; 82140; 82272; 82607; 82728; 82746; 82803; 82947; 83540; 83550; 83605; 83880; 84439; 84443; 84484; 85025; 85610; 85730; 86140; 87040; 87077; 87081; 87186; 87430; 93005; 93306; 94640; 96365; 96375; 96376; 99285; 93010; 99284; A9270-GY; G0103; G0378; J1630; J1650; J1756; J1815-GY; J1940; J2060; J2185; J2543; J2920; J7030; J7620-GY; P9047; Q9967

== ENCOUNTER 2021-07-23 17:13 | Inpatient (IN) | payer MEDICARE, BC ==
[2021-07-23] MEDS ORDERED: Acetaminophen 325 MG Tab PO ONE (17:42)
[2021-07-23 18:04] LABS: ANION GAP 11.1 mEq/L (7-13); CHLORIDE,CL 101 mmol/L (98-107); SODIUM,NA 137 mmol/L (136-145)
[2021-07-23 18:28] LABS: CORONAVIRUS COVID-19 NAA NEGATIVE (NEGATIVE)
--- NOTE | 2021-07-23 18:30 | EDM.PDOC ---
<CroweJersey Phipps - Last Filed: 07/23/21 18:31> ED HPI GENERAL MEDICAL PROBLEM - General Chief Complaint: Respiratory Problem Stated Complaint: POSSIBLE COLD Time Seen by Provider: 07/23/21 18:20 Source of Information: Reports: Patient History Limitations: Reports: No Limitations - History of Present Illness INITIAL COMMENTS - FREE TEXT/NARRATIVE: This 85 yo male patient reports to the ED with increased shortness of breath, fever and cough that started today. The patient reports he has a history of pneumonia with similar symptoms. The patient reports no history of cardiac symptoms or heart failure. The patient has not been seen for his current symptoms. Onset: Today Duration: Constant Location: Reports: Chest Quality: Reports: Other Severity: Moderate Improves with: Reports: None Worsens with: Reports: None Context: Reports: Other Associated Symptoms: Reports: cough w sputum, Shortness of Breath, Weakness - Related Data Allergies Allergy/AdvReac Type Severity Reaction Status Date / Time zolpidem [From Ambien] AdvReac Change Verified 07/23/21 19:10 Mental Status Home Meds: Home Meds Omeprazole 40 mg PO ACBREAKFAST 10/17/14 [History] atorvaSTATin [Lipitor] 10 mg PO BEDTIME MDD Dyslipidemia 03/10/15 [History] Levothyroxine 50 mg PO ACBREAKFAST 12/11/15 [History] metFORMIN [Glucophage] 1,000 mg PO BIDMEALS 01/02/19 [History] Pregabalin [Lyrica] 300 mg PO BID 04/09/21 [History] Cholecalciferol (Vitamin D3) [Vitamin D3] 5,000 unit PO DAILY 04/10/21 [History] Latanoprost [Xalatan] 1 drop EYELF BEDTIME 04/10/21 [History] Patient's Own Medication [Ptom] 1 cap PO Q4H PRN 04/10/21 [History] Vit C/E/Zn/Coppr/Lutein/Zeaxan [Preservision Areds 2 Softgel] 1 cap PO BID 04/10/21 [History] Albuterol/Ipratropium [DuoNeb 3.0-0.5 MG/3 ML] 3 ml NEB Q4HRRT neb 04/12/21 [Rx] Ascorbic Acid [Vitamin C] 500 mg PO DAILY tablet 04/12/21 [Rx] Cyanocobalamin (Vitamin B12) [Vitamin B12] 1,000 mcg PO DAILY tablet 04/12/21 [Rx] Ferrous Sulfate 324 mg PO BIDMEALS 30 Days #60 tab.ec 04/12/21 [Rx] Folic Acid 1 mg PO DAILY tablet 04/12/21 [Rx] Furosemide [Lasix] 20 mg IVPUSH Q8H vial 04/12/21 [Rx] Insulin Lispro [HumaLOG] 0 unit SUBCUT WITHMEALSANDBED vial 04/12/21 [Rx] Loratadine [Claritin] 10 mg PO DAILY tablet 04/12/21 [Rx] Meropenem [Merrem] 1 gm IV Q8HR sdv 04/12/21 [Rx] Montelukast [Singulair] 10 mg PO BEDTIME tablet 04/12/21 [Rx] methylPREDNISolone Sod Succ [Solu-MEDROL] 60 mg IVPUSH Q8H sdv 04/12/21 [Rx] Past Medical History HEENT History: Reports: Cataract, Epistaxis, Macular Degeneration, Other (See Below) Other HEENT History: throat tickle that moves up to eye, nose bleeds years ago, not in awhile Cardiovascular History: Reports: High Cholesterol, Other (See Below) Other Cardiovascular History: AAA Respiratory History: Reports: Bronchitis, Recurrent, COPD, Pneumonia, Recurrent Gastrointestinal History: Reports: GERD, Hemorrhoids, Other (See Below) Other Gastrointestinal History: got hemorrhoids fixed per pt Genitourinary History: Reports: BPH, Retention, Urinary Musculoskeletal History: Reports: Arthritis, Back Pain, Chronic Other Musculoskeletal History: arms Neurological History: Reports: Neuropathy, Diabetic Psychiatric History: Reports: Anxiety Other Psychiatric History: per reports, since 1950s Endocrine/Metabolic History: Reports: Diabetes, Type II, Hypothyroidism Hematologic History: Reports: Anemia, Blood Transfusion(s) Immunologic History: Reports: None Oncologic (Cancer) History: Reports: None Dermatologic History: Reports: Other (See Below) Other Dermatologic History: skin tags - Infectious Disease History Infectious Disease History: Reports: Chicken Pox, Measles, Mumps - Past Surgical History HEENT Surgical History: Reports: Cataract Surgery Other HEENT Surgeries/Procedures: bilat cataract removal 2006, injections in eye every 6 weeks for macular degeneration Cardiovascular Surgical History: Reports: AAA Repair Other Cardiovascular Surgeries/Procedures: 01/25/15 with stent Respiratory Surgical History: Reports: None GI Surgical History: Reports: Appendectomy, Other (See Below) Other GI Surgeries/Procedures: hemorrhoidectomy Endocrine Surgical History: Reports: None Neurological Surgical History: Reports: Other (See Below) Other Neurological Surgeries/Procedures: spine surgery 2003, 2004 Musculoskeletal Surgical History: Reports: None Other Musculoskeletal Surgeries/Procedures:: spinal surgery x2 (2003, 2004) Dermatological Surgical History: Reports: None Social & Family History - Family History Family Medical History: No Pertinent Family History Cardiac: Reports: CAD, Other (See Below) Other Cardiac Family History: mother of [place] Other Oncologic Family History: sister? - Caffeine Use Caffeine Use: Reports: Coffee Other Caffeine Use: 3/day - Living Situation & Occupation Living situation: Reports: , with Spouse Occupation: Retired ED ROS GENERAL - Review of Systems Review Of Systems: Comprehensive ROS is negative, except as noted in HPI. ED EXAM, GENERAL - Physical Exam Exam: See Below Exam Limited By: No Limitations General Appearance: Alert, WD/WN, Moderate Distress Eye Exam: Bilateral Eye: EOMI, Normal Inspection, PERRL Ears: Normal External Exam, Normal Canal, Hearing Grossly Normal, Normal TMs Nose: Normal Inspection, Normal Mucosa, No Blood Throat/Mouth: Normal Inspection, Normal Lips, Normal Teeth, Normal Gums, Normal Oropharynx, Normal Voice, No Airway Compromise Head: Atraumatic, Normocephalic Neck: Normal Inspection, Supple, Non-Tender, Full Range of Motion Respiratory/Chest: Decreased Breath Sounds, Rhonchi (diffuse) Cardiovascular: Normal Peripheral Pulses, Regular Rate, Rhythm, No Edema, No Gallop, No JVD, No Murmur, No Rub GI/Abdominal: Normal Bowel Sounds, Soft, Non-Tender, No Organomegaly, No Distention, No Abnormal Bruit, No Mass (Male) Exam: Deferred Rectal (Males) Exam: Deferred Back Exam: Normal Inspection, Full Range of Motion, NT Extremities: Normal Inspection, Normal Range of Motion, Non-Tender, Normal Capillary Refill, No Pedal Edema Neurological: Alert, Oriented, CN II-XII Intact, Normal Cognition, Normal Gait, Normal Reflexes, No Motor/Sensory Deficits Psychiatric: Normal Affect, Normal Mood Skin Exam: Warm, Dry, Intact, Normal Color, No Rash Lymphatic: No Adenopathy #1 Interpretation EKG Date: 07/23/21 Time: 18:32 Rhythm: NSR Rate (Beats/Min): 98 [place]: Normal P-Wave: Present QRS: Normal ST-T: Normal QT: Normal Comparison: NA - No Prior EKG Departure - Departure Disposition: Admitted As Inpatient 65 Clinical Impression: Hypoxia, Hypoxemia Pneumonia Qualifiers: Laterality: bilateral Lung location: lower lobe of lung - Discharge Information Forms: ED Department Discharge <Stacey Burt - Last Filed: 07/23/21 20:29> ED EXAM, GENERAL - Physical Exam Respiratory/Chest: Rhonchi Course - Vital Signs Last Recorded V/S: Last Vital Signs Temp 102 F H 07/23/21 19:01 Pulse 97 07/23/21 19:01 Resp 22 H 07/23/21 19:01 BP 120/68 07/23/21 19:01 Pulse Ox 91 L 07/23/21 19:01 - Orders/Labs/Meds Orders: Active Orders 24 hr Category Date Time Status Admission Diagnosis [ADT] Stat ADT 07/23/21 20:20 Ordered Patient Status [ADT] Stat ADT 07/23/21 20:20 Active RT Aerosol Therapy [RC] ASDIRECTED Care 07/23/21 18:33 Active CULTURE BLOOD [BC] Stat Lab 07/23/21 17:35 Received Code Status [Resuscitation Status] Stat Resus Stat 07/23/21 20:28 Ordered Labs: Laboratory Tests 07/23/21 07/23/21 07/23/21 Range/Units 17:21 17:35 17:35 WBC 5.0 (5.0-10.0) 10^3/uL RBC 4.54 L (4.6-6.2) 10^6/uL Hgb 14.7 (14.0-18.0) g/dL Hct 44.8 (40.0-54.0) % MCV 98.7 (80-100) fL MCH 32.4 (27.0-34.0) pg MCHC 32.8 L (33.0-35.0) g/dL Plt Count 116 L (150-450) 10^3/uL Neut % (Auto) 60.5 (42.2-75.2) % Lymph % (Auto) 14.1 L (20.5-50.1) % Bates % (Auto) 20.8 H (2-8) % Eos % (Auto) 3.0 (1.0-3.0) % Baso % (Auto) 1.6 H (0.0-1.0) % Sodium 137 D (136-145) mmol/L Potassium 4.1 (3.5-5.1) mmol/L Chloride 101 (98-107) mmol/L Carbon Dioxide 29 (21-32) mmol/L Anion Gap 11.1 (7-13) mEq/L BUN 11 (7-18) mg/dL Creatinine 0.98 (0.70-1.30) mg/dL Est Cr Clr Drug Dosing TNP Estimated GFR (MDRD) > 60 BUN/Creatinine Ratio 11.2 (No establ ref range) Glucose 137 H (70-99) mg/dL Lactic Acid (0.4-2.0) mmol/L Calcium 8.6 (8.5-10.1) mg/dL Total Bilirubin 0.7 (0.2-1.0) mg/dL AST 34 (15-37) U/L ALT 34 (16-63) U/L Alkaline Phosphatase 164 H (46-116) U/L Troponin I High Sens 6 (<=76) pg/mL B-Natriuretic Peptide (0-100) pg/ml Total Protein 7.4 (6.4-8.2) g/dL Albumin 3.7 (3.4-5.0) g/dL Globulin 3.7 Albumin/Globulin Ratio 1.0 Urine Color (YELLOW) Urine Appearance (CLEAR) Urine pH (5.0-9.0) Ur Specific [place] (1.005-1.030) Urine Protein (NEGATIVE) Urine Glucose (UA) (NEGATIVE) Urine Ketones (NEGATIVE) Urine Occult Blood (NEGATIVE) Urine Nitrite (NEGATIVE) Urine Bilirubin (NEGATIVE) Urine Urobilinogen (0.2-1.0) mg/dL Ur Leukocyte Esterase (NEGATIVE) Urine RBC (0-5) /HPF Urine WBC (0-5/HPF) /HPF Ur Epithelial Cells (NOT SEEN) /HPF Influenza Type A RNA Negative (NEGATIVE) Influenza Type B RNA Negative (NEGATIVE) SARS-CoV-2 RNA (MITCHELL) Negative (NEGATIVE) 07/23/21 07/23/21 07/23/21 Range/Units 17:35 17:35 18:08 WBC (5.0-10.0) 10^3/uL RBC (4.6-6.2) 10^6/uL Hgb (14.0-18.0) g/dL Hct (40.0-54.0) % MCV (80-100) fL MCH (27.0-34.0) pg MCHC (33.0-35.0) g/dL Plt Count (150-450) 10^3/uL Neut % (Auto) (42.2-75.2) % Lymph % (Auto) (20.5-50.1) % Bates % (Auto) (2-8) % Eos % (Auto) (1.0-3.0) % Baso % (Auto) (0.0-1.0) % Sodium (136-145) mmol/L Potassium (3.5-5.1) mmol/L Chloride (98-107) mmol/L Carbon Dioxide (21-32) mmol/L Anion Gap (7-13) mEq/L BUN (7-18) mg/dL Creatinine (0.70-1.30) mg/dL Est Cr Clr Drug Dosing Estimated GFR (MDRD) BUN/Creatinine Ratio (No establ ref range) Glucose (70-99) mg/dL Lactic Acid 1.9 (0.4-2.0) mmol/L Calcium (8.5-10.1) mg/dL Total Bilirubin (0.2-1.0) mg/dL AST (15-37) U/L ALT (16-63) U/L Alkaline Phosphatase (46-116) U/L Troponin I High Sens (<=76) pg/mL B-Natriuretic Peptide 21 (0-100) pg/ml Total Protein (6.4-8.2) g/dL Albumin (3.4-5.0) g/dL Globulin Albumin/Globulin Ratio Urine Color Yellow (YELLOW) Urine Appearance Clear (CLEAR) Urine pH 6.0 (5.0-9.0) Ur Specific [place] 1.020 (1.005-1.030) Urine Protein Negative (NEGATIVE) Urine Glucose (UA) Negative (NEGATIVE) Urine Ketones Negative (NEGATIVE) Urine Occult Blood Trace-intact H (NEGATIVE) Urine Nitrite Negative (NEGATIVE) Urine Bilirubin Negative (NEGATIVE) Urine Urobilinogen 1.0 (0.2-1.0) mg/dL Ur Leukocyte Esterase Negative (NEGATIVE) Urine RBC 0-5 (0-5) /HPF Urine WBC Not seen (0-5/HPF) /HPF Ur Epithelial Cells Rare (NOT SEEN) /HPF Influenza Type A RNA (NEGATIVE) Influenza Type B RNA (NEGATIVE) SARS-CoV-2 RNA (MIT[place]LL) (NEGATIVE) Meds: Medications Discontinued Medications Generic Name Dose Route Start Last Admin Trade Name Freq PRN Reason Stop Dose Admin Acetaminophen 650 mg 07/23/21 17:42 07/23/21 17:50 Acetaminophen 325 Mg Tab PO 07/23/21 17:43 650 mg NOW ONE Administration Albuterol/Ipratropium 3 ml 07/23/21 18:33 07/23/21 18:47 Albuterol/Ipratropium 3.0-0.5 Mg/3 Ml Neb Soln NEB 07/23/21 18:34 3 ml ONETIME ONE Administration - Radiology Interpretation Free Text/Narrative:: ASHLEY Bernal, accepting patient for admission [facility]. Code status discussed with patient and . Patient and requesting full code Departure - Departure Time of Disposition: 20:26 Condition: Good - Discharge Information *PRESCRIPTION DRUG MONITORING PROGRAM REVIEWED*: No *COPY OF PRESCRIPTION DRUG MONITORING REPORT IN PATIENT JULIANNA: No Sepsis Event Note (ED) - Focused Exam Vital Signs: Vital Signs Temp Temp Pulse Resp BP Pulse Ox 07/23/21 19:01 102 F H 97 22 H 120/68 91 L 07/23/21 18:47 99 07/23/21 17:50 216.3 F H 07/23/21 17:37 102.7 F H 30 H 07/23/21 17:32 21 H 92 L 07/23/21 17:25 109 H 144/86 H 71 L 07/23/21 17:22 100.3 F - My Orders Last 24 Hours: My Active Orders 07/23/21 20:20 Admission Diagnosis [ADT] Stat Patient Status [ADT] Stat 07/23/21 20:28 Code Status [Resuscitation Status] Stat - Assessment/Plan Last 24 Hours: My Active Orders 07/23/21 20:20 Admission Diagnosis [ADT] Stat Patient Status [ADT] Stat 07/23/21 20:28 Code Status [Resuscitation Status] Stat
[2021-07-23] MEDS ORDERED: Albuterol/Ipratropium 3.0-0.5 MG/3 ML Neb Soln NEB ONE (18:33)
--- NOTE | 2021-07-23 20:01 | CR ---
PROCEDURE INFORMATION: Exam: XR Chest Exam date and time: 07/23/2021 6:39 PM Age: 85 years old Clinical indication: Other: Shortness of breath TECHNIQUE: Imaging protocol: XR of the chest. Views: 1 view. COMPARISON: CT Chest w Cont 04/11/2021 10:08 AM FINDINGS: Lungs: Borderline vascular congestion. No focal consolidation. Pleural spaces: Unremarkable. No pleural effusion. No pneumothorax. Heart/Mediastinum: Unremarkable. No cardiomegaly. Bones/joints: Unremarkable. IMPRESSION: Borderline vascular congestion
[2021-07-23] MEDS ORDERED: Albuterol/Ipratropium 3.0-0.5 MG/3 ML Neb Soln NEB PRN (21:47)
[2021-07-23] MEDS ORDERED: 50% Dextrose in Water 50 ML Syringe IVPUSH PRN (21:48)
[2021-07-23] MEDS ORDERED: Acetaminophen/HYDROcodone 325-10 MG Tab PO PRN (21:51)
[2021-07-23] MEDS ORDERED: Docusate Sodium 100 MG Cap PO PRN (21:51)
[2021-07-23] MEDS ORDERED: Acetaminophen 650 MG Supp RECTAL PRN (21:51)
[2021-07-23] MEDS ORDERED: Ondansetron 4 MG Tab.DIS PO PRN (21:51)
--- NOTE | 2021-07-23 21:59 | PCM.HP ---
H&P History of Present Illness - General Date of Service: 07/23/21 Admit Problem/Dx: Admission Diagnosis/Problem Admission Diagnosis/Problem Pneumonia Source of Information: Patient, Family - History of Present Illness Initial Comments - Free Text/Narative: h/o copd, home oxygen use developed cough, sob, sputum with increasing severity since last friday no associated chest pain, no swelling - Related Data Allergies/Adverse Reactions: Allergies Allergy/AdvReac Type Severity Reaction Status Date / Time zolpidem [From Ambien] AdvReac Change Verified 07/23/21 19:10 Mental Status Home Medications: Home Meds Acetaminophen/Pamabrom [Cramp Tablet] 1 each PO BID 07/23/21 [History] Albuterol [Ventolin HFA] 1 puff .XX Q4H PRN 07/23/21 [History] Ascorbic Acid [Vitamin C] 250 mg PO TID 07/23/21 [History] Budesonide/Formoterol Fumarate [Symbicort 160-4.5 Mcg Inhaler] 6 gm IH BID 07/23/21 [History] Cholecalciferol (Vitamin D3) [Vitamin D3] 1,250 mcg PO DAILY 07/23/21 [History] Ferrous Sulfate [Ferosul] 325 mg PO DAILY 07/23/21 [History] Levothyroxine [Synthroid] 50 mcg PO ACBREAKFAST 07/23/21 [History] Omeprazole 40 mg PO DAILY 07/23/21 [History] Pregabalin 300 mg PO BID 07/23/21 [History] Tamsulosin HCl [Flomax] 0.4 mg PO BEDTIME 07/23/21 [History] Vit C/E/Zn/Coppr/Lutein/Zeaxan [Preservision Areds 2 Softgel] 2 cap PO DAILY 07/23/21 [History] atorvaSTATin [Lipitor] 10 mg PO BEDTIME 07/23/21 [History] metFORMIN [Glucophage] 500 mg PO BIDMEALS 07/23/21 [History] Past Medical History HEENT History: Reports: Cataract, Epistaxis, Macular Degeneration, Other (See Below) Other HEENT History: throat tickle that moves up to eye, nose bleeds years ago, not in awhile Cardiovascular History: Reports: High Cholesterol, Other (See Below) Other Cardiovascular History: AAA Respiratory History: Reports: Bronchitis, Recurrent, COPD, Pneumonia, Recurrent Gastrointestinal History: Reports: GERD, Hemorrhoids, Other (See Below) Other Gastrointestinal History: got hemorrhoids fixed per pt Genitourinary History: Reports: BPH, Retention, Urinary Musculoskeletal History: Reports: Arthritis, Back Pain, Chronic Other Musculoskeletal History: arms Neurological History: Reports: Neuropathy, Diabetic Psychiatric History: Reports: Anxiety Other Psychiatric History: per reports, since s Endocrine/Metabolic History: Reports: Diabetes, Type II, Hypothyroidism Hematologic History: Reports: Anemia, Blood Transfusion(s) Immunologic History: Reports: None Oncologic (Cancer) History: Reports: None Dermatologic History: Reports: Other (See Below) Other Dermatologic History: skin tags - Infectious Disease History Infectious Disease History: Reports: Chicken Pox, Measles, Mumps - Past Surgical History HEENT Surgical History: Reports: Cataract Surgery Other HEENT Surgeries/Procedures: bilat cataract removal 2006, injections in eye every 6 weeks for macular degeneration Cardiovascular Surgical History: Reports: AAA Repair Other Cardiovascular Surgeries/Procedures: 01/25/15 with stent Respiratory Surgical History: Reports: None GI Surgical History: Reports: Appendectomy, Other (See Below) Other GI Surgeries/Procedures: hemorrhoidectomy Endocrine Surgical History: Reports: None Neurological Surgical History: Reports: Other (See Below) Other Neurological Surgeries/Procedures: spine surgery 2003, 2004 Musculoskeletal Surgical History: Reports: None Other Musculoskeletal Surgeries/Procedures:: spinal surgery x2 (2003, 2004) Dermatological Surgical History: Reports: None Social & Family History - Family History Family Medical History: No Pertinent Family History Cardiac: Reports: CAD, Other (See Below) Other Cardiac Family History: mother of [place] Other Oncologic Family History: sister? - Tobacco Use Tobacco Use Status *Q: Never Tobacco User Second Hand Smoke Exposure: No - Caffeine Use Caffeine Use: Reports: Coffee Other Caffeine Use: 3/day - Living Situation & Occupation Living situation: Reports: , with Spouse Occupation: Retired H&P Review of Systems - Review of Systems: Review Of Systems: See Below General: Reports: Fever, Chills, Malaise, Weakness Pulmonary: Reports: Shortness of Breath, Wheezing Cardiovascular: Denies: Chest Pain, Palpitations, Edema Gastrointestinal: Denies: Abdominal Pain, Diarrhea Genitourinary: Denies: Dysuria Psychiatric: Denies: Confusion Exam - Exam Exam: See Below - Vital Signs Vital Signs: Last Vital Signs Temp 99.7 F 07/23/21 20:41 Pulse 86 07/23/21 20:41 Resp 20 07/23/21 20:41 BP 125/57 L 07/23/21 20:41 Pulse Ox 93 L 07/23/21 20:41 Weight: 168 lb - Exam Quality Assessment: Supplemental Oxygen General: Alert, Oriented Neck: Supple Lungs: Normal Respiratory Effort, Rhonchi, Wheezing Cardiovascular: Regular Rate, Regular Rhythm GI/Abdominal Exam: Normal Bowel Sounds, Soft, Non-Tender Extremities: No Pedal Edema - Patient Data Lab Results Last 24 hrs: Laboratory Results - last 24 hr 07/23/21 07/23/21 07/23/21 Range/Units 17:21 17:35 17:35 WBC 5.0 (5.0-10.0) 10^3/uL RBC 4.54 L (4.6-6.2) 10^6/uL Hgb 14.7 (14.0-18.0) g/dL Hct 44.8 (40.0-54.0) % MCV 98.7 (80-100) fL MCH 32.4 (27.0-34.0) pg MCHC 32.8 L (33.0-35.0) g/dL Plt Count 116 L (150-450) 10^3/uL Neut % (Auto) 60.5 (42.2-75.2) % Lymph % (Auto) 14.1 L (20.5-50.1) % [place] % (Auto) 20.8 H (2-8) % Eos % (Auto) 3.0 (1.0-3.0) % Baso % (Auto) 1.6 H (0.0-1.0) % Sodium 137 D (136-145) mmol/L Potassium 4.1 (3.5-5.1) mmol/L Chloride 101 (98-107) mmol/L Carbon Dioxide 29 (21-32) mmol/L Anion Gap 11.1 (7-13) mEq/L BUN 11 (7-18) mg/dL Creatinine 0.98 (0.70-1.30) mg/dL Est Cr Clr Drug Dosing TNP Estimated GFR (MDRD) > 60 BUN/Creatinine Ratio 11.2 (No establ ref range) Glucose 137 H (70-99) mg/dL Lactic Acid (0.4-2.0) mmol/L Calcium 8.6 (8.5-10.1) mg/dL Total Bilirubin 0.7 (0.2-1.0) mg/dL AST 34 (15-37) U/L ALT 34 (16-63) U/L Alkaline Phosphatase 164 H (46-116) U/L Troponin I High Sens 6 (<=76) pg/mL B-Natriuretic Peptide (0-100) pg/ml Total Protein 7.4 (6.4-8.2) g/dL Albumin 3.7 (3.4-5.0) g/dL Globulin 3.7 Albumin/Globulin Ratio 1.0 Urine Color (YELLOW) Urine Appearance (CLEAR) Urine pH (5.0-9.0) Ur Specific [place] (1.005-1.030) Urine Protein (NEGATIVE) Urine Glucose (UA) (NEGATIVE) Urine Ketones (NEGATIVE) Urine Occult Blood (NEGATIVE) Urine Nitrite (NEGATIVE) Urine Bilirubin (NEGATIVE) Urine Urobilinogen (0.2-1.0) mg/dL Ur Leukocyte Esterase (NEGATIVE) Urine RBC (0-5) /HPF Urine WBC (0-5/HPF) /HPF Ur Epithelial Cells (NOT SEEN) /HPF Influenza Type A RNA Negative (NEGATIVE) Influenza Type B RNA Negative (NEGATIVE) SARS-CoV-2 RNA (MITCHELL) Negative (NEGATIVE) 07/23/21 07/23/21 07/23/21 Range/Units 17:35 17:35 18:08 WBC (5.0-10.0) 10^3/uL RBC (4.6-6.2) 10^6/uL Hgb (14.0-18.0) g/dL Hct (40.0-54.0) % MCV (80-100) fL MCH (27.0-34.0) pg MCHC (33.0-35.0) g/dL Plt Count (150-450) 10^3/uL Neut % (Auto) (42.2-75.2) % Lymph % (Auto) (20.5-50.1) % [place] % (Auto) (2-8) % Eos % (Auto) (1.0-3.0) % Baso % (Auto) (0.0-1.0) % Sodium (136-145) mmol/L Potassium (3.5-5.1) mmol/L Chloride (98-107) mmol/L Carbon Dioxide (21-32) mmol/L Anion Gap (7-13) mEq/L BUN (7-18) mg/dL Creatinine (0.70-1.30) mg/dL Est Cr Clr Drug Dosing Estimated GFR (MDRD) BUN/Creatinine Ratio (No establ ref range) Glucose (70-99) mg/dL Lactic Acid 1.9 (0.4-2.0) mmol/L Calcium (8.5-10.1) mg/dL Total Bilirubin (0.2-1.0) mg/dL AST (15-37) U/L ALT (16-63) U/L Alkaline Phosphatase (46-116) U/L Troponin I High Sens (<=76) pg/mL B-Natriuretic Peptide 21 (0-100) pg/ml Total Protein (6.4-8.2) g/dL Albumin (3.4-5.0) g/dL Globulin Albumin/Globulin Ratio Urine Color Yellow (YELLOW) Urine Appearance Clear (CLEAR) Urine pH 6.0 (5.0-9.0) Ur Specific [place] 1.020 (1.005-1.030) Urine Protein Negative (NEGATIVE) Urine Glucose (UA) Negative (NEGATIVE) Urine Ketones Negative (NEGATIVE) Urine Occult Blood Trace-intact H (NEGATIVE) Urine Nitrite Negative (NEGATIVE) Urine Bilirubin Negative (NEGATIVE) Urine Urobilinogen 1.0 (0.2-1.0) mg/dL Ur Leukocyte Esterase Negative (NEGATIVE) Urine RBC 0-5 (0-5) /HPF Urine WBC Not seen (0-5/HPF) /HPF Ur Epithelial Cells Rare (NOT SEEN) /HPF Influenza Type A RNA (NEGATIVE) Influenza Type B RNA (NEGATIVE) SARS-CoV-2 RNA ([place]LL) (NEGATIVE) Result Diagrams: 07/23/21 17:35 07/23/21 17:35 - Problem List (1) Acute and chronic respiratory failure ([id number]) SNOMED Code(s): 19416660 ICD Code: J96.20 - ACUTE AND CHR RESP FAILURE, UNSP W HYPOXIA OR HYPERCAPNIA Status: Acute Current Visit: No Qualifiers: Respiratory failure complication: hypoxia Qualified Code(s): J96.21 - Acute and chronic respiratory failure with hypoxia (2) Acute exacerbation of chronic obstructive pulmonary disease (COPD) SNOMED Code(s): 837342282 ICD Code: J44.1 - CHRONIC OBSTRUCTIVE PULMONARY DISEASE W (ACUTE) EXACERBATION Status: Acute Current Visit: No (3) Pneumonia SNOMED Code(s): 860686691 ICD Code: J18.9 - PNEUMONIA, UNSPECIFIED ORGANISM Status: Acute Current Visit: No Qualifiers: Laterality: bilateral Lung location: lower lobe of lung (4) Diabetes SNOMED Code(s): 04462072 ICD Code: E11.9 - TYPE 2 DIABETES MELLITUS WITHOUT COMPLICATIONS Status: Chronic Priority: Medium Current Visit: No Qualifiers: Diabetes mellitus type: type 2 Diabetes mellitus complication status: without complication Qualified Code(s): E11.9 - Type 2 diabetes mellitus without complications (5) Gastroesophageal reflux SNOMED Code(s): 348666284 ICD Code: K21.9 - GASTRO-ESOPHAGEAL REFLUX DISEASE WITHOUT ESOPHAGITIS Status: Chronic Current Visit: No (6) Hyperlipidemia SNOMED Code(s): 44028313 ICD Code: E78.5 - HYPERLIPIDEMIA, UNSPECIFIED Status: Chronic Current Visit: No (7) Type 2 diabetes mellitus SNOMED Code(s): 88734706 ICD Code: E11.9 - TYPE 2 DIABETES MELLITUS WITHOUT COMPLICATIONS Status: Chronic Current Visit: No Problem List Initiated/Reviewed/Updated: Yes Orders Last 24hrs: Active Orders 24 hr Category Date Time Status Admission Diagnosis [ADT] Stat ADT 07/23/21 20:20 Ordered Patient Status [ADT] Stat ADT 07/23/21 20:20 Active Antiembolic Devices [RC] PER UNIT ROUTINE Care 07/23/21 21:53 Ordered Blood Glucose Check, Bedside [RC] WITHMEALSANDBED Care 07/23/21 21:48 Ordered Oxygen Therapy [RC] PRN Care 07/23/21 21:51 Ordered Peripheral IV Care [RC] . DIRECTED Care 07/23/21 21:53 Ordered RT Aerosol Therapy [RC] ASDIRECTED Care 07/23/21 18:33 Active RT Aerosol Therapy [RC] ASDIRECTED Care 07/23/21 21:48 Ordered Up With Assistance [RC] ASDIRECTED Care 07/23/21 21:51 Ordered VTE/DVT Education [RC] PER UNIT ROUTINE Care 07/23/21 21:51 Ordered Vital Signs [RC] Q4H Care 07/23/21 21:51 Ordered Consistent Carbohydrate Diet [DIET] Diet 07/23/21 Breakfast Ordered BASIC METABOLIC PANEL,BMP [CHEM] AM Lab 07/24/21 05:11 Ordered BASIC METABOLIC PANEL,BMP [CHEM] AM Lab 07/25/21 05:11 Ordered BASIC METABOLIC PANEL,BMP [CHEM] AM Lab 07/26/21 05:11 Ordered BASIC METABOLIC PANEL,BMP [CHEM] AM Lab 07/27/21 05:11 Ordered BASIC METABOLIC PANEL,BMP [CHEM] AM Lab 07/28/21 05:11 Ordered CBC W/O DIFF,HEMOGRAM [HEME] AM Lab 07/24/21 05:11 Ordered CBC W/O DIFF,HEMOGRAM [HEME] AM Lab 07/25/21 05:11 Ordered CBC W/O DIFF,HEMOGRAM [HEME] AM Lab 07/26/21 05:11 Ordered CBC W/O DIFF,HEMOGRAM [HEME] AM Lab 07/27/21 05:11 Ordered CBC W/O DIFF,HEMOGRAM [HEME] AM Lab 07/28/21 05:11 Ordered CULTURE BLOOD [BC] Stat Lab 07/23/21 17:35 Received PROCALCITONIN [REF] Routine Lab 07/23/21 21:46 Ordered Acetaminophen [Tylenol] Med 07/23/21 21:51 Ordered 650 mg RECTAL Q4H PRN Acetaminophen/HYDROcodone [[place] 325-10 MG] Med 07/23/21 21:51 Ordered 0.5 tab PO Q4H PRN Albuterol/Ipratropium [DuoNeb 3.0-0.5 MG/3 ML] Med 07/23/21 21:47 Ordered 3 ml NEB Q2H PRN Albuterol/Ipratropium [DuoNeb 3.0-0.5 MG/3 ML] Med 07/24/21 09:00 Ordered 3 ml NEB TID Ascorbic Acid [Vitamin C] Med 07/24/21 09:00 Ordered 250 mg PO TID Azithromycin [Zithromax] 500 mg Med 07/23/21 22:00 Ordered Sodium Chloride 0.9% [Normal Saline AdvBag] 250 ml IV Q24H Budesonide [Pulmicort] Med 07/23/21 22:00 Ordered 0.5 mg NEB BIDRT Cholecalciferol (Vitamin D3) [Vitamin D3] Med 07/24/21 09:00 Ordered 1,250 mcg PO DAILY Dextrose 50% in Water Med 07/23/21 21:48 Ordered 25 ml IVPUSH ASDIRECTED PRN Docusate Sodium [Colace] Med 07/23/21 21:51 Ordered 100 mg PO BID PRN Ferrous Sulfate Med 07/24/21 09:00 Ordered 325 mg PO DAILY Heparin Sodium Med 07/23/21 22:00 Ordered 5,000 units SUBCUT Q8HR Insulin Lispro [HumaLOG] Med 07/24/21 08:00 Ordered See Protocol SUBCUT WITHMEALSANDBED Levothyroxine [Synthroid] Med 07/24/21 06:00 Ordered 50 mcg PO ACBREAKFAST Multivitamins/Minerals [Vitamins and Minerals] Med 07/24/21 08:00 Ordered 1 tab PO WITHBREAKFAST Omeprazole [Omeprazole] Med 07/24/21 09:00 Ordered 40 mg PO DAILY Ondansetron [Zofran ODT] Med 07/23/21 21:51 Ordered 4 mg PO Q6H PRN Pregabalin [Pregabalin] Med 07/24/21 09:00 Ordered 300 mg PO BID Sodium Chloride 0.9% [Saline Flush] Med 07/23/21 21:51 Ordered 10 ml FLUSH ASDIRECTED PRN Tamsulosin [Flomax] Med 07/24/21 21:00 Ordered 0.4 mg PO BEDTIME Temazepam [Restoril] Med 07/23/21 21:51 Ordered 15 mg PO BEDTIME PRN atorvaSTATin [Lipitor] Med 07/24/21 21:00 Ordered 10 mg PO BEDTIME Antiembolic Hose [OM.PC] Per Unit Routine Oth 07/23/21 21:52 Ordered Peripheral IV Insertion Adult [OM.PC] Routine Oth 07/23/21 21:51 Ordered Saline Lock Insert [OM.PC] Routine Oth 07/23/21 21:51 Ordered Resuscitation Status Routine Resus Stat 07/23/21 21:51 Ordered Medication Orders Acetaminophen (Acetaminophen 650 Mg Supp) 650 mg RECTAL Q4H PRN PRN Reason: Pain (mild 1-3) Hydrocodone Bitart/Acetaminophen (Acetaminophen/Hydrocodone 325-10 Mg Tab) 0.5 tab PO Q4H PRN PRN Reason: Pain (moderate 4-6) Albuterol/Ipratropium (Albuterol/Ipratropium 3.0-0.5 Mg/3 Ml Neb Soln) 3 ml NEB Q2H PRN PRN Reason: sob Albuterol/Ipratropium (Albuterol/Ipratropium 3.0-0.5 Mg/3 Ml Neb Soln) 3 ml NEB TID [facility] Atorvastatin Calcium (Atorvastatin 10 Mg Tab) 10 mg PO BEDTIME MIRANDA Budesonide (Budesonide 0.5 Mg/2 Ml Neb Susp) 0.5 mg NEB BIDRT [facility] Dextrose/Water (50% Dextrose In Water 50 Ml Syringe) 25 ml IVPUSH ASDIRECTED PRN PRN Reason: Hypoglycemia BS<70 Docusate Sodium (Docusate Sodium 100 Mg Cap) 100 mg PO BID PRN PRN Reason: Constipation Ferrous Sulfate (Ferrous Sulfate 325 Mg Tab) 325 mg PO DAILY [facility] Heparin Sodium (Porcine) (Heparin Sodium 5,000 Units/Ml Vial) 5,000 units SUBCUT Q8HR [facility] Azithromycin 500 mg/ Sodium (Chloride) 250 mls @ 250 mls/hr IV Q24H [facility] Insulin Human Lispro (Insulin Lispro 100 Units/Ml 3 Ml Vial) 0 unit SUBCUT WITHMEALSANDBED MIRANDA; Protocol Levothyroxine Sodium (Levothyroxine 50 Mcg Tab) 50 mcg PO ACBREAKFAST [facility] Multivitamins/Minerals (Multivitamins, Therapeutic With Minerals Tab) 1 tab PO WITHBREAKFAST [facility] Non-Formulary Medication (Cholecalciferol (Vitamin D3) [Vitamin D3]) 1,250 mcg PO DAILY [facility] Non-Formulary Medication (Ascorbic Acid [Vitamin C]) 250 mg PO TID [facility] Non-Formulary Medication (Omeprazole [Omeprazole]) 40 mg PO DAILY [facility] Non-Formulary Medication (Pregabalin [Pregabalin]) 300 mg PO BID [facility] Ondansetron HCl (Ondansetron 4 Mg Tab.Dis) 4 mg PO Q6H PRN PRN Reason: nausea, able to take PO Sodium Chloride (Sodium Chloride 0.9% 10 Ml Syringe) 10 ml FLUSH ASDIRECTED PRN PRN Reason: Keep Vein Open Tamsulosin HCl (Tamsulosin 0.4 Mg Cap.Er) 0.4 mg PO BEDTIME MIRANDA Temazepam (Temazepam 15 Mg Cap) 15 mg PO BEDTIME PRN PRN Reason: Sleep Assessment/Plan Comment:: c/o cough, fever, sob, Acute on chronic hypoxemic respiratory failure Will supplement oxygen as needed Acute RSV pneumonia Symptom onset: about 07/20/21 RSV swab positive: 07/23/21 Supportive treatment Follow daily cbc, bmp Evaluations for concurrent bacterial pneumonia: Procalcitonin: pending Possible community acquired atypical bacterial pneumonia based on cxr Treat with azithromycin COPD treat with pulmicort Duoneb scheduled and as needed Dyslipidemia Cont Lipitor Dm Hold metformin Follow BS Use supplemental insulin and hypoglycemia protocol as needed Code status: discussed on admission : DNR
[2021-07-23] MEDS ORDERED: Acetaminophen 325 MG Tab PO PRN (22:20)
[2021-07-23] MEDS: Azithromycin 500 MG in Sodium Chloride 0.9% 250 ML IV SCH (22:42)
[2021-07-23] MEDS: Budesonide 0.5 MG/2 ML Neb Susp NEB SCH (22:43)
[2021-07-23] MEDS: Temazepam 15 MG Cap PO PRN (22:43)
[2021-07-23] MEDS: Heparin Sodium 5,000 Units/ML Vial SUBCUT SCH (22:43)
[2021-07-24] MEDS: Heparin Sodium 5,000 Units/ML Vial SUBCUT SCH ×3 (05:41→21:09)
[2021-07-24] MEDS: Levothyroxine 50 MCG Tab PO SCH (05:41)
[2021-07-24 06:59] LABS: ANION GAP 9.9 mEq/L (7-13); CHLORIDE,CL 104 mmol/L (98-107); SODIUM,NA 143 mmol/L (136-145)
[2021-07-24] MEDS: Albuterol/Ipratropium 3.0-0.5 MG/3 ML Neb Soln NEB SCH ×3 (07:21→18:26)
[2021-07-24] MEDS: Budesonide 0.5 MG/2 ML Neb Susp NEB SCH ×2 (07:26→18:26)
[2021-07-24] MEDS: Ferrous Sulfate 325 MG Tab PO SCH (09:01)
[2021-07-24] MEDS: Ascorbic Acid 500 MG Tab PO SCH ×3 (09:01→21:11)
[2021-07-24] MEDS: Multivitamins, Therapeutic with Minerals Tab PO SCH (09:01)
[2021-07-24] MEDS: Omeprazole 20 MG Cap.CR PO SCH (09:02)
[2021-07-24] MEDS: Insulin Lispro 100 Units/ML 3 ML Vial SUBCUT SCH ×4 (09:04→21:07)
--- NOTE | 2021-07-24 10:09 | PCM.PN ---
- General Info Date of Service: 07/24/21 Subjective Update: feeling ok mild sob associated with cough, started days ago no significant fever since admission no cp Functional Status: Reports: Tolerating Diet - Review of Systems General: Reports: Weakness Pulmonary: Reports: Shortness of Breath, Cough Cardiovascular: Reports: Chest Pain Gastrointestinal: Denies: Abdominal Pain Genitourinary: Denies: Dysuria - Patient Data Vitals - Most Recent: Last Vital Signs Temp 98.1 F 07/24/21 08:13 Pulse 89 07/24/21 08:13 Resp 20 07/24/21 08:13 BP 104/53 L 07/24/21 08:13 Pulse Ox 92 L 07/24/21 08:13 Weight - Most Recent: 168 lb I&O - Last 24 Hours: Intake & Output 07/23/21 07/24/21 07/24/21 22:59 06:59 14:59 Intake Total 452 Output Total 300 Balance 152 Lab Results Last 24 Hours: Laboratory Results - last 24 hr 07/23/21 07/23/21 07/23/21 Range/Units 17:21 17:35 17:35 WBC 5.0 (5.0-10.0) 10^3/uL RBC 4.54 L (4.6-6.2) 10^6/uL Hgb 14.7 (14.0-18.0) g/dL Hct 44.8 (40.0-54.0) % MCV 98.7 (80-100) fL MCH 32.4 (27.0-34.0) pg MCHC 32.8 L (33.0-35.0) g/dL Plt Count 116 L (150-450) 10^3/uL Neut % (Auto) 60.5 (42.2-75.2) % Lymph % (Auto) 14.1 L (20.5-50.1) % Gem % (Auto) 20.8 H (2-8) % Eos % (Auto) 3.0 (1.0-3.0) % Baso % (Auto) 1.6 H (0.0-1.0) % Sodium 137 D (136-145) mmol/L Potassium 4.1 (3.5-5.1) mmol/L Chloride 101 (98-107) mmol/L Carbon Dioxide 29 (21-32) mmol/L Anion Gap 11.1 (7-13) mEq/L BUN 11 (7-18) mg/dL Creatinine 0.98 (0.70-1.30) mg/dL Est Cr Clr Drug Dosing TNP Estimated GFR (MDRD) > 60 BUN/Creatinine Ratio 11.2 (No establ ref range) Glucose 137 H (70-99) mg/dL POC Glucose (70-99) mg/dL Lactic Acid (0.4-2.0) mmol/L Calcium 8.6 (8.5-10.1) mg/dL Total Bilirubin 0.7 (0.2-1.0) mg/dL AST 34 (15-37) U/L ALT 34 (16-63) U/L Alkaline Phosphatase 164 H (46-116) U/L Troponin I High Sens 6 (<=76) pg/mL B-Natriuretic Peptide (0-100) pg/ml Total Protein 7.4 (6.4-8.2) g/dL Albumin 3.7 (3.4-5.0) g/dL Globulin 3.7 Albumin/Globulin Ratio 1.0 Urine Color (YELLOW) Urine Appearance (CLEAR) Urine pH (5.0-9.0) Ur Specific [place] (1.005-1.030) Urine Protein (NEGATIVE) Urine Glucose (UA) (NEGATIVE) Urine Ketones (NEGATIVE) Urine Occult Blood (NEGATIVE) Urine Nitrite (NEGATIVE) Urine Bilirubin (NEGATIVE) Urine Urobilinogen (0.2-1.0) mg/dL Ur Leukocyte Esterase (NEGATIVE) Urine RBC (0-5) /HPF Urine WBC (0-5/HPF) /HPF Ur Epithelial Cells (NOT SEEN) /HPF Influenza Type A RNA Negative (NEGATIVE) Influenza Type B RNA Negative (NEGATIVE) SARS-CoV-2 RNA ([place]) Negative (NEGATIVE) 07/23/21 07/23/21 07/23/21 Range/Units 17:35 17:35 18:08 WBC (5.0-10.0) 10^3/uL RBC (4.6-6.2) 10^6/uL Hgb (14.0-18.0) g/dL Hct (40.0-54.0) % MCV (80-100) fL MCH (27.0-34.0) pg MCHC (33.0-35.0) g/dL Plt Count (150-450) 10^3/uL Neut % (Auto) (42.2-75.2) % Lymph % (Auto) (20.5-50.1) % Gem % (Auto) (2-8) % Eos % (Auto) (1.0-3.0) % Baso % (Auto) (0.0-1.0) % Sodium (136-145) mmol/L Potassium (3.5-5.1) mmol/L Chloride (98-107) mmol/L Carbon Dioxide (21-32) mmol/L Anion Gap (7-13) mEq/L BUN (7-18) mg/dL Creatinine (0.70-1.30) mg/dL Est Cr Clr Drug Dosing Estimated GFR (MDRD) BUN/Creatinine Ratio (No establ ref range) Glucose (70-99) mg/dL POC Glucose (70-99) mg/dL Lactic Acid 1.9 (0.4-2.0) mmol/L Calcium (8.5-10.1) mg/dL Total Bilirubin (0.2-1.0) mg/dL AST (15-37) U/L ALT (16-63) U/L Alkaline Phosphatase (46-116) U/L Troponin I High Sens (<=76) pg/mL B-Natriuretic Peptide 21 (0-100) pg/ml Total Protein (6.4-8.2) g/dL Albumin (3.4-5.0) g/dL Globulin Albumin/Globulin Ratio Urine Color Yellow (YELLOW) Urine Appearance Clear (CLEAR) Urine pH 6.0 (5.0-9.0) Ur Specific [place] 1.020 (1.005-1.030) Urine Protein Negative (NEGATIVE) Urine Glucose (UA) Negative (NEGATIVE) Urine Ketones Negative (NEGATIVE) Urine Occult Blood Trace-intact H (NEGATIVE) Urine Nitrite Negative (NEGATIVE) Urine Bilirubin Negative (NEGATIVE) Urine Urobilinogen 1.0 (0.2-1.0) mg/dL Ur Leukocyte Esterase Negative (NEGATIVE) Urine RBC 0-5 (0-5) /HPF Urine WBC Not seen (0-5/HPF) /HPF Ur Epithelial Cells Rare (NOT SEEN) /HPF Influenza Type A RNA (NEGATIVE) Influenza Type B RNA (NEGATIVE) SARS-CoV-2 RNA ([place]) (NEGATIVE) 07/24/21 07/24/21 07/24/21 Range/Units 05:50 05:50 07:56 WBC 4.0 L (5.0-10.0) 10^3/uL RBC 4.23 L (4.6-6.2) 10^6/uL Hgb 13.5 L (14.0-18.0) g/dL Hct 42.4 (40.0-54.0) % MCV 100.2 H (80-100) fL MCH 31.9 (27.0-34.0) pg MCHC 31.8 L (33.0-35.0) g/dL Plt Count 123 L (150-450) 10^3/uL Neut % (Auto) (42.2-75.2) % Lymph % (Auto) (20.5-50.1) % Gem % (Auto) (2-8) % Eos % (Auto) (1.0-3.0) % Baso % (Auto) (0.0-1.0) % Sodium 143 (136-145) mmol/L Potassium 3.9 (3.5-5.1) mmol/L Chloride 104 (98-107) mmol/L Carbon Dioxide 33 H (21-32) mmol/L Anion Gap 9.9 (7-13) mEq/L BUN 10 (7-18) mg/dL Creatinine 0.87 (0.70-1.30) mg/dL Est Cr Clr Drug Dosing 62.93 Estimated GFR (MDRD) > 60 BUN/Creatinine Ratio (No establ ref range) Glucose 113 H (70-99) mg/dL POC Glucose 118 H (70-99) mg/dL Lactic Acid (0.4-2.0) mmol/L Calcium 8.4 L (8.5-10.1) mg/dL Total Bilirubin (0.2-1.0) mg/dL AST (15-37) U/L ALT (16-63) U/L Alkaline Phosphatase (46-116) U/L Troponin I High Sens (<=76) pg/mL B-Natriuretic Peptide (0-100) pg/ml Total Protein (6.4-8.2) g/dL Albumin (3.4-5.0) g/dL Globulin Albumin/Globulin Ratio Urine Color (YELLOW) Urine Appearance (CLEAR) Urine pH (5.0-9.0) Ur Specific [place] (1.005-1.030) Urine Protein (NEGATIVE) Urine Glucose (UA) (NEGATIVE) Urine Ketones (NEGATIVE) Urine Occult Blood (NEGATIVE) Urine Nitrite (NEGATIVE) Urine Bilirubin (NEGATIVE) Urine Urobilinogen (0.2-1.0) mg/dL Ur Leukocyte Esterase (NEGATIVE) Urine RBC (0-5) /HPF Urine WBC (0-5/HPF) /HPF Ur Epithelial Cells (NOT SEEN) /HPF Influenza Type A RNA (NEGATIVE) Influenza Type B RNA (NEGATIVE) SARS-CoV-2 RNA ([place]) (NEGATIVE) Med Orders - Current: Current Medications Acetaminophen (Acetaminophen 325 Mg Tab) 650 mg PO Q4H PRN PRN Reason: Fever Hydrocodone Bitart/Acetaminophen (Acetaminophen/Hydrocodone 325-10 Mg Tab) 0.5 tab PO Q4H PRN PRN Reason: Pain (moderate 4-6) Albuterol/Ipratropium (Albuterol/Ipratropium 3.0-0.5 Mg/3 Ml Neb Soln) 3 ml NEB Q2H PRN PRN Reason: sob Albuterol/Ipratropium (Albuterol/Ipratropium 3.0-0.5 Mg/3 Ml Neb Soln) 3 ml NEB TIDRT [facility] Last Admin: 07/24/21 07:21 Dose: 3 ml Documented by: Ascorbic Acid (Ascorbic Acid 500 Mg Tab) 250 mg PO TID [facility] Last Admin: 07/24/21 09:01 Dose: 250 mg Documented by: Atorvastatin Calcium (Atorvastatin 10 Mg Tab) 10 mg PO BEDTIME [facility] Budesonide (Budesonide 0.5 Mg/2 Ml Neb Susp) 0.5 mg NEB BIDRT [facility] Last Admin: 07/24/21 07:26 Dose: 0.5 mg Documented by: Dextrose/Water (50% Dextrose In Water 50 Ml Syringe) 25 ml IVPUSH ASDIRECTED PRN PRN Reason: Hypoglycemia BS<70 Docusate Sodium (Docusate Sodium 100 Mg Cap) 100 mg PO BID PRN PRN Reason: Constipation Ferrous Sulfate (Ferrous Sulfate 325 Mg Tab) 325 mg PO DAILY [facility] Last Admin: 07/24/21 09:01 Dose: 325 mg Documented by: Heparin Sodium (Porcine) (Heparin Sodium 5,000 Units/Ml Vial) 5,000 units SUBCUT Q8HR [facility] Last Admin: 07/24/21 05:41 Dose: 5,000 units Documented by: Azithromycin 500 mg/ Sodium (Chloride) 250 mls @ 250 mls/hr IV Q24H [facility] Last Admin: 07/23/21 22:42 Dose: 250 mls/hr Documented by: Insulin Human Lispro (Insulin Lispro 100 Units/Ml 3 Ml Vial) 0 unit SUBCUT WITHMEALSANDBED [facility]; Protocol Last Admin: 07/24/21 09:04 Dose: Not Given Documented by: Levothyroxine Sodium (Levothyroxine 50 Mcg Tab) 50 mcg PO ACBREAKFAST [facility] Last Admin: 07/24/21 05:41 Dose: 50 mcg Documented by: Multivitamins/Minerals (Multivitamins, Therapeutic With Minerals Tab) 1 tab PO WITHBREAKFAST [facility] Last Admin: 07/24/21 09:01 Dose: 1 tab Documented by: Omeprazole (Omeprazole 20 Mg Cap.Cr) 40 mg PO DAILY [facility] Last Admin: 07/24/21 09:02 Dose: 40 mg Documented by: Ondansetron HCl (Ondansetron 4 Mg Tab.Dis) 4 mg PO Q6H PRN PRN Reason: nausea, able to take PO Pregabalin (Pregabalin 150 Mg Cap) 300 mg PO BID [facility] Last Admin: 07/24/21 09:02 Dose: 300 mg Documented by: Sodium Chloride (Sodium Chloride 0.9% 10 Ml Syringe) 10 ml FLUSH ASDIRECTED PRN PRN Reason: Keep Vein Open Tamsulosin HCl (Tamsulosin 0.4 Mg Cap.Er) 0.4 mg PO BEDTIME [facility] Temazepam (Temazepam 15 Mg Cap) 15 mg PO BEDTIME PRN PRN Reason: Sleep Last Admin: 07/23/21 22:43 Dose: 15 mg Documented by: Discontinued Medications Acetaminophen (Acetaminophen 325 Mg Tab) 650 mg PO NOW ONE Stop: 07/23/21 17:43 Last Admin: 07/23/21 17:50 Dose: 650 mg Documented by: Albuterol/Ipratropium (Albuterol/Ipratropium 3.0-0.5 Mg/3 Ml Neb Soln) 3 ml NEB ONETIME ONE Stop: 07/23/21 18:34 Last Admin: 07/23/21 18:47 Dose: 3 ml Documented by: - Exam Quality Assessment: Supplemental Oxygen (5 l/min) General: Alert, Oriented Neck: Supple Lungs: Normal Respiratory Effort, Rhonchi, Wheezing Cardiovascular: Regular Rate, Regular Rhythm GI/Abdominal Exam: Normal Bowel Sounds, Soft, Non-Tender Extremities: No Pedal Edema - Patient Data Lab Results Last 24 hrs: Laboratory Results - last 24 hr 07/23/21 07/23/21 07/23/21 Range/Units 17:21 17:35 17:35 WBC 5.0 (5.0-10.0) 10^3/uL RBC 4.54 L (4.6-6.2) 10^6/uL Hgb 14.7 (14.0-18.0) g/dL Hct 44.8 (40.0-54.0) % MCV 98.7 (80-100) fL MCH 32.4 (27.0-34.0) pg MCHC 32.8 L (33.0-35.0) g/dL Plt Count 116 L (150-450) 10^3/uL Neut % (Auto) 60.5 (42.2-75.2) % Lymph % (Auto) 14.1 L (20.5-50.1) % Gem % (Auto) 20.8 H (2-8) % Eos % (Auto) 3.0 (1.0-3.0) % Baso % (Auto) 1.6 H (0.0-1.0) % Sodium 137 D (136-145) mmol/L Potassium 4.1 (3.5-5.1) mmol/L Chloride 101 (98-107) mmol/L Carbon Dioxide 29 (21-32) mmol/L Anion Gap 11.1 (7-13) mEq/L BUN 11 (7-18) mg/dL Creatinine 0.98 (0.70-1.30) mg/dL Est Cr Clr Drug Dosing TNP Estimated GFR (MDRD) > 60 BUN/Creatinine Ratio 11.2 (No establ ref range) Glucose 137 H (70-99) mg/dL POC Glucose (70-99) mg/dL Lactic Acid (0.4-2.0) mmol/L Calcium 8.6 (8.5-10.1) mg/dL Total Bilirubin 0.7 (0.2-1.0) mg/dL AST 34 (15-37) U/L ALT 34 (16-63) U/L Alkaline Phosphatase 164 H (46-116) U/L Troponin I High Sens 6 (<=76) pg/mL B-Natriuretic Peptide (0-100) pg/ml Total Protein 7.4 (6.4-8.2) g/dL Albumin 3.7 (3.4-5.0) g/dL Globulin 3.7 Albumin/Globulin Ratio 1.0 Urine Color (YELLOW) Urine Appearance (CLEAR) Urine pH (5.0-9.0) Ur Specific [place] (1.005-1.030) Urine Protein (NEGATIVE) Urine Glucose (UA) (NEGATIVE) Urine Ketones (NEGATIVE) Urine Occult Blood (NEGATIVE) Urine Nitrite (NEGATIVE) Urine Bilirubin (NEGATIVE) Urine Urobilinogen (0.2-1.0) mg/dL Ur Leukocyte Esterase (NEGATIVE) Urine RBC (0-5) /HPF Urine WBC (0-5/HPF) /HPF Ur Epithelial Cells (NOT SEEN) /HPF Influenza Type A RNA Negative (NEGATIVE) Influenza Type B RNA Negative (NEGATIVE) SARS-CoV-2 RNA ([place]) Negative (NEGATIVE) 07/23/21 07/23/21 07/23/21 Range/Units 17:35 17:35 18:08 WBC (5.0-10.0) 10^3/uL RBC (4.6-6.2) 10^6/uL Hgb (14.0-18.0) g/dL Hct (40.0-54.0) % MCV (80-100) fL MCH (27.0-34.0) pg MCHC (33.0-35.0) g/dL Plt Count (150-450) 10^3/uL Neut % (Auto) (42.2-75.2) % Lymph % (Auto) (20.5-50.1) % Gem % (Auto) (2-8) % Eos % (Auto) (1.0-3.0) % Baso % (Auto) (0.0-1.0) % Sodium (136-145) mmol/L Potassium (3.5-5.1) mmol/L Chloride (98-107) mmol/L Carbon Dioxide (21-32) mmol/L Anion Gap (7-13) mEq/L BUN (7-18) mg/dL Creatinine (0.70-1.30) mg/dL Est Cr Clr Drug Dosing Estimated GFR (MDRD) BUN/Creatinine Ratio (No establ ref range) Glucose (70-99) mg/dL POC Glucose (70-99) mg/dL Lactic Acid 1.9 (0.4-2.0) mmol/L Calcium (8.5-10.1) mg/dL Total Bilirubin (0.2-1.0) mg/dL AST (15-37) U/L ALT (16-63) U/L Alkaline Phosphatase (46-116) U/L Troponin I High Sens (<=76) pg/mL B-Natriuretic Peptide 21 (0-100) pg/ml Total Protein (6.4-8.2) g/dL Albumin (3.4-5.0) g/dL Globulin Albumin/Globulin Ratio Urine Color Yellow (YELLOW) Urine Appearance Clear (CLEAR) Urine pH 6.0 (5.0-9.0) Ur Specific [place] 1.020 (1.005-1.030) Urine Protein Negative (NEGATIVE) Urine Glucose (UA) Negative (NEGATIVE) Urine Ketones Negative (NEGATIVE) Urine Occult Blood Trace-intact H (NEGATIVE) Urine Nitrite Negative (NEGATIVE) Urine Bilirubin Negative (NEGATIVE) Urine Urobilinogen 1.0 (0.2-1.0) mg/dL Ur Leukocyte Esterase Negative (NEGATIVE) Urine RBC 0-5 (0-5) /HPF Urine WBC Not seen (0-5/HPF) /HPF Ur Epithelial Cells Rare (NOT SEEN) /HPF Influenza Type A RNA (NEGATIVE) Influenza Type B RNA (NEGATIVE) SARS-CoV-2 RNA ([place]) (NEGATIVE) 07/24/21 07/24/21 07/24/21 Range/Units 05:50 05:50 07:56 WBC 4.0 L (5.0-10.0) 10^3/uL RBC 4.23 L (4.6-6.2) 10^6/uL Hgb 13.5 L (14.0-18.0) g/dL Hct 42.4 (40.0-54.0) % MCV 100.2 H (80-100) fL MCH 31.9 (27.0-34.0) pg MCHC 31.8 L (33.0-35.0) g/dL Plt Count 123 L (150-450) 10^3/uL Neut % (Auto) (42.2-75.2) % Lymph % (Auto) (20.5-50.1) % Gem % (Auto) (2-8) % Eos % (Auto) (1.0-3.0) % Baso % (Auto) (0.0-1.0) % Sodium 143 (136-145) mmol/L Potassium 3.9 (3.5-5.1) mmol/L Chloride 104 (98-107) mmol/L Carbon Dioxide 33 H (21-32) mmol/L Anion Gap 9.9 (7-13) mEq/L BUN 10 (7-18) mg/dL Creatinine 0.87 (0.70-1.30) mg/dL Est Cr Clr Drug Dosing 62.93 Estimated GFR (MDRD) > 60 BUN/Creatinine Ratio (No establ ref range) Glucose 113 H (70-99) mg/dL POC Glucose 118 H (70-99) mg/dL Lactic Acid (0.4-2.0) mmol/L Calcium 8.4 L (8.5-10.1) mg/dL Total Bilirubin (0.2-1.0) mg/dL AST (15-37) U/L ALT (16-63) U/L Alkaline Phosphatase (46-116) U/L Troponin I High Sens (<=76) pg/mL B-Natriuretic Peptide (0-100) pg/ml Total Protein (6.4-8.2) g/dL Albumin (3.4-5.0) g/dL Globulin Albumin/Globulin Ratio Urine Color (YELLOW) Urine Appearance (CLEAR) Urine pH (5.0-9.0) Ur Specific [place] (1.005-1.030) Urine Protein (NEGATIVE) Urine Glucose (UA) (NEGATIVE) Urine Ketones (NEGATIVE) Urine Occult Blood (NEGATIVE) Urine Nitrite (NEGATIVE) Urine Bilirubin (NEGATIVE) Urine Urobilinogen (0.2-1.0) mg/dL Ur Leukocyte Esterase (NEGATIVE) Urine RBC (0-5) /HPF Urine WBC (0-5/HPF) /HPF Ur Epithelial Cells (NOT SEEN) /HPF Influenza Type A RNA (NEGATIVE) Influenza Type B RNA (NEGATIVE) SARS-CoV-2 RNA ([place]) (NEGATIVE) Result Diagrams: 11/23/21 05:50 07/24/21 05:50 Sepsis Event Note - Evaluation Sepsis Screening Result: No Definite Risk - Focused Exam Vital Signs: Vital Signs Temp Pulse Resp BP Pulse Ox 07/24/21 08:13 98.1 F 89 20 104/53 L 92 L 07/24/21 04:00 99.5 F 80 20 130/64 97 07/23/21 23:57 99.4 F 94 22 H 138/76 93 L - Problem List & Annotations (1) Acute and chronic respiratory failure ([id number]) SNOMED Code(s): 59441995 Code(s): J96.20 - ACUTE AND CHR RESP FAILURE, UNSP W HYPOXIA OR HYPERCAPNIA Status: Acute Current Visit: No Qualifiers: Respiratory failure complication: hypoxia Qualified Code(s): J96.21 - Acute and chronic respiratory failure with hypoxia (2) Acute exacerbation of chronic obstructive pulmonary disease (COPD) SNOMED Code(s): 059362265 Code(s): J44.1 - CHRONIC OBSTRUCTIVE PULMONARY DISEASE W (ACUTE) EXACERBATION Status: Acute Current Visit: No (3) Pneumonia SNOMED Code(s): 508889695 Code(s): J18.9 - PNEUMONIA, UNSPECIFIED ORGANISM Status: Acute Current Visit: No Qualifiers: Laterality: bilateral Lung location: lower lobe of lung (4) Diabetes SNOMED Code(s): 51707056 Code(s): E11.9 - TYPE 2 DIABETES MELLITUS WITHOUT COMPLICATIONS Status: Chronic Priority: Medium Current Visit: No Qualifiers: Diabetes mellitus type: type 2 Diabetes mellitus complication status: without complication Qualified Code(s): E11.9 - Type 2 diabetes mellitus without complications (5) Gastroesophageal reflux SNOMED Code(s): 883003175 Code(s): K21.9 - GASTRO-ESOPHAGEAL REFLUX DISEASE WITHOUT ESOPHAGITIS Status: Chronic Current Visit: No (6) Hyperlipidemia SNOMED Code(s): 16529594 Code(s): E78.5 - HYPERLIPIDEMIA, UNSPECIFIED Status: Chronic Current Visit: No (7) Type 2 diabetes mellitus SNOMED Code(s): 91154303 Code(s): E11.9 - TYPE 2 DIABETES MELLITUS WITHOUT COMPLICATIONS Status: Chronic Current Visit: No - Problem List Review Problem List Initiated/Reviewed/Updated: Yes - My Orders Last 24 Hours: My Active Orders 07/23/21 17:35 PROCALCITONIN [REF] Routine 07/23/21 21:47 Albuterol/Ipratropium [DuoNeb 3.0-0.5 MG/3 ML] 3 ml NEB Q2H PRN 07/23/21 21:48 Blood Glucose Check, Bedside [RC] WITHMEALSANDBED RT Aerosol Therapy [RC] ASDIRECTED Dextrose 50% in Water 25 ml IVPUSH ASDIRECTED PRN 07/23/21 21:51 Oxygen Therapy [RC] PRN Up With Assistance [RC] ASDIRECTED VTE/DVT Education [RC] Vital Signs [RC] 00,04,08,12,,20 Acetaminophen/HYDROcodone [[place] 325-10 MG] 0.5 tab PO Q4H PRN Docusate Sodium [Colace] 100 mg PO BID PRN Ondansetron [Zofran ODT] 4 mg PO Q6H PRN Sodium Chloride 0.9% [Saline Flush] 10 ml FLUSH ASDIRECTED PRN Temazepam [Restoril] 15 mg PO BEDTIME PRN Peripheral IV Insertion Adult [OM.PC] Routine Saline Lock Insert [OM.PC] Routine Resuscitation Status Routine 07/23/21 21:52 Antiembolic Hose [OM.PC] Per Unit Routine 07/23/21 21:53 Antiembolic Devices [RC] ,20 Peripheral IV Care [RC] 00,04,08,12,16,20 07/23/21 22:00 Azithromycin [Zithromax] 500 mg Sodium Chloride 0.9% [Normal Saline AdvBag] 250 ml IV Q24H Budesonide [Pulmicort] 0.5 mg NEB BIDRT Heparin Sodium 5,000 units SUBCUT Q8HR 07/23/21 22:02 CULTURE SPUTUM + SMEAR [RM] Routine 07/23/21 22:20 Acetaminophen [TylenoL] 650 mg PO Q4H PRN 07/24/21 06:00 Levothyroxine [Synthroid] 50 mcg PO ACBREAKFAST 07/24/21 07:00 Albuterol/Ipratropium [DuoNeb 3.0-0.5 MG/3 ML] 3 ml NEB TIDRT 07/24/21 08:00 Insulin Lispro [HumaLOG] See Protocol SUBCUT WITHMEALSANDBED Multivitamins/Minerals [Vitamins and Minerals] 1 tab PO WITHBREAKFAST 07/24/21 09:00 Ascorbic Acid [Vitamin C] 250 mg PO TID Ferrous Sulfate 325 mg PO DAILY Omeprazole 40 mg PO DAILY Pregabalin [Lyrica] 300 mg PO BID 07/24/21 21:00 Tamsulosin [Flomax] 0.4 mg PO BEDTIME atorvaSTATin [Lipitor] 10 mg PO BEDTIME 07/25/21 05:11 BASIC METABOLIC PANEL,BMP [CHEM] AM CBC W/O DIFF,HEMOGRAM [HEME] AM 07/26/21 05:11 BASIC METABOLIC PANEL,BMP [CHEM] AM CBC W/O DIFF,HEMOGRAM [HEME] AM 07/27/21 05:11 BASIC METABOLIC PANEL,BMP [CHEM] AM CBC W/O DIFF,HEMOGRAM [HEME] AM 07/28/21 05:11 BASIC METABOLIC PANEL,BMP [CHEM] AM CBC W/O DIFF,HEMOGRAM [HEME] AM - Plan Plan:: c/o cough, fever, sob, Acute on chronic hypoxemic respiratory failure baseline home oxygen need is 4 l/min Will supplement oxygen as needed Acute RSV pneumonia Symptom onset: about 07/20/21 RSV swab positive: 07/23/21 Supportive treatment Follow daily cbc, bmp Evaluations for concurrent bacterial pneumonia: Procalcitonin: pending Possible community acquired atypical bacterial pneumonia based on cxr Treat with azithromycin COPD treat with pulmicort Duoneb scheduled and as needed Dyslipidemia Cont Lipitor Dm Hold metformin Follow BS Use supplemental insulin and hypoglycemia protocol as needed consult pt/ot Code status: discussed on admission : DNR
[2021-07-24] MEDS ORDERED: Oxymetazoline 0.05% Nasal Spray 30 ML Bottle NAS PRN (15:13)
[2021-07-24] MEDS: Oxymetazoline 0.05% Nasal Spray 30 ML Bottle NAS PRN (18:05)
[2021-07-24] MEDS: Tamsulosin 0.4 MG Cap.ER PO SCH (21:11)
[2021-07-24] MEDS: atorvaSTATin 10 MG Tab PO SCH (21:11)
[2021-07-24] MEDS: Azithromycin 500 MG in Sodium Chloride 0.9% 250 ML IV SCH (21:15)
[2021-07-24] MEDS: Sodium Chloride 0.9% 10 ML Syringe FLUSH PRN (21:15)
[2021-07-25] MEDS: Levothyroxine 50 MCG Tab PO SCH (06:19)
[2021-07-25] MEDS: Heparin Sodium 5,000 Units/ML Vial SUBCUT SCH ×3 (06:19→22:15)
[2021-07-25] MEDS: Sodium Chloride 0.9% 10 ML Syringe FLUSH PRN (06:26)
[2021-07-25 07:09] LABS: ANION GAP 11.8 mEq/L (7-13); CHLORIDE,CL 103 mmol/L (98-107); SODIUM,NA 143 mmol/L (136-145)
[2021-07-25] MEDS: Albuterol/Ipratropium 3.0-0.5 MG/3 ML Neb Soln NEB SCH ×3 (07:40→18:30)
[2021-07-25] MEDS: Budesonide 0.5 MG/2 ML Neb Susp NEB SCH ×2 (07:40→18:35)
[2021-07-25] MEDS: Omeprazole 20 MG Cap.CR PO SCH (08:06)
[2021-07-25] MEDS: Ascorbic Acid 500 MG Tab PO SCH ×3 (08:06→22:21)
[2021-07-25] MEDS: Ferrous Sulfate 325 MG Tab PO SCH (08:06)
[2021-07-25] MEDS: Insulin Lispro 100 Units/ML 3 ML Vial SUBCUT SCH ×4 (08:09→22:15)
--- NOTE | 2021-07-25 11:27 | PCM.PN ---
- General Info Date of Service: 07/25/21 Admission Dx/Problem (Free Text): Admission Diagnosis/Problem Admission Diagnosis/Problem Pneumonia Subjective Update: feeling ok mild sob associated with cough, started days ago no significant fever since admission no cp does not like to wear his oxygen Functional Status: Reports: Pain Controlled, Tolerating Diet - Review of Systems General: Reports: Fever (low grade ) Pulmonary: Reports: Shortness of Breath, Wheezing Cardiovascular: Denies: Chest Pain, Edema Genitourinary: Denies: Dysuria - Patient Data Vitals - Most Recent: Last Vital Signs Temp 97.6 F 07/25/21 07:49 Pulse 81 07/25/21 07:49 Resp 20 07/25/21 07:49 BP 109/71 07/25/21 07:49 Pulse Ox 94 L 07/25/21 07:49 Weight - Most Recent: 168 lb I&O - Last 24 Hours: Intake & Output 07/24/21 07/25/21 07/25/21 22:59 06:59 14:59 Intake Total 300 650 Output Total 250 500 Balance 50 150 Lab Results Last 24 Hours: Laboratory Results - last 24 hr 07/23/21 07/24/21 07/24/21 Range/Units 17:35 11:18 16:38 WBC (5.0-10.0) 10^3/uL RBC (4.6-6.2) 10^6/uL Hgb (14.0-18.0) g/dL Hct (40.0-54.0) % MCV (80-100) fL MCH (27.0-34.0) pg MCHC (33.0-35.0) g/dL Plt Count (150-450) 10^3/uL Sodium (136-145) mmol/L Potassium (3.5-5.1) mmol/L Chloride (98-107) mmol/L Carbon Dioxide (21-32) mmol/L Anion Gap (7-13) mEq/L BUN (7-18) mg/dL Creatinine (0.70-1.30) mg/dL Est Cr Clr Drug Dosing mL/min Estimated GFR (MDRD) Glucose (70-99) mg/dL POC Glucose 131 H 125 H (70-99) mg/dL Calcium (8.5-10.1) mg/dL Procalcitonin 0.11 H ng/mL 07/24/21 07/25/21 07/25/21 Range/Units 19:54 06:30 06:30 WBC 3.8 L (5.0-10.0) 10^3/uL RBC 4.35 L (4.6-6.2) 10^6/uL Hgb 14.0 (14.0-18.0) g/dL Hct 43.6 (40.0-54.0) % MCV 100.2 H (80-100) fL MCH 32.2 (27.0-34.0) pg MCHC 32.1 L (33.0-35.0) g/dL Plt Count 136 L (150-450) 10^3/uL Sodium 143 (136-145) mmol/L Potassium 3.8 (3.5-5.1) mmol/L Chloride 103 (98-107) mmol/L Carbon Dioxide 32 (21-32) mmol/L Anion Gap 11.8 (7-13) mEq/L BUN 12 (7-18) mg/dL Creatinine 0.84 (0.70-1.30) mg/dL Est Cr Clr Drug Dosing 65.18 mL/min Estimated GFR (MDRD) > 60 Glucose 114 H (70-99) mg/dL POC Glucose 172 H (70-99) mg/dL Calcium 8.6 (8.5-10.1) mg/dL Procalcitonin ng/mL 07/25/21 Range/Units 07:49 WBC (5.0-10.0) 10^3/uL RBC (4.6-6.2) 10^6/uL Hgb (14.0-18.0) g/dL Hct (40.0-54.0) % MCV (80-100) fL MCH (27.0-34.0) pg MCHC (33.0-35.0) g/dL Plt Count (150-450) 10^3/uL Sodium (136-145) mmol/L Potassium (3.5-5.1) mmol/L Chloride (98-107) mmol/L Carbon Dioxide (21-32) mmol/L Anion Gap (7-13) mEq/L BUN (7-18) mg/dL Creatinine (0.70-1.30) mg/dL Est Cr Clr Drug Dosing mL/min Estimated GFR (MDRD) Glucose (70-99) mg/dL POC Glucose 108 H (70-99) mg/dL Calcium (8.5-10.1) mg/dL Procalcitonin ng/mL Jaison Results Last 24 Hours: Microbiology 07/23/21 17:35 Aerobic Blood Culture - Preliminary Blood - Arm, Right Anaerobic Blood Culture - Preliminary NO GROWTH AFTER 1 DAY 07/24/21 16:30 Gram Stain - Final Sputum - Expectorated Med Orders - Current: Current Medications Acetaminophen (Acetaminophen 325 Mg Tab) 650 mg PO Q4H PRN PRN Reason: Fever Hydrocodone Bitart/Acetaminophen (Acetaminophen/Hydrocodone 325-10 Mg Tab) 0.5 tab PO Q4H PRN PRN Reason: Pain (moderate 4-6) Albuterol/Ipratropium (Albuterol/Ipratropium 3.0-0.5 Mg/3 Ml Neb Soln) 3 ml NEB Q2H PRN PRN Reason: sob Albuterol/Ipratropium (Albuterol/Ipratropium 3.0-0.5 Mg/3 Ml Neb Soln) 3 ml NEB TIDRT [facility] Last Admin: 07/25/21 07:40 Dose: 3 ml Documented by: Ascorbic Acid (Ascorbic Acid 500 Mg Tab) 250 mg PO TID [facility] Last Admin: 07/25/21 08:06 Dose: 250 mg Documented by: Atorvastatin Calcium (Atorvastatin 10 Mg Tab) 10 mg PO BEDTIME [facility] Last Admin: 07/24/21 21:11 Dose: 10 mg Documented by: Azithromycin (Azithromycin 250 Mg Tab) 250 mg PO DAILY [facility] Budesonide (Budesonide 0.5 Mg/2 Ml Neb Susp) 0.5 mg NEB BIDRT [facility] Last Admin: 07/25/21 07:40 Dose: 0.5 mg Documented by: Dextrose/Water (50% Dextrose In Water 50 Ml Syringe) 25 ml IVPUSH ASDIRECTED PRN PRN Reason: Hypoglycemia BS<70 Docusate Sodium (Docusate Sodium 100 Mg Cap) 100 mg PO BID PRN PRN Reason: Constipation Ferrous Sulfate (Ferrous Sulfate 325 Mg Tab) 325 mg PO DAILY [facility] Last Admin: 07/25/21 08:06 Dose: 325 mg Documented by: Heparin Sodium (Porcine) (Heparin Sodium 5,000 Units/Ml Vial) 5,000 units SUBCUT Q8HR [facility] Last Admin: 07/25/21 06:19 Dose: 5,000 units Documented by: Vancomycin HCl 1.25 gm/ Sodium (Chloride) 250 mls @ 250 mls/hr IV Q12H [facility] Insulin Human Lispro (Insulin Lispro 100 Units/Ml 3 Ml Vial) 0 unit SUBCUT WITHMEALSANDBED [facility]; Protocol Last Admin: 07/25/21 08:09 Dose: Not Given Documented by: Levothyroxine Sodium (Levothyroxine 50 Mcg Tab) 50 mcg PO ACBREAKFAST [facility] Last Admin: 07/25/21 06:19 Dose: 50 mcg Documented by: Multivitamins/Minerals/Vitamin C (Multivitamin Tab) 1 tab PO WITHBREAKFAST [facility] Non-Formulary Medication (Cholecalciferol (Vitamin D3) [Vitamin D3]) 125 mcg PO DAILY [facility] Omeprazole (Omeprazole 20 Mg Cap.Cr) 40 mg PO DAILY [facility] Last Admin: 07/25/21 08:06 Dose: 40 mg Documented by: Ondansetron HCl (Ondansetron 4 Mg Tab.Dis) 4 mg PO Q6H PRN PRN Reason: nausea, able to take PO Oxymetazoline HCl (Oxymetazoline 0.05% Nasal [place] 30 Ml Bottle) 0 ml GENNY Q12H PRN PRN Reason: Congestion Last Admin: 07/24/21 18:05 Dose: 1 spray Documented by: Pregabalin (Pregabalin 150 Mg Cap) 300 mg PO BID [facility] Last Admin: 07/25/21 08:06 Dose: 300 mg Documented by: Sodium Chloride (Sodium Chloride 0.9% 10 Ml Syringe) 10 ml FLUSH ASDIRECTED PRN PRN Reason: Keep Vein Open Last Admin: 07/25/21 06:26 Dose: 10 ml Documented by: Tamsulosin HCl (Tamsulosin 0.4 Mg Cap.Er) 0.4 mg PO BEDTIME [facility] Last Admin: 07/24/21 21:11 Dose: 0.4 mg Documented by: Temazepam (Temazepam 15 Mg Cap) 15 mg PO BEDTIME PRN PRN Reason: Sleep Last Admin: 07/23/21 22:43 Dose: 15 mg Documented by: Vancomycin HCl (Pharmacy To Dose - Vancomycin) 1 dose .XX ASDIRECTED [facility] Discontinued Medications Acetaminophen (Acetaminophen 325 Mg Tab) 650 mg PO NOW ONE Stop: 07/23/21 17:43 Last Admin: 07/23/21 17:50 Dose: 650 mg Documented by: Albuterol/Ipratropium (Albuterol/Ipratropium 3.0-0.5 Mg/3 Ml Neb Soln) 3 ml NEB ONETIME ONE Stop: 07/23/21 18:34 Last Admin: 07/23/21 18:47 Dose: 3 ml Documented by: Azithromycin 500 mg/ Sodium (Chloride) 250 mls @ 250 mls/hr IV Q24H [facility] Last Infusion: 07/24/21 23:38 Dose: Infused Documented by: Vancomycin HCl 1.25 gm/ Sodium (Chloride) 250 mls @ 250 mls/hr IV NOW ONE Stop: 07/25/21 07:14 Last Admin: 07/25/21 06:26 Dose: 250 mls/hr Documented by: Multivitamins/Minerals (Multivitamins, Therapeutic With Minerals Tab) 1 tab PO WITHBREAKFAST [facility] Last Admin: 07/24/21 09:01 Dose: 1 tab Documented by: Oxymetazoline HCl (Oxymetazoline 0.05% Nasal [place] 30 Ml Bottle) 1 ml GENNY Q12H PRN PRN Reason: Congestion - Exam Quality Assessment: Supplemental Oxygen General: Alert, Oriented Neck: Supple Lungs: Normal Respiratory Effort, Rhonchi, Wheezing Cardiovascular: Regular Rate, Regular Rhythm GI/Abdominal Exam: Normal Bowel Sounds, Soft, Non-Tender Extremities: No Pedal Edema Neurological: No New Focal Deficit Psy/Mental Status: Alert, Normal Affect, Normal Mood - Patient Data Lab Results Last 24 hrs: Laboratory Results - last 24 hr 07/23/21 07/24/21 07/24/21 Range/Units 17:35 11:18 16:38 WBC (5.0-10.0) 10^3/uL RBC (4.6-6.2) 10^6/uL Hgb (14.0-18.0) g/dL Hct (40.0-54.0) % MCV (80-100) fL MCH (27.0-34.0) pg MCHC (33.0-35.0) g/dL Plt Count (150-450) 10^3/uL Sodium (136-145) mmol/L Potassium (3.5-5.1) mmol/L Chloride (98-107) mmol/L Carbon Dioxide (21-32) mmol/L Anion Gap (7-13) mEq/L BUN (7-18) mg/dL Creatinine (0.70-1.30) mg/dL Est Cr Clr Drug Dosing mL/min Estimated GFR (MDRD) Glucose (70-99) mg/dL POC Glucose 131 H 125 H (70-99) mg/dL Calcium (8.5-10.1) mg/dL Procalcitonin 0.11 H ng/mL 07/24/21 07/25/21 07/25/21 Range/Units 19:54 06:30 06:30 WBC 3.8 L (5.0-10.0) 10^3/uL RBC 4.35 L (4.6-6.2) 10^6/uL Hgb 14.0 (14.0-18.0) g/dL Hct 43.6 (40.0-54.0) % MCV 100.2 H (80-100) fL MCH 32.2 (27.0-34.0) pg MCHC 32.1 L (33.0-35.0) g/dL Plt Count 136 L (150-450) 10^3/uL Sodium 143 (136-145) mmol/L Potassium 3.8 (3.5-5.1) mmol/L Chloride 103 (98-107) mmol/L Carbon Dioxide 32 (21-32) mmol/L Anion Gap 11.8 (7-13) mEq/L BUN 12 (7-18) mg/dL Creatinine 0.84 (0.70-1.30) mg/dL Est Cr Clr Drug Dosing 65.18 mL/min Estimated GFR (MDRD) > 60 Glucose 114 H (70-99) mg/dL POC Glucose 172 H (70-99) mg/dL Calcium 8.6 (8.5-10.1) mg/dL Procalcitonin ng/mL 07/25/21 Range/Units 07:49 WBC (5.0-10.0) 10^3/uL RBC (4.6-6.2) 10^6/uL Hgb (14.0-18.0) g/dL Hct (40.0-54.0) % MCV (80-100) fL MCH (27.0-34.0) pg MCHC (33.0-35.0) g/dL Plt Count (150-450) 10^3/uL Sodium (136-145) mmol/L Potassium (3.5-5.1) mmol/L Chloride (98-107) mmol/L Carbon Dioxide (21-32) mmol/L Anion Gap (7-13) mEq/L BUN (7-18) mg/dL Creatinine (0.70-1.30) mg/dL Est Cr Clr Drug Dosing mL/min Estimated GFR (MDRD) Glucose (70-99) mg/dL POC Glucose 108 H (70-99) mg/dL Calcium (8.5-10.1) mg/dL Procalcitonin ng/mL Result Diagrams: 07/25/21 06:30 07/25/21 06:30 Jaison Results Last 24 hrs: Microbiology 07/23/21 17:35 Aerobic Blood Culture - Preliminary Blood - Arm, Right Anaerobic Blood Culture - Preliminary NO GROWTH AFTER 1 DAY 07/24/21 16:30 Gram Stain - Final Sputum - Expectorated Sepsis Event Note - Evaluation Sepsis Screening Result: No Definite Risk - Focused Exam Vital Signs: Vital Signs Temp Pulse Resp BP Pulse Ox Pulse Ox 07/25/21 07:49 97.6 F 81 20 109/71 94 L 07/25/21 07:40 101 H 07/25/21 04:00 98.9 F 77 20 111/63 89 L 07/25/21 00:00 98.5 F 78 20 114/58 L 90 L 90 L - Problem List & Annotations (1) Acute and chronic respiratory failure ([id number]) SNOMED Code(s): 88145669 Code(s): J96.20 - ACUTE AND CHR RESP FAILURE, UNSP W HYPOXIA OR HYPERCAPNIA Status: Acute Current Visit: No Qualifiers: Respiratory failure complication: hypoxia Qualified Code(s): J96.21 - Acute and chronic respiratory failure with hypoxia (2) Acute exacerbation of chronic obstructive pulmonary disease (COPD) SNOMED Code(s): 078973670 Code(s): J44.1 - CHRONIC OBSTRUCTIVE PULMONARY DISEASE W (ACUTE) EXACERBATION Status: Acute Current Visit: No (3) Pneumonia SNOMED Code(s): 483991428 Code(s): J18.9 - PNEUMONIA, UNSPECIFIED ORGANISM Status: Acute Current Visit: No Qualifiers: Laterality: bilateral Lung location: lower lobe of lung (4) Diabetes SNOMED Code(s): 75873513 Code(s): E11.9 - TYPE 2 DIABETES MELLITUS WITHOUT COMPLICATIONS Status: Chronic Priority: Medium Current Visit: No Qualifiers: Diabetes mellitus type: type 2 Diabetes mellitus complication status: without complication Qualified Code(s): E11.9 - Type 2 diabetes mellitus without complications (5) Gastroesophageal reflux SNOMED Code(s): 052602633 Code(s): K21.9 - GASTRO-ESOPHAGEAL REFLUX DISEASE WITHOUT ESOPHAGITIS Status: Chronic Current Visit: No (6) Hyperlipidemia SNOMED Code(s): 12078751 Code(s): E78.5 - HYPERLIPIDEMIA, UNSPECIFIED Status: Chronic Current Visit: No (7) Type 2 diabetes mellitus SNOMED Code(s): 49324105 Code(s): E11.9 - TYPE 2 DIABETES MELLITUS WITHOUT COMPLICATIONS Status: Chronic Current Visit: No - Problem List Review Problem List Initiated/Reviewed/Updated: Yes - My Orders Last 24 Hours: My Active Orders 07/24/21 15:15 Oxymetazoline [Nasal Decongestant [place]] 0 ml GENNY Q12H PRN 07/24/21 16:30 CULTURE SPUTUM + SMEAR [RM] Routine 07/24/21 21:00 Tamsulosin [Flomax] 0.4 mg PO BEDTIME atorvaSTATin [Lipitor] 10 mg PO BEDTIME 07/25/21 06:00 Pharmacy to Dose - Vancomycin 1 dose .XX ASDIRECTED 07/25/21 10:00 Multivitamins [Tab-A-Mumtaz] 1 tab PO WITHBREAKFAST 07/25/21 11:15 Azithromycin [Zithromax] 250 mg PO DAILY 07/25/21 11:16 CULTURE BLOOD [BC] Stat CULTURE BLOOD [BC] Stat Blood Culture x2 Reflex Set [OM.PC] Stat 07/25/21 18:00 Vancomycin 1.25 gm Sodium Chloride 0.9% [Normal Saline] 250 ml IV Q12H 07/26/21 05:11 BASIC METABOLIC PANEL,BMP [CHEM] AM CBC W/O DIFF,HEMOGRAM [HEME] AM 07/26/21 09:00 Cholecalciferol (Vitamin D3) [Vitamin D3] 125 mcg PO DAILY 07/27/21 05:11 BASIC METABOLIC PANEL,BMP [CHEM] AM CBC W/O DIFF,HEMOGRAM [HEME] AM 07/27/21 05:30 VANCOMYCIN TROUGH [CHEM] Timed 07/28/21 05:11 BASIC METABOLIC PANEL,BMP [CHEM] AM CBC W/O DIFF,HEMOGRAM [HEME] AM - Plan Plan:: c/o cough, fever, sob, Acute on chronic hypoxemic respiratory failure baseline home oxygen need is 4 l/min Will supplement oxygen as needed Acute RSV pneumonia Symptom onset: about 07/20/21 RSV swab positive: 07/23/21 Supportive treatment Follow daily cbc, bmp Evaluations for concurrent bacterial pneumonia: Procalcitonin: pending Possible community acquired atypical bacterial pneumonia based on cxr Treat with azithromycin possible sepsis, bacteremia Blood cx: 07/24: gram pos cocci further ID and S pending repeat BC today add vancomycin COPD treat with pulmicort Duoneb scheduled and as needed Dyslipidemia Cont Lipitor Dm Hold metformin Follow BS Use supplemental insulin and hypoglycemia protocol as needed consulted pt/ot Code status: discussed on admission : DNR
[2021-07-25] MEDS: Multivitamin Tab PO SCH (12:06)
[2021-07-25] MEDS: Azithromycin 250 MG Tab PO SCH (12:10)
[2021-07-25] MEDS: atorvaSTATin 10 MG Tab PO SCH (22:16)
[2021-07-25] MEDS: Tamsulosin 0.4 MG Cap.ER PO SCH (22:17)
[2021-07-25] MEDS: Temazepam 15 MG Cap PO PRN (22:21)
[2021-07-25] MEDS: Multivitamins, Therapeutic with Minerals Tab PO SCH (22:23)
[2021-07-26] MEDS: Levothyroxine 50 MCG Tab PO SCH (05:16)
[2021-07-26] MEDS: Heparin Sodium 5,000 Units/ML Vial SUBCUT SCH ×3 (05:16→21:29)
[2021-07-26 07:06] LABS: ANION GAP 9.6 mEq/L (7-13); CHLORIDE,CL 106 mmol/L (98-107); SODIUM,NA 142 mmol/L (136-145)
[2021-07-26] MEDS: Albuterol/Ipratropium 3.0-0.5 MG/3 ML Neb Soln NEB SCH ×3 (07:22→18:21)
[2021-07-26] MEDS: Budesonide 0.5 MG/2 ML Neb Susp NEB SCH ×2 (07:23→18:21)
[2021-07-26] MEDS: Insulin Lispro 100 Units/ML 3 ML Vial SUBCUT SCH ×4 (09:44→21:29)
[2021-07-26] MEDS: Omeprazole 20 MG Cap.CR PO SCH (09:46)
[2021-07-26] MEDS: Ferrous Sulfate 325 MG Tab PO SCH (09:47)
[2021-07-26] MEDS: Ascorbic Acid 500 MG Tab PO SCH ×2 (09:47→14:22)
[2021-07-26] MEDS: Azithromycin 250 MG Tab PO SCH (09:47)
[2021-07-26] MEDS: Multivitamin Tab PO SCH (09:47)
[2021-07-26] MEDS: Temazepam 15 MG Cap PO PRN (21:30)
[2021-07-26] MEDS: atorvaSTATin 10 MG Tab PO SCH (21:30)
[2021-07-26] MEDS: Tamsulosin 0.4 MG Cap.ER PO SCH (21:30)
--- NOTE | 2021-07-26 22:38 | PCM.PN ---
- General Info Date of Service: 07/26/21 - Patient Data Vitals - Most Recent: Last Vital Signs Temp 98.2 F 07/26/21 20:00 Pulse 70 07/26/21 20:00 Resp 20 07/26/21 20:00 BP 114/62 07/26/21 20:00 Pulse Ox 93 L 07/26/21 20:00 Weight - Most Recent: 168 lb I&O - Last 24 Hours: Intake & Output 07/26/21 07/26/21 07/26/21 06:59 14:59 22:59 Intake Total 252 240 800 Balance 252 240 800 Lab Results Last 24 Hours: Laboratory Results - last 24 hr 07/26/21 07/26/21 07/26/21 Range/Units 06:23 06:23 06:23 WBC 3.8 L (5.0-10.0) 10^3/uL RBC 3.97 L (4.6-6.2) 10^6/uL Hgb 12.9 L (14.0-18.0) g/dL Hct 39.1 L (40.0-54.0) % MCV 98.5 (80-100) fL MCH 32.5 (27.0-34.0) pg MCHC 33.0 (33.0-35.0) g/dL Plt Count 125 L (150-450) 10^3/uL Sodium 142 (136-145) mmol/L Potassium 3.6 (3.5-5.1) mmol/L Chloride 106 (98-107) mmol/L Carbon Dioxide 30 (21-32) mmol/L Anion Gap 9.6 (7-13) mEq/L BUN 13 (7-18) mg/dL Creatinine 0.85 (0.70-1.30) mg/dL Est Cr Clr Drug Dosing 64.41 mL/min Estimated GFR (MDRD) > 60 Glucose 122 H (70-99) mg/dL POC Glucose (70-99) mg/dL Calcium 8.3 L (8.5-10.1) mg/dL Magnesium 1.8 (1.8-2.4) mg/dL 07/26/21 07/26/21 07/26/21 Range/Units 08:02 12:00 16:14 WBC (5.0-10.0) 10^3/uL RBC (4.6-6.2) 10^6/uL Hgb (14.0-18.0) g/dL Hct (40.0-54.0) % MCV (80-100) fL MCH (27.0-34.0) pg MCHC (33.0-35.0) g/dL Plt Count (150-450) 10^3/uL Sodium (136-145) mmol/L Potassium (3.5-5.1) mmol/L Chloride (98-107) mmol/L Carbon Dioxide (21-32) mmol/L Anion Gap (7-13) mEq/L BUN (7-18) mg/dL Creatinine (0.70-1.30) mg/dL Est Cr Clr Drug Dosing mL/min Estimated GFR (MDRD) Glucose (70-99) mg/dL POC Glucose 129 H 143 H 163 H (70-99) mg/dL Calcium (8.5-10.1) mg/dL Magnesium (1.8-2.4) mg/dL 07/26/21 Range/Units 20:56 WBC (5.0-10.0) 10^3/uL RBC (4.6-6.2) 10^6/uL Hgb (14.0-18.0) g/dL Hct (40.0-54.0) % MCV (80-100) fL MCH (27.0-34.0) pg MCHC (33.0-35.0) g/dL Plt Count (150-450) 10^3/uL Sodium (136-145) mmol/L Potassium (3.5-5.1) mmol/L Chloride (98-107) mmol/L Carbon Dioxide (21-32) mmol/L Anion Gap (7-13) mEq/L BUN (7-18) mg/dL Creatinine (0.70-1.30) mg/dL Est Cr Clr Drug Dosing mL/min Estimated GFR (MDRD) Glucose (70-99) mg/dL POC Glucose 169 H (70-99) mg/dL Calcium (8.5-10.1) mg/dL Magnesium (1.8-2.4) mg/dL Jaison Results Last 24 Hours: Microbiology 07/23/21 17:35 Aerobic Blood Culture - Preliminary Blood - Arm, Right Anaerobic Blood Culture - Preliminary NO GROWTH AFTER 3 DAYS 07/25/21 11:45 Aerobic Blood Culture - Preliminary Blood - Arm, Right NO GROWTH AFTER 1 DAY Anaerobic Blood Culture - Preliminary NO GROWTH AFTER 1 DAY 07/25/21 11:40 Aerobic Blood Culture - Preliminary Blood - Arm, Left NO GROWTH AFTER 1 DAY Anaerobic Blood Culture - Preliminary NO GROWTH AFTER 1 DAY 07/24/21 16:30 Gram Stain - Final Sputum - Expectorated Sputum Culture - Preliminary NORMAL RESPIRATORY GENESIS 1 DAY Med Orders - Current: Current Medications Acetaminophen (Acetaminophen 325 Mg Tab) 650 mg PO Q4H PRN PRN Reason: Fever Hydrocodone Bitart/Acetaminophen (Acetaminophen/Hydrocodone 325-10 Mg Tab) 0.5 tab PO Q4H PRN PRN Reason: Pain (moderate 4-6) Albuterol/Ipratropium (Albuterol/Ipratropium 3.0-0.5 Mg/3 Ml Neb Soln) 3 ml NEB Q2H PRN PRN Reason: sob Albuterol/Ipratropium (Albuterol/Ipratropium 3.0-0.5 Mg/3 Ml Neb Soln) 3 ml NEB TIDRT [facility] Last Admin: 07/26/21 18:21 Dose: 3 ml Documented by: Atorvastatin Calcium (Atorvastatin 10 Mg Tab) 10 mg PO BEDTIME [facility] Last Admin: 07/26/21 21:30 Dose: 10 mg Documented by: Azithromycin (Azithromycin 250 Mg Tab) 250 mg PO DAILY [facility] Last Admin: 07/26/21 09:47 Dose: 250 mg Documented by: Budesonide (Budesonide 0.5 Mg/2 Ml Neb Susp) 0.5 mg NEB BIDRT [facility] Last Admin: 07/26/21 18:21 Dose: 0.5 mg Documented by: Dextrose/Water (50% Dextrose In Water 50 Ml Syringe) 25 ml IVPUSH ASDIRECTED PRN PRN Reason: Hypoglycemia BS<70 Docusate Sodium (Docusate Sodium 100 Mg Cap) 100 mg PO BID PRN PRN Reason: Constipation Ferrous Sulfate (Ferrous Sulfate 325 Mg Tab) 325 mg PO DAILY [facility] Last Admin: 07/26/21 09:47 Dose: 325 mg Documented by: Heparin Sodium (Porcine) (Heparin Sodium 5,000 Units/Ml Vial) 5,000 units SUBCUT Q8HR [facility] Last Admin: 07/26/21 21:29 Dose: 5,000 units Documented by: Vancomycin HCl 1.25 gm/ Sodium (Chloride) 250 mls @ 250 mls/hr IV Q12H [facility] Last Admin: 07/26/21 17:55 Dose: 250 mls/hr Documented by: Insulin Human Lispro (Insulin Lispro 100 Units/Ml 3 Ml Vial) 0 unit SUBCUT WITHMEALSANDBED [facility]; Protocol Last Admin: 07/26/21 21:29 Dose: 2 units Documented by: Levothyroxine Sodium (Levothyroxine 50 Mcg Tab) 50 mcg PO ACBREAKFAST [facility] Last Admin: 07/26/21 05:16 Dose: 50 mcg Documented by: Non-Formulary Medication (Cholecalciferol (Vitamin D3) [Vitamin D3]) 125 mcg PO DAILY [facility] Omeprazole (Omeprazole 20 Mg Cap.Cr) 40 mg PO DAILY [facility] Last Admin: 07/26/21 09:46 Dose: 40 mg Documented by: Ondansetron HCl (Ondansetron 4 Mg Tab.Dis) 4 mg PO Q6H PRN PRN Reason: nausea, able to take PO Oxymetazoline HCl (Oxymetazoline 0.05% Nasal [place] 30 Ml Bottle) 0 ml GENNY Q12H PRN PRN Reason: Congestion Last Admin: 07/24/21 18:05 Dose: 1 spray Documented by: Pregabalin (Pregabalin 150 Mg Cap) 300 mg PO BID [facility] Last Admin: 07/26/21 21:30 Dose: 300 mg Documented by: Sodium Chloride (Sodium Chloride 0.9% 10 Ml Syringe) 10 ml FLUSH ASDIRECTED PRN PRN Reason: Keep Vein Open Last Admin: 07/25/21 06:26 Dose: 10 ml Documented by: Tamsulosin HCl (Tamsulosin 0.4 Mg Cap.Er) 0.4 mg PO BEDTIME [facility] Last Admin: 07/26/21 21:30 Dose: 0.4 mg Documented by: Temazepam (Temazepam 15 Mg Cap) 15 mg PO BEDTIME PRN PRN Reason: Sleep Last Admin: 07/26/21 21:30 Dose: 15 mg Documented by: Vancomycin HCl (Pharmacy To Dose - Vancomycin) 1 dose .XX ASDIRECTED [facility] Discontinued Medications Acetaminophen (Acetaminophen 325 Mg Tab) 650 mg PO NOW ONE Stop: 07/23/21 17:43 Last Admin: 07/23/21 17:50 Dose: 650 mg Documented by: Albuterol/Ipratropium (Albuterol/Ipratropium 3.0-0.5 Mg/3 Ml Neb Soln) 3 ml NEB ONETIME ONE Stop: 07/23/21 18:34 Last Admin: 07/23/21 18:47 Dose: 3 ml Documented by: Ascorbic Acid (Ascorbic Acid 500 Mg Tab) 250 mg PO TID [facility] Last Admin: 07/26/21 14:22 Dose: 250 mg Documented by: Azithromycin 500 mg/ Sodium (Chloride) 250 mls @ 250 mls/hr IV Q24H [facility] Last Infusion: 07/24/21 23:38 Dose: Infused Documented by: Vancomycin HCl 1.25 gm/ Sodium (Chloride) 250 mls @ 250 mls/hr IV NOW ONE Stop: 07/25/21 07:14 Last Admin: 07/25/21 06:26 Dose: 250 mls/hr Documented by: Multivitamins/Minerals (Multivitamins, Therapeutic With Minerals Tab) 1 tab PO WITHBREAKFAST [facility] Last Admin: 07/25/21 22:23 Dose: Not Given Documented by: Multivitamins/Minerals/Vitamin C (Multivitamin Tab) 1 tab PO WITHBREAKFAST [facility] Last Admin: 07/26/21 09:47 Dose: 1 tab Documented by: Oxymetazoline HCl (Oxymetazoline 0.05% Nasal [place] 30 Ml Bottle) 1 ml GENNY Q12H PRN PRN Reason: Congestion - Patient Data Lab Results Last 24 hrs: Laboratory Results - last 24 hr 07/26/21 07/26/21 07/26/21 Range/Units 06:23 06:23 06:23 WBC 3.8 L (5.0-10.0) 10^3/uL RBC 3.97 L (4.6-6.2) 10^6/uL Hgb 12.9 L (14.0-18.0) g/dL Hct 39.1 L (40.0-54.0) % MCV 98.5 (80-100) fL MCH 32.5 (27.0-34.0) pg MCHC 33.0 (33.0-35.0) g/dL Plt Count 125 L (150-450) 10^3/uL Sodium 142 (136-145) mmol/L Potassium 3.6 (3.5-5.1) mmol/L Chloride 106 (98-107) mmol/L Carbon Dioxide 30 (21-32) mmol/L Anion Gap 9.6 (7-13) mEq/L BUN 13 (7-18) mg/dL Creatinine 0.85 (0.70-1.30) mg/dL Est Cr Clr Drug Dosing 64.41 mL/min Estimated GFR (MDRD) > 60 Glucose 122 H (70-99) mg/dL POC Glucose (70-99) mg/dL Calcium 8.3 L (8.5-10.1) mg/dL Magnesium 1.8 (1.8-2.4) mg/dL 07/26/21 07/26/21 07/26/21 Range/Units 08:02 12:00 16:14 WBC (5.0-10.0) 10^3/uL RBC (4.6-6.2) 10^6/uL Hgb (14.0-18.0) g/dL Hct (40.0-54.0) % MCV (80-100) fL MCH (27.0-34.0) pg MCHC (33.0-35.0) g/dL Plt Count (150-450) 10^3/uL Sodium (136-145) mmol/L Potassium (3.5-5.1) mmol/L Chloride (98-107) mmol/L Carbon Dioxide (21-32) mmol/L Anion Gap (7-13) mEq/L BUN (7-18) mg/dL Creatinine (0.70-1.30) mg/dL Est Cr Clr Drug Dosing mL/min Estimated GFR (MDRD) Glucose (70-99) mg/dL POC Glucose 129 H 143 H 163 H (70-99) mg/dL Calcium (8.5-10.1) mg/dL Magnesium (1.8-2.4) mg/dL 07/26/21 Range/Units 20:56 WBC (5.0-10.0) 10^3/uL RBC (4.6-6.2) 10^6/uL Hgb (14.0-18.0) g/dL Hct (40.0-54.0) % MCV (80-100) fL MCH (27.0-34.0) pg MCHC (33.0-35.0) g/dL Plt Count (150-450) 10^3/uL Sodium (136-145) mmol/L Potassium (3.5-5.1) mmol/L Chloride (98-107) mmol/L Carbon Dioxide (21-32) mmol/L Anion Gap (7-13) mEq/L BUN (7-18) mg/dL Creatinine (0.70-1.30) mg/dL Est Cr Clr Drug Dosing mL/min Estimated GFR (MDRD) Glucose (70-99) mg/dL POC Glucose 169 H (70-99) mg/dL Calcium (8.5-10.1) mg/dL Magnesium (1.8-2.4) mg/dL Result Diagrams: 07/27/21 05:30 07/27/21 05:30 Jaison Results Last 24 hrs: Microbiology 07/23/21 17:35 Aerobic Blood Culture - Preliminary Blood - Arm, Right Anaerobic Blood Culture - Preliminary NO GROWTH AFTER 3 DAYS 07/25/21 11:45 Aerobic Blood Culture - Preliminary Blood - Arm, Right NO GROWTH AFTER 1 DAY Anaerobic Blood Culture - Preliminary NO GROWTH AFTER 1 DAY 07/25/21 11:40 Aerobic Blood Culture - Preliminary Blood - Arm, Left NO GROWTH AFTER 1 DAY Anaerobic Blood Culture - Preliminary NO GROWTH AFTER 1 DAY 07/24/21 16:30 Gram Stain - Final Sputum - Expectorated Sputum Culture - Preliminary NORMAL RESPIRATORY GENESIS 1 DAY Sepsis Event Note - Evaluation Sepsis Screening Result: No Definite Risk - Focused Exam Vital Signs: Vital Signs Temp Pulse Resp BP Pulse Ox Pulse Ox 07/26/21 20:00 98.2 F 70 20 114/62 93 L 07/26/21 18:23 70 07/26/21 16:00 98 F 68 18 122/64 87 L 07/26/21 13:00 92 L 07/26/21 12:38 98.6 F 76 20 108/63 92 L - Problem List Review Problem List Initiated/Reviewed/Updated: Yes - My Orders Last 24 Hours: My Active Orders 07/26/21 10:27 RT Incentive Spirometry [RC] ASDIRECTED - Plan Plan:: HOSPITALIST PROGRESS NOTE SUBJECTIVE: Continues to feel better; rare non-productive cough, no dyspnea at mild exertion. A 4-point ROS of 7 systems otherwise negative for major findings. OBJECTIVE: Vitals viewed in chart. Heart and lung sounds normal. A 4-point physical exam of 7 systems negative for major findings. I viewed lab and imaging results in chart. ASSESSMENT / PLAN: Micah was admitted on 07/23 for cough, increased sputum production and exertional dyspnea than baseline with symptom onset around 07/20. Sepsis (temp, resp rate), on presentation. Initial blood culture grew Staph auricularis in 1/2 bottles; only one set was collected; the other bottle used for anaerobe culture was negative. Vanc + azithromycin were used 07/25-. Repeat blood culture from 07/25 negative thus far. Acute on chronic hypoxic resp failure. Initially required 5L nasal cannula (per chart), slightly higher than baseline 4L. Now close to baseline. Procal was minimally elevated at 0.11. 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 Scheduled budesonide and duoneb were used to above benefit. Mild pancytopenia. To be followed. T2DM. Home metformin on hold; using 2-6u of correction lispro daily. H/o klebsiella bacteremia in setting of probable pneumobilia in 04/2021, underwent ERCP and biliary stent placement in [place] at that time. H/o microscopic hematuria and elevated PSA (30s on 04/09/21). Last saw [facility] urology team in 06/2021; apparently, they are unaware of his PSA elevation. I H/o AAA graft repair. DVT px: heparin Code: DNR Likely discharge home in 1-2 days.
[2021-07-27] MEDS: Levothyroxine 50 MCG Tab PO SCH (05:34)
[2021-07-27] MEDS: Heparin Sodium 5,000 Units/ML Vial SUBCUT SCH ×3 (05:39→22:22)
[2021-07-27 06:41] LABS: ANION GAP 10.7 mEq/L (7-13); CHLORIDE,CL 107 mmol/L (98-107); SODIUM,NA 143 mmol/L (136-145)
[2021-07-27] MEDS: Budesonide 0.5 MG/2 ML Neb Susp NEB SCH ×2 (07:40→18:08)
[2021-07-27] MEDS: Albuterol/Ipratropium 3.0-0.5 MG/3 ML Neb Soln NEB SCH ×3 (07:40→18:08)
[2021-07-27] MEDS: Insulin Lispro 100 Units/ML 3 ML Vial SUBCUT SCH ×4 (08:54→22:18)
[2021-07-27] MEDS: Ferrous Sulfate 325 MG Tab PO SCH (09:16)
[2021-07-27] MEDS: Azithromycin 250 MG Tab PO SCH (09:16)
[2021-07-27] MEDS: Omeprazole 20 MG Cap.CR PO SCH (09:16)
[2021-07-27] MEDS: Non-Formulary Medication 1 Each (Cholecalciferol (Vitamin D3) [Vitamin D3] 125 MCG Tablet) PO SCH ×2 (11:09→11:10)
[2021-07-27] MEDS ORDERED: Sulfamethoxazole/Trimethoprim 800-160 MG Tab PO SCH (11:15)
[2021-07-27] MEDS: Polyethylene Glycol 3350 Powder 17 GM Packet PO SCH ×2 (11:17→22:17)
[2021-07-27] MEDS: Oxymetazoline 0.05% Nasal Spray 30 ML Bottle NAS PRN (12:56)
--- NOTE | 2021-07-27 15:28 | PCM.PN ---
- General Info Date of Service: 07/27/21 - Patient Data Vitals - Most Recent: Last Vital Signs Temp 98 F 07/27/21 08:00 Pulse 82 07/27/21 08:00 Resp 18 07/27/21 08:00 BP 114/75 07/27/21 08:00 Pulse Ox 94 L 07/27/21 08:00 Weight - Most Recent: 168 lb I&O - Last 24 Hours: Intake & Output 07/27/21 07/27/21 07/27/21 06:59 14:59 22:59 Intake Total 450 540 Balance 450 540 Lab Results Last 24 Hours: Laboratory Results - last 24 hr 07/26/21 07/26/21 07/26/21 Range/Units 06:23 16:14 20:56 WBC (5.0-10.0) 10^3/uL RBC (4.6-6.2) 10^6/uL Hgb (14.0-18.0) g/dL Hct (40.0-54.0) % MCV (80-100) fL MCH (27.0-34.0) pg MCHC (33.0-35.0) g/dL Plt Count (150-450) 10^3/uL Sodium (136-145) mmol/L Potassium (3.5-5.1) mmol/L Chloride (98-107) mmol/L Carbon Dioxide (21-32) mmol/L Anion Gap (7-13) mEq/L BUN (7-18) mg/dL Creatinine (0.70-1.30) mg/dL Est Cr Clr Drug Dosing mL/min Estimated GFR (MDRD) Glucose (70-99) mg/dL POC Glucose 163 H 169 H (70-99) mg/dL Calcium (8.5-10.1) mg/dL Magnesium 1.8 (1.8-2.4) mg/dL 07/27/21 07/27/21 07/27/21 Range/Units 05:30 05:30 07:58 WBC 3.7 L (5.0-10.0) 10^3/uL RBC 4.02 L (4.6-6.2) 10^6/uL Hgb 12.9 L (14.0-18.0) g/dL Hct 39.9 L (40.0-54.0) % MCV 99.3 (80-100) fL MCH 32.1 (27.0-34.0) pg MCHC 32.3 L (33.0-35.0) g/dL Plt Count 134 L (150-450) 10^3/uL Sodium 143 (136-145) mmol/L Potassium 3.7 (3.5-5.1) mmol/L Chloride 107 (98-107) mmol/L Carbon Dioxide 29 (21-32) mmol/L Anion Gap 10.7 (7-13) mEq/L BUN 13 (7-18) mg/dL Creatinine 0.86 (0.70-1.30) mg/dL Est Cr Clr Drug Dosing 63.66 mL/min Estimated GFR (MDRD) > 60 Glucose 127 H (70-99) mg/dL POC Glucose 124 H (70-99) mg/dL Calcium 8.7 (8.5-10.1) mg/dL Magnesium (1.8-2.4) mg/dL 07/27/21 Range/Units 11:54 WBC (5.0-10.0) 10^3/uL RBC (4.6-6.2) 10^6/uL Hgb (14.0-18.0) g/dL Hct (40.0-54.0) % MCV (80-100) fL MCH (27.0-34.0) pg MCHC (33.0-35.0) g/dL Plt Count (150-450) 10^3/uL Sodium (136-145) mmol/L Potassium (3.5-5.1) mmol/L Chloride (98-107) mmol/L Carbon Dioxide (21-32) mmol/L Anion Gap (7-13) mEq/L BUN (7-18) mg/dL Creatinine (0.70-1.30) mg/dL Est Cr Clr Drug Dosing mL/min Estimated GFR (MDRD) Glucose (70-99) mg/dL POC Glucose 153 H (70-99) mg/dL Calcium (8.5-10.1) mg/dL Magnesium (1.8-2.4) mg/dL Jaison Results Last 24 Hours: Microbiology 07/25/21 11:45 Aerobic Blood Culture - Preliminary Blood - Arm, Right NO GROWTH AFTER 2 DAYS Anaerobic Blood Culture - Preliminary NO GROWTH AFTER 2 DAYS 07/25/21 11:40 Aerobic Blood Culture - Preliminary Blood - Arm, Left NO GROWTH AFTER 2 DAYS Anaerobic Blood Culture - Preliminary NO GROWTH AFTER 2 DAYS 07/23/21 17:35 Aerobic Blood Culture - Final Blood - Arm, Right Staphylococcus Auricularis Anaerobic Blood Culture - Preliminary NO GROWTH AFTER 3 DAYS Med Orders - Current: Current Medications Acetaminophen (Acetaminophen 325 Mg Tab) 650 mg PO Q4H PRN PRN Reason: Fever Hydrocodone Bitart/Acetaminophen (Acetaminophen/Hydrocodone 325-10 Mg Tab) 0.5 tab PO Q4H PRN PRN Reason: Pain (moderate 4-6) Albuterol/Ipratropium (Albuterol/Ipratropium 3.0-0.5 Mg/3 Ml Neb Soln) 3 ml NEB Q2H PRN PRN Reason: sob Albuterol/Ipratropium (Albuterol/Ipratropium 3.0-0.5 Mg/3 Ml Neb Soln) 3 ml NEB TIDRT [facility] Last Admin: 07/27/21 13:39 Dose: 3 ml Documented by: Atorvastatin Calcium (Atorvastatin 10 Mg Tab) 10 mg PO BEDTIME [facility] Last Admin: 07/26/21 21:30 Dose: 10 mg Documented by: Budesonide (Budesonide 0.5 Mg/2 Ml Neb Susp) 0.5 mg NEB BIDRT [facility] Last Admin: 07/27/21 07:40 Dose: 0.5 mg Documented by: Dextrose/Water (50% Dextrose In Water 50 Ml Syringe) 25 ml IVPUSH ASDIRECTED PRN PRN Reason: Hypoglycemia BS<70 Heparin Sodium (Porcine) (Heparin Sodium 5,000 Units/Ml Vial) 5,000 units SUBCUT Q8HR [facility] Last Admin: 07/27/21 15:15 Dose: 5,000 units Documented by: Insulin Human Lispro (Insulin Lispro 100 Units/Ml 3 Ml Vial) 0 unit SUBCUT WITHMEALSANDBED [facility]; Protocol Last Admin: 07/27/21 12:57 Dose: 2 units Documented by: Levothyroxine Sodium (Levothyroxine 50 Mcg Tab) 50 mcg PO ACBREAKFAST [facility] Last Admin: 07/27/21 05:34 Dose: 50 mcg Documented by: Omeprazole (Omeprazole 20 Mg Cap.Cr) 40 mg PO DAILY [facility] Last Admin: 07/27/21 09:16 Dose: 40 mg Documented by: Ondansetron HCl (Ondansetron 4 Mg Tab.Dis) 4 mg PO Q6H PRN PRN Reason: nausea, able to take PO Oxymetazoline HCl (Oxymetazoline 0.05% Nasal [place] 30 Ml Bottle) 0 ml GENNY Q12H PRN PRN Reason: Congestion Last Admin: 07/27/21 12:56 Dose: 1 spray Documented by: Polyethylene Glycol (Polyethylene Glycol 3350 Powder 17 Gm Packet) 17 gm PO BID [facility] Last Admin: 07/27/21 11:17 Dose: 17 gm Documented by: Pregabalin (Pregabalin 150 Mg Cap) 300 mg PO BID [facility] Last Admin: 07/27/21 09:16 Dose: 300 mg Documented by: Senna/Docusate Sodium (Docusate Sodium/Sennosides 50-8.6 Mg Tab) 2 tab PO DAILY [facility] Last Admin: 07/27/21 11:16 Dose: 2 tab Documented by: Sodium Chloride (Sodium Chloride 0.9% 10 Ml Syringe) 10 ml FLUSH ASDIRECTED PRN PRN Reason: Keep Vein Open Last Admin: 07/25/21 06:26 Dose: 10 ml Documented by: Tamsulosin HCl (Tamsulosin 0.4 Mg Cap.Er) 0.4 mg PO BEDTIME [facility] Last Admin: 07/26/21 21:30 Dose: 0.4 mg Documented by: Temazepam (Temazepam 15 Mg Cap) 15 mg PO BEDTIME PRN PRN Reason: Sleep Last Admin: 07/26/21 21:30 Dose: 15 mg Documented by: Discontinued Medications Acetaminophen (Acetaminophen 325 Mg Tab) 650 mg PO NOW ONE Stop: 07/23/21 17:43 Last Admin: 07/23/21 17:50 Dose: 650 mg Documented by: Albuterol/Ipratropium (Albuterol/Ipratropium 3.0-0.5 Mg/3 Ml Neb Soln) 3 ml NEB ONETIME ONE Stop: 07/23/21 18:34 Last Admin: 07/23/21 18:47 Dose: 3 ml Documented by: Ascorbic Acid (Ascorbic Acid 500 Mg Tab) 250 mg PO TID [facility] Last Admin: 07/26/21 14:22 Dose: 250 mg Documented by: Azithromycin (Azithromycin 250 Mg Tab) 250 mg PO DAILY [facility] Last Admin: 07/27/21 09:16 Dose: 250 mg Documented by: Docusate Sodium (Docusate Sodium 100 Mg Cap) 100 mg PO BID PRN PRN Reason: Constipation Ferrous Sulfate (Ferrous Sulfate 325 Mg Tab) 325 mg PO DAILY [facility] Last Admin: 07/27/21 09:16 Dose: 325 mg Documented by: Azithromycin 500 mg/ Sodium (Chloride) 250 mls @ 250 mls/hr IV Q24H [facility] Last Infusion: 07/24/21 23:38 Dose: Infused Documented by: Vancomycin HCl 1.25 gm/ Sodium (Chloride) 250 mls @ 250 mls/hr IV NOW ONE Stop: 07/25/21 07:14 Last Admin: 07/25/21 06:26 Dose: 250 mls/hr Documented by: Vancomycin HCl 1.25 gm/ Sodium (Chloride) 250 mls @ 250 mls/hr IV Q12H [facility] Last Admin: 07/26/21 17:55 Dose: 250 mls/hr Documented by: Multivitamins/Minerals (Multivitamins, Therapeutic With Minerals Tab) 1 tab PO WITHBREAKFAST [facility] Last Admin: 07/25/21 22:23 Dose: Not Given Documented by: Multivitamins/Minerals/Vitamin C (Multivitamin Tab) 1 tab PO WITHBREAKFAST [facility] Last Admin: 07/26/21 09:47 Dose: 1 tab Documented by: Non-Formulary Medication (Cholecalciferol (Vitamin D3) [Vitamin D3]) 125 mcg PO DAILY [facility] Last Admin: 07/27/21 11:10 Dose: Not Given Documented by: Oxymetazoline HCl (Oxymetazoline 0.05% Nasal [place] 30 Ml Bottle) 1 ml GENNY Q12H PRN PRN Reason: Congestion Trimethoprim/Sulfamethoxazole (Sulfamethoxazole/Trimethoprim 800-160 Mg Tab) 1 tab PO BID [facility] Last Admin: 07/27/21 11:16 Dose: 1 tab Documented by: Vancomycin HCl (Pharmacy To Dose - Vancomycin) 1 dose .XX ASDIRECTED [facility] - Patient Data Lab Results Last 24 hrs: Laboratory Results - last 24 hr 07/26/21 07/26/21 07/26/21 Range/Units 06:23 16:14 20:56 WBC (5.0-10.0) 10^3/uL RBC (4.6-6.2) 10^6/uL Hgb (14.0-18.0) g/dL Hct (40.0-54.0) % MCV (80-100) fL MCH (27.0-34.0) pg MCHC (33.0-35.0) g/dL Plt Count (150-450) 10^3/uL Sodium (136-145) mmol/L Potassium (3.5-5.1) mmol/L Chloride (98-107) mmol/L Carbon Dioxide (21-32) mmol/L Anion Gap (7-13) mEq/L BUN (7-18) mg/dL Creatinine (0.70-1.30) mg/dL Est Cr Clr Drug Dosing mL/min Estimated GFR (MDRD) Glucose (70-99) mg/dL POC Glucose 163 H 169 H (70-99) mg/dL Calcium (8.5-10.1) mg/dL Magnesium 1.8 (1.8-2.4) mg/dL 07/27/21 07/27/21 07/27/21 Range/Units 05:30 05:30 07:58 WBC 3.7 L (5.0-10.0) 10^3/uL RBC 4.02 L (4.6-6.2) 10^6/uL Hgb 12.9 L (14.0-18.0) g/dL Hct 39.9 L (40.0-54.0) % MCV 99.3 (80-100) fL MCH 32.1 (27.0-34.0) pg MCHC 32.3 L (33.0-35.0) g/dL Plt Count 134 L (150-450) 10^3/uL Sodium 143 (136-145) mmol/L Potassium 3.7 (3.5-5.1) mmol/L Chloride 107 (98-107) mmol/L Carbon Dioxide 29 (21-32) mmol/L Anion Gap 10.7 (7-13) mEq/L BUN 13 (7-18) mg/dL Creatinine 0.86 (0.70-1.30) mg/dL Est Cr Clr Drug Dosing 63.66 mL/min Estimated GFR (MDRD) > 60 Glucose 127 H (70-99) mg/dL POC Glucose 124 H (70-99) mg/dL Calcium 8.7 (8.5-10.1) mg/dL Magnesium (1.8-2.4) mg/dL 07/27/21 Range/Units 11:54 WBC (5.0-10.0) 10^3/uL RBC (4.6-6.2) 10^6/uL Hgb (14.0-18.0) g/dL Hct (40.0-54.0) % MCV (80-100) fL MCH (27.0-34.0) pg MCHC (33.0-35.0) g/dL Plt Count (150-450) 10^3/uL Sodium (136-145) mmol/L Potassium (3.5-5.1) mmol/L Chloride (98-107) mmol/L Carbon Dioxide (21-32) mmol/L Anion Gap (7-13) mEq/L BUN (7-18) mg/dL Creatinine (0.70-1.30) mg/dL Est Cr Clr Drug Dosing mL/min Estimated GFR (MDRD) Glucose (70-99) mg/dL POC Glucose 153 H (70-99) mg/dL Calcium (8.5-10.1) mg/dL Magnesium (1.8-2.4) mg/dL Result Diagrams: 07/27/21 05:30 07/27/21 05:30 Jaison Results Last 24 hrs: Microbiology 07/25/21 11:45 Aerobic Blood Culture - Preliminary Blood - Arm, Right NO GROWTH AFTER 2 DAYS Anaerobic Blood Culture - Preliminary NO GROWTH AFTER 2 DAYS 07/25/21 11:40 Aerobic Blood Culture - Preliminary Blood - Arm, Left NO GROWTH AFTER 2 DAYS Anaerobic Blood Culture - Preliminary NO GROWTH AFTER 2 DAYS 07/23/21 17:35 Aerobic Blood Culture - Final Blood - Arm, Right Staphylococcus Auricularis Anaerobic Blood Culture - Preliminary NO GROWTH AFTER 3 DAYS Sepsis Event Note - Evaluation Sepsis Screening Result: No Definite Risk - Focused Exam Vital Signs: Vital Signs Temp Pulse Resp BP Pulse Ox 07/27/21 08:00 98 F 82 18 114/75 94 L 07/27/21 04:00 98.3 F 75 20 97/45 L 92 L - Problem List Review Problem List Initiated/Reviewed/Updated: Yes - My Orders Last 24 Hours: My Active Orders 07/27/21 09:03 6 Minute Walk Test [RT Physical Performance Test] [RESPCARE] Routine 07/27/21 11:15 Docusate Sodium/Sennosides [Senna Plus] 2 tab PO DAILY polyethylene glycoL 3350 [MiraLAX] 17 gm PO BID - Plan Plan:: HOSPITALIST PROGRESS NOTE SUBJECTIVE: Continues to feel better; rare non-productive cough, no dyspnea at mild exertion. A 4-point ROS of 7 systems otherwise negative for major findings. OBJECTIVE: Vitals viewed in chart. Heart and lung sounds normal. A 4-point physical exam of 7 systems negative for major findings. I viewed lab and imaging results in chart. ASSESSMENT / PLAN: Micah was admitted on 07/23 for cough, increased sputum production and exertional dyspnea than baseline with symptom onset around 07/20. Sepsis (temp, resp rate), on presentation. Initial blood culture grew Staph auricularis in 1/2 bottles; only one set was collected; the other bottle used for anaerobe culture was negative. Vanc + azithromycin were used 07/25-. Repeat blood culture from 07/25 was negative. I discussed case with [facility] infectious disease; above finding was considered contaminant and no further workup and treatment was advised. Acute on chronic hypoxic resp failure. Initially required 5L nasal cannula (per chart), slightly higher than baseline 4L. Now close to baseline. Procal was minimally elevated at 0.11. Home oxygen eval may be considered on discharge day. 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 Scheduled budesonide and duoneb were used to above benefit. Mild pancytopenia. To be followed. T2DM. Home metformin on hold; using 2-6u of correction lispro daily. H/o klebsiella bacteremia in setting of probable pneumobilia in 04/2021, underwent ERCP and biliary stent placement in [place] at that time. H/o microscopic hematuria and elevated PSA (30s on 04/09/21). Last saw [facility] urology team in 06/2021; apparently, they are unaware of his PSA elevation. I asked [facility] Nurse to fax my today's hospital progress note along with PSA level from [facility] records to his PCP and urologist in [facility] system. H/o AAA graft repair. DVT px: heparin Code: DNR He was going to be discharged today but kept overnight on son's request. Likely discharge home 07/28.
[2021-07-27] MEDS: Temazepam 15 MG Cap PO PRN (22:20)
[2021-07-27] MEDS: Tamsulosin 0.4 MG Cap.ER PO SCH (22:21)
[2021-07-27] MEDS: atorvaSTATin 10 MG Tab PO SCH (22:21)
[2021-07-28] MEDS: Levothyroxine 50 MCG Tab PO SCH (05:08)
[2021-07-28] MEDS: Heparin Sodium 5,000 Units/ML Vial SUBCUT SCH (05:09)
[2021-07-28 07:27] LABS: ANION GAP 8.8 mEq/L (7-13); CHLORIDE,CL 106 mmol/L (98-107); SODIUM,NA 143 mmol/L (136-145)
[2021-07-28] MEDS: Albuterol/Ipratropium 3.0-0.5 MG/3 ML Neb Soln NEB SCH (07:48)
[2021-07-28] MEDS: Budesonide 0.5 MG/2 ML Neb Susp NEB SCH (07:48)
[2021-07-28] MEDS: Omeprazole 20 MG Cap.CR PO SCH (10:11)
[2021-07-28] MEDS: Polyethylene Glycol 3350 Powder 17 GM Packet PO SCH (10:12)
[2021-07-28] MEDS: Insulin Lispro 100 Units/ML 3 ML Vial SUBCUT SCH ×2 (10:13→13:14)
[2021-07-28] MEDS: Oxymetazoline 0.05% Nasal Spray 30 ML Bottle NAS PRN (10:20)
--- NOTE | 2021-07-28 11:31 | PCM.DCSUM1 ---
Discharge Summary - Hospital Course Free Text/Narrative:: Micah is an 85 year old man with PMH most significant for COPD, chronic respiratory failure with hypoxia, chronic oxygen dependence of 4L, acquired hypothyroidism, HTN, HLD, DMII with peripheral neuropathy, unspecified anemia and GERD who presented to the ED on 07/23/21 with complaints of increased SOB and increasing oxygen requirements. While in the ED he was found to have O2 sat 71% on 5L despite home O2 requirement of 4L. CXR revealed BLL PNA. tmax 102.7. RSV positive. He was admitted to the hospital for further evaluation and treatment of acute on chronic hypoxic respiratory failure secondary to RSV pneumonia. He was provided breathing treatments per RT, symptoms management and oxygen was weaned as tolerated. On the morning of 07/28/21 He was back to baseline home oxygen requirement and was thought to be medically stable for discharge from the hospital. He will require follow up with PCP within one week at which time incidentally noted previous PSA elevation can be discussed. Brief History: see above Diagnosis: Stroke: No Modified Heide Scale: No Signif.Disability Despite Sympt.Able to Carry Out Usual Act./Duties Modified Stutsman Scale Score: 1 - Discharge Data Discharge Date: 07/28/21 Discharge Disposition: Home, Self-Care 01 Condition: Fair - Referral to Home Health Primary Care Physician: PCP None - Patient Summary/Data Consults: Consultations 07/24/21 10:12 OT Evaluation and Treatment [CONS] Routine PT Evaluation and Treatment [CONS] Routine Recommended Follow-up Testing/Procedures: follow up with PCP for post hospital evaluation and discuss previously noted PSA elevation - Patient Instructions Diet: Regular Diet as Tolerated Activity: As Tolerated - Discharge Plan *PRESCRIPTION DRUG MONITORING PROGRAM REVIEWED*: Not Applicable *COPY OF PRESCRIPTION DRUG MONITORING REPORT IN PATIENT JULIANNA: Not Applicable Home Medications: Home Meds Acetaminophen/Pamabrom [Cramp Tablet] 1 each PO BID 07/23/21 [History] Albuterol [Ventolin HFA] 1 puff .XX Q4H PRN 07/23/21 [History] Ascorbic Acid [Vitamin C] 250 mg PO TID 07/23/21 [History] Budesonide/Formoterol Fumarate [Symbicort 160-4.5 Mcg Inhaler] 6 gm IH BID 07/23/21 [History] Cholecalciferol (Vitamin D3) [Vitamin D3] 125 mcg PO DAILY 07/23/21 [History] Ferrous Sulfate [Ferosul] 325 mg PO DAILY 07/23/21 [History] Levothyroxine [Synthroid] 50 mcg PO ACBREAKFAST 07/23/21 [History] Omeprazole 40 mg PO DAILY 07/23/21 [History] Pregabalin 300 mg PO BID 07/23/21 [History] Tamsulosin HCl [Flomax] 0.4 mg PO BEDTIME 07/23/21 [History] Vit C/E/Zn/Coppr/Lutein/Zeaxan [Preservision Areds 2 Softgel] 2 cap PO DAILY 07/23/21 [History] atorvaSTATin [Lipitor] 10 mg PO BEDTIME 07/23/21 [History] metFORMIN [Glucophage] 500 mg PO BIDMEALS 07/23/21 [History] Oxygen Therapy Mode: Nasal Cannula (4L with goal O2 >88%, previous baseline) Oxygen Flow Rate (L/min): 4 Maintain SpO2% greater than: 88 Referrals: Antonieta Sevilla NP [Ordering Only Provider] - - Discharge Summary/Plan Comment DC Time >30 min.: Yes Total # of Minutes for Discharge Time: 60 - General Info Date of Service: 07/28/21 Admission Dx/Problem (Free Text: Admission Diagnosis/Problem Admission Diagnosis/Problem Pneumonia Subjective Update: doing well today. feels back to baseline. excited to discharge home. Functional Status: Reports: Pain Controlled, Tolerating Diet - Review of Systems General: Reports: No Symptoms HEENT: Reports: No Symptoms Pulmonary: Reports: No Symptoms Cardiovascular: Reports: No Symptoms Gastrointestinal: Reports: No Symptoms Genitourinary: Reports: No Symptoms Musculoskeletal: Reports: No Symptoms Skin: Reports: No Symptoms Neurological: Reports: No Symptoms Psychiatric: Reports: No Symptoms - Patient Data Vitals - Most Recent: Last Vital Signs Temp 98.2 F 07/28/21 08:00 Pulse 81 07/28/21 08:00 Resp 20 07/28/21 08:00 BP 144/72 H 07/28/21 08:00 Pulse Ox 90 L 07/28/21 08:00 Weight - Most Recent: 168 lb I&O - Last 24 hours: Intake & Output 07/27/21 07/28/21 07/28/21 22:59 06:59 14:59 Intake Total 420 300 Balance 420 300 Lab Results - Last 24 hrs: Laboratory Results - last 24 hr 07/27/21 07/27/21 07/27/21 Range/Units 11:54 16:26 20:22 WBC (5.0-10.0) 10^3/uL RBC (4.6-6.2) 10^6/uL Hgb (14.0-18.0) g/dL Hct (40.0-54.0) % MCV (80-100) fL MCH (27.0-34.0) pg MCHC (33.0-35.0) g/dL Plt Count (150-450) 10^3/uL Sodium (136-145) mmol/L Potassium (3.5-5.1) mmol/L Chloride (98-107) mmol/L Carbon Dioxide (21-32) mmol/L Anion Gap (7-13) mEq/L BUN (7-18) mg/dL Creatinine (0.70-1.30) mg/dL Est Cr Clr Drug Dosing mL/min Estimated GFR (MDRD) Glucose (70-99) mg/dL POC Glucose 153 H 120 H 207 H (70-99) mg/dL Calcium (8.5-10.1) mg/dL Total Bilirubin (0.2-1.0) mg/dL Direct Bilirubin (0.0-0.2) mg/dL Indirect Bilirubin AST (15-37) U/L ALT (16-63) U/L Alkaline Phosphatase (46-116) U/L Total Protein (6.4-8.2) g/dL Albumin (3.4-5.0) g/dL Globulin Albumin/Globulin Ratio 07/28/21 07/28/21 07/28/21 Range/Units 05:35 05:35 08:03 WBC 4.3 L (5.0-10.0) 10^3/uL RBC 4.14 L (4.6-6.2) 10^6/uL Hgb 13.2 L (14.0-18.0) g/dL Hct 41.2 (40.0-54.0) % MCV 99.5 (80-100) fL MCH 31.9 (27.0-34.0) pg MCHC 32.0 L (33.0-35.0) g/dL Plt Count 150 (150-450) 10^3/uL Sodium 143 (136-145) mmol/L Potassium 3.8 (3.5-5.1) mmol/L Chloride 106 (98-107) mmol/L Carbon Dioxide 32 (21-32) mmol/L Anion Gap 8.8 (7-13) mEq/L BUN 13 (7-18) mg/dL Creatinine 1.03 (0.70-1.30) mg/dL Est Cr Clr Drug Dosing 53.16 mL/min Estimated GFR (MDRD) > 60 Glucose 116 H (70-99) mg/dL POC Glucose 129 H (70-99) mg/dL Calcium 8.9 (8.5-10.1) mg/dL Total Bilirubin 0.5 (0.2-1.0) mg/dL Direct Bilirubin 0.2 (0.0-0.2) mg/dL Indirect Bilirubin 0.3 AST 48 H (15-37) U/L ALT 61 (16-63) U/L Alkaline Phosphatase 161 H (46-116) U/L Total Protein 6.7 (6.4-8.2) g/dL Albumin 3.2 L (3.4-5.0) g/dL Globulin 3.5 Albumin/Globulin Ratio 0.91 KASSIDY Results - Last 24 hrs: Microbiology 07/23/21 17:35 Aerobic Blood Culture - Final Blood - Arm, Right Staphylococcus Auricularis Anaerobic Blood Culture - Preliminary NO GROWTH AFTER 4 DAYS 07/25/21 11:45 Aerobic Blood Culture - Preliminary Blood - Arm, Right NO GROWTH AFTER 2 DAYS Anaerobic Blood Culture - Preliminary NO GROWTH AFTER 2 DAYS 07/25/21 11:40 Aerobic Blood Culture - Preliminary Blood - Arm, Left NO GROWTH AFTER 2 DAYS Anaerobic Blood Culture - Preliminary NO GROWTH AFTER 2 DAYS Med Orders - Current: Current Medications Acetaminophen (Acetaminophen 325 Mg Tab) 650 mg PO Q4H PRN PRN Reason: Fever Hydrocodone Bitart/Acetaminophen (Acetaminophen/Hydrocodone 325-10 Mg Tab) 0.5 tab PO Q4H PRN PRN Reason: Pain (moderate 4-6) Albuterol/Ipratropium (Albuterol/Ipratropium 3.0-0.5 Mg/3 Ml Neb Soln) 3 ml NEB Q2H PRN PRN Reason: sob Albuterol/Ipratropium (Albuterol/Ipratropium 3.0-0.5 Mg/3 Ml Neb Soln) 3 ml NEB TIDRT [facility] Last Admin: 07/28/21 07:48 Dose: 3 ml Documented by: Atorvastatin Calcium (Atorvastatin 10 Mg Tab) 10 mg PO BEDTIME [facility] Last Admin: 07/27/21 22:21 Dose: 10 mg Documented by: Budesonide (Budesonide 0.5 Mg/2 Ml Neb Susp) 0.5 mg NEB BIDRT [facility] Last Admin: 07/28/21 07:48 Dose: 0.5 mg Documented by: Dextrose/Water (50% Dextrose In Water 50 Ml Syringe) 25 ml IVPUSH ASDIRECTED PRN PRN Reason: Hypoglycemia BS<70 Heparin Sodium (Porcine) (Heparin Sodium 5,000 Units/Ml Vial) 5,000 units SUBCUT Q8HR [facility] Last Admin: 07/28/21 05:09 Dose: 5,000 units Documented by: Insulin Human Lispro (Insulin Lispro 100 Units/Ml 3 Ml Vial) 0 unit SUBCUT WITHMEALSANDBED [facility]; Protocol Last Admin: 07/28/21 10:13 Dose: Not Given Documented by: Levothyroxine Sodium (Levothyroxine 50 Mcg Tab) 50 mcg PO ACBREAKFAST [facility] Last Admin: 07/28/21 05:08 Dose: 50 mcg Documented by: Omeprazole (Omeprazole 20 Mg Cap.Cr) 40 mg PO DAILY [facility] Last Admin: 07/28/21 10:11 Dose: 40 mg Documented by: Ondansetron HCl (Ondansetron 4 Mg Tab.Dis) 4 mg PO Q6H PRN PRN Reason: nausea, able to take PO Oxymetazoline HCl (Oxymetazoline 0.05% Nasal [place] 30 Ml Bottle) 0 ml GENNY Q12H PRN PRN Reason: Congestion Last Admin: 07/28/21 10:20 Dose: 2 spray Documented by: Polyethylene Glycol (Polyethylene Glycol 3350 Powder 17 Gm Packet) 17 gm PO BID [facility] Last Admin: 07/28/21 10:12 Dose: 17 gm Documented by: Pregabalin (Pregabalin 150 Mg Cap) 300 mg PO BID [facility] Last Admin: 07/28/21 10:11 Dose: 300 mg Documented by: Senna/Docusate Sodium (Docusate Sodium/Sennosides 50-8.6 Mg Tab) 2 tab PO DAILY [facility] Last Admin: 07/28/21 10:11 Dose: 2 tab Documented by: Sodium Chloride (Sodium Chloride 0.9% 10 Ml Syringe) 10 ml FLUSH ASDIRECTED PRN PRN Reason: Keep Vein Open Last Admin: 07/25/21 06:26 Dose: 10 ml Documented by: Tamsulosin HCl (Tamsulosin 0.4 Mg Cap.Er) 0.4 mg PO BEDTIME [facility] Last Admin: 07/27/21 22:21 Dose: 0.4 mg Documented by: Temazepam (Temazepam 15 Mg Cap) 15 mg PO BEDTIME PRN PRN Reason: Sleep Last Admin: 07/27/21 22:20 Dose: 15 mg Documented by: Discontinued Medications Acetaminophen (Acetaminophen 325 Mg Tab) 650 mg PO NOW ONE Stop: 07/23/21 17:43 Last Admin: 07/23/21 17:50 Dose: 650 mg Documented by: Albuterol/Ipratropium (Albuterol/Ipratropium 3.0-0.5 Mg/3 Ml Neb Soln) 3 ml NEB ONETIME ONE Stop: 07/23/21 18:34 Last Admin: 07/23/21 18:47 Dose: 3 ml Documented by: Ascorbic Acid (Ascorbic Acid 500 Mg Tab) 250 mg PO TID [facility] Last Admin: 07/26/21 14:22 Dose: 250 mg Documented by: Azithromycin (Azithromycin 250 Mg Tab) 250 mg PO DAILY [facility] Last Admin: 07/27/21 09:16 Dose: 250 mg Documented by: Docusate Sodium (Docusate Sodium 100 Mg Cap) 100 mg PO BID PRN PRN Reason: Constipation Ferrous Sulfate (Ferrous Sulfate 325 Mg Tab) 325 mg PO DAILY [facility] Last Admin: 07/27/21 09:16 Dose: 325 mg Documented by: Azithromycin 500 mg/ Sodium (Chloride) 250 mls @ 250 mls/hr IV Q24H [facility] Last Infusion: 07/24/21 23:38 Dose: Infused Documented by: Vancomycin HCl 1.25 gm/ Sodium (Chloride) 250 mls @ 250 mls/hr IV NOW ONE Stop: 07/25/21 07:14 Last Admin: 07/25/21 06:26 Dose: 250 mls/hr Documented by: Vancomycin HCl 1.25 gm/ Sodium (Chloride) 250 mls @ 250 mls/hr IV Q12H [facility] Last Admin: 07/26/21 17:55 Dose: 250 mls/hr Documented by: Multivitamins/Minerals (Multivitamins, Therapeutic With Minerals Tab) 1 tab PO WITHBREAKFAST [facility] Last Admin: 07/25/21 22:23 Dose: Not Given Documented by: Multivitamins/Minerals/Vitamin C (Multivitamin Tab) 1 tab PO WITHBREAKFAST [facility] Last Admin: 07/26/21 09:47 Dose: 1 tab Documented by: Non-Formulary Medication (Cholecalciferol (Vitamin D3) [Vitamin D3]) 125 mcg PO DAILY [facility] Last Admin: 07/27/21 11:10 Dose: Not Given Documented by: Oxymetazoline HCl (Oxymetazoline 0.05% Nasal [place] 30 Ml Bottle) 1 ml GENNY Q12H PRN PRN Reason: Congestion Trimethoprim/Sulfamethoxazole (Sulfamethoxazole/Trimethoprim 800-160 Mg Tab) 1 tab PO BID [facility] Last Admin: 07/27/21 11:16 Dose: 1 tab Documented by: Vancomycin HCl (Pharmacy To Dose - Vancomycin) 1 dose .XX ASDIRECTED [facility] - Exam Quality Assessment: Reports: Supplemental Oxygen. Denies: Urine Catheter, DVT Prophylaxis, Skin Breakdown General: Reports: Alert, Oriented, Cooperative, No Acute Distress HEENT: Reports: EOMI Neck: Reports: Supple Lungs: Reports: Clear to Auscultation, Decreased Breath Sounds (at bilateral bases) GI/Abdominal Exam: Normal Bowel Sounds, Soft, Tender (minimal tenderness to deep palpation of LUQ) Extremities: Normal Inspection, Normal Range of Motion, Pedal Edema (trace pedal edema) Skin: Reports: Warm, Dry, Intact Neurological: Reports: No New Focal Deficit Psy/Mental Status: Reports: Alert, Normal Affect, Normal Mood *Q Meaningful Use (DIS) - VTE *Q VTE Mechanical Contraindications *Q: Tx/Proc Refused byPt VTE Pharmacological Contraindications *Q: Tx/Proc Refused by Pt VTE Anticoagulation Contraindications: Tx/proc Refused by PT - Stroke *Q Aspirin Contraindications Stroke *Q: Patient Refusal Anticoagulation Contraindications Stroke *Q: TX/PROC Refused by PT Antithrombotic Contraindications Stroke *Q: TX/PROC Refused by PT Statin Contraindications Stroke *Q: TX/PROC Refused by PT Rehabilitation Assessment Contraindication *Q: Tx/proc refused by pt - AMI *Q Aspirin Contraindications AMI *Q: TX/PROC Refused by PT Statin Contraindications AMI *Q: TX/Proc Refused by PT
[2021-07-28 13:21] VITALS: BP 113/73; PULSE 79
== END 2021-07-28 14:30 | disposition home or self-care (01) | DRG 871 ==
LOC: DL.ED 17:13 → DL.MS 20:35
PROVIDERS: ADMIT Internal Medicine; ATTEND Hospitalist
DX: A41.1 Sepsis due to other specified staphylococcus (principal); J96.91 Respiratory failure, unspecified with hypoxia; J12.1 Respiratory syncytial virus pneumonia; J96.21 Acute and chronic respiratory failure with hypoxia; J44.1 Chronic obstructive pulmonary disease with (acute) exacerbation; J18.9 Pneumonia, unspecified organism; R09.02 Hypoxemia; J44.0 Chronic obstructive pulmonary disease with (acute) lower respiratory infection; I10 Essential (primary) hypertension; H35.30 Unspecified macular degeneration; Z66 Do not resuscitate; E78.5 Hyperlipidemia, unspecified; E11.42 Type 2 diabetes mellitus with diabetic polyneuropathy; E78.00 Pure hypercholesterolemia, unspecified; K21.9 Gastro-esophageal reflux disease without esophagitis; Z87.01 Personal history of pneumonia (recurrent); N40.1 Benign prostatic hyperplasia with lower urinary tract symptoms; R33.9 Retention of urine, unspecified; M19.90 Unspecified osteoarthritis, unspecified site; G89.29 Other chronic pain; M54.9 Dorsalgia, unspecified; F41.9 Anxiety disorder, unspecified; Z86.19 Personal history of other infectious and parasitic diseases; Z98.41 Cataract extraction status, right eye; E11.40 Type 2 diabetes mellitus with diabetic neuropathy, unspecified; Z79.84 Long term (current) use of oral hypoglycemic drugs; Z99.81 Dependence on supplemental oxygen; E03.9 Hypothyroidism, unspecified; D64.9 Anemia, unspecified; Z98.42 Cataract extraction status, left eye; Z98.890 Other specified postprocedural states; Z90.49 Acquired absence of other specified parts of digestive tract; Z88.8 Allergy status to other drugs, medicaments and biological substances; Z79.890 Hormone replacement therapy; Z79.4 Long term (current) use of insulin; Z79.899 Other long term (current) drug therapy; Z20.822 Contact with and (suspected) exposure to COVID-19
CPT/HCPCS: 0240U; 36415; 71045; 80048; 80053; 80076; 81001; 82947; 83605; 83735; 83880; 84145; 84484; 85025; 85027; 87040; 87070; 87077; 87186; 87205; 93005; 94640; 97110; 97116; 97161; 97165; 97530; 99285; A9270-GY; J0456; J1644; J1815-GY; J3370; J7050; J7620-GY

== ENCOUNTER 2021-10-24 22:28 | Inpatient (IN) | payer MEDICARE, BC ==
[2021-10-24] MEDS ORDERED: cefTRIAXone 1 GM in Sodium Chloride 0.9% 50 ML IV ONE (22:32)
[2021-10-24] MEDS ORDERED: methylPREDNISolone Sodium Succinate 125 MG/2 ML SDV IVPUSH ONE (22:32)
[2021-10-24] MEDS ORDERED: Azithromycin 500 MG in Sodium Chloride 0.9% 250 ML IV ONE (22:32)
[2021-10-24 22:53] LABS: ANION GAP 9.8 mEq/L (7-13); CHLORIDE,CL 101 mmol/L (98-107); SODIUM,NA 136 mmol/L (136-145)
[2021-10-24 22:54] LABS: CORONAVIRUS COVID-19 NAA NEGATIVE (NEGATIVE)
[2021-10-24] MEDS ORDERED: Magnesium Sulfate/Water 2 GM in Premix Bag 1 BAG IV ONE (23:15)
[2021-10-24] MEDS ORDERED: Albuterol/Ipratropium 3.0-0.5 MG/3 ML Neb Soln NEB ONE (23:16)
[2021-10-24] MEDS ORDERED: Albuterol 0.083% 2.5 MG/3 ML Neb Soln NEB ONE (23:57)
[2021-10-25] MEDS ORDERED: HYDROmorphone 0.5 MG/0.5 ML Syringe IVPUSH PRN (01:40)
[2021-10-25] MEDS ORDERED: Acetaminophen/HYDROcodone 325-10 MG Tab PO PRN (01:40)
[2021-10-25] MEDS ORDERED: Ondansetron 4 MG/2 ML SDV IVPUSH PRN (01:40)
[2021-10-25] MEDS ORDERED: Acetaminophen 325 MG Tab PO PRN (01:40)
[2021-10-25] MEDS ORDERED: Polyethylene Glycol 3350 Powder 17 GM Packet PO PRN (01:40)
[2021-10-25] MEDS ORDERED: Albuterol/Ipratropium 3.0-0.5 MG/3 ML Neb Soln NEB PRN (01:40)
[2021-10-25] MEDS ORDERED: 50% Dextrose in Water 50 ML Syringe IVPUSH PRN ×2 (01:45→01:52)
[2021-10-25] MEDS ORDERED: Glucagon,Human Recombinant 1 MG Vial IM PRN ×2 (01:45→01:52)
[2021-10-25] MEDS ORDERED: Sodium Chloride 0.9% 1,000 ML IV SCH (02:00)
[2021-10-25] MEDS: methylPREDNISolone Sodium Succinate 40 MG/1 ML SDV IVPUSH SCH ×4 (04:05→23:20)
[2021-10-25] MEDS: Levothyroxine 50 MCG Tab PO SCH (06:02)
[2021-10-25] MEDS: guaiFENesin/Dextromethorphan 100-10 MG/5 ML Soln 5 ML Cup PO PRN ×2 (06:33→13:28)
[2021-10-25] MEDS: Omeprazole 20 MG Cap.CR PO SCH (08:47)
[2021-10-25] MEDS: metFORMIN 500 MG Tab PO SCH ×2 (08:47→18:54)
[2021-10-25] MEDS: Insulin Glarg,Human.Rec.Analog 100 Unit/ML SUBCUT SCH ×2 (08:48→20:55)
[2021-10-25] MEDS: Ferrous Sulfate 325 MG Tab PO SCH (08:48)
[2021-10-25] MEDS: Insulin Lispro 100 Units/ML 3 ML Vial SUBCUT PRN ×3 (08:49→17:36)
[2021-10-25] MEDS: Sodium Chloride 0.9% 10 ML Syringe FLUSH SCH ×3 (08:51→21:24)
[2021-10-25] MEDS ORDERED: Magnesium Sulfate/Water 2 GM in Premix Bag 1 BAG IV ONE (09:00)
[2021-10-25] MEDS: Sodium Chloride 0.9% 10 ML Syringe FLUSH PRN (10:39)
[2021-10-25] MEDS: Sodium Chloride 0.9% 1,000 ML IV SCH ×2 (13:23→18:09)
[2021-10-25] MEDS: Tamsulosin 0.4 MG Cap.ER PO SCH (20:55)
[2021-10-25] MEDS: Formoterol/Mometasone 200-5 MCG 8.8 GM Inhaler IH SCH (20:55)
[2021-10-25] MEDS: Latanoprost 0.005% Ophth Soln 2.5 ML Bottle EYELF SCH (20:57)
[2021-10-25] MEDS: atorvaSTATin 10 MG Tab PO SCH (20:57)
[2021-10-25] MEDS: Albuterol 6.7 GM Inhaler INH PRN (21:12)
[2021-10-25] MEDS: Albuterol 0.021% 0.63 MG/3 ML Neb Soln NEB SCH (21:24)
[2021-10-25] MEDS: cefTRIAXone 1 GM in Sodium Chloride 0.9% 50 ML IV SCH (22:47)
[2021-10-25] MEDS: Azithromycin 500 MG in Sodium Chloride 0.9% 250 ML IV SCH (23:22)
[2021-10-26] MEDS ORDERED: methylPREDNISolone Sodium Succinate 40 MG/1 ML SDV ONE (00:53)
[2021-10-26] MEDS: Albuterol 0.021% 0.63 MG/3 ML Neb Soln NEB SCH ×3 (01:03→13:02)
[2021-10-26] MEDS: methylPREDNISolone Sodium Succinate 40 MG/1 ML SDV IVPUSH SCH ×4 (04:29→21:24)
[2021-10-26] MEDS: Sodium Chloride 0.9% 1,000 ML IV SCH ×2 (04:29→14:29)
[2021-10-26] MEDS: Levothyroxine 50 MCG Tab PO SCH (05:37)
[2021-10-26 06:16] LABS: ANION GAP 12.8 mEq/L (7-13); CHLORIDE,CL 107 mmol/L (98-107); SODIUM,NA 144 mmol/L (136-145)
[2021-10-26] MEDS: metFORMIN 500 MG Tab PO SCH ×2 (09:13→17:52)
[2021-10-26] MEDS: Albuterol 6.7 GM Inhaler INH PRN ×3 (09:15→21:32)
[2021-10-26] MEDS: Ferrous Sulfate 325 MG Tab PO SCH (09:16)
[2021-10-26] MEDS: Omeprazole 20 MG Cap.CR PO SCH (09:17)
[2021-10-26] MEDS: Formoterol/Mometasone 200-5 MCG 8.8 GM Inhaler IH SCH ×2 (09:21→21:27)
[2021-10-26] MEDS: Insulin Glarg,Human.Rec.Analog 100 Unit/ML SUBCUT SCH ×2 (09:21→21:33)
[2021-10-26] MEDS: Insulin Lispro 100 Units/ML 3 ML Vial SUBCUT PRN (09:24)
[2021-10-26] MEDS: Sodium Chloride 0.9% 10 ML Syringe FLUSH SCH ×2 (09:29→21:26)
[2021-10-26] MEDS: Insulin Lispro 100 Units/ML 3 ML Vial SUBCUT SCH ×2 (11:41→17:52)
[2021-10-26] MEDS: Albuterol 0.083% 2.5 MG/3 ML Neb Soln INH SCH (19:08)
[2021-10-26] MEDS: Azithromycin 500 MG in Sodium Chloride 0.9% 250 ML IV SCH (21:25)
[2021-10-26] MEDS: Tamsulosin 0.4 MG Cap.ER PO SCH (21:26)
[2021-10-26] MEDS: atorvaSTATin 10 MG Tab PO SCH (21:26)
[2021-10-26] MEDS: Latanoprost 0.005% Ophth Soln 2.5 ML Bottle EYELF SCH (21:29)
[2021-10-26] MEDS: Melatonin 3 MG Tab PO PRN (21:49)
[2021-10-26] MEDS: cefTRIAXone 1 GM in Sodium Chloride 0.9% 50 ML IV SCH (22:35)
[2021-10-27] MEDS: Albuterol 0.083% 2.5 MG/3 ML Neb Soln INH SCH ×4 (00:13→18:31)
[2021-10-27] MEDS: guaiFENesin/Dextromethorphan 100-10 MG/5 ML Soln 5 ML Cup PO PRN ×2 (00:31→19:46)
[2021-10-27] MEDS ORDERED: Furosemide 20 MG/2 ML VIAL IVPUSH ONE ×2 (00:45→12:06)
[2021-10-27] MEDS: Albuterol 6.7 GM Inhaler INH PRN ×2 (02:07→08:14)
[2021-10-27] MEDS: methylPREDNISolone Sodium Succinate 40 MG/1 ML SDV IVPUSH SCH ×4 (04:31→22:04)
[2021-10-27] MEDS: Levothyroxine 50 MCG Tab PO SCH (05:45)
[2021-10-27 06:30] LABS: ANION GAP 13.8 mEq/L (7-13); CHLORIDE,CL 105 mmol/L (98-107); SODIUM,NA 143 mmol/L (136-145)
[2021-10-27] MEDS: Formoterol/Mometasone 200-5 MCG 8.8 GM Inhaler IH SCH ×2 (08:16→22:02)
[2021-10-27] MEDS: metFORMIN 500 MG Tab PO SCH ×2 (10:05→17:23)
[2021-10-27] MEDS: Omeprazole 20 MG Cap.CR PO SCH (10:05)
[2021-10-27] MEDS: Ferrous Sulfate 325 MG Tab PO SCH (10:06)
[2021-10-27] MEDS: Sodium Chloride 0.9% 10 ML Syringe FLUSH SCH ×2 (10:07→22:04)
[2021-10-27] MEDS: Insulin Glarg,Human.Rec.Analog 100 Unit/ML SUBCUT SCH (10:10)
[2021-10-27] MEDS: Insulin Lispro 100 Units/ML 3 ML Vial SUBCUT SCH ×3 (10:11→17:25)
[2021-10-27] MEDS ORDERED: Albuterol 0.083% 2.5 MG/3 ML Neb Soln NEB SCH (11:00)
[2021-10-27] MEDS: Sodium Chloride 0.9% 1,000 ML IV SCH (11:47)
[2021-10-27] MEDS ORDERED: guaiFENesin 600 MG Tab.ER PO ONE (11:56)
[2021-10-27] MEDS ORDERED: Magnesium Sulfate/Water 2 GM in Premix Bag 1 BAG IV ONE (12:07)
[2021-10-27] MEDS ORDERED: Insulin Glarg,Human.Rec.Analog 100 Unit/ML SUBCUT SCH (21:00)
[2021-10-27] MEDS: Latanoprost 0.005% Ophth Soln 2.5 ML Bottle EYELF SCH (21:59)
[2021-10-27] MEDS: guaiFENesin 600 MG Tab.ER PO SCH (22:00)
[2021-10-27] MEDS: atorvaSTATin 10 MG Tab PO SCH (22:00)
[2021-10-27] MEDS: Tamsulosin 0.4 MG Cap.ER PO SCH (22:00)
[2021-10-27] MEDS: cefTRIAXone 1 GM in Sodium Chloride 0.9% 50 ML IV SCH (22:07)
[2021-10-27] MEDS: Melatonin 3 MG Tab PO PRN (22:13)
[2021-10-27] MEDS: Azithromycin 500 MG in Sodium Chloride 0.9% 250 ML IV SCH (22:45)
[2021-10-28] MEDS: Sodium Chloride 0.9% 10 ML Syringe FLUSH PRN (03:39)
[2021-10-28] MEDS: methylPREDNISolone Sodium Succinate 40 MG/1 ML SDV IVPUSH SCH ×4 (03:40→22:13)
[2021-10-28] MEDS: Albuterol 6.7 GM Inhaler INH PRN ×3 (03:40→21:41)
[2021-10-28] MEDS: Albuterol 0.083% 2.5 MG/3 ML Neb Soln INH SCH ×4 (04:57→18:48)
[2021-10-28 05:49] LABS: ANION GAP 10.9 mEq/L (7-13); CHLORIDE,CL 105 mmol/L (98-107); SODIUM,NA 143 mmol/L (136-145)
[2021-10-28] MEDS: Levothyroxine 50 MCG Tab PO SCH (06:12)
[2021-10-28] MEDS: Insulin Lispro 100 Units/ML 3 ML Vial SUBCUT SCH ×3 (08:30→17:09)
[2021-10-28] MEDS: metFORMIN 500 MG Tab PO SCH ×2 (08:50→17:10)
[2021-10-28] MEDS: Ferrous Sulfate 325 MG Tab PO SCH (08:55)
[2021-10-28] MEDS: Omeprazole 20 MG Cap.CR PO SCH (08:56)
[2021-10-28] MEDS: Formoterol/Mometasone 200-5 MCG 8.8 GM Inhaler IH SCH ×2 (08:57→21:24)
[2021-10-28] MEDS: Insulin Glarg,Human.Rec.Analog 100 Unit/ML SUBCUT SCH ×3 (09:25→21:29)
[2021-10-28] MEDS: guaiFENesin 600 MG Tab.ER PO SCH ×2 (09:30→21:24)
[2021-10-28] MEDS: Sodium Chloride 0.9% 10 ML Syringe FLUSH SCH ×2 (10:43→21:25)
[2021-10-28] MEDS: Tamsulosin 0.4 MG Cap.ER PO SCH (21:24)
[2021-10-28] MEDS: atorvaSTATin 10 MG Tab PO SCH (21:24)
[2021-10-28] MEDS: Latanoprost 0.005% Ophth Soln 2.5 ML Bottle EYELF SCH (21:26)
[2021-10-28] MEDS: Melatonin 3 MG Tab PO PRN (21:29)
[2021-10-28] MEDS: cefTRIAXone 1 GM in Sodium Chloride 0.9% 50 ML IV SCH (21:39)
[2021-10-28] MEDS: Azithromycin 500 MG in Sodium Chloride 0.9% 250 ML IV SCH (22:18)
[2021-10-29] MEDS: Albuterol 0.083% 2.5 MG/3 ML Neb Soln INH SCH ×4 (01:51→18:09)
[2021-10-29] MEDS: Albuterol 6.7 GM Inhaler INH PRN ×2 (03:02→07:18)
[2021-10-29] MEDS: methylPREDNISolone Sodium Succinate 40 MG/1 ML SDV IVPUSH SCH ×4 (03:06→21:11)
[2021-10-29] MEDS: Levothyroxine 50 MCG Tab PO SCH (05:29)
[2021-10-29 06:08] LABS: ANION GAP 10.4 mEq/L (7-13); CHLORIDE,CL 104 mmol/L (98-107); SODIUM,NA 142 mmol/L (136-145)
[2021-10-29] MEDS: Insulin Glarg,Human.Rec.Analog 100 Unit/ML SUBCUT SCH ×2 (08:25→21:09)
[2021-10-29] MEDS: Insulin Lispro 100 Units/ML 3 ML Vial SUBCUT SCH ×3 (08:26→16:59)
[2021-10-29] MEDS: guaiFENesin 600 MG Tab.ER PO SCH ×2 (08:27→21:10)
[2021-10-29] MEDS: Formoterol/Mometasone 200-5 MCG 8.8 GM Inhaler IH SCH ×2 (08:27→21:09)
[2021-10-29] MEDS: Ferrous Sulfate 325 MG Tab PO SCH (08:27)
[2021-10-29] MEDS: metFORMIN 500 MG Tab PO SCH ×2 (08:27→17:43)
[2021-10-29] MEDS: Sodium Chloride 0.9% 10 ML Syringe FLUSH SCH ×2 (08:28→21:10)
[2021-10-29] MEDS: Omeprazole 20 MG Cap.CR PO SCH (08:28)
[2021-10-29] MEDS: Sodium Chloride 0.9% 10 ML Syringe FLUSH PRN (16:59)
[2021-10-29] MEDS: atorvaSTATin 10 MG Tab PO SCH (21:09)
[2021-10-29] MEDS: Tamsulosin 0.4 MG Cap.ER PO SCH (21:09)
[2021-10-29] MEDS: cefTRIAXone 1 GM in Sodium Chloride 0.9% 50 ML IV SCH (21:10)
[2021-10-29] MEDS: Latanoprost 0.005% Ophth Soln 2.5 ML Bottle EYELF SCH (21:10)
[2021-10-29] MEDS: Azithromycin 500 MG in Sodium Chloride 0.9% 250 ML IV SCH (21:59)
[2021-10-30] MEDS: Albuterol 0.083% 2.5 MG/3 ML Neb Soln INH SCH ×3 (01:13→13:14)
[2021-10-30] MEDS: methylPREDNISolone Sodium Succinate 40 MG/1 ML SDV IVPUSH SCH ×3 (04:43→16:34)
[2021-10-30] MEDS: Levothyroxine 50 MCG Tab PO SCH (04:59)
[2021-10-30] MEDS: Insulin Lispro 100 Units/ML 3 ML Vial SUBCUT SCH ×2 (09:25→12:54)
[2021-10-30] MEDS: Insulin Glarg,Human.Rec.Analog 100 Unit/ML SUBCUT SCH (09:27)
[2021-10-30] MEDS: metFORMIN 500 MG Tab PO SCH (09:28)
[2021-10-30] MEDS: Omeprazole 20 MG Cap.CR PO SCH (09:29)
[2021-10-30] MEDS: guaiFENesin 600 MG Tab.ER PO SCH (09:30)
[2021-10-30] MEDS: Ferrous Sulfate 325 MG Tab PO SCH (09:30)
[2021-10-30] MEDS: Formoterol/Mometasone 200-5 MCG 8.8 GM Inhaler IH SCH (09:34)
[2021-10-30] MEDS: Albuterol 6.7 GM Inhaler INH PRN (09:35)
[2021-10-30] MEDS: Sodium Chloride 0.9% 10 ML Syringe FLUSH SCH (09:36)
[2021-10-30 12:05] VITALS: BP 138/61; PULSE 76
== END 2021-10-30 15:23 | disposition home or self-care (01) | DRG 193 ==
LOC: DL.ED 22:28 → DL.MS 10-25 00:48
PROVIDERS: ADMIT Internal Medicine; ATTEND Internal Medicine
DX: J18.9 Pneumonia, unspecified organism (principal); J96.21 Acute and chronic respiratory failure with hypoxia; R09.02 Hypoxemia; J96.22 Acute and chronic respiratory failure with hypercapnia; H35.30 Unspecified macular degeneration; E78.00 Pure hypercholesterolemia, unspecified; J44.0 Chronic obstructive pulmonary disease with (acute) lower respiratory infection; J44.1 Chronic obstructive pulmonary disease with (acute) exacerbation; F33.9 Major depressive disorder, recurrent, unspecified; E78.5 Hyperlipidemia, unspecified; E03.9 Hypothyroidism, unspecified; M54.9 Dorsalgia, unspecified; K11.9 Disease of salivary gland, unspecified; D50.9 Iron deficiency anemia, unspecified; K21.9 Gastro-esophageal reflux disease without esophagitis; D64.9 Anemia, unspecified; Z95.5 Presence of coronary angioplasty implant and graft; F41.9 Anxiety disorder, unspecified; Z88.8 Allergy status to other drugs, medicaments and biological substances; Z79.84 Long term (current) use of oral hypoglycemic drugs; Z79.890 Hormone replacement therapy; E11.65 Type 2 diabetes mellitus with hyperglycemia; E83.42 Hypomagnesemia; Z20.822 Contact with and (suspected) exposure to COVID-19; T38.0X5A Adverse effect of glucocorticoids and synthetic analogues, initial encounter; N40.1 Benign prostatic hyperplasia with lower urinary tract symptoms; R33.8 Other retention of urine; M19.90 Unspecified osteoarthritis, unspecified site; G89.29 Other chronic pain; E11.40 Type 2 diabetes mellitus with diabetic neuropathy, unspecified; Z98.42 Cataract extraction status, left eye; Z98.41 Cataract extraction status, right eye; Z87.19 Personal history of other diseases of the digestive system; Z87.01 Personal history of pneumonia (recurrent); Z79.4 Long term (current) use of insulin; Z87.891 Personal history of nicotine dependence; Z79.1 Long term (current) use of non-steroidal anti-inflammatories (NSAID); Z79.899 Other long term (current) drug therapy; Z79.52 Long term (current) use of systemic steroids; Z90.89 Acquired absence of other organs; Z90.49 Acquired absence of other specified parts of digestive tract; Y92.89 Other specified places as the place of occurrence of the external cause
CPT/HCPCS: 0240U; 36415; 71045; 80048; 80053; 81001; 82947; 83605; 83735; 83880; 84484; 85025; 85379; 85610; 86140; 87040; 87070; 87081; 87205; 93005; 93010; 94640; 96365; 96367; 96375; 97110-GP; 97116-GP; 97161-GP; 97165-GO; 97530-GO; 99285; 99285-25; A9270-GY; J0456; J0696; J1815-GY; J1940; J2920; J2930; J3475; J7030; J7050; J7613-GY; J7620-GY

== ENCOUNTER 2022-02-10 13:18 | Emergency (ER) | payer MEDICARE, BC ==
[2022-02-10] MEDS: Sodium Chloride 0.9% 1,000 ML IV ONE (14:25)
[2022-02-10] MEDS: Sodium Chloride 0.9% 10 ML Syringe FLUSH PRN (14:27)
[2022-02-10 14:54] LABS: ANION GAP 10.1 mEq/L (7-13)
[2022-02-10 14:55] LABS: CORONAVIRUS COVID-19 NAA NEGATIVE (NEGATIVE)
[2022-02-10] MEDS: Albuterol 0.083% 2.5 MG/3 ML Neb Soln NEB ONE (15:12)
[2022-02-10] MEDS: cefTRIAXone 2 GM in Sodium Chloride 0.9% 100 ML IV ONE (15:14)
[2022-02-10] MEDS: Azithromycin 500 MG in Sodium Chloride 0.9% 250 ML IV ONE (16:11)
[2022-02-10] MEDS: Acetaminophen 500 MG Tab PO ONE (17:25)
[2022-02-10] MEDS ORDERED: Acetaminophen 500 MG Tab PO PRN (17:32)
[2022-02-10 19:02] VITALS: BP 106/76; PULSE 88
== END 2022-02-10 17:30 ==
LOC: DL.ED 13:18
DX: J18.9 Pneumonia, unspecified organism (principal); J44.9 Chronic obstructive pulmonary disease, unspecified; E11.9 Type 2 diabetes mellitus without complications; E03.9 Hypothyroidism, unspecified; E78.00 Pure hypercholesterolemia, unspecified; Z88.8 Allergy status to other drugs, medicaments and biological substances; Z79.899 Other long term (current) drug therapy; Z87.891 Personal history of nicotine dependence; Z20.822 Contact with and (suspected) exposure to COVID-19
CPT/HCPCS: 0240U; 36415; 71045; 80053; 83605; 83735; 83880; 85025; 86140; 87040; 96361; 96365; 96367; 99284; 99285; A9270; J0456; J0696; J3490; J7030; J7050; J7613-GY

== ENCOUNTER 2022-06-10 12:10 | Emergency (ER) | payer MEDICARE, BC ==
[2022-06-10] MEDS ORDERED: Propofol 200 MG/20 ML SDV IV ONE (12:11)
[2022-06-10] MEDS ORDERED: HYDROmorphone 0.5 MG/0.5 ML Syringe IV ONE (12:45)
[2022-06-10] MEDS ORDERED: fentaNYL 100 MCG/2 ML SDV IV ONE (14:00)
[2022-06-10] MEDS ORDERED: Albuterol/Ipratropium 3.0-0.5 MG/3 ML Neb Soln INH ONE (14:45)
[2022-06-10] MEDS ORDERED: Acetaminophen/oxyCODONE 325-5 MG Tab PO ONE (15:10)
== END 2022-06-10 15:30 | disposition home or self-care (01) ==
LOC: DL.ED 12:10
DX: S43.005A Unspecified dislocation of left shoulder joint, initial encounter (principal); S72.052A Unspecified fracture of head of left femur, initial encounter for closed fracture; W01.0XXA Fall on same level from slipping, tripping and stumbling without subsequent striking against object, initial encounter; Y92.003 Bedroom of unspecified non-institutional (private) residence as the place of occurrence of the external cause
CPT/HCPCS: 01620; 23650; 73030-LT; 96374; 96375; 99283-25

== ENCOUNTER 2023-01-10 11:25 | Inpatient (IN) | payer MEDICARE, BC ==
[2023-01-10] MEDS ORDERED: Albuterol/Ipratropium 3.0-0.5 MG/3 ML Neb Soln NEB ONE ×2 (11:30→12:22)
[2023-01-10] MEDS ORDERED: methylPREDNISolone Sodium Succinate 125 MG/2 ML SDV IVPUSH ONE (11:30)
[2023-01-10] MEDS: Sodium Chloride 0.9% 10 ML Syringe FLUSH PRN ×2 (11:41→12:35)
[2023-01-10 11:51] LABS: BASOPHILS PERCENT AUTO 0.8 % (0.0-1.0); EOSINOPHILS PERCENT AUTO 0.3 % (1.0-3.0); HEMATOCRIT 37.6 % (40.0-54.0); HEMOGLOBIN 12.5 g/dL (14.0-18.0); LYMPHOCYTES PERCENT AUTO 7.1 % (20.5-50.1); MEAN CORPUSCULAR HEMOGLOBIN 34.7 pg (27.0-34.0); MEAN CORPUSCULAR HGB CONC 33.2 g/dL (33.0-35.0); MEAN CORPUSCULAR VOLUME 104.4 fL (80-100); MONOCYTES PERCENT AUTO 9.6 % (2-8); NEUTROPHILS PERCENT AUTO 82.2 % (42.2-75.2); PLATELET COUNT,PLT 127 10^3/uL (150-450); WHITE BLOOD CELL COUNT,WBC 8.9 10^3/uL (5.0-10.0)
[2023-01-10 12:14] LABS: A/G RATIO 1.1; ALBUMIN 3.5 g/dL (3.4-5.0); ANION GAP 7.3 mEq/L (7-13); BILIRUBIN TOTAL 1.3 mg/dL (0.2-1.0); BUN/CREATININE RATIO 15.5 (No establ ref range); CALCIUM 8.9 mg/dL (8.5-10.1); CREATININE 0.97 mg/dL (0.70-1.30); EST CRCL DRUG DOSING (CG) 52.64 mL/min; POTASSIUM,K 4.3 mmol/L (3.5-5.1); PROTEIN TOTAL,TP 6.7 g/dL (6.4-8.2)
[2023-01-10] MEDS ORDERED: Levofloxacin/Dextrose 5%-Water 500 MG in Premix Bag 1 BAG IV ONE (12:16)
[2023-01-10 12:17] LABS: LACTIC ACID 2.1 mmol/L (0.4-2.0)
[2023-01-10] MEDS ORDERED: Albuterol 0.083% 2.5 MG/3 ML Neb Soln NEB ONE (12:23)
[2023-01-10] MEDS ORDERED: Ondansetron 4 MG/2 ML SDV IVPUSH PRN (13:53)
[2023-01-10] MEDS ORDERED: Acetaminophen/HYDROcodone 325-5 MG Tab PO PRN (13:53)
[2023-01-10] MEDS ORDERED: Polyethylene Glycol 3350 Powder 17 GM Packet PO PRN (13:53)
[2023-01-10] MEDS ORDERED: Bisacodyl 5 MG Tab PO PRN (13:53)
[2023-01-10] MEDS ORDERED: Albuterol 0.083% 2.5 MG/3 ML Neb Soln NEB PRN (13:53)
[2023-01-10] MEDS ORDERED: Docusate Sodium 100 MG Cap PO PRN (13:53)
[2023-01-10] MEDS ORDERED: 50% Dextrose in Water 50 ML Syringe IVPUSH PRN (13:59)
[2023-01-10] MEDS ORDERED: Glucagon,Human Recombinant 1 MG Vial IM PRN (13:59)
[2023-01-10] MEDS ORDERED: Melatonin 3 MG Tab PO PRN (13:59)
[2023-01-10] MEDS: Albuterol/Ipratropium 3.0-0.5 MG/3 ML Neb Soln NEB PRN ×2 (15:05→21:31)
[2023-01-10] MEDS ORDERED: Sodium Chloride 0.9% 250 ML IV ONE (16:48)
[2023-01-10] MEDS: Insulin Lispro 100 Units/ML 3 ML Vial SUBCUT SCH ×2 (17:00→21:25)
[2023-01-10] MEDS: methylPREDNISolone Sodium Succinate 40 MG/1 ML SDV IVPUSH SCH (17:01)
[2023-01-10] MEDS: metFORMIN 500 MG Tab PO SCH (17:01)
[2023-01-10] MEDS: Sodium Chloride 0.9% 1,000 ML IV SCH (17:07)
[2023-01-10] MEDS ORDERED: VANCOmycin 1.5 GM/300 ML 1.5 GM in Premix Bag 1 BAG IV ONE (19:00)
[2023-01-10 20:28] LABS: APPEARANCE,URINE CLEAR (CLEAR); BILIRUBIN,URINE NEGATIVE (NEGATIVE); COLOR,URINE YELLOW (YELLOW); GLUCOSE,URINE 500 (NEGATIVE); KETONES,URINE 15 (NEGATIVE); LEUKOCYTE ESTERASE,URINE NEGATIVE (NEGATIVE); NITRITE,URINE NEGATIVE (NEGATIVE); OCCULT BLOOD,URINE NEGATIVE (NEGATIVE); PH,URINE 5.5 (5.0-9.0); PROTEIN,URINE NEGATIVE (NEGATIVE); UROBILINOGEN,URINE 0.2 mg/dL (0.2-1.0)
[2023-01-10] MEDS ORDERED: Sodium Chloride 0.65% Nasal Spray 45 ML Bottle NAS PRN (21:00)
[2023-01-10] MEDS: [UNRECOGNIZED DRUG - OTHER] PO SCH (21:01)
[2023-01-10] MEDS: Tamsulosin 0.4 MG Cap.ER PO SCH (21:02)
[2023-01-10] MEDS: guaiFENesin 600 MG Tab.ER PO SCH (21:02)
[2023-01-10] MEDS: atorvaSTATin 10 MG Tab PO SCH (21:02)
[2023-01-11] MEDS: methylPREDNISolone Sodium Succinate 40 MG/1 ML SDV IVPUSH SCH ×5 (00:08→23:29)
[2023-01-11] MEDS: Sodium Chloride 0.9% 1,000 ML IV SCH ×2 (03:51→17:36)
[2023-01-11] MEDS: Omeprazole 20 MG Cap.CR PO SCH (05:44)
[2023-01-11] MEDS: Levothyroxine 50 MCG Tab PO SCH (05:44)
[2023-01-11 06:14] LABS: BASOPHILS PERCENT AUTO 0.5 % (0.0-1.0); HEMATOCRIT 34.2 % (40.0-54.0); HEMOGLOBIN 11.3 g/dL (14.0-18.0); MEAN CORPUSCULAR HEMOGLOBIN 33.8 pg (27.0-34.0); MEAN CORPUSCULAR VOLUME 102.4 fL (80-100); MONOCYTES PERCENT AUTO 2.2 % (2-8); NEUTROPHILS PERCENT AUTO 93.3 % (42.2-75.2); PLATELET COUNT,PLT 116 10^3/uL (150-450); RED BLOOD CELL COUNT 3.34 10^6/uL (4.6-6.2); WHITE BLOOD CELL COUNT,WBC 7.3 10^3/uL (5.0-10.0)
[2023-01-11 06:28] LABS: ANION GAP 12.1 mEq/L (7-13); CALCIUM 8.8 mg/dL (8.5-10.1); CREATININE 1.02 mg/dL (0.70-1.30); EST CRCL DRUG DOSING (CG) 48.43 mL/min; POTASSIUM,K 4.1 mmol/L (3.5-5.1)
[2023-01-11] MEDS: Levofloxacin/Dextrose 5%-Water 750 MG in Premix Bag 1 BAG IV SCH (08:21)
[2023-01-11] MEDS: guaiFENesin 600 MG Tab.ER PO SCH ×2 (08:24→21:12)
[2023-01-11] MEDS: Cholecalciferol (Vitamin D3) 25 MCG Tab PO SCH (08:24)
[2023-01-11] MEDS: Finasteride 5 MG Tab PO SCH (08:25)
[2023-01-11] MEDS: metFORMIN 500 MG Tab PO SCH (08:25)
[2023-01-11] MEDS: Ferrous Sulfate 325 MG Tab PO SCH (08:25)
[2023-01-11] MEDS: Enoxaparin 40 MG/0.4 ML Syringe SUBCUT SCH (08:26)
[2023-01-11] MEDS: [UNRECOGNIZED DRUG - OTHER] PO SCH ×2 (08:26→21:13)
[2023-01-11] MEDS: UMECLIDINIUM BROMIDE 62.5 MCG INH SCH (08:27)
[2023-01-11] MEDS: Albuterol/Ipratropium 3.0-0.5 MG/3 ML Neb Soln NEB PRN ×2 (08:37→21:27)
[2023-01-11] MEDS: Insulin Lispro 100 Units/ML 3 ML Vial SUBCUT SCH ×4 (08:40→21:25)
[2023-01-11] MEDS ORDERED: Non-Formulary Medication 1 Each (Vit C/E/Zn/Coppr/Lutein/Zeaxan [Preservision Areds 2 Soft PO SCH (09:00)
[2023-01-11] MEDS: Tamsulosin 0.4 MG Cap.ER PO SCH (21:12)
[2023-01-11] MEDS: atorvaSTATin 10 MG Tab PO SCH (21:12)
[2023-01-12] MEDS: Albuterol/Ipratropium 3.0-0.5 MG/3 ML Neb Soln NEB PRN ×2 (02:23→06:49)
[2023-01-12] MEDS: Sodium Chloride 0.9% 1,000 ML IV SCH (04:11)
[2023-01-12] MEDS: Omeprazole 20 MG Cap.CR PO SCH (05:10)
[2023-01-12] MEDS: methylPREDNISolone Sodium Succinate 40 MG/1 ML SDV IVPUSH SCH ×4 (05:11→23:57)
[2023-01-12] MEDS: Levothyroxine 50 MCG Tab PO SCH (05:11)
[2023-01-12 06:27] LABS: BASOPHILS PERCENT AUTO 0.6 % (0.0-1.0); HEMOGLOBIN 10.8 g/dL (14.0-18.0); MEAN CORPUSCULAR HEMOGLOBIN 34.6 pg (27.0-34.0); MEAN CORPUSCULAR HGB CONC 33.8 g/dL (33.0-35.0); MEAN CORPUSCULAR VOLUME 102.6 fL (80-100); MONOCYTES PERCENT AUTO 3.7 % (2-8); NEUTROPHILS PERCENT AUTO 91.7 % (42.2-75.2); PLATELET COUNT,PLT 136 10^3/uL (150-450); RED BLOOD CELL COUNT 3.12 10^6/uL (4.6-6.2); WHITE BLOOD CELL COUNT,WBC 8.5 10^3/uL (5.0-10.0)
[2023-01-12 06:40] LABS: CALCIUM 8.6 mg/dL (8.5-10.1); CREATININE 0.9 mg/dL (0.70-1.30); EST CRCL DRUG DOSING (CG) 54.89 mL/min
[2023-01-12] MEDS: Levofloxacin/Dextrose 5%-Water 750 MG in Premix Bag 1 BAG IV SCH (08:37)
[2023-01-12] MEDS: Cholecalciferol (Vitamin D3) 25 MCG Tab PO SCH (08:40)
[2023-01-12] MEDS: Acetaminophen 325 MG Tab PO PRN ×2 (08:40→20:30)
[2023-01-12] MEDS: guaiFENesin 600 MG Tab.ER PO SCH ×2 (08:40→20:23)
[2023-01-12] MEDS: Ferrous Sulfate 325 MG Tab PO SCH (08:41)
[2023-01-12] MEDS: [UNRECOGNIZED DRUG - OTHER] PO SCH ×2 (08:42→20:23)
[2023-01-12] MEDS: Finasteride 5 MG Tab PO SCH (08:42)
[2023-01-12] MEDS: Insulin Lispro 100 Units/ML 3 ML Vial SUBCUT SCH ×4 (08:43→21:19)
[2023-01-12] MEDS: Enoxaparin 40 MG/0.4 ML Syringe SUBCUT SCH (08:44)
[2023-01-12] MEDS: UMECLIDINIUM BROMIDE 62.5 MCG INH SCH (08:45)
[2023-01-12] MEDS ORDERED: Furosemide 20 MG/2 ML VIAL IVPUSH ONE (09:26)
[2023-01-12] MEDS: glipiZIDE 2.5 MG Tab.ER PO SCH (16:59)
[2023-01-12] MEDS: Sodium Chloride 0.9% 10 ML Syringe FLUSH PRN ×2 (17:06→23:57)
[2023-01-12] MEDS: atorvaSTATin 10 MG Tab PO SCH (20:22)
[2023-01-12] MEDS: Tamsulosin 0.4 MG Cap.ER PO SCH (20:23)
[2023-01-13] MEDS: Sodium Chloride 0.9% 10 ML Syringe FLUSH PRN ×2 (05:55→23:58)
[2023-01-13] MEDS: Levothyroxine 50 MCG Tab PO SCH (05:55)
[2023-01-13] MEDS: methylPREDNISolone Sodium Succinate 40 MG/1 ML SDV IVPUSH SCH ×4 (05:55→23:58)
[2023-01-13] MEDS: Omeprazole 20 MG Cap.CR PO SCH (05:55)
[2023-01-13 06:20] LABS: BASOPHILS PERCENT AUTO 0.6 % (0.0-1.0); HEMATOCRIT 34.9 % (40.0-54.0); HEMOGLOBIN 11.8 g/dL (14.0-18.0); LYMPHOCYTES PERCENT AUTO 3.5 % (20.5-50.1); MEAN CORPUSCULAR HEMOGLOBIN 34.2 pg (27.0-34.0); MEAN CORPUSCULAR HGB CONC 33.8 g/dL (33.0-35.0); MEAN CORPUSCULAR VOLUME 101.2 fL (80-100); MONOCYTES PERCENT AUTO 5.6 % (2-8); NEUTROPHILS PERCENT AUTO 90.3 % (42.2-75.2); PLATELET COUNT,PLT 151 10^3/uL (150-450); RED BLOOD CELL COUNT 3.45 10^6/uL (4.6-6.2); WHITE BLOOD CELL COUNT,WBC 7.1 10^3/uL (5.0-10.0)
[2023-01-13 06:31] LABS: CREATININE 0.89 mg/dL (0.70-1.30); EST CRCL DRUG DOSING (CG) 55.51 mL/min
[2023-01-13] MEDS: Insulin Lispro 100 Units/ML 3 ML Vial SUBCUT SCH ×4 (08:10→20:55)
[2023-01-13] MEDS: Enoxaparin 40 MG/0.4 ML Syringe SUBCUT SCH (08:11)
[2023-01-13] MEDS: cefTRIAXone 2 GM Vial IVPUSH SCH (08:11)
[2023-01-13] MEDS: Saccharomyces Boulardii (Probiotic) 250 MG Cap PO SCH ×2 (08:11→20:52)
[2023-01-13] MEDS: Cholecalciferol (Vitamin D3) 25 MCG Tab PO SCH (08:12)
[2023-01-13] MEDS: glipiZIDE 2.5 MG Tab.ER PO SCH ×2 (08:12→20:53)
[2023-01-13] MEDS: Finasteride 5 MG Tab PO SCH (08:12)
[2023-01-13] MEDS: guaiFENesin 600 MG Tab.ER PO SCH ×2 (08:12→20:53)
[2023-01-13] MEDS: Ferrous Sulfate 325 MG Tab PO SCH (08:12)
[2023-01-13] MEDS: UMECLIDINIUM BROMIDE 62.5 MCG INH SCH (08:16)
[2023-01-13] MEDS: [UNRECOGNIZED DRUG - OTHER] PO SCH ×2 (08:16→20:55)
[2023-01-13] MEDS: Azithromycin 500 MG in Sodium Chloride 0.9% 250 ML IV SCH (08:21)
[2023-01-13] MEDS ORDERED: guaiFENesin/Dextromethorphan 100-10 MG/5 ML Soln 5 ML Cup PO PRN (10:29)
[2023-01-13] MEDS: Magnesium Oxide 400 MG Tab PO SCH (17:23)
[2023-01-13] MEDS ORDERED: hydrALAZINE 20 MG/ML SDV IVPUSH PRN (17:43)
[2023-01-13] MEDS ORDERED: methylPREDNISolone Sodium Succinate 40 MG/1 ML SDV IVPUSH SCH (18:00)
[2023-01-13] MEDS ORDERED: Hydrochlorothiazide/Triamterene 25-37.5 Tab PO ONE (18:00)
[2023-01-13] MEDS: Albuterol/Ipratropium 3.0-0.5 MG/3 ML Neb Soln NEB PRN (18:31)
[2023-01-13] MEDS: Albuterol/Ipratropium 3.0-0.5 MG/3 ML Neb Soln NEB SCH (20:51)
[2023-01-13] MEDS: Tamsulosin 0.4 MG Cap.ER PO SCH (20:54)
[2023-01-13] MEDS: atorvaSTATin 10 MG Tab PO SCH (20:54)
[2023-01-14] MEDS: Omeprazole 20 MG Cap.CR PO SCH (05:15)
[2023-01-14] MEDS: Levothyroxine 50 MCG Tab PO SCH (05:15)
[2023-01-14] MEDS: methylPREDNISolone Sodium Succinate 40 MG/1 ML SDV IVPUSH SCH ×2 (05:15→12:06)
[2023-01-14 06:36] LABS: HEMATOCRIT 35.8 % (40.0-54.0); HEMOGLOBIN 12.5 g/dL (14.0-18.0); MEAN CORPUSCULAR HEMOGLOBIN 34.8 pg (27.0-34.0); MEAN CORPUSCULAR HGB CONC 34.9 g/dL (33.0-35.0); MEAN CORPUSCULAR VOLUME 99.7 fL (80-100); PLATELET COUNT,PLT 154 10^3/uL (150-450); RED BLOOD CELL COUNT 3.59 10^6/uL (4.6-6.2); WHITE BLOOD CELL COUNT,WBC 5.6 10^3/uL (5.0-10.0)
[2023-01-14 06:45] LABS: BASOPHILS PERCENT AUTO 0.7 % (0.0-1.0); LYMPHOCYTES PERCENT AUTO 6.7 % (20.5-50.1); MONOCYTES PERCENT AUTO 6.1 % (2-8); NEUTROPHILS PERCENT AUTO 86.5 % (42.2-75.2)
[2023-01-14 06:54] LABS: ANION GAP 11.2 mEq/L (7-13); C-REACTIVE PROTEIN 2.1 mg/dL (0.0-0.9); CALCIUM 9.3 mg/dL (8.5-10.1); CREATININE 0.93 mg/dL (0.70-1.30); EST CRCL DRUG DOSING (CG) 53.12 mL/min; POTASSIUM,K 4.2 mmol/L (3.5-5.1)
[2023-01-14 07:31] LABS: LYMPHOCYTES PERCENT MAN 8 % (20-50); MONOCYTES PERCENT MAN 7 % (2-8); SEG NEUTROPHILS PERCENT MAN 85 % (42-75)
[2023-01-14] MEDS ORDERED: amLODIPine 5 MG Tab PO SCH (09:00)
[2023-01-14] MEDS ORDERED: Hydrochlorothiazide/Triamterene 25-37.5 Tab PO SCH (09:00)
[2023-01-14] MEDS: Azithromycin 500 MG in Sodium Chloride 0.9% 250 ML IV SCH (09:04)
[2023-01-14] MEDS: glipiZIDE 2.5 MG Tab.ER PO SCH (10:24)
[2023-01-14] MEDS: Ferrous Sulfate 325 MG Tab PO SCH (10:24)
[2023-01-14] MEDS: Saccharomyces Boulardii (Probiotic) 250 MG Cap PO SCH (10:24)
[2023-01-14] MEDS: Albuterol/Ipratropium 3.0-0.5 MG/3 ML Neb Soln NEB SCH (10:24)
[2023-01-14] MEDS: Insulin Lispro 100 Units/ML 3 ML Vial SUBCUT SCH ×2 (10:24→12:06)
[2023-01-14] MEDS: Magnesium Oxide 400 MG Tab PO SCH (10:24)
[2023-01-14] MEDS: guaiFENesin 600 MG Tab.ER PO SCH (10:25)
[2023-01-14] MEDS: [UNRECOGNIZED DRUG - OTHER] PO SCH (10:25)
[2023-01-14] MEDS: Enoxaparin 40 MG/0.4 ML Syringe SUBCUT SCH (10:25)
[2023-01-14] MEDS: cefTRIAXone 2 GM Vial IVPUSH SCH (10:26)
[2023-01-14] MEDS: Cholecalciferol (Vitamin D3) 25 MCG Tab PO SCH (10:26)
[2023-01-14] MEDS: UMECLIDINIUM BROMIDE 62.5 MCG INH SCH (10:26)
[2023-01-14] MEDS: Finasteride 5 MG Tab PO SCH (10:26)
[2023-01-14 12:14] VITALS: BP 101/56; PULSE 80
== END 2023-01-14 15:05 | disposition home or self-care (01) | DRG 871 ==
LOC: DL.ED 11:25 → DL.MS 12:40 → DL.ED 13:00
PROVIDERS: ADMIT Internal Medicine; ATTEND Internal Medicine
DX: A41.9 Sepsis, unspecified organism (principal); J18.9 Pneumonia, unspecified organism; J96.21 Acute and chronic respiratory failure with hypoxia; J44.0 Chronic obstructive pulmonary disease with (acute) lower respiratory infection; E87.20 Acidosis, unspecified; J44.1 Chronic obstructive pulmonary disease with (acute) exacerbation; I10 Essential (primary) hypertension; E78.5 Hyperlipidemia, unspecified; K21.9 Gastro-esophageal reflux disease without esophagitis; E03.9 Hypothyroidism, unspecified; N40.0 Benign prostatic hyperplasia without lower urinary tract symptoms; F41.9 Anxiety disorder, unspecified; D63.8 Anemia in other chronic diseases classified elsewhere; E83.42 Hypomagnesemia; Z20.822 Contact with and (suspected) exposure to COVID-19; M19.90 Unspecified osteoarthritis, unspecified site; E11.40 Type 2 diabetes mellitus with diabetic neuropathy, unspecified; D50.9 Iron deficiency anemia, unspecified; E11.65 Type 2 diabetes mellitus with hyperglycemia; H35.30 Unspecified macular degeneration; G25.81 Restless legs syndrome; G89.29 Other chronic pain; M54.50 Low back pain, unspecified; Z98.49 Cataract extraction status, unspecified eye; Z98.890 Other specified postprocedural states; Z87.891 Personal history of nicotine dependence; Z79.890 Hormone replacement therapy; Z79.899 Other long term (current) drug therapy; Z99.81 Dependence on supplemental oxygen; Z88.8 Allergy status to other drugs, medicaments and biological substances; Z79.84 Long term (current) use of oral hypoglycemic drugs
CPT/HCPCS: 36415; 71045; 80048; 80053; 80202; 81003; 82947; 83605; 83735; 83880; 84484; 85025; 86140; 87040; 87070; 87205; 87804; 93005; 93010; 94640; 96365; 96375; 97161-GP; 97165-GO; 99223; 99232; 99233; 99238; 99285; 99285-25; A9270-GY; J0456; J0696; J1650; J1815-GY; J1940; J1956; J2920; J2930; J3370; J3475; J3490; J7030; J7050; J7613-GY; J7620-GY; U0002

== ENCOUNTER 2023-11-27 12:03 | Inpatient (IN) | payer MEDICARE, BC ==
[2023-11-27 12:39] LABS: O2 DELIVERY DEVICE HI FLOW NASAL CANNU
[2023-11-27 12:55] LABS: BASOPHILS PERCENT AUTO 1.7 % (0.0-1.0); EOSINOPHILS PERCENT AUTO 1.7 % (1.0-3.0); HEMATOCRIT 36.9 % (40.0-54.0); HEMOGLOBIN 12.4 g/dL (14.0-18.0); LYMPHOCYTES PERCENT AUTO 13.9 % (20.5-50.1); MEAN CORPUSCULAR HEMOGLOBIN 33.9 pg (27.0-34.0); MEAN CORPUSCULAR HGB CONC 33.6 g/dL (33.0-35.0); MEAN CORPUSCULAR VOLUME 100.8 fL (80-100); MONOCYTES PERCENT AUTO 13.4 % (2-8); NEUTROPHILS PERCENT AUTO 69.3 % (42.2-75.2); PLATELET COUNT,PLT 122 10^3/uL (150-450); RED BLOOD CELL COUNT 3.66 10^6/uL (4.6-6.2); WHITE BLOOD CELL COUNT,WBC 7.3 10^3/uL (5.0-10.0)
[2023-11-27 13:08] LABS: BICARBONATE,ARTERIAL 27 mmol/L (21-28); O2 SATURATION ARTERIAL 94 % (94-98); PCO2 ARTERIAL 40 mmHg (35-48); PH,ARTERIAL 7.44 pH (7.35-7.45); PO2 ARTERIAL 70 mmHg (83-108)
[2023-11-27 13:09] LABS: ALLEN TEST YES; BASE EXCESS ARTERIAL 3 mmol/L ((-2)-(+3))
[2023-11-27] MEDS: Sodium Chloride 0.9% 10 ML Syringe FLUSH PRN (13:11)
[2023-11-27 13:14] LABS: A/G RATIO 1.3; ALBUMIN 3.7 g/dL (3.4-5.0); ANION GAP 9.3 mEq/L (7-13); BILIRUBIN TOTAL 0.8 mg/dL (0.2-1.0); BUN/CREATININE RATIO 12.4 (No establ ref range); CALCIUM 8.8 mg/dL (8.5-10.1); CREATININE 1.13 mg/dL (0.70-1.30); EST CRCL DRUG DOSING (CG) 43.03 mL/min; POTASSIUM,K 4.3 mmol/L (3.5-5.1); PROTEIN TOTAL,TP 6.6 g/dL (6.4-8.2)
[2023-11-27] MEDS: Dexamethasone 4 MG/ML SDV PO ONE (13:45)
[2023-11-27 13:49] LABS: CORONAVIRUS COVID-19 NAA NEGATIVE (NEGATIVE); INFLUENZA A NAA NEGATIVE (NEGATIVE); INFLUENZA B NAA NEGATIVE (NEGATIVE); RESPIRATORY SYNCYTIAL VIR NAA NEGATIVE (NEGATIVE)
[2023-11-27] MEDS: Albuterol/Ipratropium 3.0-0.5 MG/3 ML Neb Soln NEB ONE (13:54)
[2023-11-27] MEDS ORDERED: Acetaminophen 325 MG Tab PO PRN (15:00)
[2023-11-27] MEDS ORDERED: Albuterol/Ipratropium 3.0-0.5 MG/3 ML Neb Soln NEB PRN (15:00)
[2023-11-27] MEDS ORDERED: Non-Formulary Medication 1 Each (Albuterol/Ipratropium [Combivent Respimat] 4 GM Inhaler) IH PRN (15:07)
[2023-11-27] MEDS ORDERED: Glucagon,Human Recombinant 1 MG Vial IM PRN (15:19)
[2023-11-27] MEDS ORDERED: 50% Dextrose in Water 50 ML Syringe IVPUSH PRN (15:19)
[2023-11-27] MEDS: Azithromycin 250 MG Tab PO ONE (15:59)
[2023-11-27] MEDS: Furosemide 20 MG/2 ML VIAL IVPUSH ONE (16:39)
[2023-11-27] MEDS: Insulin Lispro Protamine/Lispro 75-25 100 Units/ML 10 ML Vial SUBCUT SCH (17:11)
[2023-11-27] MEDS: metFORMIN 500 MG Tab PO SCH (17:11)
[2023-11-27] MEDS: methylPREDNISolone Sodium Succinate 125 MG/2 ML SDV IVPUSH ONE (17:51)
[2023-11-27] MEDS: Albuterol/Ipratropium 3.0-0.5 MG/3 ML Neb Soln NEB SCH (18:13)
[2023-11-27] MEDS: Tamsulosin 0.4 MG Cap.ER PO SCH (20:45)
[2023-11-27] MEDS: atorvaSTATin 10 MG Tab PO SCH (20:45)
[2023-11-27] MEDS: Budesonide 0.5 MG/2 ML Neb Susp NEB SCH (20:45)
[2023-11-27] MEDS: Saccharomyces Boulardii (Probiotic) 250 MG Cap PO SCH (20:45)
[2023-11-27] MEDS ORDERED: metFORMIN 500 MG Tab PO SCH (21:00)
[2023-11-28] MEDS: Levothyroxine 50 MCG Tab PO SCH (05:56)
[2023-11-28] MEDS ORDERED: Insulin Lispro Protamine/Lispro 75-25 100 Units/ML 10 ML Vial SUBCUT SCH (08:00)
[2023-11-28 09:00] LABS: BASOPHILS PERCENT AUTO 0.7 % (0.0-1.0); HEMATOCRIT 37.7 % (40.0-54.0); HEMOGLOBIN 12.2 g/dL (14.0-18.0); LYMPHOCYTES PERCENT AUTO 7.1 % (20.5-50.1); MEAN CORPUSCULAR HEMOGLOBIN 33.1 pg (27.0-34.0); MEAN CORPUSCULAR HGB CONC 32.4 g/dL (33.0-35.0); MEAN CORPUSCULAR VOLUME 102.2 fL (80-100); MONOCYTES PERCENT AUTO 3.4 % (2-8); NEUTROPHILS PERCENT AUTO 88.8 % (42.2-75.2); PLATELET COUNT,PLT 116 10^3/uL (150-450); RED BLOOD CELL COUNT 3.69 10^6/uL (4.6-6.2); WHITE BLOOD CELL COUNT,WBC 5.4 10^3/uL (5.0-10.0)
[2023-11-28] MEDS ORDERED: Non-Formulary Medication 1 Each (Umeclidinium Bromide [Incruse Ellipta*] 62.5 MCG Blst.W.D INH SCH (09:00)
[2023-11-28] MEDS: Enoxaparin 40 MG/0.4 ML Syringe SUBCUT SCH (09:43)
[2023-11-28] MEDS: Cholecalciferol (Vitamin D3) 25 MCG Tab PO SCH (09:43)
[2023-11-28] MEDS: Omeprazole 20 MG Cap.CR PO SCH (09:44)
[2023-11-28] MEDS: Hydrochlorothiazide/Triamterene 25-37.5 Tab PO SCH (09:44)
[2023-11-28] MEDS: Azithromycin 250 MG Tab PO SCH (09:44)
[2023-11-28] MEDS: Finasteride 5 MG Tab PO SCH (09:44)
[2023-11-28] MEDS: predniSONE 20 MG Tab PO SCH (09:44)
[2023-11-28] MEDS: Ferrous Sulfate 325 MG Tab PO SCH (09:45)
[2023-11-28] MEDS: Insulin Lispro 100 Units/ML 3 ML Vial SUBCUT SCH (09:45)
[2023-11-28 10:12] LABS: ANION GAP 16.3 mEq/L (7-13); CALCIUM 8.8 mg/dL (8.5-10.1); CREATININE 1.69 mg/dL (0.70-1.30); EST CRCL DRUG DOSING (CG) 28.67 mL/min; MAGNESIUM 1.5 mg/dL (1.8-2.4); POTASSIUM,K 4.3 mmol/L (3.5-5.1)
[2023-11-29 06:20] LABS: BASOPHILS PERCENT AUTO 0.9 % (0.0-1.0); HEMATOCRIT 34.6 % (40.0-54.0); HEMOGLOBIN 11.4 g/dL (14.0-18.0); LYMPHOCYTES PERCENT AUTO 7.8 % (20.5-50.1); MEAN CORPUSCULAR HEMOGLOBIN 33.1 pg (27.0-34.0); MEAN CORPUSCULAR HGB CONC 32.9 g/dL (33.0-35.0); MEAN CORPUSCULAR VOLUME 100.6 fL (80-100); MONOCYTES PERCENT AUTO 9.5 % (2-8); NEUTROPHILS PERCENT AUTO 81.8 % (42.2-75.2); PLATELET COUNT,PLT 116 10^3/uL (150-450); RED BLOOD CELL COUNT 3.44 10^6/uL (4.6-6.2); WHITE BLOOD CELL COUNT,WBC 9.3 10^3/uL (5.0-10.0)
[2023-11-29 06:43] LABS: ANION GAP 11.2 mEq/L (7-13); CREATININE 1.31 mg/dL (0.70-1.30); POTASSIUM,K 4.2 mmol/L (3.5-5.1)
[2023-11-29 06:44] LABS: ALBUMIN 3.3 g/dL (3.4-5.0); BILIRUBIN TOTAL 0.4 mg/dL (0.2-1.0); BUN/CREATININE RATIO 22.9 (No establ ref range); EST CRCL DRUG DOSING (CG) 36.98 mL/min; MAGNESIUM 1.9 mg/dL (1.8-2.4); PROTEIN TOTAL,TP 6.2 g/dL (6.4-8.2)
[2023-11-29 06:47] LABS: A/G RATIO 1.14
[2023-11-29] MEDS: Albuterol/Ipratropium 3.0-0.5 MG/3 ML Neb Soln NEB SCH (11:50)
[2023-11-29] MEDS: Melatonin 3 MG Tab PO SCH (21:32)
[2023-11-30 06:32] LABS: EOSINOPHILS PERCENT AUTO 0.1 % (1.0-3.0); HEMATOCRIT 36.7 % (40.0-54.0); HEMOGLOBIN 12.1 g/dL (14.0-18.0); LYMPHOCYTES PERCENT AUTO 11.8 % (20.5-50.1); MEAN CORPUSCULAR HEMOGLOBIN 33.1 pg (27.0-34.0); MEAN CORPUSCULAR VOLUME 100.3 fL (80-100); MONOCYTES PERCENT AUTO 9.6 % (2-8); NEUTROPHILS PERCENT AUTO 77.5 % (42.2-75.2); PLATELET COUNT,PLT 133 10^3/uL (150-450); RED BLOOD CELL COUNT 3.66 10^6/uL (4.6-6.2); WHITE BLOOD CELL COUNT,WBC 7.3 10^3/uL (5.0-10.0)
[2023-11-30 06:56] LABS: A/G RATIO 1.1; ALBUMIN 3.5 g/dL (3.4-5.0); ANION GAP 10.5 mEq/L (7-13); BILIRUBIN TOTAL 0.5 mg/dL (0.2-1.0); BUN/CREATININE RATIO 25.4 (No establ ref range); CALCIUM 9.1 mg/dL (8.5-10.1); CREATININE 1.26 mg/dL (0.70-1.30); EST CRCL DRUG DOSING (CG) 38.45 mL/min; MAGNESIUM 1.8 mg/dL (1.8-2.4); POTASSIUM,K 4.5 mmol/L (3.5-5.1); PROTEIN TOTAL,TP 6.6 g/dL (6.4-8.2)
[2023-11-30 08:03] VITALS: BP 129/88; PULSE 86
== END 2023-11-30 10:35 | disposition home health service (06) | DRG 189 ==
LOC: DL.ED 12:03 → DL.MS 14:56 → DL.ED 15:10 → OBSVTOIN 11-29 11:24
PROVIDERS: ADMIT Emergency Medicine; ATTEND Emergency Medicine
DX: J96.21 Acute and chronic respiratory failure with hypoxia (principal); J44.1 Chronic obstructive pulmonary disease with (acute) exacerbation; E03.9 Hypothyroidism, unspecified; K21.9 Gastro-esophageal reflux disease without esophagitis; E78.00 Pure hypercholesterolemia, unspecified; E11.40 Type 2 diabetes mellitus with diabetic neuropathy, unspecified; N40.0 Benign prostatic hyperplasia without lower urinary tract symptoms; D50.8 Other iron deficiency anemias; Z88.8 Allergy status to other drugs, medicaments and biological substances; M19.90 Unspecified osteoarthritis, unspecified site; G89.29 Other chronic pain; M54.9 Dorsalgia, unspecified; F41.9 Anxiety disorder, unspecified; E11.21 Type 2 diabetes mellitus with diabetic nephropathy; R91.1 Solitary pulmonary nodule; E11.22 Type 2 diabetes mellitus with diabetic chronic kidney disease; G47.00 Insomnia, unspecified; N18.9 Chronic kidney disease, unspecified; Z79.4 Long term (current) use of insulin; Z88.1 Allergy status to other antibiotic agents; Z79.84 Long term (current) use of oral hypoglycemic drugs; Z98.49 Cataract extraction status, unspecified eye; Z87.01 Personal history of pneumonia (recurrent); Z79.899 Other long term (current) drug therapy; Z79.890 Hormone replacement therapy; Z98.890 Other specified postprocedural states; Z87.891 Personal history of nicotine dependence; Z99.81 Dependence on supplemental oxygen; Z90.49 Acquired absence of other specified parts of digestive tract
CPT/HCPCS: 0241U; 36415; 36600; 71045; 71250; 80048; 80053; 82803; 82947; 83605; 83735; 84484; 85025; 85379; 93005; 93010; 99223; 99232; 99239; 99284; 99285; 96365; 96372; 96375; A9270-GY; G0378; J1650; J1815-GY; J1940; J2930; J3475; J3490; J7512; J7620-GY; J8540

== ENCOUNTER 2023-12-04 06:50 | Inpatient (IN) | payer MEDICARE, BC ==
[2023-12-04] MEDS: Sodium Chloride 0.9% 10 ML Syringe FLUSH PRN (07:17)
[2023-12-04] MEDS: methylPREDNISolone Sodium Succinate 125 MG/2 ML SDV IVPUSH ONE (07:18)
[2023-12-04] MEDS: Magnesium Sulfate/Water 2 GM in Premix Bag 1 BAG IV ONE ×2 (07:25→08:00)
[2023-12-04 07:26] LABS: HEMATOCRIT 45.3 % (40.0-54.0); HEMOGLOBIN 15.4 g/dL (14.0-18.0); MEAN CORPUSCULAR HEMOGLOBIN 33.6 pg (27.0-34.0); MEAN CORPUSCULAR VOLUME 98.7 fL (80-100); PLATELET COUNT,PLT 190 10^3/uL (150-450); RED BLOOD CELL COUNT 4.59 10^6/uL (4.6-6.2); WHITE BLOOD CELL COUNT,WBC 17.3 10^3/uL (5.0-10.0)
[2023-12-04] MEDS: Albuterol/Ipratropium 3.0-0.5 MG/3 ML Neb Soln ONE (07:26)
[2023-12-04 07:45] LABS: A/G RATIO 1.1; ALBUMIN 3.9 g/dL (3.4-5.0); ANION GAP 12.9 mEq/L (7-13); BILIRUBIN TOTAL 0.7 mg/dL (0.2-1.0); BUN/CREATININE RATIO 25.2 (No establ ref range); CALCIUM 9.2 mg/dL (8.5-10.1); CREATININE 1.39 mg/dL (0.70-1.30); EST CRCL DRUG DOSING (CG) 36.03 mL/min; MAGNESIUM 1.6 mg/dL (1.8-2.4); POTASSIUM,K 3.9 mmol/L (3.5-5.1); PROTEIN TOTAL,TP 7.3 g/dL (6.4-8.2)
[2023-12-04 07:46] LABS: LACTIC ACID 2.5 mmol/L (0.4-2.0)
[2023-12-04 07:49] LABS: BAND PERCENT MAN 1 %; LYMPHOCYTES PERCENT MAN 11 % (20-50); MONOCYTES PERCENT MAN 6 % (2-8); SEG NEUTROPHILS PERCENT MAN 82 % (42-75)
[2023-12-04 07:55] LABS: BASE EXCESS ARTERIAL 0 mmol/L ((-2)-(+3)); BICARBONATE,ARTERIAL 24.6 mmol/L (22-26); O2 DELIVERY DEVICE OM; O2 SATURATION ARTERIAL 84 % (95-100); PCO2 ARTERIAL 41 mmHg (35-45); PH,ARTERIAL 7.39 (7.35-7.45)
[2023-12-04 07:59] LABS: ALLEN TEST POSITIVE; PO2 ARTERIAL 50 mmHg (70-100)
[2023-12-04] MEDS: Sodium Chloride 0.9% 1,000 ML IV ONE ×2 (08:01→10:41)
[2023-12-04] MEDS: Sodium Chloride 0.9% 250 ML IV STA (08:02)
[2023-12-04 08:04] LABS: CORONAVIRUS COVID-19 NAA NEGATIVE (NEGATIVE); INFLUENZA A NAA NEGATIVE (NEGATIVE); INFLUENZA B NAA NEGATIVE (NEGATIVE); RESPIRATORY SYNCYTIAL VIR NAA NEGATIVE (NEGATIVE)
[2023-12-04] MEDS: Albuterol/Ipratropium 3.0-0.5 MG/3 ML Neb Soln NEB ONE (08:04)
[2023-12-04] MEDS: Cefepime 2 GM Vial IVPUSH ONE (08:10)
[2023-12-04] MEDS: Sodium Chloride 0.9% 250 ML ONE (08:52)
[2023-12-04] MEDS ORDERED: Ondansetron 4 MG/2 ML SDV IVPUSH PRN (10:11)
[2023-12-04] MEDS ORDERED: Naloxone 2 MG/2 ML Syringe IVPUSH PRN (10:11)
[2023-12-04] MEDS ORDERED: Sennosides/Docusate Sodium 50-8.6 MG Tab PO PRN (10:11)
[2023-12-04] MEDS ORDERED: Albuterol/Ipratropium 3.0-0.5 MG/3 ML Neb Soln NEB PRN (10:11)
[2023-12-04] MEDS ORDERED: Acetaminophen 325 MG Tab PO PRN (10:11)
[2023-12-04] MEDS ORDERED: Polyethylene Glycol 3350 Powder 17 GM Packet PO PRN (10:11)
[2023-12-04] MEDS ORDERED: Magnesium Hydroxide 400 MG/5 ML Susp 30 ML Cup PO PRN (10:11)
[2023-12-04] MEDS ORDERED: HYDROmorphone 0.5 MG/0.5 ML Syringe IVPUSH PRN (10:11)
[2023-12-04] MEDS ORDERED: Glucagon,Human Recombinant 1 MG Vial IM PRN (10:16)
[2023-12-04] MEDS ORDERED: 50% Dextrose in Water 50 ML Syringe IVPUSH PRN (10:16)
[2023-12-04] MEDS ORDERED: guaiFENesin/Dextromethorphan 100-10 MG/5 ML Soln 5 ML Cup PO PRN (10:20)
[2023-12-04] MEDS ORDERED: Benzonatate 100 MG Cap PO PRN (11:30)
[2023-12-04] MEDS: Ampicillin/Sulbactam Na 1.5 GM in Sodium Chloride 0.9% 100 ML IV SCH (11:36)
[2023-12-04] MEDS: Insulin Lispro 100 Units/ML 3 ML Vial SUBCUT SCH (11:56)
[2023-12-04] MEDS ORDERED: Melatonin 3 MG Tab PO PRN (11:56)
[2023-12-04] MEDS ORDERED: Midodrine 5 MG Tab PO PRN (13:19)
[2023-12-04] MEDS: methylPREDNISolone Sodium Succinate 125 MG/2 ML SDV IVPUSH SCH (13:59)
[2023-12-04 16:49] LABS: LACTIC ACID 3.2 mmol/L (0.4-2.0)
[2023-12-04] MEDS: Sodium Chloride 0.9% 1,000 ML IV SCH (16:58)
[2023-12-04] MEDS: Midodrine 5 MG Tab PO ONE (19:25)
[2023-12-04] MEDS: Hydrocortisone Sodium Succinate 100 MG/2 ML SDV IVPUSH ONE (19:26)
[2023-12-04] MEDS: Insulin Glarg,Human.Rec.Analog 100 Unit/ML 10 ML Vial SUBCUT SCH (20:26)
[2023-12-04] MEDS: atorvaSTATin 10 MG Tab PO SCH (20:28)
[2023-12-04] MEDS: Ferrous Sulfate 325 MG Tab PO SCH (20:28)
[2023-12-04] MEDS: Saccharomyces Boulardii (Probiotic) 250 MG Cap PO SCH (20:28)
[2023-12-04] MEDS: Tamsulosin 0.4 MG Cap.ER PO SCH (20:28)
[2023-12-04] MEDS: Cyanocobalamin (Vitamin B12) 1,000 MCG Tab PO SCH (20:28)
[2023-12-04] MEDS: guaiFENesin 600 MG Tab.ER PO SCH (20:28)
[2023-12-04] MEDS: Patient's Own Medication 1 Each PO SCH (20:31)
[2023-12-04] MEDS: Hydrocortisone Sodium Succinate 100 MG/2 ML SDV IVPUSH SCH (23:00)
[2023-12-05] MEDS ORDERED: Midodrine 5 MG Tab PO PRN
[2023-12-05] MEDS: Formoterol/Mometasone 200-5 MCG 8.8 GM Inhaler IH SCH (00:02)
[2023-12-05] MEDS: Hydrocortisone Sodium Succinate 100 MG/2 ML SDV IVPUSH ONE (00:03)
[2023-12-05] MEDS: Levothyroxine 50 MCG Tab PO SCH (05:20)
[2023-12-05] MEDS: Tiotropium Bromide 4 GM Inhalation Spray (2.5mcg/1 dose; 10 doses) INH SCH (05:26)
[2023-12-05 07:00] LABS: ALBUMIN 2.8 g/dL (3.4-5.0); ANION GAP 11.2 mEq/L (7-13); BILIRUBIN TOTAL 0.7 mg/dL (0.2-1.0); BUN/CREATININE RATIO 22.5 (No establ ref range); C-REACTIVE PROTEIN 12.19 ng/dL (<=0.50); CALCIUM 8.4 mg/dL (8.5-10.1); CREATININE 1.2 mg/dL (0.70-1.30); EST CRCL DRUG DOSING (CG) 41.73 mL/min; MAGNESIUM 2.3 mg/dL (1.8-2.4); POTASSIUM,K 4.2 mmol/L (3.5-5.1); PROTEIN TOTAL,TP 5.8 g/dL (6.4-8.2)
[2023-12-05 07:04] LABS: A/G RATIO 0.93; HEMOGLOBIN 12.4 g/dL (14.0-18.0); MEAN CORPUSCULAR HEMOGLOBIN 34.1 pg (27.0-34.0); MEAN CORPUSCULAR HGB CONC 34.4 g/dL (33.0-35.0); MEAN CORPUSCULAR VOLUME 98.9 fL (80-100); PLATELET COUNT,PLT 132 10^3/uL (150-450); RED BLOOD CELL COUNT 3.64 10^6/uL (4.6-6.2); WHITE BLOOD CELL COUNT,WBC 21.2 10^3/uL (5.0-10.0)
[2023-12-05 07:07] LABS: LYMPHOCYTES PERCENT AUTO 2.6 % (20.5-50.1); MONOCYTES PERCENT AUTO 4.8 % (2-8); NEUTROPHILS PERCENT AUTO 92.1 % (42.2-75.2)
[2023-12-05 07:08] LABS: BASOPHILS PERCENT AUTO 0.5 % (0.0-1.0)
[2023-12-05 08:17] LABS: BAND PERCENT MAN 1 %; LYMPHOCYTES PERCENT MAN 2 % (20-50); MONOCYTES PERCENT MAN 4 % (2-8); SEG NEUTROPHILS PERCENT MAN 93 % (42-75)
[2023-12-05] MEDS: Ascorbic Acid 500 MG Tab PO SCH (08:27)
[2023-12-05] MEDS: Cholecalciferol (Vitamin D3) 25 MCG Tab PO SCH (08:28)
[2023-12-05] MEDS: Finasteride 5 MG Tab PO SCH (08:29)
[2023-12-05] MEDS: Omeprazole 20 MG Cap.CR PO SCH (08:29)
[2023-12-05] MEDS: Lutein/Minerals/Vit A,C & E Tab PO SCH (12:40)
[2023-12-06 06:21] LABS: HEMATOCRIT 33.8 % (40.0-54.0); HEMOGLOBIN 11.4 g/dL (14.0-18.0); MEAN CORPUSCULAR HGB CONC 33.7 g/dL (33.0-35.0); PLATELET COUNT,PLT 138 10^3/uL (150-450); RED BLOOD CELL COUNT 3.45 10^6/uL (4.6-6.2)
[2023-12-06 06:42] LABS: CREATININE 1.05 mg/dL (0.70-1.30); EST CRCL DRUG DOSING (CG) 47.69 mL/min; VANCOMYCIN RANDOM 10.2 ug/mL (No Normal Range)
[2023-12-06 06:45] LABS: ALBUMIN 2.6 g/dL (3.4-5.0); ANION GAP 8.5 mEq/L (7-13); BILIRUBIN TOTAL 0.5 mg/dL (0.2-1.0); BUN/CREATININE RATIO 28.8 (No establ ref range); C-REACTIVE PROTEIN 6.35 ng/dL (<=0.50); CALCIUM 8.3 mg/dL (8.5-10.1); CREATININE 1.04 mg/dL (0.70-1.30); EST CRCL DRUG DOSING (CG) 48.15 mL/min; POTASSIUM,K 3.5 mmol/L (3.5-5.1); PROTEIN TOTAL,TP 5.6 g/dL (6.4-8.2)
[2023-12-06 06:47] LABS: A/G RATIO 0.87
[2023-12-06 07:02] LABS: BAND PERCENT MAN 5 %; LYMPHOCYTES PERCENT MAN 5 % (20-50); MONOCYTES PERCENT MAN 5 % (2-8); SEG NEUTROPHILS PERCENT MAN 85 % (42-75)
[2023-12-06] MEDS: VANCOmycin 1.5 GM/300 ML 1.5 GM in Premix Bag 1 BAG IV SCH (08:21)
[2023-12-06] MEDS: Hydrocortisone Sodium Succinate 100 MG/2 ML SDV IVPUSH SCH (15:07)
[2023-12-07 06:36] LABS: BASOPHILS PERCENT AUTO 0.9 % (0.0-1.0); HEMATOCRIT 36.5 % (40.0-54.0); HEMOGLOBIN 12.5 g/dL (14.0-18.0); LYMPHOCYTES PERCENT AUTO 4.3 % (20.5-50.1); MEAN CORPUSCULAR HEMOGLOBIN 33.3 pg (27.0-34.0); MEAN CORPUSCULAR HGB CONC 34.2 g/dL (33.0-35.0); MEAN CORPUSCULAR VOLUME 97.3 fL (80-100); MONOCYTES PERCENT AUTO 6.2 % (2-8); NEUTROPHILS PERCENT AUTO 88.6 % (42.2-75.2); PLATELET COUNT,PLT 146 10^3/uL (150-450); RED BLOOD CELL COUNT 3.75 10^6/uL (4.6-6.2); WHITE BLOOD CELL COUNT,WBC 11.3 10^3/uL (5.0-10.0)
[2023-12-07 06:54] LABS: ALBUMIN 2.9 g/dL (3.4-5.0); ANION GAP 10.1 mEq/L (7-13); BILIRUBIN TOTAL 0.7 mg/dL (0.2-1.0); BUN/CREATININE RATIO 27.4 (No establ ref range); C-REACTIVE PROTEIN 3.46 ng/dL (<=0.50); CALCIUM 8.8 mg/dL (8.5-10.1); CREATININE 0.95 mg/dL (0.70-1.30); EST CRCL DRUG DOSING (CG) 52.71 mL/min; MAGNESIUM 1.8 mg/dL (1.8-2.4); POTASSIUM,K 3.1 mmol/L (3.5-5.1); PROTEIN TOTAL,TP 6.2 g/dL (6.4-8.2)
[2023-12-07 06:55] LABS: A/G RATIO 0.88
[2023-12-07] MEDS: Insulin Glarg,Human.Rec.Analog 100 Unit/ML 10 ML Vial SUBCUT SCH (08:32)
[2023-12-07] MEDS: Empagliflozin 25 MG Tab PO SCH (08:33)
[2023-12-07] MEDS: Hydrocortisone Sodium Succinate 100 MG/2 ML SDV IVPUSH SCH (08:33)
[2023-12-07] MEDS: Potassium Chloride 10 MEQ Tab.ER PO ONE (12:26)
[2023-12-07] MEDS: Amoxicillin/Clavulanate K 875-125 MG Tab PO SCH (17:10)
[2023-12-08 06:50] LABS: HEMATOCRIT 39.5 % (40.0-54.0); HEMOGLOBIN 13.7 g/dL (14.0-18.0); MEAN CORPUSCULAR HEMOGLOBIN 33.3 pg (27.0-34.0); MEAN CORPUSCULAR HGB CONC 34.7 g/dL (33.0-35.0); MEAN CORPUSCULAR VOLUME 96.1 fL (80-100); PLATELET COUNT,PLT 154 10^3/uL (150-450); RED BLOOD CELL COUNT 4.11 10^6/uL (4.6-6.2); WHITE BLOOD CELL COUNT,WBC 10.6 10^3/uL (5.0-10.0)
[2023-12-08 07:02] LABS: LYMPHOCYTES PERCENT AUTO 5.6 % (20.5-50.1); NEUTROPHILS PERCENT AUTO 86.9 % (42.2-75.2)
[2023-12-08 07:03] LABS: BASOPHILS PERCENT AUTO 0.5 % (0.0-1.0)
[2023-12-08 07:06] LABS: ALBUMIN 2.9 g/dL (3.4-5.0); ANION GAP 12.4 mEq/L (7-13); BILIRUBIN TOTAL 0.8 mg/dL (0.2-1.0); BUN/CREATININE RATIO 26.4 (No establ ref range); C-REACTIVE PROTEIN 1.89 ng/dL (<=0.50); CALCIUM 8.8 mg/dL (8.5-10.1); CREATININE 1.1 mg/dL (0.70-1.30); EST CRCL DRUG DOSING (CG) 45.53 mL/min; MAGNESIUM 1.8 mg/dL (1.8-2.4); POTASSIUM,K 3.4 mmol/L (3.5-5.1); PROTEIN TOTAL,TP 6.1 g/dL (6.4-8.2)
[2023-12-08 07:07] LABS: A/G RATIO 0.91
[2023-12-08 07:26] LABS: LYMPHOCYTES PERCENT MAN 5 % (20-50); MONOCYTES PERCENT MAN 5 % (2-8); SEG NEUTROPHILS PERCENT MAN 90 % (42-75)
[2023-12-08] MEDS: Potassium Chloride 10 MEQ Tab.ER PO ONE (12:13)
[2023-12-09 06:35] LABS: HEMATOCRIT 37.7 % (40.0-54.0); HEMOGLOBIN 12.8 g/dL (14.0-18.0); LYMPHOCYTES PERCENT AUTO 6.1 % (20.5-50.1); MEAN CORPUSCULAR HEMOGLOBIN 32.8 pg (27.0-34.0); MEAN CORPUSCULAR VOLUME 96.7 fL (80-100); MONOCYTES PERCENT AUTO 5.1 % (2-8); NEUTROPHILS PERCENT AUTO 88.4 % (42.2-75.2); PLATELET COUNT,PLT 145 10^3/uL (150-450); WHITE BLOOD CELL COUNT,WBC 11.3 10^3/uL (5.0-10.0)
[2023-12-09 06:43] LABS: BASOPHILS PERCENT AUTO 0.4 % (0.0-1.0)
[2023-12-09 06:58] LABS: ALBUMIN 2.7 g/dL (3.4-5.0); ANION GAP 11.6 mEq/L (7-13); BILIRUBIN TOTAL 0.6 mg/dL (0.2-1.0); BUN/CREATININE RATIO 28.2 (No establ ref range); C-REACTIVE PROTEIN 1.09 ng/dL (<=0.50); CALCIUM 8.5 mg/dL (8.5-10.1); CREATININE 1.03 mg/dL (0.70-1.30); EST CRCL DRUG DOSING (CG) 48.62 mL/min; MAGNESIUM 1.9 mg/dL (1.8-2.4); POTASSIUM,K 3.6 mmol/L (3.5-5.1); PROTEIN TOTAL,TP 5.5 g/dL (6.4-8.2)
[2023-12-09 06:59] LABS: A/G RATIO 0.96
[2023-12-09 16:03] VITALS: BP 122/57; PULSE 71
== END 2023-12-09 16:40 | disposition home health service (06) | DRG 871 ==
LOC: DL.ED 06:50 → UNDOADMIN 08:56 → DL.MS 08:56
PROVIDERS: ADMIT Internal Medicine; ATTEND Family Medicine Adult Medicine
DX: A41.9 Sepsis, unspecified organism (principal); J18.9 Pneumonia, unspecified organism; J96.01 Acute respiratory failure with hypoxia; J96.21 Acute and chronic respiratory failure with hypoxia; E78.00 Pure hypercholesterolemia, unspecified; J96.22 Acute and chronic respiratory failure with hypercapnia; J44.1 Chronic obstructive pulmonary disease with (acute) exacerbation; Z90.49 Acquired absence of other specified parts of digestive tract; J44.0 Chronic obstructive pulmonary disease with (acute) lower respiratory infection; N17.9 Acute kidney failure, unspecified; E87.20 Acidosis, unspecified; Z88.8 Allergy status to other drugs, medicaments and biological substances; Z66 Do not resuscitate; I10 Essential (primary) hypertension; E78.5 Hyperlipidemia, unspecified; K21.9 Gastro-esophageal reflux disease without esophagitis; E03.9 Hypothyroidism, unspecified; N40.0 Benign prostatic hyperplasia without lower urinary tract symptoms; M19.90 Unspecified osteoarthritis, unspecified site; F41.9 Anxiety disorder, unspecified; G89.29 Other chronic pain; M54.50 Low back pain, unspecified; E11.40 Type 2 diabetes mellitus with diabetic neuropathy, unspecified; D64.9 Anemia, unspecified; H61.23 Impacted cerumen, bilateral; E11.21 Type 2 diabetes mellitus with diabetic nephropathy; E11.65 Type 2 diabetes mellitus with hyperglycemia; E87.6 Hypokalemia; D69.6 Thrombocytopenia, unspecified; E83.42 Hypomagnesemia; I95.9 Hypotension, unspecified; D72.829 Elevated white blood cell count, unspecified; Z88.1 Allergy status to other antibiotic agents; Z99.81 Dependence on supplemental oxygen; Z79.84 Long term (current) use of oral hypoglycemic drugs; Z98.49 Cataract extraction status, unspecified eye; Z79.890 Hormone replacement therapy; Z79.899 Other long term (current) drug therapy; Y95 Nosocomial condition
CPT/HCPCS: 0241U; 36415; 36600; 71045; 71046; 80053; 80202; 82550; 82565; 82803; 82947; 83605; 83735; 83880; 84145; 84484; 85025; 86140; 87040; 93005; 93010; 94640; 96365; 96366; 96367; 96375; 97161; 97165; 99285; A9270-GY; J0295; J0692; J1720; J1815-GY; J2930; J3370; J3475; J3490; J7030; J7050; J7620-GY

== ENCOUNTER 2023-12-21 18:26 | Emergency (ER) | payer MEDICARE, BC ==
[2023-12-21] MEDS: Oxymetazoline 0.05% Nasal Spray 30 ML Bottle NAS ONE (19:20)
[2023-12-21 20:05] LABS: BASOPHILS PERCENT AUTO 1.1 % (0.0-1.0); EOSINOPHILS PERCENT AUTO 2.2 % (1.0-3.0); HEMATOCRIT 36.1 % (40.0-54.0); HEMOGLOBIN 11.8 g/dL (14.0-18.0); LYMPHOCYTES PERCENT AUTO 15.5 % (20.5-50.1); MEAN CORPUSCULAR HEMOGLOBIN 33.1 pg (27.0-34.0); MEAN CORPUSCULAR HGB CONC 32.7 g/dL (33.0-35.0); MEAN CORPUSCULAR VOLUME 101.4 fL (80-100); MONOCYTES PERCENT AUTO 8.7 % (2-8); NEUTROPHILS PERCENT AUTO 72.5 % (42.2-75.2); PLATELET COUNT,PLT 153 10^3/uL (150-450); RED BLOOD CELL COUNT 3.56 10^6/uL (4.6-6.2); WHITE BLOOD CELL COUNT,WBC 7.2 10^3/uL (5.0-10.0)
[2023-12-21 20:26] VITALS: BP 135/59; PULSE 72
== END 2023-12-21 20:41 | disposition home or self-care (01) ==
LOC: DL.ED 18:26
DX: R04.0 Epistaxis (principal); J43.8 Other emphysema; E78.00 Pure hypercholesterolemia, unspecified; K21.9 Gastro-esophageal reflux disease without esophagitis; E11.9 Type 2 diabetes mellitus without complications; E03.9 Hypothyroidism, unspecified; Z79.899 Other long term (current) drug therapy; Z79.51 Long term (current) use of inhaled steroids; Z99.81 Dependence on supplemental oxygen; Z88.8 Allergy status to other drugs, medicaments and biological substances; Z79.84 Long term (current) use of oral hypoglycemic drugs
CPT/HCPCS: 36415; 85025; 99283; A9270-GY

== ENCOUNTER 2023-12-25 16:24 | Emergency (ER) | payer MEDICARE, BC ==
[2023-12-25 16:59] LABS: HEMATOCRIT 35.9 % (40.0-54.0); HEMOGLOBIN 11.6 g/dL (14.0-18.0); MEAN CORPUSCULAR HGB CONC 32.3 g/dL (33.0-35.0); PLATELET COUNT,PLT 181 10^3/uL (150-450); RED BLOOD CELL COUNT 3.52 10^6/uL (4.6-6.2)
[2023-12-25 17:02] LABS: BASOPHILS PERCENT AUTO 1.4 % (0.0-1.0); EOSINOPHILS PERCENT AUTO 1.4 % (1.0-3.0); LYMPHOCYTES PERCENT AUTO 10.3 % (20.5-50.1); MONOCYTES PERCENT AUTO 8.7 % (2-8); NEUTROPHILS PERCENT AUTO 78.2 % (42.2-75.2)
[2023-12-25] MEDS: Magnesium Sulfate/Water 2 GM in Premix Bag 1 BAG IV ONE (17:17)
[2023-12-25] MEDS: Dexamethasone 4 MG/ML SDV IVPUSH ONE (17:17)
[2023-12-25 17:24] LABS: LACTIC ACID 1.7 mmol/L (0.4-2.0)
[2023-12-25] MEDS: Albuterol/Ipratropium 3.0-0.5 MG/3 ML Neb Soln NEB ONE (17:28)
[2023-12-25 17:36] LABS: ALANINE AMINOTRANSFERASE,ALT 26 U/L (16-63); ALBUMIN 3.2 g/dL (3.4-5.0); ALKALINE PHOSPHATASE 109 U/L (46-116); ANION GAP 11.6 mEq/L (7-13); ASPARTATE AMNIOTRANSFERASE,AST 13 U/L (15-37); BILIRUBIN TOTAL 0.4 mg/dL (0.2-1.0); BLOOD UREA NITROGEN,BUN 20 mg/dL (7-18); BUN/CREATININE RATIO 16.4 (No establ ref range); C-REACTIVE PROTEIN 2.46 ng/dL (<=0.50); CALCIUM 8.4 mg/dL (8.5-10.1); CARBON DIOXIDE,CO2 30 mmol/L (21-32); CHLORIDE,CL 106 mmol/L (98-107); CREATININE 1.22 mg/dL (0.70-1.30); EST CRCL DRUG DOSING (CG) 37.04 mL/min; GLUCOSE RANDOM 175 mg/dL (70-99); MAGNESIUM 1.5 mg/dL (1.8-2.4); POTASSIUM,K 3.6 mmol/L (3.5-5.1); PROTEIN TOTAL,TP 6.8 g/dL (6.4-8.2); SODIUM,NA 144 mmol/L (136-145)
[2023-12-25 17:37] LABS: A/G RATIO 0.89; ESTIMATED GFR 57 mL/min (>=60)
[2023-12-25] MEDS: Sodium Chloride 0.9% 10 ML Syringe FLUSH PRN (18:10)
[2023-12-25 18:14] LABS: BAND PERCENT MAN 2 %; EOSINOPHILS PERCENT MAN 2 % (1-3); LYMPHOCYTES PERCENT MAN 6 % (20-50); MONOCYTES PERCENT MAN 4 % (2-8); SEG NEUTROPHILS PERCENT MAN 86 % (42-75)
[2023-12-25 18:22] VITALS: BP 107/49; PULSE 92
== END 2023-12-25 18:41 | disposition home or self-care (01) ==
LOC: DL.ED 16:24
DX: J44.1 Chronic obstructive pulmonary disease with (acute) exacerbation (principal); E78.00 Pure hypercholesterolemia, unspecified; E11.9 Type 2 diabetes mellitus without complications; Z88.8 Allergy status to other drugs, medicaments and biological substances; Z79.899 Other long term (current) drug therapy; Z79.84 Long term (current) use of oral hypoglycemic drugs
CPT/HCPCS: 36415; 71045; 80053; 83605; 83735; 84145; 85025; 86140; 87040; 93005; 93010; 94640; 96365; 96375; 99284; 99285; J1100; J3475; J3490; J7620-GY

== ENCOUNTER 2023-12-28 17:43 | Inpatient (IN) | payer MEDICARE, BC ==
[2023-12-28] MEDS: Albuterol/Ipratropium 3.0-0.5 MG/3 ML Neb Soln ONE (18:27)
[2023-12-28] MEDS: Sodium Chloride 0.9% 10 ML Syringe FLUSH PRN (18:31)
[2023-12-28 18:33] LABS: BASOPHILS PERCENT AUTO 1.4 % (0.0-1.0); HEMATOCRIT 34.8 % (40.0-54.0); HEMOGLOBIN 11.4 g/dL (14.0-18.0); LYMPHOCYTES PERCENT AUTO 2.5 % (20.5-50.1); MEAN CORPUSCULAR HEMOGLOBIN 32.9 pg (27.0-34.0); MEAN CORPUSCULAR HGB CONC 32.8 g/dL (33.0-35.0); MEAN CORPUSCULAR VOLUME 100.3 fL (80-100); MONOCYTES PERCENT AUTO 4.5 % (2-8); NEUTROPHILS PERCENT AUTO 91.6 % (42.2-75.2); PLATELET COUNT,PLT 184 10^3/uL (150-450); RED BLOOD CELL COUNT 3.47 10^6/uL (4.6-6.2); WHITE BLOOD CELL COUNT,WBC 8.3 10^3/uL (5.0-10.0)
[2023-12-28 19:06] LABS: A/G RATIO 0.91; ALBUMIN 3.1 g/dL (3.4-5.0); ANION GAP 12.7 mEq/L (7-13); BILIRUBIN TOTAL 0.8 mg/dL (0.2-1.0); BUN/CREATININE RATIO 18.9 (No establ ref range); CALCIUM 8.7 mg/dL (8.5-10.1); CREATININE 1.06 mg/dL (0.70-1.30); EST CRCL DRUG DOSING (CG) 44.17 mL/min; POTASSIUM,K 3.7 mmol/L (3.5-5.1); PROTEIN TOTAL,TP 6.5 g/dL (6.4-8.2)
[2023-12-28] MEDS: cefTRIAXone 1 GM Vial IVPUSH ONE (19:55)
[2023-12-28] MEDS: methylPREDNISolone Sodium Succinate 125 MG/2 ML SDV IVPUSH ONE (19:58)
[2023-12-28 20:00] LABS: BASE EXCESS ARTERIAL 3 mmol/L ((-2)-(+3)); BICARBONATE,ARTERIAL 27.5 mmol/L (22-26); O2 DELIVERY DEVICE HI FLOW NASAL CANNU; O2 SATURATION ARTERIAL 92 % (95-100); PCO2 ARTERIAL 44 mmHg (35-45); PH,ARTERIAL 7.41 (7.35-7.45); PO2 ARTERIAL 62 mmHg (70-100)
[2023-12-28 20:01] LABS: ALLEN TEST PERFORMED
[2023-12-28] MEDS ORDERED: Ondansetron 4 MG Tab.DIS PO PRN (20:35)
[2023-12-28] MEDS ORDERED: Acetaminophen/HYDROcodone 325-5 MG Tab PO PRN (20:35)
[2023-12-28] MEDS ORDERED: Albuterol/Ipratropium 3.0-0.5 MG/3 ML Neb Soln NEB PRN (20:35)
[2023-12-28] MEDS ORDERED: Glucagon,Human Recombinant 1 MG Vial IM PRN (20:44)
[2023-12-28] MEDS ORDERED: 50% Dextrose in Water 50 ML Syringe IVPUSH PRN (20:44)
[2023-12-28] MEDS: Furosemide 40 MG/4 ML VIAL IVPUSH ONE (21:17)
[2023-12-28] MEDS: methylPREDNISolone Sodium Succinate 40 MG/1 ML SDV IVPUSH SCH (21:18)
[2023-12-28] MEDS: Albuterol/Ipratropium 3.0-0.5 MG/3 ML Neb Soln NEB ONE (21:22)
[2023-12-28] MEDS: Insulin Lispro 100 Units/ML 3 ML Vial SUBCUT SCH (21:22)
[2023-12-28] MEDS: Azithromycin 500 MG in Sodium Chloride 0.9% 250 ML IV SCH (21:22)
[2023-12-28 23:15] LABS: APPEARANCE,URINE CLEAR (CLEAR); BILIRUBIN,URINE NEGATIVE (NEGATIVE); COLOR,URINE YELLOW (YELLOW); GLUCOSE,URINE 500 (NEGATIVE); KETONES,URINE NEGATIVE (NEGATIVE); LEUKOCYTE ESTERASE,URINE TRACE (NEGATIVE); NITRITE,URINE NEGATIVE (NEGATIVE); OCCULT BLOOD,URINE NEGATIVE (NEGATIVE); PROTEIN,URINE NEGATIVE (NEGATIVE); UROBILINOGEN,URINE 0.2 mg/dL (0.2-1.0)
[2023-12-28 23:22] LABS: BACTERIA,URINE FEW /HPF (0-FEW/HPF); EPITHELIAL CELLS,URINE FEW /HPF (NOT SEEN); MUCUS,URINE OCCASIONAL /LPF (NOT SEEN); RBC,URINE 0-5 /HPF (0-5); YEAST,URINE FEW /HPF (NOT SEEN)
[2023-12-29] MEDS: Sodium Chloride 0.9% 1,000 ML IV SCH (00:10)
[2023-12-29 06:18] LABS: BASOPHILS PERCENT AUTO 0.8 % (0.0-1.0); HEMATOCRIT 35.1 % (40.0-54.0); HEMOGLOBIN 11.6 g/dL (14.0-18.0); LYMPHOCYTES PERCENT AUTO 2.9 % (20.5-50.1); MEAN CORPUSCULAR HEMOGLOBIN 32.7 pg (27.0-34.0); MEAN CORPUSCULAR VOLUME 98.9 fL (80-100); MONOCYTES PERCENT AUTO 2.1 % (2-8); NEUTROPHILS PERCENT AUTO 94.2 % (42.2-75.2); PLATELET COUNT,PLT 183 10^3/uL (150-450); RED BLOOD CELL COUNT 3.55 10^6/uL (4.6-6.2); WHITE BLOOD CELL COUNT,WBC 6.7 10^3/uL (5.0-10.0)
[2023-12-29 06:32] LABS: ANION GAP 14.6 mEq/L (7-13); CALCIUM 8.6 mg/dL (8.5-10.1); CREATININE 1.3 mg/dL (0.70-1.30); EST CRCL DRUG DOSING (CG) 38.52 mL/min; POTASSIUM,K 3.6 mmol/L (3.5-5.1)
[2023-12-29] MEDS: Furosemide 40 MG/4 ML VIAL IVPUSH ONE (08:07)
[2023-12-29] MEDS: Omeprazole 20 MG Cap.CR PO SCH (08:08)
[2023-12-29] MEDS: Finasteride 5 MG Tab PO SCH (08:08)
[2023-12-29] MEDS: Acetaminophen 325 MG Tab PO PRN (08:08)
[2023-12-29] MEDS: Potassium Chloride 10 MEQ Tab.ER PO ONE (08:08)
[2023-12-29] MEDS: Enoxaparin 40 MG/0.4 ML Syringe SUBCUT SCH (08:09)
[2023-12-29] MEDS: metFORMIN 500 MG Tab PO SCH ×2 (08:16→17:12)
[2023-12-29] MEDS: cefTRIAXone 1 GM Vial IVPUSH SCH (21:15)
[2023-12-29] MEDS: atorvaSTATin 10 MG Tab PO SCH (21:16)
[2023-12-29] MEDS: Tamsulosin 0.4 MG Cap.ER PO SCH (21:16)
[2023-12-30] MEDS: Levothyroxine 50 MCG Tab PO SCH (05:10)
[2023-12-30 06:12] LABS: HEMATOCRIT 33.9 % (40.0-54.0); HEMOGLOBIN 11.2 g/dL (14.0-18.0); MEAN CORPUSCULAR HEMOGLOBIN 32.6 pg (27.0-34.0); MEAN CORPUSCULAR VOLUME 98.5 fL (80-100); PLATELET COUNT,PLT 188 10^3/uL (150-450); RED BLOOD CELL COUNT 3.44 10^6/uL (4.6-6.2); WHITE BLOOD CELL COUNT,WBC 8.6 10^3/uL (5.0-10.0)
[2023-12-30 06:14] LABS: LYMPHOCYTES PERCENT AUTO 3.7 % (20.5-50.1); NEUTROPHILS PERCENT AUTO 90.4 % (42.2-75.2)
[2023-12-30 06:15] LABS: BASOPHILS PERCENT AUTO 0.9 % (0.0-1.0)
[2023-12-30 06:26] LABS: ANION GAP 13.3 mEq/L (7-13); CALCIUM 8.2 mg/dL (8.5-10.1); CREATININE 1.14 mg/dL (0.70-1.30); EST CRCL DRUG DOSING (CG) 43.93 mL/min; POTASSIUM,K 3.3 mmol/L (3.5-5.1)
[2023-12-30 06:42] LABS: BAND PERCENT MAN 1 %; LYMPHOCYTES PERCENT MAN 3 % (20-50); SEG NEUTROPHILS PERCENT MAN 93 % (42-75)
[2023-12-30 06:43] LABS: MONOCYTES PERCENT MAN 3 % (2-8)
[2023-12-30] MEDS: Potassium Chloride 10 MEQ Tab.ER PO ONE (08:38)
[2023-12-30] MEDS: Furosemide 100 MG/10 ML SDV IVPUSH ONE (13:18)
[2023-12-31] MEDS: Sodium Chloride 0.9% 10 ML Syringe FLUSH PRN (05:17)
[2023-12-31 06:26] LABS: BASOPHILS PERCENT AUTO 0.8 % (0.0-1.0); HEMATOCRIT 36.8 % (40.0-54.0); HEMOGLOBIN 12.1 g/dL (14.0-18.0); LYMPHOCYTES PERCENT AUTO 4.3 % (20.5-50.1); MEAN CORPUSCULAR HEMOGLOBIN 32.8 pg (27.0-34.0); MEAN CORPUSCULAR HGB CONC 32.9 g/dL (33.0-35.0); MEAN CORPUSCULAR VOLUME 99.7 fL (80-100); MONOCYTES PERCENT AUTO 5.2 % (2-8); NEUTROPHILS PERCENT AUTO 89.7 % (42.2-75.2); PLATELET COUNT,PLT 203 10^3/uL (150-450); RED BLOOD CELL COUNT 3.69 10^6/uL (4.6-6.2); WHITE BLOOD CELL COUNT,WBC 8.8 10^3/uL (5.0-10.0)
[2023-12-31 06:45] LABS: ANION GAP 10.1 mEq/L (7-13); CALCIUM 8.6 mg/dL (8.5-10.1); CREATININE 1.15 mg/dL (0.70-1.30); EST CRCL DRUG DOSING (CG) 43.55 mL/min; POTASSIUM,K 4.1 mmol/L (3.5-5.1)
[2023-12-31] MEDS: Iopamidol 755 Mg/ML 100 ML Bottle IVPUSH ONE (10:02)
[2023-12-31] MEDS ORDERED: Piperacillin/Tazobactam 3.375 GM in Sodium Chloride 0.9% 100 ML IV SCH (12:00)
[2023-12-31] MEDS: Piperacillin/Tazobactam 3.375 GM in Sodium Chloride 0.9% 100 ML IV ONE (12:15)
[2023-12-31] MEDS: Piperacillin/Tazobactam 4.5 GM in Sodium Chloride 0.9% 100 ML IV SCH (15:46)
[2024-01-01 06:47] LABS: CREATININE 0.99 mg/dL (0.70-1.30); EST CRCL DRUG DOSING (CG) 50.59 mL/min; VANCOMYCIN RANDOM 5.6 ug/mL (No Normal Range)
[2024-01-02 06:18] LABS: HEMATOCRIT 36.7 % (40.0-54.0); HEMOGLOBIN 12.1 g/dL (14.0-18.0); MEAN CORPUSCULAR HEMOGLOBIN 32.2 pg (27.0-34.0); MEAN CORPUSCULAR VOLUME 97.6 fL (80-100); PLATELET COUNT,PLT 164 10^3/uL (150-450); RED BLOOD CELL COUNT 3.76 10^6/uL (4.6-6.2); WHITE BLOOD CELL COUNT,WBC 9.2 10^3/uL (5.0-10.0)
[2024-01-02 06:26] LABS: BASOPHILS PERCENT AUTO 0.9 % (0.0-1.0); LYMPHOCYTES PERCENT AUTO 3.4 % (20.5-50.1); MONOCYTES PERCENT AUTO 5.2 % (2-8); NEUTROPHILS PERCENT AUTO 90.5 % (42.2-75.2)
[2024-01-02 06:38] LABS: ANION GAP 10.6 mEq/L (7-13); CALCIUM 8.7 mg/dL (8.5-10.1); CREATININE 1.04 mg/dL (0.70-1.30); EST CRCL DRUG DOSING (CG) 48.15 mL/min; POTASSIUM,K 3.6 mmol/L (3.5-5.1)
[2024-01-02 06:51] LABS: LYMPHOCYTES PERCENT MAN 3 % (20-50); MONOCYTES PERCENT MAN 3 % (2-8); SEG NEUTROPHILS PERCENT MAN 94 % (42-75)
[2024-01-02] MEDS: Docusate Sodium 100 MG Cap PO PRN (08:45)
[2024-01-02] MEDS: Furosemide 20 MG/2 ML VIAL IVPUSH SCH (12:13)
[2024-01-02] MEDS: Tiotropium Bromide 4 GM Inhalation Spray (2.5mcg/1 dose; 10 doses) INH SCH (12:23)
[2024-01-02] MEDS ORDERED: Glucagon,Human Recombinant 1 MG Vial IM PRN ×2 (16:44→16:56)
[2024-01-02] MEDS ORDERED: 50% Dextrose in Water 50 ML Syringe IVPUSH PRN ×2 (16:44→16:56)
[2024-01-02] MEDS: Budesonide 0.5 MG/2 ML Neb Susp NEB SCH (17:47)
[2024-01-02] MEDS: Insulin Lispro 100 Units/ML 3 ML Vial SUBCUT SCH (17:47)
[2024-01-02] MEDS ORDERED: Insulin Lispro 100 Units/ML 3 ML Vial SUBCUT SCH (18:00)
[2024-01-03 06:17] LABS: HEMATOCRIT 35.9 % (40.0-54.0); HEMOGLOBIN 11.8 g/dL (14.0-18.0); MEAN CORPUSCULAR HEMOGLOBIN 32.1 pg (27.0-34.0); MEAN CORPUSCULAR HGB CONC 32.9 g/dL (33.0-35.0); MEAN CORPUSCULAR VOLUME 97.6 fL (80-100); PLATELET COUNT,PLT 160 10^3/uL (150-450); RED BLOOD CELL COUNT 3.68 10^6/uL (4.6-6.2); WHITE BLOOD CELL COUNT,WBC 10.6 10^3/uL (5.0-10.0)
[2024-01-03 06:51] LABS: ANION GAP 10.4 mEq/L (7-13); CALCIUM 8.2 mg/dL (8.5-10.1); CREATININE 1.15 mg/dL (0.70-1.30); EST CRCL DRUG DOSING (CG) 43.55 mL/min; POTASSIUM,K 3.4 mmol/L (3.5-5.1)
[2024-01-03 06:57] LABS: BASOPHILS PERCENT AUTO 0.8 % (0.0-1.0); LYMPHOCYTES PERCENT AUTO 2.4 % (20.5-50.1); MONOCYTES PERCENT AUTO 4.1 % (2-8); NEUTROPHILS PERCENT AUTO 92.7 % (42.2-75.2)
[2024-01-03 06:58] LABS: BAND PERCENT MAN 3 %; LYMPHOCYTES PERCENT MAN 5 % (20-50); MONOCYTES PERCENT MAN 6 % (2-8); SEG NEUTROPHILS PERCENT MAN 86 % (42-75)
[2024-01-03] MEDS: Potassium Chloride 10 MEQ Tab.ER PO SCH (08:31)
[2024-01-03 09:45] LABS: INFLUENZA A NAA NEGATIVE (NEGATIVE); INFLUENZA B NAA NEGATIVE (NEGATIVE); RESPIRATORY SYNCYTIAL VIR NAA NEGATIVE (NEGATIVE)
[2024-01-03 09:50] LABS: CORONAVIRUS COVID-19 NAA POSITIVE (NEGATIVE)
[2024-01-03] MEDS: REMDESIVIR 200 MG in Sodium Chloride 0.9% 250 ML IV ONE (12:33)
[2024-01-03] MEDS: Tocilizumab 80 MG in Sodium Chloride 0.9% 100 ML IV ONE ×3 (12:50→17:05)
[2024-01-03] MEDS ORDERED: Tocilizumab 80 MG in Sodium Chloride 0.9% 100 ML IV ONE (16:15)
[2024-01-03] MEDS ORDERED: Polyvinyl Alcohol 1.4% Ophth Soln 15 ML Bottle EYEBOTH PRN (19:10)
[2024-01-03] MEDS: Melatonin 3 MG Tab PO PRN (20:01)
[2024-01-04] MEDS: Piperacillin/Tazobactam 4.5 GM in Sodium Chloride 0.9% 100 ML IV SCH (03:00)
[2024-01-04 06:19] LABS: HEMOGLOBIN 11.6 g/dL (14.0-18.0); MEAN CORPUSCULAR HGB CONC 33.1 g/dL (33.0-35.0); MEAN CORPUSCULAR VOLUME 96.4 fL (80-100); PLATELET COUNT,PLT 145 10^3/uL (150-450); RED BLOOD CELL COUNT 3.63 10^6/uL (4.6-6.2); WHITE BLOOD CELL COUNT,WBC 9.7 10^3/uL (5.0-10.0)
[2024-01-04 06:23] LABS: LYMPHOCYTES PERCENT AUTO 2.9 % (20.5-50.1); MONOCYTES PERCENT AUTO 3.4 % (2-8)
[2024-01-04 06:24] LABS: NEUTROPHILS PERCENT AUTO 92.7 % (42.2-75.2)
[2024-01-04 06:29] LABS: ANION GAP 10.5 mEq/L (7-13); CALCIUM 8.4 mg/dL (8.5-10.1); CREATININE 1.1 mg/dL (0.70-1.30); EST CRCL DRUG DOSING (CG) 45.53 mL/min; POTASSIUM,K 3.5 mmol/L (3.5-5.1)
[2024-01-04 07:09] LABS: LYMPHOCYTES PERCENT MAN 4 % (20-50); SEG NEUTROPHILS PERCENT MAN 95 % (42-75)
[2024-01-04 07:10] LABS: MONOCYTES PERCENT MAN 1 % (2-8)
[2024-01-04] MEDS: REMDESIVIR 100 MG in Sodium Chloride 0.9% 100 ML IV SCH (10:29)
[2024-01-04 19:25] VITALS: BP 136/58
[2024-01-05] MEDS: LORazepam 2 MG/ML SDV IV PRN (01:21)
[2024-01-05] MEDS: Morphine 2 MG/ML SYRINGE IV PRN (01:21)
[2024-01-05] MEDS ORDERED: Piperacillin/Tazobactam 4.5 GM in Sodium Chloride 0.9% 100 ML IV SCH (03:00)
[2024-01-05] MEDS ORDERED: TOCILIZUMAB IV ONE (12:15)
[2024-01-05] MEDS ORDERED: SODIUM CHLORIDE 0.9% IV ONE (12:15)
[2024-01-05 16:25] VITALS: PULSE 82
== END 2024-01-06 10:17 | DRG 193 ==
LOC: DL.ED 17:43 → DL.MS 20:28
PROVIDERS: ADMIT Internal Medicine; ATTEND Internal Medicine
PROC: XW033E5 Introduction of Remdesivir Anti-infective into Peripheral Vein, Percutaneous Approach, New Technology Group 5 (ICD-10-PCS; principal; 2024-01-03)
PROC: 5A0945A Assistance with Respiratory Ventilation, 24-96 Consecutive Hours, High Flow/Velocity Cannula (ICD-10-PCS; 2024-01-03)
PROC: 5A0935A Assistance with Respiratory Ventilation, Less than 24 Consecutive Hours, High Flow/Velocity Cannula (ICD-10-PCS; 2024-01-04)
PROC: 5A09357 Assistance with Respiratory Ventilation, Less than 24 Consecutive Hours, Continuous Positive Airway Pressure (ICD-10-PCS; 2024-01-04)
DX: J18.9 Pneumonia, unspecified organism (principal); J44.9 Chronic obstructive pulmonary disease, unspecified; J96.21 Acute and chronic respiratory failure with hypoxia; E11.9 Type 2 diabetes mellitus without complications; U07.1 COVID-19; J44.0 Chronic obstructive pulmonary disease with (acute) lower respiratory infection; J44.1 Chronic obstructive pulmonary disease with (acute) exacerbation; Z66 Do not resuscitate; Z51.5 Encounter for palliative care; N40.1 Benign prostatic hyperplasia with lower urinary tract symptoms; E11.40 Type 2 diabetes mellitus with diabetic neuropathy, unspecified; K21.9 Gastro-esophageal reflux disease without esophagitis; M19.90 Unspecified osteoarthritis, unspecified site; H91.90 Unspecified hearing loss, unspecified ear; E78.00 Pure hypercholesterolemia, unspecified; E03.9 Hypothyroidism, unspecified; R33.8 Other retention of urine; M54.9 Dorsalgia, unspecified; D64.9 Anemia, unspecified; G89.29 Other chronic pain; E87.6 Hypokalemia; Z88.1 Allergy status to other antibiotic agents; Z88.8 Allergy status to other drugs, medicaments and biological substances; Z79.51 Long term (current) use of inhaled steroids; Z99.81 Dependence on supplemental oxygen; Z79.84 Long term (current) use of oral hypoglycemic drugs; Z90.49 Acquired absence of other specified parts of digestive tract; Z87.891 Personal history of nicotine dependence; Z79.890 Hormone replacement therapy; Z79.899 Other long term (current) drug therapy
CPT/HCPCS: 0241U; 36415; 36600; 51702; 51798; 71045; 71275; 80048; 80053; 80202; 81001; 82565; 82803; 82947; 83605; 83880; 84484; 85025; 85379; 86140; 87040; 87086; 87088; 87186; 93005; 93010; 94640; 94660; 94664; 94762; 96374; 96375; 99233; 99238; 99285; 99285-25; A9270-GY; J0248; J0456; J0696; J1650; J1815-GY; J1940; J2060; J2270; J2543; J2920; J2930; J3370; J3490; J7030; J7050; J7620-GY; M0249; Q0249; Q9967

== ENCOUNTER 2024-01-06 08:50 | Inpatient (IN) | payer MEDICARE, BC ==
[2024-01-06] MEDS ORDERED: Ondansetron 4 MG Tab.DIS PO PRN (10:13)
[2024-01-06] MEDS ORDERED: Polyvinyl Alcohol 1.4% Ophth Soln 15 ML Bottle EYEBOTH PRN (10:13)
[2024-01-06] MEDS ORDERED: Acetaminophen 325 MG Tab PO PRN (10:13)
[2024-01-06] MEDS ORDERED: Albuterol/Ipratropium 3.0-0.5 MG/3 ML Neb Soln NEB PRN (10:13)
[2024-01-06] MEDS ORDERED: 50% Dextrose in Water 50 ML Syringe IVPUSH PRN (10:13)
[2024-01-06] MEDS ORDERED: Sodium Chloride 0.9% 10 ML Syringe FLUSH PRN ×2 (10:13)
[2024-01-06] MEDS ORDERED: Docusate Sodium 100 MG Cap PO PRN (10:13)
[2024-01-06] MEDS ORDERED: Acetaminophen/HYDROcodone 325-5 MG Tab PO PRN (10:13)
[2024-01-06] MEDS: Atropine 1% Ophth Soln 5 ML Bottle SL PRN (15:15)
[2024-01-06] MEDS: LORazepam 2 MG/ML SDV IV PRN (15:16)
[2024-01-06] MEDS: Morphine 2 MG/ML SYRINGE IV PRN (15:16)
[2024-01-06 15:25] VITALS: BP 117/63; PULSE 93
== END 2024-01-08 03:45 | disposition expired | DRG 951 ==
LOC: DL.MS 10:33
PROVIDERS: ADMIT Internal Medicine; ATTEND Internal Medicine
DX: Z51.5 Encounter for palliative care (principal); J96.21 Acute and chronic respiratory failure with hypoxia; J18.9 Pneumonia, unspecified organism; U07.1 COVID-19; Z66 Do not resuscitate; J44.9 Chronic obstructive pulmonary disease, unspecified; K21.9 Gastro-esophageal reflux disease without esophagitis; N40.0 Benign prostatic hyperplasia without lower urinary tract symptoms; E03.9 Hypothyroidism, unspecified; H91.90 Unspecified hearing loss, unspecified ear; H54.7 Unspecified visual loss; E78.00 Pure hypercholesterolemia, unspecified; M19.90 Unspecified osteoarthritis, unspecified site; M54.9 Dorsalgia, unspecified; G89.29 Other chronic pain; F41.9 Anxiety disorder, unspecified; E11.40 Type 2 diabetes mellitus with diabetic neuropathy, unspecified; Z99.81 Dependence on supplemental oxygen; Z87.01 Personal history of pneumonia (recurrent); Z79.84 Long term (current) use of oral hypoglycemic drugs; Z79.899 Other long term (current) drug therapy; Z90.49 Acquired absence of other specified parts of digestive tract
CPT/HCPCS: A9270-GY; J2060; J2270